=== PATIENT | female | born 1950 | race Caucasian/White ===

== ENCOUNTER → 2018-01-31 12:21 | Outpatient (CLI) | payer MEDICARE, SELFPAY ==
--- NOTE | 2018-01-31 12:24 | BI_ITS ---
MAMMOGRAPHY - BILATERAL SCREENING REASON FOR EXAM: Female, 67 years old. Routine annual screening examination. PERTINENT HISTORY: Grandmother with breast cancer. Prior bilateral stereotactic breast biopsies. TECHNIQUE: Digital bilateral breast manoj (3D mammographic acquisition) in the CC and MLO projections. 2-D mediolateral oblique (MLO) and craniocaudad (CC) views of both breasts were obtained. CAD: Full Field Digital Mammography with Computer Added Detection was performed. COMPARISON: Comparison is made with prior study dated January 01, 2017 and December 30, 2015. FINDINGS: Breast Composition: The breasts are heterogeneously dense, which may obscure small masses. There are no dominant masses or suspicious calcifications. Stable appearance of the diffuse bilateral microcalcifications. Bilateral tissue markers are seen. No other significant abnormalities are identified. There has been no significant change since the prior study. BI/SCREENING MAMM (CAD), BILAT IMPRESSION: Stable bilateral screening mammogram. Yearly follow-up mammogram recommended. (A) ASSESSMENT CATEGORY: BIRADS Category 2: Benign. A letter regarding these results will be sent to the patient by the facility within 30 days. Approximately 10% of breast cancers are not detected by mammography. A normal mammogram should not delay biopsy of a clinically suspicious abnormality. [id number] Electronically Signed: James Baker MD at 14:38 EDT Tel [phone], Service support ,
--- NOTE | 2018-01-31 12:30 | BD_ITS ---
STUDY: DUAL ENERGY X-RAY ABSORPTIOMETRY / DXA REASON FOR EXAM: Female, 67 years old. The patient is postmenopausal. Loss of height. TECHNIQUE: Bone Mineral Density (BMD) measurements of lumbar spine and bilateral hips were obtained. COMPARISON: Comparison is made with prior study dated May 20, 2002. FINDINGS: Lumbar Spine (L1-L4): g/cm2 (1.278) / T-score (0.6) / Z-score (2.3) Findings are suggestive of normal bone density with a low fracture risk. Left Femur Total: g/cm2 (0.859) / T-score (-1.2) / Z-score (0.2) Left Femoral Neck: g/cm2 (0.902) / T-score (-1.0) / Z-score (0.7) Right Femur Total: g/cm2 (0.859) / T-score (-1.2) / Z-score (0.2) Right Femoral Neck: g/cm2 (0.911) / T-score (0.9) / Z-score (0.7) The T-Scores on the most recent prior examination were: Lumbar Spine (L1-L4): There has been worsening of bone density since the previous examination. Left Femur Total: which represents a worsening of 15.5%. BD/Dexa Bone Density Study IMPRESSION: The patient is considered osteopenic as outlined below according to World Geoff Organization (WHO) criteria with a moderate fracture risk. There has been worsening of bone density since the previous examination. Reference Information: The T-score is the number of standard deviations above or below the standard which is normal for young adults at their peak bone mineral density. The World Health Organization (WHO) interprets the T-scores as follows: Above -1 Normal bone density Between -1 and -2.5 Osteopenia Equal to / or below -2.5 Osteoporosis As a practical clinical guideline, osteopenia may be graded as follows: Mild -1 through -1.5 Moderate -1.6 through -2.0 Severe -2.1 through -2.4 The Z-score is the number of standard deviations above or below age-matched controls. A Z-score of less than -1.5 would be considered abnormal. References: 1. NIH Osteoporosis and Related Bone Diseases http://www.osteo.org 2. International Society for Clinical Densitometry http://www.iscd.org 3. National Osteoporosis Foundation http://www.nof.org Electronically Signed: James Baker MD at 13:52 EDT Tel [phone], Service support ,
== END ==
PROVIDERS: Family Provider Internal Medicine; PCP Internal Medicine; Visit Provider Internal Medicine
DX: Z12.31 Encounter for screening mammogram for malignant neoplasm of breast (principal); Z78.0 Asymptomatic menopausal state
CPT/HCPCS: 77063; 77067; 77080

== ENCOUNTER 2018-07-01 09:51 | Day surgery (SDC) | payer MEDICARE, SELFPAY ==
--- NOTE | 2018-06-24 15:26 | EKG12_ITS ---
Test Reason : PREOP Blood Pressure : / mmHG Vent. Rate : 065 BPM Atrial Rate : 065 BPM P-R Int : 190 ms QRS Dur : 066 ms QT Int : 396 ms P-R-T Axes : 037 011 023 degrees QTc Int : 411 ms Normal sinus rhythm Low voltage QRS Borderline ECG Confirmed by VALENTIN ROJAS, HARVEY ([id number]), video editor MARLEN MAYS ([id number]) on 06/25/2018 2:28:14 PM Referred By: Robert Lozada Confirmed By:HARVEY HANSON MD
[2018-06-24 17:09] LABS: Hematocrit 38.2 % (37-47); Hemoglobin 12.4 g/dl (12.0-15.0); Mean Corp Hgb Conc 32.5 g/gl (32-36); Mean Corpuscular Volume 101.6 fL (81-99); Mean Platelet Vol. 9.3 fl (6.2-12.0); Platelet Count 228 K/mm3 (150-450); RBC Distribution Width CV 12.9 % (11.6-14.6); Red Blood Count 3.76 M/mm3 (4.2-5.4); White Blood Count 5.3 K/mm3 (4.4-11.0)
[2018-06-24 17:14] LABS: Scan Indicated on CBC? Y/N NO
[2018-06-24 17:54] LABS: Anion Gap 9 (5-15); BUN 25 mg/dL (7-18); BUN/Creat Ratio 36.4 RATIO (10-20); Calcium,Total 9.4 mg/dL (8.5-10.1); Chloride 105 mmol/L (98-107); Creatinine, Serum 0.69 mg/dL (0.55-1.02); EST Glomerular Filtration Rate 90 mL/min (>60); Est Glom Filt Rate - Afr Amer 109 mL/min (>60); Glucose 80 mg/dL (74-106); Potassium 4.4 mmol/L (3.5-5.1); Sodium Level 141 mmol/L (136-145)
[2018-07-01] VITALS (7 sets, daily range): BP systolic 98–138; BP diastolic 69–82; PULSE 65–78; RESP 16–18; TEMP 36.1–37.2; O2SAT 97–100; BMI 19.8
[2018-07-01] MEDS: Cefazolin 2 GM in 0.9% Normal Saline 100 ML IV (11:51)
--- NOTE | 2018-07-01 11:56 | DCINST_ITS ---
Discharge Diet: Light diet - advance as tolerated - if you have questions about your diet instructions, please talk to you doctor. Discharge Activity: May Not Drive - for 1 week or while taking narcotic pain medicine. May shower in (days): 1 Lifting Restrictions: 10 pounds Call your doctor if your incision/area has: Continuous Slow Oozing, Sudden Increased Bleeding, Increased Pain/ Swelling, Increased Redness, Foul Smelling Discharge Call your doctor if you observe: Fever of 101 or Higher Suture Line Care: Avoid Pulling/Pushing, Avoid Pinching/Bending Additional Dressing/Incision Instructions:: Change or remove dressing in 4 days. Leave steri-strips in place for 1 week. Allergies/Adverse Reactions: Allergies garlic Adverse Reaction (Verified 06/24/18 11:07) Nausea/Vom/Diarrhea Medications to take at Discharge Magnesium 250 mg PO DAILY 06/24/18 aspirin 81 mg tablet,delayed release 81 mg PO DAILY 06/24/18 biotin 5,000 mcg sublingual tablet 5,000 mcg SUBLINGUAL DAILY 06/24/18 calcium carbonate 333 mg-magnesium oxide 133 mg-zinc sulf 5 mg tablet 3 tab PO DAILY 06/24/18 cholecalciferol (vitamin D3) 5,000 unit capsule 5,000 unit PO DAILY 06/24/18 coenzyme [id number] E 100 mg-100 unit capsule 1 cap PO DAILY cap 06/24/18 gabapentin 300 mg capsule 300 mg PO TID 06/24/18 glucosamine 750 ks-dajiifbsiqg-fld no1 625 mg-C 30 mg-oj 1 mg tablet 1 tab PO BID tab 06/24/18 krill oil 1,000 mg-om3 130 mg-dha 40 mg-epa 80 lu-lg6-siv-astax cap 1 cap PO DAILY cap 06/24/18 meloxicam 15 mg tablet 15 mg PO DAILY 06/24/18 multivitamin tablet 1 tab PO DAILY 06/24/18 pravastatin 40 mg tablet 40 mg PO DAILY 06/24/18 vitamin B complex tablet 1 tab PO DAILY 06/24/18 Hydrocodone Bitart/Apap 5-325 [[place] 5MG-325MG] 1 tablet PO Q6H PRN PRN 2 Days #5 tablet 07/01/18 The following prescriptions were given: Hydrocodone Bitart/Apap 5-325 [[place] 5MG-325MG] 1 tablet PO Q6H PRN PRN 2 Days #5 tablet PRN Reason: Pain Primary Care Physician: Susan Rojas DO [Primary Care Provider] - Test Results: Test results from this visit will be discussed in further detail at your follow- up appointment, if applicable. Please Follow Up With: Robert Lozada MD - [phone] When: Call to make an appointment to be seen in about 10 days.
--- NOTE | 2018-07-01 12:00 | HERN_PTH ---
PATIENT: MEL JOHNSON [place] [facility] [place][id number] AGE/SX: 68/F ROOM: RE07/01/[address]: Dr. Robert Lozada MD : [id number] BED: DIS: 07/01/2018 SPEC #: [id number] RECD: 07/01/18 13:52 STATUS: CAPRI JESSICA #: [id number] ADRIANO: 07/01/18 12:[address]: Robert Lozada DEPT: SURGICAL PATHOLOGY RECD BY: Galindo Seymour ENTERED: 07/01/18 14:29 SP TYPE: Hernia OTHR DR: Dr. Susan Rojas, DO Tissues: HERNIA Procedures: Surgery Specimen Level IV HEADER OPERATION: Right inguinal herniorrhaphy with mesh PRE-OP DIAGNOSIS: Right inguinal hernia TISSUE SUBMITTED: Right inguinal cremasteric fibers MICROSCOPIC DIAGNOSIS Right inguinal cremasteric fibers, biopsy: Fragments of benign fibrovascular tissue and skeletal muscle tissue. AM:facundo 07/02/18 MICROSCOPIC DESCRIPTION Slides are reviewed. GROSS DESCRIPTION Received in fixative is one container labeled with the patient's name and designated right inguinal cremasteric fibers. The specimen consists of an irregular piece of skinner soft tissue measuring 2.5 x 2 x 0.3 cm. Sections do not reveal any mass lesion. The entire specimen is submitted in one cassette. / SJ:facundo 07/01/18 TC:5 CPT: 95404
[2018-07-01] MEDS: Bupivacaine Mpf 0.5% 30 ML VIAL (12:09)
--- NOTE | 2018-07-01 12:48 | PCM.OPRPT ---
Problem List (1) Inguinal hernia Status: Acute Qualifiers: Obstruction and gangrene presence: without obstruction or gangrene Laterality: unilateral Recurrence: non-recurrent Qualified Code(s): K40.90 - Unilateral inguinal hernia, without obstruction or gangrene, not specified as recurrent Report of Operation Date of Procedure: 07/01/18 Pre-Operative Diagnosis: Indirect right inguinal hernia Post-Operative Diagnosis: Same Surgery/Procedure Performed:: Minda right inguinal herniorrhaphy Description of Surgical Findings:: Amount informed consent was obtained. 68-year-old female taken out from placement table underwent monitored anesthesia care. 1% lidocaine mixed 50-50 with 0.5% Marcaine was used as local anesthetic. Throughout the procedure total of 13 cc was used. The right groin was sterilely prepped and draped. Local was instilled. A transverse incision was created. Sharp dissection carried down through the substance tissue. The external oblique identified incised along its fascia. Hypertrophic cremasteric fibers were incised. Indirect hernia sac was identified this was dissected free from the round ligament. The round ligament was divided and secured with 3-0 Vicryl. Then the transversalis fascia was approximated to itself starting the pubic tubercle to the internal ring resecuring the defect in a running simple fashion. A sheet of Bard mesh [facility]aped [facility] number [id number] with a reference number of [id number] expiry date 02/18/2023 was utilized. The tails were trimmed laterally. Was placed around the internal ring and secured to itself with interrupted 3-0 Ethibond. Was placed so as to cover the pubic tubercle direct and indirect space. The tails nicely placed beneath the external oblique. The mesh was secured in place with multiple interrupted 3-0 Ethibond tacking sutures. Good placement was achieved. The external oblique was approximated running 3-0 Vicryl. Skin is approximated with deep layer of interrupted 4-0 Monocryl in a running septic or 4-0 Monocryl. Steri-Strips Telfa and OpSite dressings applied. Sponge and instrument and needle counts were reported the surgeon to be correct. Blood loss minimal. Specimens fragments of cremasteric fibers. Drains none. Blood loss minimal She was taken to the recovery area in satisfactory condition without apparent complication Robert Lozada M.D., F.A.C.S. Type of Anesthesia:: Local MAC Anesthesiologist: Jazz Heller
--- NOTE | 2018-07-01 12:51 | OP.PCM_ITS ---
Problem List (1) Inguinal hernia Status: Acute Qualifiers: Obstruction and gangrene presence: without obstruction or gangrene Laterality: unilateral Recurrence: non-recurrent Qualified Code(s): K40.90 - Unilateral inguinal hernia, without obstruction or gangrene, not specified as recurrent Report of Operation Date of Procedure: 07/01/18 Pre-Operative Diagnosis: Indirect right inguinal hernia Post-Operative Diagnosis: Same Surgery/Procedure Performed:: Minda right inguinal herniorrhaphy Description of Surgical Findings:: Amount informed consent was obtained. 68-year-old female taken out from placement table underwent monitored anesthesia care. 1% lidocaine mixed 50-50 with 0.5% Marcaine was used as local anesthetic. Throughout the procedure total of 13 cc was used. The right groin was sterilely prepped and draped. Local was instilled. A transverse incision was created. Sharp dissection carried down through the substance tissue. The external oblique identified incised along its fascia. Hypertrophic cremasteric fibers were incised. Indirect hernia sac was identified this was dissected free from the round ligament. The round ligament was divided and secured with 3-0 Vicryl. Then the transversalis fascia was approximated to itself starting the pubic tubercle to the internal ring resecuring the defect in a running simple fashion. A sheet of Bard mesh preshaped [facility] lot number [id number] with a reference number of [id number] expiry date 02/18/2023 was utilized. The tails were trimmed laterally. Was placed around the internal ring and secured to itself with interrupted 3-0 Ethibond. Was placed so as to cover the pubic tubercle direct and indirect space. The tails nicely placed beneath the external oblique. The mesh was secured in place with multiple interrupted 3-0 Ethibond tacking sutures. Good placement was achieved. The external oblique was approximated running 3-0 Vicryl. Skin is approximated with deep layer of interrupted 4-0 Monocryl in a running septic or 4-0 Monocryl. Steri-Strips Telfa and OpSite dressings applied. Sponge and instrument and needle counts were reported the surgeon to be correct. Blood loss minimal. Specimens fragments of cremasteric fibers. Drains none. Blood loss minimal She was taken to the recovery area in satisfactory condition without apparent complication Robert Lozada M.D., F.A.C.S. Type of Anesthesia:: Local MAC Anesthesiologist: Jazz Heller
== END 2018-07-01 14:01 | disposition home or self-care (01) ==
LOC: SDC 09:52 → AC 09:53
PROVIDERS: Family Provider Internal Medicine; PCP Internal Medicine; Referring Provider Surgery; Visit Provider Surgery
PROC: (CPT 49505; principal; 2018-07-01 11:45)
DX: K40.90 Unilateral inguinal hernia, without obstruction or gangrene, not specified as recurrent (principal); E78.00 Pure hypercholesterolemia, unspecified; Z79.899 Other long term (current) drug therapy; Z79.82 Long term (current) use of aspirin; Z87.891 Personal history of nicotine dependence
CPT/HCPCS: 49505; 36415; 80048; 85027; 88302; 88305; 93005; J7120; C1781; J2405

== ENCOUNTER → 2018-08-19 14:44 | Outpatient (CLI) | payer MEDICARE, SELFPAY ==
[2018-07-01 10:10] VITALS: BMI 19.8
--- NOTE | 2018-08-19 14:48 | RAD_ITS ---
STUDY: X-RAY - RIGHT HAND REASON FOR EXAM: Female, 68 years old. Pain, no injury TECHNIQUE: 3 view(s) of the hand. COMPARISON: None. FINDINGS: There is particularly juxta-articular osteopenia. Normal radiocarpal articulation. Normal distal radioulnar joint. Normal visualized carpal bones. There is degenerative joint disease of the scaphotrapezium / trapezoid articulation. The remainder of the carpal articulations are normal. There is degenerative arthrosis of the carpometacarpal articulation of the thumb with lateral subluxation of the first metacarpus. Normal second through fifth carpometacarpal joints. Normal metacarpi. There is mild degenerative arthrosis of the metacarpophalangeal (MCP) joints. Normal interphalangeal joint of the thumb. Normal proximal and distal phalanges of the thumb. Normal metacarpophalangeal joints of the second through fifth fingers. Mild arthrosis of the proximal and distal interphalangeal joints of the second through fifth fingers. Normal phalanges of the second through fifth fingers. The soft tissue structures are unremarkable. RAD/Hand Min 3 Views IMPRESSION: Degenerative joint disease of the hand and wrist, as described above. Osteopenia. Electronically Signed: Iram Rivera MD at 2:36 EST , Service support ,
--- NOTE | 2018-08-19 14:51 | RAD_ITS ---
STUDY: X-RAY - LEFT HAND REASON FOR EXAM: Female, 68 years old. Pain, no injury TECHNIQUE: 3 view(s) of the hand. COMPARISON: None. FINDINGS: There is juxta articular osteopenia, less than compared to the contralateral side. Normal radiocarpal articulation. Normal distal radioulnar joint. Normal visualized carpal bones. Normal carpal articulations There is degenerative arthrosis of the carpometacarpal articulation of the thumb with lateral subluxation of the first metacarpus. Normal second through fifth carpometacarpal joints. Normal metacarpi. Normal metacarpophalangeal joint of the thumb. Normal interphalangeal joint of the thumb. Normal proximal and distal phalanges of the thumb. Normal metacarpophalangeal joints of the second through fifth fingers. Normal proximal and distal interphalangeal joints of the second through fifth fingers. Normal phalanges of the second through fifth fingers. The soft tissue structures are unremarkable. RAD/Hand Min 3 Views IMPRESSION: Mild degenerative changes centered at the first carpometacarpal joint with lateral subluxation. Juxta-articular osteopenia. Electronically Signed: Iram Rivera MD at 2:41 EST , Service support ,
--- OUTSIDE RECORDS SUMMARY | 2018-10-01 12:50 | XMS RPT_ITS | Continuity of Care Document ---
:1950 Author Organization [facility] Address [address] [facility] [address] [place] [address] Phone Care Team Providers Name Role Phone Susan Rojas DO Unavailable [facility], [facility] Unavailable Dr. Kimo Ferreira Unavailable Angus ROJAS, Nilo Rubio Unavailable Jaya DENNIS MD , Nilo Rubio Unavailable CHARLES Rodrigues Unavailable Unavailable Jignesh Romero Unavailable Unavailable Carolee Hendricks Unavailable Unavailable Unavailable Unavailable Problems Name Dates Details Abnormal WBC count (D72.9, 288.9) Status: Active Abortions/Miscarriages Comments: 2, 1st trimester, miscarriage Status: Active Annual Medicare Phyiscal WITHOUT abnormal findings (Renamed from Encounter for general adult medical examination without abnormal findings) (Z00.00, V70.9) Status: Active Anxiety (F41.9, 300.00) Comments: see if better with treat anxiety Status: Active Body mass index (BMI) 21.0-21.9, adult (Z68.21, V85.1) Status: Active Breast cancer screening (Z12.39, V76.10) Status: Active Carpal tunnel syndrome, left (G56.02, 354.0) Comments: has had ncs emg in past - Status: Active Cervical strain (S16.1XXA, 847.0) Status: Active Chest pain, midsternal (R07.89, 786.51) Status: Active Colon polyp (K63.5, 211.3) Comments: dr in [place] and last scope neg for any polyps - 2014? due in 5yrs Status: Active Colon Polyps, History of (V12.72) Sep-2006 Status: Active Cramping of feet (R25.2, 729.82) Status: Active Degeneration of intervertebral disc of lumbar region (M51.36, 722.52) Comments: sees chronic pain management s/p inj so far -- nsaid gave great relief in addition to generalized oa in hands etc Status: Active Degenerative localized arthritis of hip (M16.9, 715.35) Status: Active Degenerative lumbar spinal stenosis (M48.061, 724.02) Comments: getting nerve blocks and epidurals from [facility]-- used to see Una and got much better results with Felden Status: Active Deliveries (Parity) Comments: 2, Term Status: Active Dysuria (R30.0, 788.1) Status: Active Eczema (L30.9, 692.9) Comments: cortisone creme Status: Active Encounter for Medicare annual wellness exam (Z00.00, V70.0) Status: Active Encounter for screening for malignant neoplasm of colon (Renamed from Special screening for malignant neoplasms, colon) (Z12.11, V76.51) Comments: Dr Nila Malin- 03/2013- h/o pokyps due again now Status: Active Encounter for screening mammogram for breast cancer (Renamed from Encounter for screening mammogram for malignant neoplasm of breast) (Z12.31, V76.12) Comments: mamm up to date 02/08 Status: Active External hemorrhoid, bleeding (K64.4, 455.5) Comments: pt insists this is different than first episode Status: Active Family history of osteoporosis (Z82.62, V17.81) Status: Active Fatigue (R53.83, 780.79) Status: Active GERD (gastroesophageal reflux disease) (K21.9, 530.81) Status: Active hair loss Status: Active Hip pain, bilateral (M25.551, 719.45) Comments: now also has IT banditis prob from compensaitonhistory of lumbar inj -- old chronic pain specialist states pain in hips from lumbar - hasnt had inj in long time bc her old dr off her ins plan- so tried other thjing like accupuncture etc noted in beg of note Status: Active Hot flashes (N95.1, 627.2) Status: Active Hypercholesterolemia (E78.00, 272.0) Comments: pt has done lots of dietary chg Status: Active Iliotibial band tendinitis of left side (M76.32, 728.89) Status: Active Low back pain potentially associated with radiculopathy (M54.5, 724.2) Status: Active Macrocytosis (D75.89, 289.89) Status: Active Migraine (G43.909, 346.90) Comments: clinically stable Status: Active Need for prophylactic vaccination and inoculation against influenza (Renamed from Need for immunization against influenza) (Z23, V04.81) Status: Active Need for zoster vaccination (Z23, V04.89) Status: Active Nonsmoker (Z78.9, V49.89) Status: Active Occlusion and stenosis of unspecified carotid artery (I65.29, 433.10) Status: Active Osteoarthritis of left hand, unspecified osteoarthritis type (M19.042, 715.94) Status: Active Osteoarthritis, chronic (M19.90, 715.90) Status: Active Osteopenia (M85.80, 733.90) Status: Active Osteopenia of both hips (M85.851, 733.90) Status: Active Paresthesia of left arm (R20.2, 782.0) Comments: and left face Status: Active Perioral dermatitis (L71.0, 695.3) Status: Active Pneumococcal vaccination given (Z23, V06.6) Status: Active Postmenopausal (Renamed from Postmenopausal status) (Z78.0, V49.81) Status: Active Postmenopausal (Renamed from Postmenopausal status) (Z78.0, V49.81) Comments: dexa up to date 02/08 Status: Active Pregnancies () Comments: 4 Status: Active ruptured appendex s/p ileocecal resection Comments: improving Status: Active Sinusitis, acute (J01.90, 461.9) Comments: think may be cause of samaniego but told patient if they dont resolve with antiobitic then will need more workup like ct of head she is to call and let me know if better Status: Active Sleep disorder (G47.9, 780.50) Comments: use trazadone Status: Active Tailbone injury, initial encounter (S39.92XA, 959.19) Status: Active Unilateral femoral hernia without obstruction or gangrene, recurrence not specified (K41.90, 553.00) Status: Active Unspecified Diagnosis Status: Active Unspecified Diagnosis Status: Active Unspecified Diagnosis Status: Active Vaginal bleeding, abnormal (N93.9, 623.8) Status: Active Vitamin D deficiency (E55.9, 268.9) Status: Active Vitamin deficiency (E56.9, 269.2) Status: Active Weight loss (R63.4, 783.21) Status: Active Medications Name Dates Details Alpha Lipoic Acid 200 MG Oral Capsule Active 3 qd (200 MG) Alpha-Lipoic Acid 600 MG Oral Capsule Active 1 qd (600 MG) ASPIRIN LOW DOSE, 81MG (Oral Tablet) Active 1 tab qd (81 MG) Bio Indentical Hormone cream Active apply on thigh bid Comments: compound cream BIOTIN 5000, 5MG (Oral Capsule) 1 (one) Capsule daily for 30 days Quantity: 30 {Capsule} Refills: 0 Ordered:04-Jan-2016 Luann Krishna DO Start : 04-Jan-2016 Active CALCIUM 600+D, 299-486ED-MPJE (Oral Tablet) 1 (one) Tablet daily for 30 days Refills: 0 Ordered:30-Aug-2015 Celsa ROSALES Magdalena Start : 30-Aug-2015 Active CO Q10, 200MG (Oral Capsule) 1 cap qd (200 MG) Active Gabapentin 300 MG Oral Capsule 1 (one) Capsule qhs and bid prn for 0 days Quantity: 180 {Capsule} Refills: 3 Ordered:30-Jul-2017 Eduarda oRjas DO, DO, Kathleen Start : 30-Jul-2017 Active Gabapentin 300 MG Oral Capsule 1 (one) Capsule qhs and bid prn for 0 days Quantity: 90 {Capsule} Refills: 0 Ordered:30-Jul-2017 Eduarda Rojas DO, DO, Kathleen Start : 30-Jul-2017 Active Comments:ninety Glucosamine-Chondroitin Oral Capsule 1 qd Active Krill Oil 300 MG Oral Capsule 1 (one) Capsule Capsule daily for 0 days Quantity: 30 {Capsule} Refills: 0 Ordered:04-May-2016 Alayna Rodrigues LPN Start : 19-Apr-2016 Active Meloxicam 15 MG Oral Tablet 1 tab Tablet daily for 90 days Quantity: 90 {Tablet} Refills: 3 Ordered:13-Aug-2018 Trixie Steen CNP Start : 13-Aug-2018 Active MULTIVITAMIN (PO Tab) 1 tab qd Active Pravachol 40 MG Oral Tablet 1 1/2 Tablet QD for 90 days Quantity: 135 {Tablet} Refills: 3 Ordered:31-Dec-2017 Eduarda Rojas DO, DO, Kathleen Start : 31-Dec-2017 Active Pravachol 40 MG Oral Tablet 1 1/2 Tablet QD for 0 days Quantity: 135 {Tablet} Refills: 3 Ordered:31-Dec-2017 Eduarda Rojas DO, DO, Kathleen Start : 31-Dec-2017 Active PRESERVISION/LUTEIN (Oral Capsule) 1 cap daily Active VITAMIN B-12, 1000MCG (Oral Tablet) 1 tab daily (1000 MCG) Active VITAMIN D3, 2000UNIT (Oral Tablet Chewable) 1 Tablet Chewable qd for 0 days Quantity: 30 {Tablet_Chewable} Refills: 3 Ordered:05-Feb-2012 Kiarra Walker Start : 06-Nov-2011 Active AMRIX, 30MG (Oral Capsule Extended Release 24 Hour) 1 Capsule ER 24HR daily at supper prn for 0 days Quantity: 10 {Capsule_ER_24HR} Refills: 0 Ordered:22-Nov-2010 DAINAA Bey Start : 08-Jul-2010 End : 22-Nov-2010 Inactive AUGMENTIN, 875-125MG (Oral Tablet) 1 Tablet bid for 14 days Quantity: 28 {Tablet} Refills: 0 Ordered:14-Jul-2015 Luann Krishna DO Start : 14-Jul-2015 End : 28-Jul-2015 Inactive Bactrim DS 800-160 MG Oral Tablet 1 Tablet bid for 10 days Quantity: 20 {Tablet} Refills: 0 Ordered:12-Dec-2016 Celsa ROSALES Magdalena Start : 12-Dec-2016 End : 22-Dec-2016 Inactive BENZACLIN, 1-5% (External Gel) apply Gel bid for 0 days Quantity: 30 {Gel} Refills: 1 Ordered:22-Nov-2010 DAIANA Bey Start : 26-Apr-2010 End : 22-Nov-2010 Inactive BONIVA, 150MG (Oral Tablet) Tablet month for 0 days Quantity: 1 {Tablet} Refills: 6 Ordered:07-Jan-2009 DAIANA Bey Start : 07-Jan-2009 Inactive Comments:changed to Fosomax [id number]-[id number]-6, 0.1MG/24HR (Transdermal Patch Weekly) 1 Patch Weekly change weekly for 0 days Quantity: 4 {Patch_Weekly} Refills: 3 Ordered:27-Dec-2010 DAIANA Bey Start : 07-Dec-2010 End : 27-Dec-2010 Inactive CIPRO, 500MG (Oral Tablet) 1 Tablet bid for 10 days Quantity: 20 {Tablet} Refills: 0 Ordered:06-Nov-2011 Tomi DO, Luann A Start : 06-Nov-2011 End : 16-Nov-2011 Inactive CLEOCIN-T, 1% (External Lotion) apply bid for 0 days Refills: 0 Ordered:22-Nov-2010 DAIANA Bey End : 22-Nov-2010 Inactive CLONIDINE HCL, 0.1MG (Oral Tablet) 1 Tablet qhs for 0 days Quantity: 30 {Tablet} Refills: 6 Ordered:10-Feb-2011 DAIANA Bey Start : 13-Jan-2011 End : 10-Feb-2011 Inactive CLONIDINE HCL, 0.1MG/24HR (Transdermal Patch Weekly) 1 Patch Weekly q weekly for 0 days Quantity: 12 {Patch_Weekly} Refills: 3 Ordered:29-Dec-2010 Jamilah Clancy LPN Start : 27-Dec-2010 End : 29-Dec-2010 Inactive Comments:ID# [id number] Cymbalta 30 MG Oral Capsule Delayed Release Particles 1 (one) Capsule DR Part qd x 1 wk, then 60mg qd after for 30 days Quantity: 7 {Capsule} Refills: 0 Ordered:02-Feb-2017 Anabella Dia Start : 02-Feb-2017 End : 04-Mar-2017 Inactive Cymbalta 60 MG Oral Capsule Delayed Release Particles 1 (one) Capsule DR Part qd for 0 days Quantity: 30 {Capsule} Refills: 3 Ordered:07-May-2017 Anabella Dia Start : 02-Feb-2017 End : 07-May-2017 Inactive DELSYM, 30MG/5ML (Oral Liquid Extended Release) 1 (one) Liquid ER bid for 0 days Quantity: 6 {Ounce} Refills: 0 Ordered:13-Apr-2014 Anabella Dia Start : 27-Feb-2014 End : 13-Apr-2014 Inactive DICLOXACILLIN SODIUM, 250MG (Oral Capsule) 1 (one) Capsule qid for 10 days Quantity: 40 {Capsule} Refills: 0 Ordered:16-Jun-2009 Trixie Steen CNP Start : 16-Jun-2009 End : 01-Jul-2009 Inactive DOXYCYCLINE HYCLATE, 100MG (Oral Capsule) 1 Capsule bid for 0 days Quantity: 180 {Capsule} Refills: 3 Ordered:21-Jun-2011 May De Anda LPN Start : 22-Nov-2010 End : 21-Jun-2011 Inactive EVISTA, 60MG (Oral Tablet) 1 Tablet qd for 0 days Quantity: 90 {Tablet} Refills: 3 Ordered:21-Jun-2011 May De Anda LPN Start : 24-Oct-2010 End : 21-Jun-2011 Inactive GLUCOSAMINE CHONDR 500 COMPLEX (Oral Capsule) 1 QD for 0 days Refills: 0 Ordered:22-Nov-2010 DAIANA Bey End : 22-Nov-2010 Inactive HYDROQUINONE, 2% (External Cream) Cream QD for 0 days Quantity: 1 {Cream} Refills: 0 Ordered:06-Sep-2006 May De Anda LPN Start : 06-Sep-2006 End : 11-Jan-2007 Inactive No current meds at this time since d/c from hosp Inactive Norvasc 2.5 MG Oral Tablet 1 (one) Tablet Tablet daily for 0 days Quantity: 30 {Tablet} Refills: 0 Ordered:17-Jan-2017 Alayna Rodrigues LPN Start : 19-Apr-2016 End : 17-Jan-2017 Inactive PredniSONE 20 MG Oral Tablet 1 (one) Tablet bid for 2days then qd for 4days for 0 days Quantity: 8 {Tablet} Refills: 0 Ordered:07-May-2017 Anabella Dia Start : 17-Jan-2017 End : 07-May-2017 Inactive PRESERVISION AREDS (Oral Capsule) 1 QD for 0 days Refills: 0 Ordered:21-Jun-2011 May De Anda LPN End : 21-Jun-2011 Inactive Proctosol HC 2.5 % Rectal Cream apply Cream Cream daiily, prn for 0 days Quantity: 1 {Tube} Refills: 0 Ordered:30-Jul-2017 Alayna Rodrigues LPN Start : 05-Oct-2016 End : 30-Jul-2017 Inactive PYRIDIUM, 100MG (Oral Tablet) 1 Tablet TID for 2 days Quantity: 10 {Tablet} Refills: 0 Ordered:11-Nov-2007 May De Anda LPN Start : 11-Nov-2007 End : 14-Nov-2007 Inactive TESSALON PERLES, 100MG (Oral Capsule) 1 Capsule tid prn cough for 0 days Quantity: 30 {Capsule} Refills: 0 Ordered:13-Apr-2014 WichojaninanancyTrinaAnabella Start : 27-Feb-2014 End : 13-Apr-2014 Inactive TraZODone HCl 50 MG Oral Tablet 1 (one) Tablet Tablet qd at bedtime as needed for 0 days Quantity: 30 {Tablet} Refills: 2 Ordered:17-Jan-2017 Alayna Rodrigues LPN Start : 10-Dec-2015 End : 17-Jan-2017 Inactive Comments:Medication taken as needed. TRILIPIX, 135MG (Oral Capsule Delayed Release) [address] qd for 0 days Quantity: 30 {Capsule_DR} Refills: 3 Ordered:08-Feb-2012 May De Anda LPN Start : 05-Feb-2012 End : 08-Feb-2012 Inactive VITAMIN B COMPLEX-C (Oral Capsule) 1 (one) Capsule daily for 30 days Refills: 0 Ordered:10-Dec-2015 Trixie Steen CNP Start : 30-Aug-2015 End : 29-Sep-2015 Inactive VITAMIN E, 200UNIT (Oral Tablet) 1 (one) Tablet daily for 30 days Refills: 0 Ordered:10-Dec-2015 Trixie Steen CNP Start : 30-Aug-2015 End : 29-Sep-2015 Inactive Alleviate End : 15-Dec-2013 Discontinued Anucort-HC 25 MG Rectal Suppository 1 (one) Suppository bid for 0 days Quantity: 1 {Box} Refills: 0 Ordered:05-Oct-2016 Kiarra Walker Start : 04-Oct-2016 End : 05-Oct-2016 Discontinued Cipro 250 MG Oral Tablet bid x 7 days (250 MG) End : 12-Dec-2016 Discontinued Comments:called to in [place] [phone] - phone on 11/29/16 cmanchak CRESTOR, 10MG (Oral Tablet) Tablet QD for 0 days Quantity: 60 {Tablet} Refills: 6 Ordered:24-Oct-2006 May De Anda LPN Start : 24-Oct-2006 End : 07-Oct-2007 Discontinued DOXY-CAPS, 100MG (Oral Capsule) 1 (one) Capsule bid for 0 days Quantity: 60 {Capsule} Refills: 1 Ordered:10-Feb-2011 DAIANA Bey Start : 26-Apr-2010 End : 10-Feb-2011 Discontinued Comments:This order discontinued per [facility]. FEXOFENADINE HCL, 60MG (Oral Tablet) 1 (one) Tablet Tablet bid for 0 days Quantity: 30 {Tablet} Refills: 0 Ordered:30-Aug-2015 Thania Orr LPN Start : 27-Feb-2014 End : 30-Aug-2015 Discontinued FOSAMAX, 70MG (Oral Tablet) 1 (one) Tablet q weekly for 0 days Quantity: 4 {Tablet} Refills: 6 Ordered:22-Aug-2010 Mast Lauren SHEA Start : 22-Aug-2010 End : 22-Aug-2010 Discontinued MUPIROCIN CALCIUM, 2% (Nasal Ointment) 1 (one) Ointment bid for 5 days Quantity: 1 {Ointment} Refills: 3 Ordered:16-Jun-2009 DAIANA Bey Start : 16-Jun-2009 End : 22-Nov-2010 Discontinued Comments:This order discontinued per [facility]. NASACORT ALLERGY 24HR, 55MCG/ACT (Nasal Aerosol) 2 sprays each nostril daily, prn (55 MCG/ACT) End : 30-Aug-2015 Discontinued Phyto B 4 tabs qd End : 15-Dec-2013 Discontinued PRESERVISION AREDS (Oral Capsule) 1 cap qd End : 04-Jan-2016 Discontinued PROAIR HFA, 108 (90 Base)MCG/ACT (Inhalation Aerosol Solution) 2 (two) Puff Puff tid for 0 days Quantity: 1 {Inhaler} Refills: 0 Ordered:30-Aug-2015 Thania Orr LPN Start : 27-Feb-2014 End : 30-Aug-2015 Discontinued RHINOCORT AQUA, 32MCG/ACT (Nasal Suspension) Unsure Unsure for 0 days Refills: 0 Ordered:21-Nov-2007 May De Anda LPN End : 06-Sep-2006 Discontinued VIT BALANCED B-100 (Oral Tablet) 1 QD for 0 days Refills: 0 Ordered:22-Nov-2010 DAIANA Bey End : 22-Nov-2010 Discontinued Comments:This order discontinued per [facility]. VITAMIN C, 1000MG (Oral Tablet) 1 tab qd (1000 MG) End : 15-Dec-2013 Discontinued VITAMIN D, 62186SP (PO Cap) 1 QD for 0 days Refills: 0 Ordered:22-Nov-2010 DAIANA Bey End : 22-Nov-2010 Discontinued Comments:This order discontinued per [facility]. VITAMIN E, 100UNIT (Oral Capsule) 1 QD for 0 days Refills: 0 Ordered:10-Jan-2008 DAIANA Bey End : 10-Jan-2008 Discontinued ZOMIG, 2.5MG (Oral Tablet) 1 PRN for 0 days Refills: 0 Ordered:21-Nov-2007 May De Anda LPN End : 06-Sep-2006 Discontinued Allergies and Adverse Reactions Name Dates Details No Known Allergies (Allergy) Onset: 13-Apr-2014 Status: Active No Known Drug Allergies (Allergy) Status: Active Past Medical History Name Dates Details Abdominal pain, acute, generalized (R10.84, 789.07) Status: Resolved as of 07-Aug-2011 Abnormal blood chemistry (R79.9, 790.6) Status: Resolved as of 05-Feb-2012 Abnormal mammogram (R92.8, 793.80) Status: Inactive as of 04-May-2016 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00, 595.0) Status: Inactive as of 09-Apr-2009 Diarrhea (R19.7, 787.91) Status: Resolved as of 07-Aug-2011 Epigastric pain (R10.13, 789.06) Status: Resolved as of 07-Aug-2011 Hematuria (R31.9, 599.70) Status: Inactive as of 30-Jul-2017 Hematuria (R31.9, 599.7) Status: Inactive as of 26-Feb-2016 Hyperglyceridemia (E78.1, 272.1) Status: Inactive as of 26-Feb-2016 Hyperlipidemia (E78.5, 272.4) Comments: realvic y needs ldl around 70- discuss diet and ex Status: Inactive as of 26-Feb-2016 Hypertension (I10, 401.9) Comments: stopped her meloxicam and readings are better at home diaries --ekg done in march 2016 Status: Inactive as of 24-May-2016 Impetigo (L01.00, 684) Status: Inactive as of 24-May-2016 indigestion Status: Inactive as of 09-Apr-2009 Insect bite (W57.XXXA, 919.4) Status: Resolved as of 28-Oct-2014 Iron deficiency anemia, unspecified (D50.9, 280.9) Status: Resolved as of 04-May-2016 Joint pain (M25.50, 719.40) Status: Inactive as of 26-Feb-2016 LACERATION, NOS Comments: cutting green pepper with knife Status: Resolved as of 15-Dec-2013 Low back pain (M54.5, 724.2) Status: Inactive as of 26-Feb-2016 Myalgia and myositis (729.1) Status: Inactive as of 26-Feb-2016 Neck pain (M54.2, 723.1) Comments: after chiropracitc adjustment Status: Inactive as of 30-Jul-2017 Need for prophylactic vaccination and inoculation against influenza (Z23, V04.81) Status: Inactive as of 15-Dec-2013 Nipple lesion (N64.9, 611.89) Comments: ? nipple white lesion will use warm moist complex Status: Resolved as of 30-Jul-2017 Other chest pain (R07.89, 786.59) Status: Resolved as of 15-Dec-2013 Pain of hand, unspecified laterality (M79.643, 729.5) Status: Inactive as of 09-Apr-2009 Pleural effusion (J90, 511.9) Status: Resolved as of 07-Aug-2011 Postmenopausal bleeding (N95.0, 627.1) Status: Inactive as of 30-Aug-2009 Post-viral cough syndrome (R05, 786.2) Status: Resolved as of 28-Oct-2014 Sacroiliac pain (M53.3, 724.6) Comments: secondary to mild degeneration Status: Inactive as of 26-Feb-2016 Screening Status: Inactive as of 15-Dec-2013 screening Status: Inactive as of 15-Dec-2013 screening Status: Inactive as of 28-Oct-2014 Screening for HPV (human papillomavirus) (Z11.51, V73.81) Status: Inactive as of 15-Dec-2013 Swelling of limb (M79.89, 729.81) Status: Inactive as of 26-Feb-2016 Tick bite, initial encounter (W57.XXXA, 919.4) Status: Inactive as of 30-Jul-2017 toe pain (Renamed from toe pain\) Comments: lacey tape if not better. Status: Inactive as of 09-Apr-2009 Unspecified Diagnosis Status: Inactive as of 15-Dec-2013 Unspecified Diagnosis Status: Inactive as of 15-Dec-2013 Unspecified open wound of other finger without damage to nail, initial encounter (S61.208A, 883.0) Status: Resolved as of 15-Dec-2013 UTI symptoms (R39.9, 788.99) Status: Inactive as of 30-Jul-2017 vaginal pain Comments: related to estrogen def. talk about otc meds try first creams not work prescription Status: Inactive as of 09-Apr-2009 Well woman exam with routine gynecological exam (Z01.419, V72.31) Status: Inactive as of 13-Nov-2014 Well woman exam with routine gynecological exam (Z01.419, V72.31) Comments: due for colonscopy -12 Status: Inactive as of 15-Dec-2013 Procedures Procedure Dates Details Appendectomy Completed Comments: micah 2010 breast biopsy Completed Comments: december 2015 Cholecystectomy Completed Comments: 2010 Date Value Details 09-Jul-2018 Surgery Visit Report Result: Comments: See Note; NOTES: [facility] [address] [place], [place] [address] OFFICE VISIT Date of Service: 07/09/18 MR#: [id number] Acct: [id number] Name: MEL PEARL Rep #: [id number] : 1950 Provider: Ana Monae PA-C Age/Sex: 68/F [place] [facility] [place] Status: Signed Intake Intake Visit Reasons: f/u herniorrhaphy 07/01/18 Manager Life Required: No Is patient in pain?: No Allergies garlic Adverse Reaction (Verified 07/09/18 13:24) Nausea/Vom/Diarrhea Medications Magnesium 250 mg PO DAILY 06/24/18 [History Confirmed 07/09/18] aspirin 81 mg tab let,delayed release 81 mg PO DAILY 06/24/18 [History Confirmed 07/09/18] biotin 5,000 mcg sublingual tablet 5,000 mcg SUBLINGUAL DAILY 06/24/18 [History Confirmed 07/09/18] calcium carbonate 333 mg-magn esium oxide 133 mg-zinc sulf 5 mg tablet 3 tab PO DAILY 06/24/18 [History Confirmed 07/09/18] cholecalciferol (vitamin D3) 5,000 unit capsule 5,000 unit PO DAILY 06/24/18 [History Confirmed 07/09/18] co enzyme H25-grjqcmd E 100 mg-100 unit capsule 1 cap PO DAILY cap 06/24/18 [History Confirmed 07/09/18] gabapentin 300 mg capsule 300 mg PO TID 06/24/18 [History Confirmed 07/09/18] glucosamine 750 mg-cho ndroitin-msm no1 625 mg-C 30 mg-oj 1 mg tablet 1 tab PO BID tab 06/24/18 [History Confirmed 07/09/18] krill oil 1,000 mg-om3 130 mg-dha 40 mg-epa 80 tt-gk3-atz-astax cap 1 cap PO DAILY cap 06/24/18 [H istory Confirmed 07/09/18] meloxicam 15 mg tablet 15 mg PO DAILY 06/24/18 [History Confirmed 07/09/18] multivitamin tablet 1 tab PO DAILY 06/24/18 [History Confirmed 07/09/18] pravastatin 40 mg tablet 4 0 mg PO DAILY 06/24/18 [History Confirmed 07/09/18] vitamin B complex tablet 1 tab PO DAILY 06/24/18 [History Confirmed 07/09/18] Subjective Details: Patient is a 68 y/o female I am following for rig ht inguinal hernia. Dr. Lozada performed an open right inguinal hernia repair with mesh on 07/01/18. Patient tolerated the procedure well. She notes very little to no pain/discomfort. She notes appetite i s back to normal. She notes bowel habits are normal. Objective Details: Right groin- incision c/d/i. No erythema or infection noted. Mild ecchymosis noted. No erythema or infection noted. Mild amount of swelling noted. Assessment AND Plan Problems 1. Non-recurrent unilateral inguinal hernia without obstruction or gangrene K40.90 Plan - Recommend no lifting greater than 20 pounds for 5 weeks - Fol low-up in December for a colonoscopy and discuss possible hemorrhoidectomy with Dr. Lozada - Follow-up with me as needed Coding Level of Care Code Global Post Op Diagnoses Non-recurrent unilateral inguin al hernia without obstruction or gangrene K40.90 Obstruction and gangrene presence: without obstruction or gangrene Laterality: unilateral Recurrence: non- recurrent 07/09/18 1557 <Electronica lly signed by Ana Monae PA-C> Date Ana Monae PA-C Cosigner Signature: Date (if applicable) CC: 02-Jul-2018 Discharge Instruction Result: Comments: See Note; NOTES: [facility] Medical Records Department [address] [place] [address] Instructions for Home/Discharge Instructions 07/01/18 1156 MR#: [id number] Acct: [id number] Name: MEL JOHNSON Rep #: [id number] : 1950 68 From: Robert Lozada MD PCP: Susan Rojas DO Status: DEP [facility] [place] Discharge Diet: Light diet - advance as tolerated - if you have questio ns about your diet instructions, please talk to you doctor. Discharge Activity: May Not Drive - for 1 week or while taking narcotic pain medicine. May shower in (days): 1 Lifting Restrictions: 10 pounds Call your doctor if your incision/area has: Continuous Slow Oozing, Sudden Increased Bleeding, Increased Pain/ Swelling, Increased Redness, Foul Smelling Discharge Call your doctor if you observe: Feve r of 101 or Higher Suture Line Care: Avoid Pulling/Pushing, Avoid Pinching/Bending Additional Dressing/Incision Instructions:: Change or remove dressing in 4 days. Leave steri-strips in place for 1 week . Allergies/Adverse Reactions: Allergies garlic Adverse Reaction (Verified 06/24/18 11:07) Nausea/Vom/Diarrhea Medications to take at Discharge Magnesium 250 mg PO DAILY 06/24/18 aspirin 81 mg table t,delayed release 81 mg PO DAILY 06/24/18 biotin 5,000 mcg sublingual tablet 5,000 mcg SUBLINGUAL DAILY 06/24/18 calcium carbonate 333 mg-magnesium oxide 133 mg- zinc sulf 5 mg tablet 3 tab PO DAILY 10/11 cholecalciferol (vitamin D3) 5,000 unit capsule 5,000 unit PO DAILY 06/24/18 coenzyme X26-kjufwqz E 100 mg-100 unit capsule 1 cap PO DAILY cap 06/24/18 gabapentin 300 mg capsule 300 mg PO TID 06/24 glucosamine 750 aa-xlmfznejjsf-fkr no1 625 mg-C 30 mg-oj 1 mg tablet 1 tab PO BID tab 06/24/18 krill oil 1,000 mg-om3 130 mg-dha 40 mg-epa 80 ff-pr9-bkn-astax cap 1 cap PO DAILY cap 06/24/18 melox icam 15 mg tablet 15 mg PO DAILY 06/24/18 multivitamin tablet 1 tab PO DAILY 06/24/18 pravastatin 40 mg tablet 40 mg PO DAILY 06/24/18 vitamin B complex tablet 1 tab PO DAILY 06/24/18 Hydrocodone Bitart /Apap 5-325 [Culebra 5MG-325MG] 1 tablet PO Q6H PRN PRN 2 Days #5 tablet 07/01/18 The following prescriptions were given: Hydrocodone Bitart/Apap 5-325 [Culebra 5MG-325MG] 1 tablet PO Q6H PRN PRN 2 Days # 5 tablet PRN Reason: Pain Primary Care Physician: Susan Rojas DO [Primary Care Provider] - Test Results: Test results from this visit will be discussed in further detail at your follow-up appointme nt, if applicable. Please Follow Up With: Robert Lozada MD - [phone] When: Call to make an appointment to be seen in about 10 days. 07/02/18 0538 <Electronically signed by Robert Lozada MD> Date Robert Lozada MD CC: Susan Rojas DO 01-Jul-2018 Operative Report Result: Comments: See Note; NOTES: [facility] Medical Records Department [address] [place] [id number] Operative Report 07/01/18 1248 MR#: [id number] Acct: [id number] Name: MEL JOHNSON Rep #: [id number] : 1950 68 From: Robert Lozada MD PCP: Susan oRjas DO Status: REG [facility] Location: [place] [address] Problem List (1) Inguinal hernia Status: Acute Qualifiers: Obstruction and g angrene presence: without obstruction or gangrene Laterality: unilateral Recurrence: non-recurrent Qualified Code(s): K40.90 - Unilateral inguinal hernia, without obstruction or gangrene, not specified as recurrent Report of Operation Date of Procedure: 07/01/18 Pre-Operative Diagnosis: Indirect right inguinal hernia Post-Operative Diagnosis: Same Surgery/Procedure Performed:: Minda right ingu inal herniorrhaphy Description of Surgical Findings:: Amount informed consent was obtained. 68-year-old female taken out from placement table underwent monitored anesthesia care. 1% lidocaine mixed 50-5 0 with 0.5% Marcaine was used as local anesthetic. Throughout the procedure total of 13 cc was used. The right groin was sterilely prepped and draped. Local was instilled. A transverse incision was crea karishma. Sharp dissection carried down through the substance tissue. The external oblique identified incised along its fascia. Hypertrophic cremasteric fibers were incised. Indirect hernia sac was identifie d this was dissected free from the round ligament. The round ligament was divided and secured with 3-0 Vicryl. Then the transversalis fascia was approximated to itself starting the pubic tubercle to the internal ring resecuring the defect in a running simple fashion. A sheet of Bard mesh preshaped keyhole lot number [id number] with a reference number of [id number] expiry date 02/18/2023 was utilized. The t ails were trimmed laterally. Was placed around the internal ring and secured to itself with interrupted 3-0 Ethibond. Was placed so as to cover the pubic tubercle direct and indirect space. The tails ni chasidy placed beneath the external oblique. The mesh was secured in place with multiple interrupted 3-0 Ethibond tacking sutures. Good placement was achieved. The external oblique was approximated running 3-0 Vicryl. Skin is approximated with deep layer of interrupted 4-0 Monocryl in a running septic or 4-0 Monocryl. Steri-Strips Telfa and OpSite dressings applied. Sponge and instrument and needle count s were reported the surgeon to be correct. Blood loss minimal. Specimens fragments of cremasteric fibers. Drains none. Blood loss minimal She was taken to the recovery area in satisfactory condition w ithout apparent complication Robert Lozada M.D., F.A.C.S. Type of Anesthesia:: Local MAC Anesthesiologist: Jazz Heller 07/01/18 1251 <Electronically signed by Robert Lozada MD> Date Robert Lozada MD CC: Susan Rojas DO; Robert Lozada MD Signed 25-Jun-2018 12 Lead Electrocardiogram Result: Comments: See Note; NOTES: [facility] Cardiovascular Services [address] [place] [address] 12 Lead EKG 06/24/18 1533 MR#: [id number] Acct: [id number] Name: MEL JOHNSON Rep # : [id number] : 1950 68 From: Stephen Mcneil MD Attending Dr: Robert Lozada MD Status: PRE SDC Ordering Dr: Robert Lozada MD Date: 06/24/18 Location: [facility] Sex: F C Admitted: Test Reason : PREOP Blo od Pressure : / mmHG Vent. Rate : 065 BPM Atrial Rate : 065 BPM P-R Int : 190 ms QRS Dur : 066 ms QT Int : 396 ms P-R-T Axes : 037 011 023 degrees QTc Int : 411 ms Normal sinus rhythm Low voltage QRS Borderline ECG Confirmed by STEPHEN MCENIL MD ([id number]), advertising editor MARLEN MAYS ([id number]) on 06/25/2018 2:28:14 PM Referred By: Robert Lozada Confirmed By:STEPHEN MCNEIL MD 06/25/18 1428 Date Stephen Mcneil MD CC: Susan Rojas DO; Robert Lozada MD Signed 25-Jun-2018 Surgery Visit Report Result: Comments: See Note; NOTES: [facility] [address] [place] [address]. [address] [place] [address] OFFICE VISIT Date of Service: 06/24/18 MR#: [id number] Acct: [id number] Name: MEL PEARL Rep #: [id number] : 1950 Provider: Ana Monae PA-C Age/Sex: 68/F Location: [facility] Status: Signed Intake Vital Signs06/24/18 Blood Pressure 144/92 H 06/24/18 Height 5 ft 4 in Weight: 116 lb Intake Visit Reasons: update h AND p open [facility] Manager Life Required: No Is patient in pain?: No Allergies garlic Adverse Reaction (Verified 06/24/18 11:07) Nausea/Vom/Diarrhea Medications Magnesium 250 mg PO DAILY 06/24/18 [History Confirmed 06/24/18] aspirin 81 mg tablet,delayed release 81 mg PO DAILY 06/24/18 [History Confirmed 06/24/18] biotin 5,000 mcg sublingual tablet 5,000 mcg SUBLINGUAL DAILY 06/24/18 [History Confirmed 06/24/18] calcium carbonate 333 mg-magnesium oxide 133 mg-zinc sulf 5 mg tablet 3 tab PO DAILY 06/24/18 [History Confirmed 06/24/18] cholecalcifero l (vitamin D3) 5,000 unit capsule 5,000 unit PO DAILY 06/24/18 [History Confirmed 06/24/18] coenzyme P74-fflgrdc E 100 mg-100 unit capsule 1 cap PO DAILY cap 06/24/18 [History Confirmed 06/24/18] gabape ntin 300 mg capsule 300 mg PO TID 06/24/18 [History Confirmed 06/24/18] glucosamine 750 bv-tgvxrtwkteg-wlu no1 625 mg-C 30 mg-oj 1 mg tablet 1 tab PO BID tab 06/24/18 [History Confirmed 06/24/18] kril l oil 1,000 mg-om3 130 mg-dha 40 mg-epa 80 ie-wp3-jgm-astax cap 1 cap PO DAILY cap 06/24/18 [History Confirmed 06/24/18] meloxicam 15 mg tablet 15 mg PO DAILY 06/24/18 [History Confirmed 06/24/18] multi vitamin tablet 1 tab PO DAILY 06/24/18 [History Confirmed 06/24/18] pravastatin 40 mg tablet 40 mg PO DAILY 06/24/18 [History Confirmed 06/24/18] vitamin B complex tablet 1 tab PO DAILY 06/24/18 [Histor y Confirmed 06/24/18] PFSH Medical History Hemorrhoids (Acute) Arthritis (Acute) Back problem (Acute) Surgical History Hx of cholecystectomy (Acute) History of partial colectomy (Acute) Hx of johnnie endectomy (Acute) Hx of tonsillectomy (Acute) Family History Father Heart disease Social History Smoking Status: Former smoker alcohol intake: current alcohol intake frequency: a few times a month A lcohol type: wine substance use type: does not use caffeine: Yes frequency: does not exercise HPI HPI HPI: MEL JOHNSON, is a 68 F I am following for a right inguinal hernia. Patient presents for an update history and physical. Patient notes a bulge for the last 9 months. Patient notes she does water exercises which is where she believes this may have come about. Patient denies pain/tenderness. Sh e also notes internal and external hemorrhoids. Patient notes she is almost due for her colonoscopy. Patient is questioning if she should have her hemorrhoid specialist take care of these. Patient denie s being seen by a petroleum sampler previously. She denies previous myocardial infarction, stroke, blood clots. Patient denies smoking. She notes two previous abdominal surgeries: Lap appy and Lap chad. She notes nausea with anesthesia. She denies recent hospitalizations or illnesses. ROS General General: No weight change, appetite, fatigue, colon cancer, breast cancer or weakness HEENT HEENT: No diffi culty swallowing, eye injury, eye surgery, swollen glands or hoarseness Endo Endocrine: No thyroid disease, diabetes mellitus, thyroid cancer, Hair loss, heat intolerance or cold intolerance Skin Skin: No rash or changing moles Musc Musculoskeletal: Yes back problems and arthritis; no rheumatoid arthritis, gout or joint pain Cardio Cardiovascular: No murmur, pacemaker, heart disease, atrial fibrillati on, high blood pressure, heart attack, heart stent, palpitations, shortness of breat with exertion or chest pain Psych Psychiatric: No depression, anxiety or hearing voices Resp Respiratory: No shortnes s of breath, No sleep apnea, No cough, No COPD, No asthma, No emphysema, No wheezing Gastro Gastrointestinal: Yes hemorrhoids, No abdominal pain, No nausea or vomiting, No diarrhea, No constipation, No blood in stool, No acid reflux, No ulcers, No gallbladder problem, No black,tarry stools Alvarez Hematologic: No blood thinners, No blood disorders, No bleeding, No anemia, No blood clots Neuro Neurologic: No weakness, Yes tingling, Yes numbness Exam Const General: cooperative, healthy appearing, comfortable, no acute distress [facility] Head: normal to inspection Eyes General: appearance normal, both eyes and all related structures Neck Neck: normal visual inspection Neck mass: No Resp Effort AND Inspection: normal respiratory effort Auscultation: clear to auscultation bilaterally Cardio Rate: regular ra te Rhythm: regular rhythm Heart Sounds: no murmurs GI Inspection: normal to inspection Palpation: soft, hernia (Right inguinal hernia; palpable; reducible) Skin General: no rashes or lesions noted Neuro General: no focal motor deficits, CN's II-XI intact bilaterally Extrem General: normal to inspection Psych Appearance: grossly normal Affect: normal affect Assessment AND Plan Problems 1. Right ingui nal hernia K40.[address] Lozada will plan to perform an open right inguinal hernia repair with MAC. Procedure details, risks and benefits have been reviewed with the patient. Patient has had the oppor tunity to ask and have questions answered. Patient verbally understand and agrees with the plan. Patient was asking to use clear fast prior to the procedure. She may drink this the night before and foll owing the procedure. Nothing to drink or eat the morning of the procedure. Patient is to stop ASA, Krill oil and omega 3 7 days prior to the procedure. Coding Level of Care Code No Charge Diagnoses R ight inguinal hernia K40.90 Update H AND P 06/25/18 0844 <Electronically signed by Ana Monae PA-C> Date Ana Monae PA-C Cosigner Signature: Date (if applicable) CC: 31-Jan-2018 Dexa Bone Density Study Result: Comments: See Note; NOTES: [facility] Imaging Services [address] [place] [address] Dexa Bone Density Study MR#: [id number] Acct: [id number] Name: MEL JOHNSON Rep #: [id number] : 1950 F 67 From: James [place] MD PCP: Susan Rojas DO Status: [facility] CLI Study: Dexa Bone Density Study Date of Exam: 01/31/18 Exam# [id number] Ordering Dr: Susan Rojas Y: DUAL ENERGY X-RAY ABSORPTIOMETRY / DXA REASON FOR EXAM: Female, 67 years old. The patient is postmenopausal. Loss of height. TECHNIQUE: Bone Mineral Density (BMD) measurements of lumbar spine and b ilateral hips were obtained. COMPARISON: Comparison is made with prior study dated May 20, 2002. FINDINGS: Lumbar Spine (L1-L4): g/cm2 (1.278) / T-score (0.6) / Z-score (2.3) Findings are suggestive of normal bone density with a low fracture risk. Left Femur Total: g/cm2 (0.859) / T-score (-1.2) / Z-score (0.2) Left Femoral Neck: g/cm2 (0.902) / T-score (-1.0 ) / Z-score (0.7) Right Femur Total: g/cm2 (0.859) / T-score (-1.2) / Z-score (0.2) Right Femoral Neck: g/cm2 (0.911) / T-score (0.9) / Z-score (0.7) The T- Scores on the most recent prior examination w ere: Lumbar Spine (L1-L4): There has been worsening of bone density since the previous examination. Left Femur Total: which represents a worsening of 15.5%. ORDE R #: [id number] BD/Dexa Bone Density Study IMPRESSION: The patient is considered osteopenic as outlined below according to World Geoff Organization (WHO) criteria with a moderate fracture risk. There has been worsening of bone density since the previous examination. Reference Information: The T-score is the number of standard deviations above or below the standard which is normal for young adults at their peak bone mineral density. The World Health Organization (WHO) interprets the T-scores as follows: Above -1 Normal bone density Between -1 and -2.5 Osteopenia Equal to / or below -2.5 Osteoporosis As a practical clinical guideline, osteopenia may be graded as follows: Mild -1 through -1.5 Moderate -1.6 through -2.0 Severe -2.1 through -2.4 The Z-score is th e number of standard deviations above or below age-matched controls. A Z-score of less than -1.5 would be considered abnormal. References: 1. NIH Osteoporosis and Related Bone Diseases http://www.osteo .org 2. International Society for Clinical Densitometry http://www.iscd.org 3. National Osteoporosis Foundation http://www.nof.org Electronically Signed: James [place] MD at 13:52 EDT Tel [phone], Service support , CC: Susan Rojas DO Bite Block Maker: Signed 31-Jan-2018 SCREENING MAMM (CAD), BILAT Result: Comments: See Note; NOTES: [facility] Imaging Services [address] [place] [address] SCREENING MAMM (CAD), BILAT MR#: [id number] Acct: [id number] Name: MEL JOHNSON Rep #: [id number] : 1950 F 67 From: James [place] MD PCP: Susan Rojas DO Status: [facility] Study: SCREENING MAMM (CAD), BILAT Date of Exam: 01/31/18 Exam# [id number] Ordering Dr: Susan Rojas MAMMOGRAPHY - BILATERAL SCREENING REASON FOR EXAM: Female, 67 years old. Routine annual screening examination. PERTINENT HISTORY: Grandmother with breast cancer. Prior bilateral stereotactic breas t biopsies. TECHNIQUE: Digital bilateral breast manoj (3D mammographic acquisition) in the CC and MLO projections. 2-D mediolateral oblique (MLO) and craniocaudad (CC) views of both breasts were obtaine d. CAD: Full Field Digital Mammography with Computer Added Detection was performed. COMPARISON: Comparison is made with prior study dated January 01, 2017 and December 30, 2015. FINDINGS: Breast Composition: The breasts are heterogeneously dense, which may obscure small masses. There are no dominant masses or suspicious calcifications. Stable appearance of the diffuse bilateral microcalcifications. Bilateral tissue markers are seen. No other significant abnormalities are identified. There has been no significant change since the prior study. BI/SCREENING MAMM (CAD), BILAT IMPRESSION: Stable bilateral screening mammogram. Yearly follow-up mammogram recommended. (A) ASSESS MENT CATEGORY: BIRADS Category 2: Benign. A letter regarding these results will be sent to the patient by the facility within 30 days. Approximately 10% of breast cancers are not detected by mammograph y. A normal mammogram should not delay biopsy of a clinically suspicious abnormality. [id number] Electronically Signed: James [place] MD at 14:38 EDT Tel [phone], Service support [phone], CC: Susan Rojas DO Bite Block Maker: Signed 18-May-2017 Re-Evaluation - PT (1) Result: Comments: See Note; NOTES: [facility] Physical Therapy [facility] [address] [place] [address] Fax REEVALUATION / MEDICARE RECERTI FICATION PHYSICAL THERAPY MR#: [id number] Acct: [id number] Name: MEL JOHNSON Rep #: [id number] : 1950 67 From: Sharee Castaneda DPT Referring Dr.: Samuel Koo MD Status: REG RCR Insurance: [place] [employer] Samuel Koo MD, It has been my pleasure to treat MEL JOHNSON over the last 4 visits for Lumbar Spine. Please see the progress note below for an update on the physical therapy plan of care! Subjective: Feels that the therapy is helping and Mckenzie was very helpful. Is in a water class at the [facility]- and feels that she needs a few more visits with the pool therapist to he lp with consistent postural activities. Objective/Function: Posture: good throughout with mild FH. Gait: no deviation notes. ROM: WFL. Strength: Ankle: 5/5, knee: 5/5, Hip: 4/5 Core: fair Plan Plan: Wi ll continue 1x a week for 8 weeks. Goals Goal 1:: Patient will be I with HEP and progression Goal Time Frame: 4-6 Weeks Goal Progress: Progressing Goal 2:: Patient will demo 4+/5 strength in LE Goal Ti me Frame: 4-6 Weeks Goal Progress: Progressing Goal 3:: Patient will maintain proper posture t/o tx session to demo increased core s/s Goal Time Frame: 4-6 Weeks Goal Progress: Progressing Anticipated Interventions Patient/Client Instruction: Educate patient on: Benefits of Fitness Program For the Purpose of:: To increase tolerance to activity/condition/position Therapeutic Exercise to Include: Stren gth training, Endurance training, Balance training, Body mechanics, Postural training, Flexibilty training, In an aquatic setting, Dynamic Lumbar Stabilization, Scapular Strength/Stabi lization For the Purpose of:: To improve muscle performance and motor function Please do not hesitate to contact me at [phone] by phone or if you have questions or concerns regard ing this new plan of care! Sincerely, Sharee Castaneda <Electronically signed by Sharee Castaneda DPT> 05/18/17 0941 CC: Samuel Koo MD; Susan Rojas DO SHRAVAN Cade Signed For Medicare only, by signing this I certify the plan of care. Physicians Signature Date 23-Apr-2017 Inital Evaluation (1) - PT Result: Comments: See Note; NOTES: [facility] [address] [place] [address]. [address] [place] [address] Fax REHABILITATION SERVICES INITIAL EVALUATION MR#: [id number] Acct: [id number] Name: MEL JOHNSON Rep #: [id number] : 1950 67 From: Sharee L [place] DPT Referring Dr.: Samuel Koo MD Status: REG RCR Insurance: [place] [employer] ARE MEDICARE Patient's Visit Information MEL JOHNSON is a 67 year old F referred to Physical Therapy by Samuel Koo MD with a diagnosis of Lumbar Spine. Date of Evaluation: 04/23/17 Wrinkle Chaser apist: Sharee Castaneda - Visit Plan Frequency: 1x/Week Duration: 4 Weeks Plan: 1x visit for aquatic HEP to do at [facility]- then follow up in 3 weeks for progression - Subjective Subjective: Patient reports that she has has pain in the neck and back for years. Progressively worse in the last year. Agg: standing, walking more than a mile, sitting really bothers her tailbone. Worst: 04/02. When she lays down at night she has pain that shots down both sides but worse on the left. No radiating pain during the day. Insidious onset- mother had OA she is following in her footsteps. Saw Markie in January for land exer [employer]- and is still doing the exercise at the [facility]. Walks the dog about a mile a day and then it starts to get really painful. Pain is located on the outside of the hips and along the lumbar spine. Ease s: heating pad, medication, Tylenold PM. Sleep: side- gabapentin helps her sleep. Best: 11/03. Describes pain as shooting/stabbing in walking- locked up when she sits for to long. No N/T. No loss or ba ge in bowel/bladder. MRI in December- scanned into computer. PMHx: high cholesterol Meds: gabapentin, tylenol PM, high cholesterol. Chiropractor: adjustments- went poorly- she can't move to the left. Very rarely sees the chiropractor now- uses a neck traction machine. No more adjustments. Last injection from Dr. Ferreira was in December and sees brie gain in April - Objective Posture: FH, RS, Increased kyph osis- left shift. Gait: no deviation noted. Stairs: asc/desc 8 recip with 1 HR- uncontrolled descent. HRTR: WNL. Balance: 10 sec SLS. ROM: WNL in all planes no pain lumbar and LE. Strength: Co re: fair minus, Hip: IR/ER- 4-/5, Flexion/extn/abd/ add-4/5, Knee: 5/5, Ankle: 5/5. Sensation: WNL. Reflexes: WNL. Hip alignment: WNL. Palpation: not tender - Goals Goal 1:: Patient will be I with HEP and progression Goal Time Frame: 4-6 Weeks Goal 2:: Patient will demo 4+/5 strength in LE Goal Time Frame: 4-6 Weeks Goal 3:: Patient will maintain proper posture t/o tx session to demo increased core s /s Goal Time Frame: 4-6 Weeks - Rehabilitation Potential Physical Therapy Diagnosis: Patient presents with hypmobility- she has decreased core s/s leading to increased pain Rehabilitation Potential: Fa ir - Anticipated Interventions Patient/Client Instruction: Educate patient on: Benefits of Fitness Program For the Purpose of:: To increase tolerance to activity/condition/position Therapeutic Exercise to Include: Strength training, Endurance training, Balance training, Body mechanics, Postural training, Flexibilty training, In an aquatic setting, Dynamic Lumbar Stabilization, Scapu lar Strength/Stabilization For the Purpose of:: To improve muscle performance and motor function Thank you for the opportunity to evaluate your patient. For Medicare and Medicare HMO plans, please review the plan of care and approve it. It will need to be FAXED BACK to us at [phone] for Medicare purposes. Please let me know if there are questions or concerns regarding this plan of care. Physician Signature: Date: <Electronically signed by Sharee Castaneda DPT> 04/23/17 1156 CC: Samuel Koo MD; Susan Rojas DO ELR Signed For Medicare only, by signing this I certify the plan of care. Physicians Signature Date 20-Mar-2017 NCS and/or EMG Patient Result: Comments: See Note; NOTES: [facility] Pulmonary Services/Neurology [address] [place] [address] NCS and/or EMG Patient MR#: [id number] Acct: [id number] Name: MEL JOHNSON Rep #: [id number] : 1950 67 From: Bouchra Tan MD Referring Dr: Susan Rojas DO Status: REG CLI Ordering Dr: Susan Rojas DO Date: 03/14/17 Location: [facility] Sex: F C DATE OF SERVICE: The patie nt presents for electrodiagnostic testing of the left upper limb. She has a chief complaint of numbness in the first two digits of the left hand. She also reports intermittent neck pain. ELECTRODIAGNOS TIC FINDINGS: On nerve conduction study, left median motor nerve demonstrates normal distal latency, amplitude and conduction velocity. Normal left ulnar motor response, including conduction across the elbow. Normal median and ulnar F waves. Borderline prolonged left median sensory latency. Normal ulnar and radial sensory responses. On needle EMG, all muscles tested in the left upper limb as well as the left cervical paraspinal showed no evidence of denervation with normal motor unit action potentials. ELECTRODIAGNOSTIC IMPRESSION: This is an abnormal study in the left upper limb. Electrodiagnosti c findings demonstrate a left-sided median mononeuropathy, consistent with a mild left carpal tunnel syndrome. If there are any questions in regards to this exam, please do not hesitate to contact me. Bouchra Tan MD T: NTS JOB: [id number] 03/20/17 1317 <Electronically signed by Bouchra Tan MD> Date Bouchra Tan MD CC: Bouchra Tan; Daly Rojas DO Date Dictated: 03/14/17 1104 Date Transcribed: 03/14/171103 Bite Block Maker: Signed 20-Feb-2017 Spine Cervical (Routine) Result: Comments: See Note; NOTES: [facility] Imaging Services [address] [place] [address] Verdana 4d Spine Cervical (Routine) MR#: [id number] Acct: [id number] Name: MEL JOHNSON p #: [id number] : 1950 F 66 From: Janey Mendes MD PCP: Susan Rojas DO Status: REG CLI Study: Spine Cervical (Routine) Date of Exam: 02/20/17 Exam# [id number] Ordering Dr: Tisha Ferreira MD [facility] DY: MRI CERVICAL SPINE WITHOUT CONTRAST REASON FOR EXAM: Female, 66 years old. neck pain,numbness left face and down left arm into finger symptoms since 09/24/16; chiropractic manipulation of neck on 11/23 now pain worse TECHNIQUE: Standardized fat and water weighted pulse sequences were obtained in the sagittal and axial planes. COMPARISON: X-ray January 17, 2017 FINDINGS: Normal foramen magnum and brainstem-cervical cord junction. Normal craniovertebral junction. Normal anterior atlantoaxial articulation. Normal odontoid process. There is straightening of the normal cervical lordosis. There is grade 1 anterolisthesis at C3-4 and C7-T1. There is loss of disc height at C4-5 through C7-T1. Vertebral body heights are maintained. At C5-6 there are mild Modic typ e I changes on the right. C2/3: There is left facet arthropathy. Normal disc. No central canal or neuroforaminal stenosis. C3/4: There is left facet arthropathy causing mild left neural foraminal sten osis. No central canal or right neuroforaminal stenosis. C4/5: There is mild right uncovertebral hyperostosis. There is a diffuse bulge. There is mild central canal stenosis and mild bilateral neurofor aminal stenosis. C5/6: There is a diffuse bulge. There is mild central canal stenosis and mild left worse than right neuroforaminal stenosis. C6/7: There is a diffuse bulge slightly larger on the righ t. There is mild central canal stenosis and moderate right and mild left neuroforaminal stenosis. C7/T1: There is no disc bulge or herniation. There is no central canal stenosis. There is mild left wit hout right neuroforaminal stenosis. Normal cervical cord. Normal visualized soft tissue structures. MRI/Spine Cervical (Routine) IMPRESSION: Mu ltilevel degenerative changes, as described above. Electronically Signed: Janey Mendes MD at 13:56 EDT , Service support , CC: Tisha quevedo MD; Susan Rojas DO Bite Block Maker: Signed 24-Jan-2017 PT D/C Summary (1) Result: Comments: See Note; NOTES: [facility] Physical Therapy [facility] [address] [place] [address] Fax REHABILITATION SERVICES DISCHAR GE SUMMARY MR#: [id number] Acct: [id number] Name: MEL JOHNSON Rep #: [id number] : 1950 66 From: Markie Wade PT, ATC Referring DrKarla: Susan Rojas DO Status: REG RCR Insurance: [place] [employer]ICARE HP - PT D/C Summary It has been my pleasure to treat MEL JOHNSON under orders from Susan Rojas, for the diagnosis of Spinal stenosis for a total of 2 visit(s). Discharge Date: Please see the following information for a summary of their discharge status. - Subjective Subjective: No change at this time - Pain LBP Pain Intensity (Out of 10): 2 - Objective Objective /Function: Pt I with HEP - Goals Goal 1:: I with HEP 1-2 visits Goal Progress: Progressing - Plan Plan: Discharge - D/C Information If there are questions or concerns regarding this patient's physica l therapy, please feel free to call me at [phone]. Thank you for the referral of this patient. Sincerely, Markie Wade PT, <Electronically signed by Markie Wade PT, ATC> 01/24/17 1505 CC: Susan Rojas DO [facility] Signed 19-Jan-2017 Inital Evaluation (1) - PT Result: Comments: See Note; NOTES: [facility] Physical Therapy [facility] [address] [place] [address] Fax REHABILITATION SERVICES INITIAL EVALUATION MR#: [id number] Acct: [id number] Name: MEL JOHNSON Rep #: [id number] : 1950 66 From: Markie Wade PT, ATC Referring Dr.: Susan Rojas DO Status: REG RCR Insurance: [facility] SECURE CARE MEDICARE Patient's Visit Information MEL JOHNSON is a 66 year old F referred to Physical Therapy by Susan Rojas with a diagnosis of Spinal stenosis. Date of Evaluation: 01/19/17 Physical Therapist: Markie Wade, PT, - Visit Plan Frequency: 1-2x /Week Duration: 1 Week Plan: Issue HEP of core strengthening, LE stretching (IT band), and LE strengthening - Subjective Subjecti ve: Pt reports a chronic Hx of LBP for several years. Pt reports she always just dealt with the pain until March of last year when the pain became so severe that she had to be treated. Pt notes she has h ad multiple adjustments and injections, but her pain is not getting better. Pt Pt reports then on 12/11/16, she had her neck manipulated and that has effected her gait as well. Pt also c/o lightning bolt s that goes down her legs at night secondary to her LBP. Pt has recently taken nerve meds that have helped this pain. Pt has also tried acupuncure which hasnt helped. 1/10 at rest, 6/10 prolonged walkin g - Pain LBP Pain Intensity (Out of 10): 1 Pain Intensity Range: 6 - Objective Neuro: B LE sensation is WNL to light touch. B pat reflex= 2/3. MMT: B LE is grossly 4/5 throughout. L/S ROM: WNL all ranges. Gait: Pt able to ambulate 680 feet until feeling a pinch in LB - Goals Goal 1:: I with HEP 1-2 visits Goal Time Frame: 1 Week - Rehabilitation Potential Physical Therapy Diagnosis: LBP, limite d ambulatory ability, and LE weakness secondary to spinal stenosis. Rehabilitation Potential: Good - Anticipated Interventions Patient/Client Instruction: Educate patient on: Condition, Plan of Care Fo r the Purpose of:: To improve self management Therapeutic Exercise to Include: Strength training, Endurance training, Postural training, Flexibilty training, Dynamic Lumbar Stabilization For the Purpose of:: To decrease pain, To improve muscle performance and motor function Thank you for the opportunity to evaluate your patient. For Medicare and Medicare HMO plans, please review the plan of care and approve it. It will need to be FAXED BACK to us at [phone] for Medicare purposes. Please let me know if there are questions or concerns regarding this plan of care. Physician Signature:____ Date: <Electronically signed by Markie Wade PT, ATC> 01/19/17 1541 CC: Susan Rojas DO [facility] Signed For Medicare only, by signing this I certify the plan of care. Physicians Signature Date 17-Jan-2017 Cerv Spine 4 or 5 Views Result: Comments: See Note; NOTES: [facility] Imaging Services [address] [place] [address] Verdana 4d Cerv Spine 4 or 5 Views MR#: [id number] Acct: [id number] Name: MEL JOHNSON Rep #: [id number] : 1950 F 66 From: Doni Hamilton MD PCP: Susan Rojas DO Status: REG CLI Study: Cerv Spine 4 or 5 Views Date of Exam: 01/17/17 Exam# [id number] Ordering Dr: Susan Rojas DO STUDY: X-RAY - CERVICAL SPINE REASON FOR EXAM: Female, 66 years old. Back pain TECHNIQUE: 7 view(s) of the cervical spine were obtained. COMPARISON: None FINDI NGS: Normal anterior atlantoaxial articulation. Normal odontoid process. There is straightening of the normal cervical lordosis. There is multi-level endplate spondylosis. There is multi-level degenera tive disc disease with multilevel disc space narrowing. There is multi-level osseous foraminal stenosis. There is multilevel apophyseal and uncovertebral arthrosis The soft tissue structures are unrema rkable. RAD/Cerv Spine 4 or 5 Views IMPRESSION: Cervical spondylosis with multilevel degenerative disease Electronically Signed: Doni obrien MD, FACR at 13:23 EDT , Service support , CC: Susan Rojas DO Bite Block Maker: Signed 01-Jan-2017 SCREENING MAMM (CAD), BILAT Result: Comments: See Note; NOTES: [facility] Imaging Services [address] [place] [address] Verdana 4d SCREENING MAMM (CAD), BILAT MR#: [id number] Acct: [id number] Name: MEL JOHNSON Rep #: [id number] : 1950 F 66 From: James Baker MD PCP: Luann Krishna DO Status: REG CLI Study: SCREENING MAMM (CAD), BILAT Date of Exam: 01/01/17 Exam# [id number] Ordering Dr: Carolynn Rojas DO MAMMOGRAPHY - BILATERAL SCREENING REASON FOR EXAM: Female, 66 years old. Routine annual screening examination. PERTINENT HISTORY: Grandmother with breast cancer. TECHNIQUE: Digital bilatera l breast manoj (3D mammographic acquisition) in the CC and MLO projections. 2-D mediolateral oblique (MLO) and craniocaudad (CC) views of both breasts were obtained. CAD: Full Field Digital Mammography w ith Computer Added Detection was performed. COMPARISON: Comparison is made with prior study dated December 30, 2015. FINDINGS: Breast Composition: The breasts are heter ogeneously dense, which may obscure small masses. There are no dominant masses or suspicious calcifications. A tissue clip marker is once again seen in the upper deep lateral portion of the left breast . A stereotactic tissue clip marker is also seen in the upper lateral portion of the right breast. Once again, there is diffuse bilateral microcalcifications. There has been essentially no change since prior study. No other significant abnormalities are identified. There has been no significant change since the prior study. HPBI/SCREENING MAMM (CAD), BILAT IMPRESSION: Stable bilateral screening mammogram. Yearly follow-up mammogram recommended. (A) ASSESSMENT CATEGORY: BIRADS Category 2: Benign. A letter regarding these results will be sent to the patient by the facility within 30 days. Approximately 10% of breast cancers are not detected by mammography. A normal mammogram should not delay biopsy of a clinically suspicious abnormality. [id number] Electronically Signed: James Baker MD at 9:13 EDT Tel [phone], Service support [phone], CC: Luann Krishna DO; Susan Rojas DO Bite Block Maker: Signed 04-Oct-2016 Transvaginal Non- Result: Comments: See Note; NOTES: [facility] Imaging Services [address] [place] [address] Verdana 4d Transvaginal Non- MR#: [id number] Acct: [id number] Name: MEL JOHNSON ep #: [id number] : 1950 F 66 From: Wei Pritchett MD PCP: Luann Krishna DO Status: [facility] CLI Study: Transvaginal Non- Date of Exam: 10/04/16 Exam# [id number] Ordering Dr: Susan Rojas DO STUDY: ULTRASOUND TRANSVAGINAL CLINICAL: Female, 66 years old. Postmenopausal bleeding TECHNIQUE: Transvaginal COMPARISON: None. FINDINGS: Normal uterine size measuring 6.5 x 5 x 2.8 cm in maximal craniocaudal dimension. There is a 4 x 4 mm fibroid. Normal endometrial thickness measuring 3 mm. There are no endometrial masses, and there is no fluid in the endo metrial cavity. Normal uterine cervix. The ovaries are not visualized. There is no free fluid in the pelvis. US/Transvaginal Non- IMPR ESSION: Small uterine fibroid Electronically Signed: Wei Pritchett MD at 17:19 EST , Service support [phone], CC: Luann Krishna DO; Susan Rojas DO Bite Block Maker: Signed 03-Feb-2016 Operative Report Result: Comments: See Note; NOTES: [facility] Medical Records Department [address] [place] [address] Operative Report MR#: [id number] Acct: [id number] Name: MEL JOHNSON Rep #: [id number] : 1950 65 From: Nilo Lake MD PCP: Luann Krishna DO Status: REG CLI DATE OF SERVICE: 01/19/2016 DATE OF PROCEDURE: January 19, 2016. PREOPERATIVE DIAGNOSIS: Bilate ral BI-RADS category 4 microcalcifications. POSTOPERATIVE DIAGNOSIS: Bilateral BI-RADS category 4 microcalcifications. PROCEDURE: Bilateral stereotactic breast biopsy. SURGEON: Nilo Lake M.D. ANESTHETIC: Lidocaine 1% plain. COMPLICATIONS: None. INDICATION FOR PROCEDURE: This is a 65-year-old female who presents with increased number of microcalcifications in the upper outer qu adrant of both of her breast. DESCRIPTION OF PROCEDURE: The patient was brought into the mammography unit, placed in the prone position on the Marina table. The right breast was brought down throug h the opening. A CC view was obtained in the upper outer quadrant, +/- 15 degree views were obtained. I targeted on the microcalcifications, I prepped the breast with Betadine, injected 1% lidocaine p russ, made a skin raj, injected local deeper, placed the needle in the pre-fire position, took 2 more stereo views showing the area to be adequately targeted, I fired the needle, took 360-degree cir cumferential biopsies on the even numbers, removed the specimen, x-rayed ___, microcalcifications were present, backed the needle off 5 mm, placed a small titanium clip into the biopsy cavity. Steri le dressings were applied and she tolerated the right side well. I went to the left side in similar fashion, upper outer quadrant of the breast was identified with microcalcifications, +/- 15-degree views were obtained. I targeted on the microcalcifications, prepped the breast with Betadine, injected 1% lidocaine plain, made a small skin raj, placed the needle in the pre-fire position, took 2 mo re stereo views showing the area to be adequately targeted, fired the needle, took 360-degree circumferential biopsies, x-rayed the specimen, microcalcifications were present, backed the needle off 5 mm, placed a small titanium clip into the biopsy cavity. I removed the needle. The patient was taken out. Steri-Strips were applied. Standard mammograms were obtained on both sides and she tolerated the procedure well. Nilo Lake MD T: NTS JOB: [id number] 02/03/16 1114 <Electronically signed by Nilo Lake MD> Date Nilo Lake MD Cosigner Signature (If Indicated): Date CC: Nilo Lake MD; Luann Krishna DO Date Dictated: 01/19/16 1034 Date Transcrib ed: 01/19/16 1034 Bite Block Maker: Signed 02-Jan-2016 Carotid Duplex Ultrasound Result: Comments: See Note; NOTES: [facility] Cardiovascular Services [address] [place] [address] Carotid Duplex Ultrasound 12/30/15 1128 MR#: [id number] Acct: [id number] Name: MEL JOHNSON Rep #: [id number] : 1950 65 From: Cas Cuellar MD Attending Dr: Luann Krishna DO Status: REG CLI Ordering Dr: Luann Krishna DO Date: 12/30/15 Location: [facility] Sex: F C Admi tted: Reason For Study: Carotid stenosis Rt. Velocities/BP Lt. Velocities/BP Prox CCA 115.0/28.7 cm/sec. Prox CCA 79.7/22.7 cm/sec. Mid CCA 81.0/19.1 cm/sec. Mid CCA 96.7/32.8 cm/sec. Dist C CA 78.5/26.2 cm/sec. Dist CCA 87.4/28.1 cm/sec. Prox ICA 65.1/19.3 cm/sec. Prox ICA 53.8/22.0 cm/sec. Mid ICA 75.6/28.7 cm/sec. Mid ICA 85.6/37.5 cm/sec. Dist ICA 82.1/35.8 cm/sec. Dist ICA 72.3/27.4 cm/sec. Rt. ICA/CCA = 1.0. Lt. ICA/CCA = .89. Prox ECA 94.4/16.4 cm/sec. Prox ECA 78.0/26.4 cm/sec. Rt. Vert. 41.0/15.2 cm/sec. Lt. Vert. 51.5/20.4 cm/sec. Right Extracranial There is intimal thi ckening but no significant atherosclerotic plaque noted in the right common carotid artery. There is intimal thickening but no significant atherosclerotic plaque noted in the right internal carotid a rtery. There is no significant atherosclerotic plaque noted in the right external carotid artery. Antegrade flow is noted in the right vertebral artery. Left Extracranial There is intimal thickenin g but no significant atherosclerotic plaque noted in the left common carotid artery. There is heterogeneous, irregular atherosclerotic plaque noted in the left internal carotid artery. The atheroscle rotic plaque causes acoustic shadowing. There is intimal thickening but no significant atherosclerotic plaque noted in the left external carotid artery. Antegrade flow is noted in the left vertebral artery. Procedure Carotid Duplex 32552. Exam performed in department. Interpretation Summary Mild (<50%) stenosis right extracranial internal carotid. Mild (<50%) stenosis left ex tracranial internal carotid. Flow within the vertebral arteries is antegrade bilaterally. Orde ring Physician: Luann Krishna Performed By: Maria Isabel England RVT 01/02/162038 Date Cas Cuellar MD CC: Luann Krishna DO Date Dictated: 12/30/15 1128 Date Transcribed: 01/02/162038 Bite Block Maker: Signed 30-Dec-2015 Bilat Scrn Digital AND CAD Result: Comments: See Note; NOTES: [facility] Imaging Services [address] [place] [address] Verdana 4d Bilat Scrn Digital AND CAD MR#: [id number] Acct: [id number] Name: MEL JOHNSON Rep #: [id number] : 1950 F 65 From: James Baker MD PCP: Luann Krishna DO Status: REG CLI Study: Bilat Scrn Digital AND CAD Date of Exam: 12/30/15 Exam# [id number] Ordering D r: Luann Krishna DO MAMMOGRAPHY - BILATERAL SCREENING REASON FOR EXAM: Female, 65 years old. Routine annual screening examination. PERTINENT HISTORY: Grandmother with breast cancer. TECHNIQUE: Digital bilateral breast tomosynthesis (3-D mammographic acquisition) in the CC and MLO projections. Synthesized 2-D images (C-View reconstruction from tomosynthesis acquisition) providing bilateral b reast CC and MLO views. Mediolateral oblique (MLO) and craniocaudad (CC) views of both breasts were obtained. CAD: Full Field Digital Mammography with Computer Added Detection was performed. COMPAR YAJAIRA: Comparison is made with prior outside examination dated November 06, 2014 and April 02, 2013. FINDINGS: Breast Composition: The breasts are heterogeneously dense, which may obscure small masses. There is evidence of diffuse bilateral microcalcifications. These have progressed as compared to prior study. These are more pronounced in the upper outer cheryl drants of both breasts. I suggest stereotactic biopsy of these area for further evaluation. No mass lesion is seen. No other significant abnormalities are identified. ____ IMPRESSION: Diffuse bilateral microcalcifications which have progressed as compared to prior study. These are more concentrated in the upper outer aspect of both breasts. Sampling biopsies in both upper outer quadrants is recommended. ASSESSMENT CATEGORY: BIRADS Category 4: Suspicious - Biopsy Should Be Considered. A letter regarding these results wi ll be sent to the patient by the facility within 30 days. Approximately 10% of breast cancers are not detected by mammography. A normal mammogram should not delay biopsy of a clinically suspicious abnormality. [id number] Electronically Signed: James Baker MD at 14:58 EDT Tel [phone], Service support [phone], CC: Luann Krishna DO Bite Block Maker: Signed 30-Dec-2015 Spine Lumbar (Routine) Result: Comments: See Note; NOTES: [facility] Imaging Services [address] [place] [address] Leonardodana 4d Spine Lumbar (Routine) MR#: [id number] Acct: [id number] Name: MEL IBARRA Rep #: [id number] : 1950 F 65 From: Doni Hamilton MD PCP: Luann Krishna DO Status: REG CLI Study: Spine Lumbar (Routine) Date of Exam: 12/30/15 Exam# [id number] Ordering Dr: Jyotsna Krishna ra, DO STUDY: MRI LUMBAR SPINE WITHOUT CONTRAST REASON FOR EXAM: Female, 65 years old. Low back pain with radiculopathy. Bilateral hip pain TECHNIQUE: Standardized fat and water weighted pulse s equences were obtained in the sagittal and axial planes. COMPARISON: Prior MRI lumbar spine of 06-07-05 FINDINGS: T11-12, T12-L1: There is endplate spondylosi s. There is disc desiccation with disc space narrowing. Normal spinal canal. Normal bilateral facet joints. Normal neural foramina. There is an exaggerated lumbar lordosis. There is dextroscoliosis. Normal conus medullaris that terminates at the T12-L1 level L1-2: There is endplate spondylosis. There is disc desiccation with disc space narrowing. Normal bilateral facet joints. Normal spinal ca nal. There is bilateral foraminal stenosis with impingement of the L1 nerve roots. There is minimal retrolisthesis. L2-3: There is endplate spondylosis. There is disc desiccation with disc space na rrowing. There is an annular bulge. There is bilateral facet arthrosis. There is minimal retrolisthesis. Normal spinal canal. There is bilateral noncompressive foraminal stenosis. L3-4: Normal endpl ates. There is disc desiccation with an annular bulge. There is bilateral facet arthrosis. There is mild thecal sac stenosis (axial T2 series 5 image 17). There is left foraminal noncompressive steno sis. L4-5: Normal endplates. There is grade 1 degenerative spondylolisthesis. There is an annular bulge. There is severe bilateral facet arthrosis with ligamentous hypertrophy. There is bilateral la teral recess stenosis (axial T2 series 5 image 8). There is bilateral noncompressive foraminal stenosis. L5-S1: Normal endplates. There is disc desiccation with an annular bulge. There is grade 1 d egenerative spondylolisthesis with severe bilateral facet arthrosis. Normal spinal canal. There is bilateral noncompressive foraminal stenosis. Normal visualized sacral ala. There is moderate para spinal muscular atrophy. IMPRESSION: Dextroscoliosis with multilevel degenerative disc disease and facet arthrosis. Multilevel foraminal stenosis. L3-4 mild thecal sac stenosis. L4-5 bilateral lateral recess stenosis. Comparing with prior examination from 2004, the degenerative changes have progressed. Electronically Signed: Doni Hamilton MD, F ACR at 16:27 EDT , Service support [phone], CC: Luann Krishna DO Bite Block Maker: Signed 07-Oct-2015 PT D/C Summary Result: Comments: See Note; NOTES: [facility] Physical Therapy [facility] [place], [place] [id number] Fax REHABILITATION [facility] DISCHARGE SUMMARY MR#: [id number] Acct: [id number] Name: MEL JOHNSON Rep #: [id number] : 1950 65 From: Sharee Castaneda Referring DrKarla: Trixie Steen Status: REG RCR Eval Date: Disch arge Date: HP - PT D/C Summary It has been my pleasure to treat MEL JOHNSON under orders from Trixie Steen, for the diagnosis of DDD for a total of 5 visit(s). Please see the following informa tion for a summary of their discharge status. - Subjective Subjective: Patient reports that she isn't sure what she is feeling. She thinks that she may be worse but then again she feels a little be tter. Her neck is now bothering her and she was having problems walking yesterday. She is leaving for her trip tomorrow and has a lot of stress. Very concerned this isn't better even though she has be en doing leg machines at the gym - Objective Objective/Function: Posture: good throughout tx session. Gait: no deviation noted. Core-fair - Goals Goal 1:: Patient will be I with HEP and progressio n Goal Progress: Goal Met Goal 2:: Patient will maintain proper posture t/o tx session to demo increased core s/s. Goal Progress: Progressing Goal 3:: Patient will demo 5/5 strength in LE where defi cit to ease ADL's. Goal Progress: Progressing - Plan Plan: Discharge to home exercise program as she travels south - D/C Information Discharge Comments: Discharge to I HEP while traveling. If there are questions or concerns regarding this patient's physical therapy, please feel free to call me at [phone]. Thank you for the referral of this patient. Sincerely, Sharee Castaneda &# 60;Electronically signed by Sharee Castaneda > 10/07/15 1040 CC: Trixie Krishna DO ELR Signed 22-Sep-2015 Inital Evaluation - PT Result: Comments: See Note; NOTES: [facility] Physical Therapy [facility] [place] [address] Fax REHABILITATION [facility] INITIAL EVALUATION MR#: [id number] Acct: [id number] Name: MEL JOHNSON Rep #: [id number] : 1950 65 From: Sharee Castaneda Referring DrKarla: Trixie Steen Status: REG RCR Insurance: [employer] H[employer] Eval Date: Patient's Visit Information MEL JOHNSON is a 65 year old F, referred to Physical Therapy by Trixie Steen,, with a diagnosis of DDD. Date of Evaluation: Physical Therapist: Sharee Castaneda - Visit Plan Frequency: 2-3x /Week Duration: 3 Weeks - Subjective On/off for years in hips- but last 2 months its been awful. Saw a chiro did manipulati ons and she felt better. Looking for a home exercise program she can do at the [facility]- at least 3x a week- Ellip and does all the machines-does do some pilates has been out of practice 3 years. Pain is in the hip joint and its sharp and shooting.Pain does radiate into the lateral aspect of the quad but doesnt go past the knee. No N/T. Has increased restless leg since this has started. Worst:06/03, A gg: walking more then 3/4 mile, sitting for long periods and standing up, sleeping on her side. Sleep- disturbed. Best:010 Eases: heating pad at night and stretches. Tried a heel lift which made it w orse. F-klyd-Hosivpheh in low back and transfering pain to the hips- Patient calls the chiropractor when she needs a fix-once every couple of week [facility] in [place]. Also tried [facility] but it doesn't seem to make a difference. Very active- use to moving a lot. 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 - Objective Posture: FH, RS, Increased kyphosis. Gait: no deviation noted. ROM: WNL in all planes. Balance: Right: unable to SLS without UE, Left:15 sec without LOB. HR/TR: no issue. Strength: ankle/f oot-5/5, Hip:4-/5 throughout bilateral hips, Core-poor. Flex: no restriction in LE-hip or knee. Palpation: not tender - Goals Goal 1:: Patient will be I with HEP and progression Goal Time Frame: 4- 6 Weeks Goal 2:: Patient will maintain proper posture t/o tx session to demo increased core s/s. Goal Time Frame: 4-6 Weeks Goal 3:: Patient will demo 5/5 strength in LE where deficit to ease ADL's. Goal Time Frame: 4-6 Weeks - Rehabilitation Potential Physical Therapy Diagnosis: DDD Rehabilitation Potential: Good - Anticipated Interventions Patient/Client Instruction: Educate patient on: B enefits of Fitness Program For the Purpose of:: To increase tolerance to activity/condition/position Therapeutic Exercise to Include: Strength training, Endurance training, Body mechanics, Postural t raining, Flexibilty training, Dynamic Lumbar Stabilization For the Purpose of:: To improve muscle performance and motor function Thank you for the opportunity to evaluate your patient. For Medic are and Medicare HMO plans, please review the plan of care and approve it. It will need to be FAXED BACK to us at [phone] for Medicare purposes. Please let me know if there are questions or con cerns regarding this plan of care. Physician Signature: Date: <Electronically signed by Sharee Castaneda > 09/22/15 1700 CC: Trixie Steen; Luann Krishna DO ELR Signed For Medicare only, by signing this I certify the plan of care. Physicians Signature Date 30-Aug-2015 L/S Spine Min 4 Views Result: Comments: See Note; NOTES: [facility] Imaging Services [address] [place] [address] Verdana 4d L/S Spine Min 4 Views MR#: [id number] Acct: [id number] Name: MEL FLORES Rep #: [id number] : 1950 F 65 From: James Baker MD PCP: Luann Krishna DO Status: REG CLI Study: L/S Spine Min 4 Views Date of Exam: 08/30/15 Exam# [id number] Ordering Dr: Trixie Steen STUDY: X-RAY - LUMBAR SPINE REASON FOR EXAM: Female, 65 years old. Bilateral hip pain. TECHNIQUE: 5 view(s) of the lumbar spine were obtained including oblique views. COMPARISON: None _ FINDINGS: Normal lumbar lordosis. There is a mild levoscoliosis of the lumbar spine. Grade 1 anterolisthesis of L4 on L5 without spondylolysis. There is multilev el endplate spondylosis of the lumbar vertebrae. There is multi-level degenerative disc disease with multi-level disc space narrowing. Facet joint osteoarthritis. The soft tissue structures are unre markable. IMPRESSION: Degenerative changes of the spine, as detailed above. Grade 1 anterior listhesis of L4 on L5 without spondylolysis. Electronically Danitza d: James Baker MD at 14:59 EST Tel [phone], Service support [phone], RAD/L/S Spine Min 4 Views IMPRESSION: Degenerative changes of the spine, as detailed above. Grade 1 anterior listhesis of L4 on L5 without spondylolysis. Electronically Signed: James Baker MD at 14:59 EST Tel [phone], Service support [phone], CC: Trixie Steen; Luann Krishna DO Bite Block Maker: Signed 30-Aug-2015 Pelvis 1 or 2 Views Result: Comments: See Note; NOTES: [facility] Imaging Services [address] [place] [id number] Verdana 4d Pelvis 1 or 2 Views MR#: [id number] Acct: [id number] Name: MEL JOHNSON Rep #: [id number] : 1950 F 65 From: James Bkaer MD PCP: Luann Krishna DO Status: REG CLI Study: Pelvis 1 or 2 Views Date of Exam: 08/30/15 Exam# [id number] Ordering Dr: Trixie Steen STUDY: X-RAY - PELVIS REASON FOR EXAM: Female, 65 years old. Bilateral hip pain. TECHNIQUE: One view of the pelvis was obtained. COMPARISON: None. FINDI NGS: There is a non-specific bowel gas pattern. There are multiple calcified phleboliths. There is narrowing with cortical sclerosis and osteophyte formation of the sacroiliac joint consistent with degenerative osteoarthritic changes. Normal visualized bilateral superior and inferior pubic rami. Normal pubic symphysis. Normal ischial tuberosities. Degenerative changes of the lower lumbar spin e. Normal visualized right femoral head. Normal right acetabulum. There is mild articular joint space narrowing of the right hip. Normal visualized left femoral head. Normal left acetabulum. There is mild articular joint space narrowing of the left hip. IMPRESSION: Mild degenerative changes of both hip joints. Electronically Signed: James Baker MD at 14:52 EST Tel [phone], Service support [phone], RAD/Pelvis 1 or 2 Views IMPRESSION: Mild degenerative changes of both hip joints. E lectronically Signed: James Baker MD at 14:52 EST Tel [phone], Service support [phone], CC: Trixie Steen; Luann Krishna DO Bite Block Maker: Signed 30-Aug-2015 Sacrum-Coccyx min 2 Views Result: Comments: See Note; NOTES: [facility] Imaging Services [address] [place] [address] Verdana 4d Sacrum-Coccyx min 2 Views MR#: [id number] Acct: [id number] Name: MEL LEAVITT Rep #: [id number] : 1950 F 65 From: James Baker MD PCP: Luann Krishna DO Status: REG CLI Study: Sacrum-Coccyx min 2 Views Date of Exam: 08/30/15 Exam# [id number] Ordering Dr: Trixie Steen STUDY: X-RAY - SACRUM/COCCYX REASON FOR EXAM: Female, 65 years old. Bilateral hip pain. TECHNIQUE: 3 view(s) of the sacrum and coccyx were obtained. COMPARISON: None. FINDINGS: There is degenerative arthrosis of the bilateral sacroiliac joints. Normal visualized sacral ala and fused sacral bodies. Normal sacrococcygeal junction with a no rmal angulation. Normal coccygeal segments. The presacral soft tissue structures are unremarkable. IMPRESSION: Degenerative changes of the sacroiliac joints chris aterally. Electronically Signed: James Baker MD at 15:03 EST Tel [phone], Service support [phone], RAD/Sacrum-Coccyx min 2 Views IMPRESSION: Degenerative changes of the sacroiliac joints bilaterally. Electronically Signed: James Baker MD at 15:03 EST Tel [phone], Service support [phone], Fax CC: Trixie Steen; Luann Krishna DO Bite Block Maker: Signed Immunization Name Dates Details Influenza (3 years and up) on: 01-Jul-2009 Family History Unknown Family Member Name Dates Details Father Comments: Heart disease, [place] at 55 Status: Active Mother Comments: OA and osteoporosis. 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 Status: Active Tobacco use: Never smoker. Status: Active Tobacco use: Former smoker. Status: Active Smoking Status Name Dates Details Former smoker Never smoker Vital Signs Date Test Result Details [id number] Pulse 80 /min Comments: Pattern: Regular Respiration Rate 18 /min Comments: Pattern: Unlabored BP Systolic 138 mm[Hg] Comments: Patient Position: Sitting; Cuff Location: Left Arm; Cuff Size: Standard BP Diastolic 88 mm[Hg] Comments: Patient Position: Sitting; Cuff Location: Left Arm; Cuff Size: Standard Weight 117.125 lb Height 64 in Body Mass Index Calculated 20.1 kg/m2 Body Surface Area Calculated 1.56 m2 :02 Comments: hearing wnlHad a glaucoma test done Pulse 73 /min Comments: Pattern: Regular Respiration Rate 18 /min Comments: Pattern: Unlabored O2 SAT 94 % Comments: Room air BP Systolic 126 mm[Hg] Comments: Patient Position: Sitting; Cuff Location: Left Arm; Cuff Size: Standard BP Diastolic 70 mm[Hg] Comments: Patient Position: Sitting; Cuff Location: Left Arm; Cuff Size: Standard Weight 117.125 lb Height 64 in Body Mass Index Calculated 20.1 kg/m2 Body Surface Area Calculated 1.56 m2 :24 Pulse 71 /min Comments: Pattern: Regular Respiration Rate 18 /min Comments: Pattern: Unlabored O2 SAT 98 % Comments: Room air BP Systolic 112 mm[Hg] Comments: Patient Position: Sitting; Cuff Location: Left Arm; Cuff Size: Standard BP Diastolic 64 mm[Hg] Comments: Patient Position: Sitting; Cuff Location: Left Arm; Cuff Size: Standard Weight 117.5 lb Height 64 in Body Mass Index Calculated 20.17 kg/m2 Body Surface Area Calculated 1.56 m2 :37 Pulse 76 /min Comments: Pattern: Regular Respiration Rate 18 /min Comments: Pattern: Unlabored O2 SAT 95 % Comments: Room air BP Systolic 126 mm[Hg] Comments: Patient Position: Sitting; Cuff Location: Left Arm; Cuff Size: Standard BP Diastolic 82 mm[Hg] Comments: Patient Position: Sitting; Cuff Location: Left Arm; Cuff Size: Standard Weight 119.125 lb Height 64 in Body Mass Index Calculated 20.45 kg/m2 Body Surface Area Calculated 1.57 m2 :26 Pulse 81 /min Comments: Pattern: Regular Respiration Rate 18 /min Comments: Pattern: Unlabored O2 SAT 95 % Comments: Room air BP Systolic 132 mm[Hg] Comments: Patient Position: Sitting; Cuff Location: Left Arm; Cuff Size: Standard BP Diastolic 84 mm[Hg] Comments: Patient Position: Sitting; Cuff Location: Left Arm; Cuff Size: Standard Weight 128.125 lb Height 64 in Body Mass Index Calculated 21.99 kg/m2 Body Surface Area Calculated 1.62 m2 :53 Pulse 79 /min Comments: Pattern: Regular Respiration Rate 16 /min Comments: Pattern: Unlabored O2 SAT 97 % Comments: Room air BP Systolic 138 mm[Hg] Comments: Patient Position: Sitting; Cuff Location: Left Arm; Cuff Size: Standard BP Diastolic 78 mm[Hg] Comments: Patient Position: Sitting; Cuff Location: Left Arm; Cuff Size: Standard Weight 130 lb Height 64 in Body Mass Index Calculated 22.31 kg/m2 Body Surface Area Calculated 1.63 m2 :36 Pulse 85 /min Comments: Pattern: Regular Respiration Rate 18 /min Comments: Pattern: Unlabored O2 SAT 96 % Comments: Room air BP Systolic 138 mm[Hg] Comments: Patient Position: Sitting; Cuff Location: Left Arm; Cuff Size: Large BP Diastolic 78 mm[Hg] Comments: Patient Position: Sitting; Cuff Location: Left Arm; Cuff Size: Large Weight 130 lb Height 64.25 in Body Mass Index Calculated 22.14 kg/m2 Body Surface Area Calculated 1.63 m2 :37 Temperature 98.1 f Pulse 74 /min Comments: Pattern: Regular Respiration Rate 17 /min Comments: Pattern: Unlabored O2 SAT 95 % Comments: Room air BP Systolic 118 mm[Hg] Comments: Patient Position: Sitting; Cuff Location: Left Arm; Cuff Size: Standard BP Diastolic 76 mm[Hg] Comments: Patient Position: Sitting; Cuff Location: Left Arm; Cuff Size: Standard Weight 129 lb Height 64.25 in Body Mass Index Calculated 21.97 kg/m2 Body Surface Area Calculated 1.63 m2 :25 Pulse 86 /min Comments: Pattern: Regular Respiration Rate 16 /min Comments: Pattern: Unlabored O2 SAT 97 % Comments: Room air BP Systolic 130 mm[Hg] Comments: Patient Position: Sitting; Cuff Location: Left Arm; Cuff Size: Standard BP Diastolic 80 mm[Hg] Comments: Patient Position: Sitting; Cuff Location: Left Arm; Cuff Size: Standard Weight 130 lb Height 64.25 in Body Mass Index Calculated 22.14 kg/m2 Body Surface Area Calculated 1.63 m2 :02 Comments: Dr. Rodriguez [facility] 145/100 p 75 Pulse 80 /min Comments: Pattern: Regular Respiration Rate 18 /min Comments: Pattern: Unlabored O2 SAT 96 % Comments: Room air BP Systolic 142 mm[Hg] Comments: Patient Position: Sitting; Cuff Location: Left Arm; Cuff Size: Large BP Diastolic 80 mm[Hg] Comments: Patient Position: Sitting; Cuff Location: Left Arm; Cuff Size: Large Weight 128.5 lb Height 64.25 in Body Mass Index Calculated 21.89 kg/m2 Body Surface Area Calculated 1.63 m2 :12 Comments: her machine 148/91 Pulse 78 /min Comments: Pattern: Regular Respiration Rate 18 /min Comments: Pattern: Unlabored O2 SAT 98 % Comments: Room air BP Systolic 142 mm[Hg] Comments: Patient Position: Sitting; Cuff Location: Left Arm; Cuff Size: Standard BP Diastolic 82 mm[Hg] Comments: Patient Position: Sitting; Cuff Location: Left Arm; Cuff Size: Standard Weight 129.125 lb Height 64.25 in Body Mass Index Calculated 21.99 kg/m2 Body Surface Area Calculated 1.63 m2 :03 Temperature 97.9 f Pulse 69 /min Comments: Pattern: Regular Respiration Rate 17 /min Comments: Pattern: Unlabored O2 SAT 98 % Comments: Room air BP Systolic 144 mm[Hg] Comments: Patient Position: Sitting; Cuff Location: Left Arm; Cuff Size: Standard BP Diastolic 90 mm[Hg] Comments: Patient Position: Sitting; Cuff Location: Left Arm; Cuff Size: Standard Weight 131 lb Height 64.25 in Body Mass Index Calculated 22.31 kg/m2 Body Surface Area Calculated 1.64 m2 :54 Temperature 98 f Comments: Method: Temporal Pulse 90 /min Comments: Pattern: Regular Respiration Rate 15 /min Comments: Pattern: Unlabored BP Systolic 138 mm[Hg] Comments: Patient Position: Sitting; Cuff Location: Left Arm; Cuff Size: Standard BP Diastolic 72 mm[Hg] Comments: Patient Position: Sitting; Cuff Location: Left Arm; Cuff Size: Standard Weight 132 lb Height 64.25 in Body Mass Index Calculated 22.48 kg/m2 Body Surface Area Calculated 1.64 m2 :12 Temperature 98.6 f Comments: Method: Temporal Pulse 56 /min Comments: Pattern: Regular Respiration Rate 15 /min Comments: Pattern: Unlabored O2 SAT 94 % Comments: Room air BP Systolic 140 mm[Hg] Comments: Patient Position: Sitting; Cuff Location: Left Arm; Cuff Size: Standard BP Diastolic 80 mm[Hg] Comments: Patient Position: Sitting; Cuff Location: Left Arm; Cuff Size: Standard Weight 132 lb Height 64.25 in Body Mass Index Calculated 22.48 kg/m2 Body Surface Area Calculated 1.64 m2 :46 Temperature 97.8 f Pulse 73 /min Comments: Pattern: Regular Respiration Rate 16 /min Comments: Pattern: Unlabored O2 SAT 99 % Comments: Room air BP Systolic 122 mm[Hg] Comments: Patient Position: Sitting; Cuff Location: Left Arm; Cuff Size: Standard BP Diastolic 76 mm[Hg] Comments: Patient Position: Sitting; Cuff Location: Left Arm; Cuff Size: Standard Weight 131.375 lb Height 64.25 in Body Mass Index Calculated 22.38 kg/m2 Body Surface Area Calculated 1.64 m2 :03 Temperature 97 f Pulse 80 /min Comments: Pattern: Regular Respiration Rate 18 /min Comments: Pattern: Unlabored O2 SAT 97 % Comments: Room air BP Systolic 124 mm[Hg] Comments: Patient Position: Sitting; Cuff Location: Left Arm; Cuff Size: Standard BP Diastolic 84 mm[Hg] Comments: Patient Position: Sitting; Cuff Location: Left Arm; Cuff Size: Standard Weight 136 lb Height 64.25 in Body Mass Index Calculated 23.16 kg/m2 Body Surface Area Calculated 1.67 m2 :31 Temperature 98.1 f Comments: Method: Temporal Pulse 78 /min Comments: Pattern: Regular Respiration Rate 16 /min Comments: Pattern: Unlabored O2 SAT 93 % Comments: Room air BP Systolic 92 mm[Hg] Comments: Patient Position: Sitting; Cuff Location: Left Arm; Cuff Size: Standard BP Diastolic 64 mm[Hg] Comments: Patient Position: Sitting; Cuff Location: Left Arm; Cuff Size: Standard Weight 135 lb Height 64.25 in Body Mass Index Calculated 22.99 kg/m2 Body Surface Area Calculated 1.66 m2 :02 Temperature 96.7 f Pulse 80 /min Comments: Pattern: Regular Respiration Rate 16 /min Comments: Pattern: Unlabored BP Systolic 104 mm[Hg] Comments: Patient Position: Sitting; Cuff Location: Left Arm; Cuff Size: Standard BP Diastolic 52 mm[Hg] Comments: Patient Position: Sitting; Cuff Location: Left Arm; Cuff Size: Standard Weight 135 lb Height 64.5 in Body Mass Index Calculated 22.81 kg/m2 Body Surface Area Calculated 1.66 m2 :54 Pulse 79 /min Comments: Pattern: Regular Respiration Rate 16 /min Comments: Pattern: Unlabored O2 SAT 96 % Comments: Room air BP Systolic 120 mm[Hg] Comments: Patient Position: Sitting; Cuff Location: Left Arm; Cuff Size: Standard BP Diastolic 70 mm[Hg] Comments: Patient Position: Sitting; Cuff Location: Left Arm; Cuff Size: Standard Weight 133 lb Height 64.5 in Body Mass Index Calculated 22.48 kg/m2 Body Surface Area Calculated 1.65 m2 :29 Temperature 97.2 f Comments: Method: Oral Pulse 70 /min Comments: Pattern: Regular Respiration Rate 16 /min O2 SAT 98 % Comments: Room air BP Systolic 118 mm[Hg] Comments: Patient Position: Sitting; Cuff Location: Left Arm; Cuff Size: Standard BP Diastolic 70 mm[Hg] Comments: Patient Position: Sitting; Cuff Location: Left Arm; Cuff Size: Standard Weight 133 lb Height 64.5 in Body Mass Index Calculated 22.48 kg/m2 Body Surface Area Calculated 1.65 m2 :01 Temperature 97.3 f Pulse 72 /min Comments: Pattern: Regular Respiration Rate 16 /min Comments: Pattern: Unlabored BP Systolic 126 mm[Hg] Comments: Patient Position: Sitting; Cuff Location: Left Arm; Cuff Size: Standard BP Diastolic 60 mm[Hg] Comments: Patient Position: Sitting; Cuff Location: Left Arm; Cuff Size: Standard Weight 133 lb Height 64.5 in Body Mass Index Calculated 22.48 kg/m2 Body Surface Area Calculated 1.65 m2 :49 Temperature 98.2 f Pulse 92 /min Comments: Pattern: Regular Respiration Rate 16 /min Comments: Pattern: Unlabored BP Systolic 110 mm[Hg] Comments: Patient Position: Sitting; Cuff Location: Left Arm; Cuff Size: Standard BP Diastolic 66 mm[Hg] Comments: Patient Position: Sitting; Cuff Location: Left Arm; Cuff Size: Standard Weight 145 lb Height 65 in Body Mass Index Calculated 24.13 kg/m2 Body Surface Area Calculated 1.73 m2 :40 Temperature 98.3 f Comments: Method: Oral Pulse 78 /min Comments: Pattern: Regular Respiration Rate 18 /min BP Systolic 120 mm[Hg] Comments: Patient Position: Sitting; Cuff Location: Left Arm; Cuff Size: Standard BP Diastolic 74 mm[Hg] Comments: Patient Position: Sitting; Cuff Location: Left Arm; Cuff Size: Standard Weight 136 lb Height 65 in Body Mass Index Calculated 22.63 kg/m2 Body Surface Area Calculated 1.68 m2 :37 Temperature 97.8 f Pulse 92 /min Comments: Pattern: Regular Respiration Rate 18 /min Comments: Pattern: Unlabored BP Systolic 118 mm[Hg] Comments: Patient Position: Sitting; Cuff Location: Left Arm; Cuff Size: Large BP Diastolic 72 mm[Hg] Comments: Patient Position: Sitting; Cuff Location: Left Arm; Cuff Size: Large Weight 136 lb Height 65 in Body Mass Index Calculated 22.63 kg/m2 Body Surface Area Calculated 1.68 m2 :26 Temperature 97.5 f Pulse 80 /min Comments: Pattern: Regular Respiration Rate 16 /min Comments: Pattern: Unlabored BP Systolic 110 mm[Hg] Comments: Patient Position: Sitting; Cuff Location: Left Arm; Cuff Size: Large BP Diastolic 62 mm[Hg] Comments: Patient Position: Sitting; Cuff Location: Left Arm; Cuff Size: Large Weight 142 lb Height 65 in Body Mass Index Calculated 23.63 kg/m2 Body Surface Area Calculated 1.71 m2 :22 Temperature 97.1 f Pulse 76 /min Comments: Pattern: Regular Respiration Rate 16 /min Comments: Pattern: Unlabored BP Systolic 110 mm[Hg] Comments: Patient Position: Sitting; Cuff Location: Left Arm; Cuff Size: Large BP Diastolic 80 mm[Hg] Comments: Patient Position: Sitting; Cuff Location: Left Arm; Cuff Size: Large Weight 142 lb Height 65 in Body Mass Index Calculated 23.63 kg/m2 Body Surface Area Calculated 1.71 m2 :18 Temperature 97.5 f Pulse 76 /min Comments: Pattern: Regular Respiration Rate 16 /min Comments: Pattern: Unlabored BP Systolic 126 mm[Hg] Comments: Patient Position: Sitting; Cuff Location: Left Arm; Cuff Size: Standard BP Diastolic 82 mm[Hg] Comments: Patient Position: Sitting; Cuff Location: Left Arm; Cuff Size: Standard Weight 141 lb Height 65 in Body Mass Index Calculated 23.46 kg/m2 Body Surface Area Calculated 1.71 m2 :18 Temperature 97.9 f Pulse 76 /min Comments: Pattern: Regular Respiration Rate 16 /min Comments: Pattern: Unlabored BP Systolic 126 mm[Hg] Comments: Patient Position: Sitting; Cuff Location: Left Arm; Cuff Size: Standard BP Diastolic 64 mm[Hg] Comments: Patient Position: Sitting; Cuff Location: Left Arm; Cuff Size: Standard Weight 140 lb Height 65 in Body Mass Index Calculated 23.3 kg/m2 Body Surface Area Calculated 1.7 m2 :26 Temperature 98.2 f Comments: Method: Oral Pulse 72 /min Comments: Pattern: Regular Respiration Rate 16 /min BP Systolic 110 mm[Hg] Comments: Patient Position: Sitting; Cuff Location: Left Arm; Cuff Size: Standard BP Diastolic 70 mm[Hg] Comments: Patient Position: Sitting; Cuff Location: Left Arm; Cuff Size: Standard Weight 138 lb Height 65 in Body Mass Index Calculated 22.96 kg/m2 Body Surface Area Calculated 1.69 m2 :18 Temperature 96.8 f Comments: Method: Oral Pulse 74 /min Comments: Pattern: Regular Respiration Rate 16 /min BP Systolic 124 mm[Hg] Comments: Patient Position: Sitting; Cuff Location: Left Arm; Cuff Size: Standard BP Diastolic 84 mm[Hg] Comments: Patient Position: Sitting; Cuff Location: Left Arm; Cuff Size: Standard Weight 138 lb Height 65 in Body Mass Index Calculated 22.96 kg/m2 Body Surface Area Calculated 1.69 m2 :35 Temperature 97.9 f Comments: Method: Oral Pulse 76 /min Comments: Pattern: Regular Respiration Rate 16 /min Comments: Pattern: Unlabored BP Systolic 122 mm[Hg] Comments: Patient Position: Sitting; Cuff Location: Left Arm; Cuff Size: Large BP Diastolic 72 mm[Hg] Comments: Patient Position: Sitting; Cuff Location: Left Arm; Cuff Size: Large Weight 138 lb Height 65 in Body Mass Index Calculated 22.96 kg/m2 Body Surface Area Calculated 1.69 m2 :18 Temperature 97.8 f Pulse 88 /min Comments: Pattern: Regular Respiration Rate 16 /min Comments: Pattern: Unlabored BP Systolic 116 mm[Hg] Comments: Patient Position: Sitting; Cuff Location: Left Arm; Cuff Size: Standard BP Diastolic 64 mm[Hg] Comments: Patient Position: Sitting; Cuff Location: Left Arm; Cuff Size: Standard Weight 135 lb Height 64.5 in Body Mass Index Calculated 22.81 kg/m2 Body Surface Area Calculated 1.66 m2 :47 Temperature 96.8 f Comments: Method: Oral Pulse 66 /min Comments: Pattern: Regular Respiration Rate 14 /min Comments: Pattern: Unlabored BP Systolic 108 mm[Hg] Comments: Patient Position: Sitting; Cuff Location: Left Arm; Cuff Size: Standard BP Diastolic 64 mm[Hg] Comments: Patient Position: Sitting; Cuff Location: Left Arm; Cuff Size: Standard Weight 143 lb Height 65 in Body Mass Index Calculated 23.8 kg/m2 Body Surface Area Calculated 1.72 m2 :29 Temperature 97.6 f Comments: Method: Oral Pulse 68 /min Comments: Pattern: Regular Respiration Rate 18 /min Comments: Pattern: Unlabored BP Systolic 118 mm[Hg] Comments: Patient Position: Sitting; Cuff Location: Left Arm; Cuff Size: Standard BP Diastolic 78 mm[Hg] Comments: Patient Position: Sitting; Cuff Location: Left Arm; Cuff Size: Standard Weight 143 lb Height 65 in Body Mass Index Calculated 23.8 kg/m2 Body Surface Area Calculated 1.72 m2 :35 Temperature 97.9 f Comments: Method: Oral Pulse 74 /min Comments: Pattern: Regular Respiration Rate 16 /min Comments: Pattern: Unlabored BP Systolic 120 mm[Hg] Comments: Patient Position: Sitting; Cuff Location: Left Arm; Cuff Size: Standard BP Diastolic 82 mm[Hg] Comments: Patient Position: Sitting; Cuff Location: Left Arm; Cuff Size: Standard Weight 144 lb Height 65 in Body Mass Index Calculated 23.96 kg/m2 Body Surface Area Calculated 1.72 m2 :44 Temperature 98.2 f Comments: Method: Oral Pulse 68 /min Comments: Pattern: Regular Respiration Rate 18 /min Comments: Pattern: Unlabored BP Systolic 120 mm[Hg] Comments: Patient Position: Sitting; Cuff Location: Left Arm; Cuff Size: Standard BP Diastolic 80 mm[Hg] Comments: Patient Position: Sitting; Cuff Location: Left Arm; Cuff Size: Standard Weight 142 lb Height 64.75 in Body Mass Index Calculated 23.81 kg/m2 Body Surface Area Calculated 1.71 m2 :27 Temperature 96.8 f Comments: Method: Oral Pulse 70 /min Comments: Pattern: Regular Respiration Rate 16 /min Comments: Pattern: Unlabored BP Systolic 142 mm[Hg] Comments: Patient Position: Sitting; Cuff Location: Left Arm; Cuff Size: Standard BP Diastolic 70 mm[Hg] Comments: Patient Position: Sitting; Cuff Location: Left Arm; Cuff Size: Standard Weight 138 lb Height 64.75 in Body Mass Index Calculated 23.14 kg/m2 Body Surface Area Calculated 1.68 m2 :42 Temperature 97.6 f Comments: Method: Oral Pulse 64 /min Comments: Pattern: Regular Respiration Rate 18 /min Comments: Pattern: Unlabored BP Systolic 116 mm[Hg] Comments: Patient Position: Sitting; Cuff Location: Left Arm; Cuff Size: Standard BP Diastolic 74 mm[Hg] Comments: Patient Position: Sitting; Cuff Location: Left Arm; Cuff Size: Standard Weight 138 lb Height 64.75 in Body Mass Index Calculated 23.14 kg/m2 Body Surface Area Calculated 1.68 m2 :06 Temperature 97.2 f Pulse 68 /min Comments: Pattern: Regular Respiration Rate 18 /min Comments: Pattern: Unlabored BP Systolic 118 mm[Hg] Comments: Patient Position: Sitting; Cuff Location: Left Arm; Cuff Size: Standard BP Diastolic 80 mm[Hg] Comments: Patient Position: Sitting; Cuff Location: Left Arm; Cuff Size: Standard Weight 138 lb :34 Pulse 70 /min Comments: Pattern: Regular Respiration Rate 16 /min Comments: Pattern: Unlabored BP Systolic 116 mm[Hg] Comments: Patient Position: Sitting; Cuff Location: Left Arm; Cuff Size: Standard BP Diastolic 72 mm[Hg] Comments: Patient Position: Sitting; Cuff Location: Left Arm; Cuff Size: Standard Weight 148 lb Height 64.75 in Body Mass Index Calculated 24.82 kg/m2 Body Surface Area Calculated 1.74 m2 Head Circumference 0.00 cm :35 Temperature 99 f Comments: Method: Oral Pulse 72 /min Comments: Pattern: Regular Respiration Rate 16 /min Comments: Pattern: Unlabored BP Systolic 118 mm[Hg] Comments: Patient Position: Supine; Cuff Location: Left Arm; Cuff Size: Standard BP Diastolic 70 mm[Hg] Comments: Patient Position: Supine; Cuff Location: Left Arm; Cuff Size: Standard Weight 146 lb Height 65 in Body Mass Index Calculated 24.3 kg/m2 Body Surface Area Calculated 1.73 m2 Head Circumference 0.00 cm :43 Pulse 74 /min Comments: Pattern: Regular Respiration Rate 16 /min Comments: Pattern: Unlabored BP Systolic 118 mm[Hg] Comments: Patient Position: Sitting; Cuff Location: Left Arm; Cuff Size: Standard BP Diastolic 80 mm[Hg] Comments: Patient Position: Sitting; Cuff Location: Left Arm; Cuff Size: Standard Weight 145 lb Height 0 in Head Circumference 0.00 cm :02 Temperature 98.2 f Comments: Method: Oral Pulse 74 /min Comments: Pattern: Regular Respiration Rate 16 /min Comments: Pattern: Unlabored BP Systolic 122 mm[Hg] Comments: Patient Position: Sitting; Cuff Location: Left Arm; Cuff Size: Standard BP Diastolic 80 mm[Hg] Comments: Patient Position: Sitting; Cuff Location: Left Arm; Cuff Size: Standard Weight 0 lb Height 0 in Head Circumference 0.00 cm :35 Pulse 66 /min Comments: Pattern: Regular Respiration Rate 16 /min Comments: Pattern: Unlabored BP Systolic 128 mm[Hg] Comments: Patient Position: Sitting; Cuff Location: Left Arm; Cuff Size: Standard BP Diastolic 82 mm[Hg] Comments: Patient Position: Sitting; Cuff Location: Left Arm; Cuff Size: Standard Weight 145.5625 lb Height 65 in Body Mass Index Calculated 24.22 kg/m2 Body Surface Area Calculated 1.73 m2 Head Circumference 0.00 cm :52 Temperature 98.2 f Comments: Method: Oral Pulse 68 /min Comments: Pattern: Regular Respiration Rate 18 /min Comments: Pattern: Unlabored BP Systolic 118 mm[Hg] Comments: Patient Position: Sitting; Cuff Location: Left Arm; Cuff Size: Standard BP Diastolic 76 mm[Hg] Comments: Patient Position: Sitting; Cuff Location: Left Arm; Cuff Size: Standard Weight 141.0375 lb Height 0 in Head Circumference 0.00 cm :00 Temperature 96.8 f Comments: Method: Oral Pulse 72 /min Comments: Pattern: Regular Respiration Rate 16 /min Comments: Pattern: Unlabored BP Systolic 120 mm[Hg] Comments: Patient Position: Sitting; Cuff Location: Left Arm; Cuff Size: Standard BP Diastolic 76 mm[Hg] Comments: Patient Position: Sitting; Cuff Location: Left Arm; Cuff Size: Standard Weight 0 lb Height 0 in Head Circumference 0.00 cm :51 Temperature 97.5 f Comments: Method: Oral Pulse 68 /min Comments: Pattern: Regular Respiration Rate 16 /min Comments: Pattern: Unlabored BP Systolic 122 mm[Hg] Comments: Patient Position: Sitting; Cuff Location: Left Arm; Cuff Size: Standard BP Diastolic 76 mm[Hg] Comments: Patient Position: Sitting; Cuff Location: Left Arm; Cuff Size: Standard Weight 143 lb Height 0 in Head Circumference 0.00 cm :09 Temperature 98.2 f Comments: Method: Oral Pulse 76 /min Comments: Pattern: Regular Respiration Rate 17 /min Comments: Pattern: Unlabored BP Systolic 124 mm[Hg] Comments: Patient Position: Sitting; Cuff Location: Left Arm; Cuff Size: Standard BP Diastolic 78 mm[Hg] Comments: Patient Position: Sitting; Cuff Location: Left Arm; Cuff Size: Standard Weight 143 lb Height 0 in Head Circumference 0.00 cm 36-Uwu-102768:00 Temperature 98.4 f Comments: Method: Oral Pulse 64 /min Comments: Pattern: Regular Respiration Rate 18 /min Comments: Pattern: Unlabored BP Systolic 120 mm[Hg] Comments: Patient Position: Sitting; Cuff Location: Left Arm; Cuff Size: Standard BP Diastolic 78 mm[Hg] Comments: Patient Position: Sitting; Cuff Location: Left Arm; Cuff Size: Standard Weight 143 lb Height 0 in Head Circumference 0.00 cm :38 Temperature 97 f Comments: Method: Oral Pulse 70 /min Comments: Pattern: Regular Respiration Rate 20 /min Comments: Pattern: Unlabored BP Systolic 126 mm[Hg] Comments: Patient Position: Sitting; Cuff Location: Left Arm; Cuff Size: Standard BP Diastolic 80 mm[Hg] Comments: Patient Position: Sitting; Cuff Location: Left Arm; Cuff Size: Standard Weight 0 lb Height 0 in Head Circumference 0.00 cm :00 Temperature 97.9 f Comments: Method: Oral Pulse 68 /min Comments: Pattern: Regular Respiration Rate 18 /min Comments: Pattern: Unlabored BP Systolic 110 mm[Hg] Comments: Patient Position: Sitting; Cuff Location: Right Arm; Cuff Size: Standard BP Diastolic 80 mm[Hg] Comments: Patient Position: Sitting; Cuff Location: Right Arm; Cuff Size: Standard Weight 146 lb Height 65.25 in Body Mass Index Calculated 24.11 kg/m2 Body Surface Area Calculated 1.74 m2 Head Circumference 0.00 cm :16 Pulse 72 /min Comments: Pattern: Regular Respiration Rate 16 /min Comments: Pattern: Unlabored Weight 144.4375 lb Height 65 in Body Mass Index Calculated 24.04 kg/m2 Body Surface Area Calculated 1.72 m2 Head Circumference 0.00 cm Results Date Description Value Details 4-Uie-763738:00 Hernia See Note (Normal) Comments: [facility] [address] [place], [id number] Comments: Patient: MEL JOHNSON : 1950 (68/F) Acct Num: [id number] Phys: Kierra ROJAS, Unit Num: [id number] Loc: [facility] [place] Specimen: [id number] Received: 07/01/18 - 1352 Spec Type: Hernia TISSUES 1 TISSUES: HERNIA GROSS DESCRIPTION Received in fixative is one container labeled with the patient's name and designated right inguinal cremasteric fibers. The spec imen consists of an irregular piece of skinner soft tissue measuring 2.5 x 2 x 0.3 cm. Sections do not reveal any mass lesion. The entire specimen is submitted in one cassette. / SJ:facundo 07/01/18 TC:5 C PT: [id number] HEADER OPERATION: Right inguinal herniorrhaphy with mesh PRE- OP DIAGNOSIS: Right inguinal hernia TISSUE SUBMITTED: Right inguinal cremasteric fibers MICROSCOPIC DESCRIPTION Slides are reviewed. MICROSCOPIC DIAGNOSIS Right inguinal cremasteric fibers, biopsy: Fragments of benign fibrovascular tissue and skeletal muscle tissue. AM:facundo 07/02/18 Signed Keegan Guerita 07/02/18 <signature on file> 3-Kph-142865:19 Basic Metabolic Profile (BMP) Comments: [facility] [address] [place], [address] GAP 9 (Normal) Range: 5-15 CO2 27.0 mmol/L (Normal) Range: 21.0-32.0 CL 105 mmol/L (Normal) Range: 98-107 K 4.4 mmol/L (Normal) Range: 3.5-5.1 NA 141 mmol/L (Normal) Range: 136-145 CA 9.4 mg/dL (Normal) Range: 8.5-10.1 BUN/CRE 36.4 {RATIO} (Abnormal) Range: 10-20 EST GFR - AA 109 mL/min (Normal) Comments: GFR Calc EST GFR 90 mL/min (Normal) Comments: Non- GFR Calc CREAT,SERUM 0.69 mg/dL (Normal) Range: 0.55-1.02 Comments: The validity of the calculated GFR AND GFRAA in patients over70 years has not been determined. Clinical correlation isessential. BUN 25 mg/dL (Abnormal) Range: 7-18 GLU 80 mg/dL (Normal) Range: 74-106 Comments: Please note revised GLUCOSE reference range pqvrreylv07/02/2018. 8-Nuy-502356:19 CBC-Complete Blood Cnt No Diff Comments: [facility] [address] [place], [place], [id number] MPV 9.3 fL (Normal) Range: 6.2-12.0 PLT 228 K/mm3 (Normal) Range: 150-450 RDW SD 48.0 fL (Abnormal) Range: 35.1-43.9 RDW CV 12.9 % (Normal) Range: 11.6-14.6 MCHC 32.5 {g/gl} (Normal) Range: 32-36 MCH 33.0 pg (Abnormal) Range: 27.0-32.0 MCV 101.6 fL (Abnormal) Range: 81-99 HCT 38.2 % (Normal) Range: 37-47 HGB 12.4 g/dL (Normal) Range: 12.0-15.0 RBC 3.76 {M/mm3} (Abnormal) Range: 4.2-5.4 WBC 5.3 K/mm3 (Normal) Range: 4.4-11.0 29-Mar-20189:32 CBC WITH MANUAL DIFF (39647) Comments: PATIENT NOT FASTINGPERFORMED BY: [facility] [address]qs1583 [facility] [id number] Immature Grans (Abs) 0.0 {x10E3/uL} (Normal) Range: 0.0-0.1 Immature Granulocytes 0 % (Normal) Baso (Absolute) 0.0 {x10E3/uL} (Normal) Range: 0.0-0.2 Eos (Absolute) 0.1 {x10E3/uL} (Normal) Range: 0.0-0.4 Monocytes(Absolute) 0.4 {x10E3/uL} (Normal) Range: 0.1-0.9 Lymphs (Absolute) 0.6 {x10E3/uL} (Abnormal) Range: 0.7-3.1 Neutrophils (Absolute) 3.8 {x10E3/uL} (Normal) Range: 1.4-7.0 Basos 1 % (Normal) Eos 1 % (Normal) Monocytes 7 % (Normal) Lymphs 13 % (Normal) Neutrophils 78 % (Normal) Platelets 243 {x10E3/uL} (Normal) Range: 150-379 RDW 13.6 % (Normal) Range: 12.3-15.4 MCHC 33.2 g/dL (Normal) Range: 31.5-35.7 MCH 33.0 pg (Normal) Range: 26.6-33.0 MCV 100 fL (Abnormal) Range: 79-97 Hematocrit 39.5 % (Normal) Range: 34.0-46.6 Hemoglobin 13.1 g/dL (Normal) Range: 11.1-15.9 RBC 3.97 {x10E6/uL} (Normal) Range: 3.77-5.28 WBC 4.9 {x10E3/uL} (Normal) Range: 3.4-10.8 0-Cen-775237:39 CALCIFIDIOL (78805) VIT D 25 Comments: PATIENT WAS FASTINGPERFORMED BY: [facility]St[facility] HospitalDzpnyo[facility]77 [facility] [id number] Vitamin D, 25-Hydroxy 61.4 ng/mL (Normal) Range: 30.0-100.0 Comments: Vitamin D deficiency has been defined by the [place] ofMedicine and an Endocrine Society practice guideline as alevel of serum 25-OH vitamin D less than 20 ng/mL (1,2).The Endocrine Society went on to further define vitamin Dinsufficiency as a level between 21 and 29 ng/mL (2).1. IOM ([place] of Medicine). 2010. Dietary reference intakes for calcium and D. [place]: The National Academies Press.2. Rhoda MF, Kirsten NC, Avani SAMANIEGO, et al. Evaluation, treatment, and prevention of vitamin D deficiency: an Endocrine Society clinical practice guideline. JCEM. 2010; 96(7):1911-30. 6-Sjm-152825:39 LIPID PANEL (35676) Comments: PATIENT WAS FASTINGPERFORMED BY: [facility]6370 [facility] [id number] LDL/HDL Ratio 1.5 {ratio} (Normal) Range: 0.0-3.2 Comments: LDL/HDL Ratio Men Women 1/2 Avg.Risk 1.0 1.5 Av g.Risk 3.6 3.2 2X Avg.Risk 6.2 5.0 3X Avg.Risk 8.0 6.1 LDL Cholesterol Calc 97 mg/dL (Normal) Range: 0-99 VLDL Cholesterol Jessica 58 mg/dL (Abnormal) Range: 5-40 HDL Cholesterol 65 mg/dL (Normal) Triglycerides 288 mg/dL (Abnormal) Range: 0-149 Cholesterol, Total 220 mg/dL (Abnormal) Range: 100-199 27-Cxd-308124:45 TSH (98687) Comments: A courtesy copy of this report has been sent [phone].PATIENT WAS FASTINGPERFORMED BY: [facility]6[address] [facility] [id number] TSH 1.250 {uIU/mL} (Normal) Range: 0.450-4.500 72-Exu-020584:45 METABOLIC PANEL, COMPREHENSIVE Comments: A courtesy copy of this report has been sent [phone].PATIENT WAS FASTINGPERFORMED BY: [facility]6[address] [facility] [id number] (51816) ALT (SGPT) 22 [iU]/L (Normal) Range: 0-32 AST (SGOT) 23 [iU]/L (Normal) Range: 0-40 Alkaline Phosphatase, S 68 [iU]/L (Normal) Range: 39-117 Bilirubin, Total 0.4 mg/dL (Normal) Range: 0.0-1.2 A/G Ratio 2.0 (Normal) Range: 1.2-2.2 Globulin, Total 2.3 g/dL (Normal) Range: 1.5-4.5 Albumin, Serum 4.6 g/dL (Normal) Range: 3.6-4.8 Protein, Total, Serum 6.9 g/dL (Normal) Range: 6.0-8.5 Calcium, Serum 9.7 mg/dL (Normal) Range: 8.7-10.3 Carbon Dioxide, Total 25 mmol/L (Normal) Range: 18-29 Chloride, Serum 99 mmol/L (Normal) Range: 96-106 Potassium, Serum 4.4 mmol/L (Normal) Range: 3.5-5.2 Sodium, Serum 142 mmol/L (Normal) Range: 134-144 BUN/Creatinine Ratio 27 (Normal) Range: 12-28 eGFR If Africn Am 104 mL/min/1.73 (Normal) eGFR If NonAfricn Am 91 mL/min/1.73 (Normal) Creatinine, Serum 0.67 mg/dL (Normal) Range: 0.57-1.00 BUN 18 mg/dL (Normal) Range: 8-27 Glucose, Serum 78 mg/dL (Normal) Range: 65-99 39-Guc-692224:45 CBC W/AUTO DIFF WBC Comments: A courtesy copy of this report has been sent [phone].PATIENT WAS FASTINGPERFORMED BY: [facility] [id number] Information: FX DR. ZENG ([id number]) Immature Grans (Abs) 0.0 {x10E3/uL} (Normal) Range: 0.0-0.1 Immature Granulocytes 0 % (Normal) Baso (Absolute) 0.0 {x10E3/uL} (Normal) Range: 0.0-0.2 Eos (Absolute) 0.1 {x10E3/uL} (Normal) Range: 0.0-0.4 Monocytes(Absolute) 0.3 {x10E3/uL} (Normal) Range: 0.1-0.9 Lymphs (Absolute) 0.8 {x10E3/uL} (Normal) Range: 0.7-3.1 Neutrophils (Absolute) 2.6 {x10E3/uL} (Normal) Range: 1.4-7.0 Basos 1 % (Normal) Eos 2 % (Normal) Monocytes 8 % (Normal) Lymphs 22 % (Normal) Neutrophils 67 % (Normal) Platelets 257 {x10E3/uL} (Normal) Range: 150-379 RDW 13.3 % (Normal) Range: 12.3-15.4 MCHC 33.0 g/dL (Normal) Range: 31.5-35.7 MCH 32.2 pg (Normal) Range: 26.6-33.0 MCV 98 fL (Abnormal) Range: 79-97 Hematocrit 39.1 % (Normal) Range: 34.0-46.6 Hemoglobin 12.9 g/dL (Normal) Range: 11.1-15.9 Comments: Effective August 27, 2017 the reference interval for Hemoglobin MALES only will be changing to: Males 13-15 years: 12.6 - 17.7 Males >15 years: 13.0 - 17.7 RBC 4.01 {x10E6/uL} (Normal) Range: 3.77-5.28 WBC 3.8 {x10E3/uL} (Normal) Range: 3.4-10.8 17-Hmc-962246:45 LIPID PANEL (15318) Comments: A courtesy copy of this report has been sent [phone].PATIENT WAS FASTINGPERFORMED BY: [employer] [facility] [id number] LDL/HDL Ratio 1.3 {ratio_units} (Normal) Range: 0.0-3.2 Comments: LDL/HDL Ratio Men Women 1/2 Avg.Risk 1.0 1.5 Av g.Risk 3.6 3.2 2X Avg.Risk 6.2 5.0 3X Avg.Risk 8.0 6.1 LDL Cholesterol Calc 89 mg/dL (Normal) Range: 0-99 VLDL Cholesterol Jessica 52 mg/dL (Abnormal) Range: 5-40 HDL Cholesterol 68 mg/dL (Normal) Triglycerides 262 mg/dL (Abnormal) Range: 0-149 Cholesterol, Total 209 mg/dL (Abnormal) Range: 100-199 81-Uwm-344535:45 CALCIFIDIOL (68338) VIT D 25 Comments: A courtesy copy of this report has been sent [phone].PATIENT WAS FASTINGPERFORMED BY: [employer] Weoscc3153 [facility] [id number] Vitamin D, 25-Hydroxy 62.0 ng/mL (Normal) Range: 30.0-100.0 Comments: Vitamin D deficiency has been defined by the [place] ofMedicine and an Endocrine Society practice guideline as alevel of serum 25-OH vitamin D less than 20 ng/mL (1,2).The Endocrine Society went on to further define vitamin Dinsufficiency as a level between 21 and 29 ng/mL (2).1. IOM ([place] of Medicine). 2010. Dietary reference intakes for calcium and D. [place]: The National Academies Press.2. Rhoda MF, Kirsten DOW, Avani SAMANIEGO, et al. Evaluation, treatment, and prevention of vitamin D deficiency: an Endocrine Society clinical practice guideline. JCEM. 2010; 96(7):1911-30. 40-Jce-607718:40 HGB A1C (11572) Comments: PATIENT NOT FASTINGPERFORMED BY: [employer] [id number] BY: [employer] [facility] [id number] Hemoglobin A1c 5.3 % (Normal) Range: 4.8-5.6 Comments: . Pre-diabetes: 5.7 - 6.4 Diabetes: >6.4 Glycemic control for adults with diabetes: <7.0 :40 HEPATITIS C ANTIBODY Comments: PATIENT NOT FASTINGPERFORMED BY: [employer] [id number] BY: [employer] [facility] [id number] (56346) Hep C Virus Ab 0.2 {s/co_ratio} (Normal) Range: 0.0-0.9 Comments: Negative: < 0.8 Indeterminate: 0.8 - 0.9 Positive: > 0.9 . The CDC recommends that a positive HCV antibody result be followed up with a HCV Nucleic Acid Amplification test (472299). :40 HEAVY METAL SCREEN Comments: PATIENT NOT FASTINGPERFORMED BY: [employer] [address] [id number] BY: [employer] [facility] [id number] (41637) Cadmium, Blood None Detected ug/L (Normal) Range: 0.0-1.2 Comments: Environmental Exposure: Nonsmokers 0.3 - 1.2 Smokers 0.6 - 3.9 O ccupational Exposure: OSHA Cadmium Std 5.0 ALE 5.0 . Detection Limit = 0.5 Mercury, Blood None Detected ug/L (Normal) Range: 0.0-14.9 Comments: Environmental Exposure: <15.0 Occupational Exposure: ALE - Inorganic Mercury: 15.0 . Detection Limit = 1.0 Arsenic, Blood 4 ug/L (Normal) Range: 2-23 Comments: Detection Limit = 1 Lead, Blood 1 ug/dL (Normal) Range: 0-19 Comments: Environmental Exposure: WHO Recommendation <20 Occupational Exposure: OSHA Lead Std 40 ALE 30 . Detection Limit = 1 61-Ndq-185438:40 MARY (ANTINUCLEAR ANTIBODY) Comments: PATIENT NOT FASTINGPERFORMED BY: [employer] [address] [id number] BY: [employer] [address] [place] [address] [id number] (15205) MARY Direct Negative (Normal) 44-Bej-764580:40 Serum Protein Comments: PATIENT NOT FASTINGPERFORMED BY: [employer] [address] [id number] BY: [employer] By[address] [place] [address] [id number] Electrophoresis (SPEP) (06925) Please note: SPRCS (Normal) Comments: Protein electrophoresis scan will follow via computer, mail, orcourier delivery. A/G Ratio 1.6 (Normal) Range: 0.7-1.7 Globulin, Total 2.7 g/dL (Normal) Range: 2.2-3.9 M-Marek 0.3 g/dL (Abnormal) Gamma Globulin 0.7 g/dL (Normal) Range: 0.4-1.8 Beta Globulin 1.1 g/dL (Normal) Range: 0.7-1.3 Jyhgt-7-Zhjuipfz 0.7 g/dL (Normal) Range: 0.4-1.0 Jkdao-6-Asaxpina 0.2 g/dL (Normal) Range: 0.0-0.4 Albumin 4.3 g/dL (Normal) Range: 2.9-4.4 :40 VITAMIN B-12 Comments: PATIENT NOT FASTINGPERFORMED BY: [employer] [id number] BY: NusirtCox SouthTbmdsl2469 Chavez RoadDublin [place] [id number] (CYANOCOBALAMIN) (87081) Vitamin B12 574 pg/mL (Normal) Range: 211-946 :40 TSH (THYROID STIMULATING Comments: PATIENT NOT FASTINGPERFORMED BY: [employer] [id number] BY: LabVENNCOMM Qtatim7925 [address]avez RoadDublin [place] [id number] HORMONE) (57808) TSH 1.230 {uIU/mL} (Normal) Range: 0.450-4.500 :40 SED RATE ERYTHROCYTE Comments: PATIENT NOT FASTINGPERFORMED BY: [employer] [id number] BY: TouristlinkMimbres Memorial HospitalIcgidz2936 Chavez RoadDublin [place] [id number] (01635) Sedimentation Rate-Westergren 2 mm/h (Normal) Range: 0-40 :40 METABOLIC PANEL, Comments: PATIENT NOT FASTINGPERFORMED BY: [employer] [id number] BY: [employer] Axvcai9033 [address]avez RoadDublin [place] [id number] COMPREHENSIVE (93272) ALT (SGPT) 22 [iU]/L (Normal) Range: 0-32 AST (SGOT) 23 [iU]/L (Normal) Range: 0-40 Alkaline Phosphatase, S 69 [iU]/L (Normal) Range: 39-117 Bilirubin, Total <0.2 mg/dL (Normal) Range: 0.0-1.2 A/G Ratio 2.2 (Normal) Range: 1.2-2.2 Globulin, Total 2.2 g/dL (Normal) Range: 1.5-4.5 Albumin, Serum 4.8 g/dL (Normal) Range: 3.6-4.8 Protein, Total, Serum 7.0 g/dL (Normal) Range: 6.0-8.5 Calcium, Serum 10.2 mg/dL (Normal) Range: 8.7-10.3 Carbon Dioxide, Total 24 mmol/L (Normal) Range: 18-29 Chloride, Serum 100 mmol/L (Normal) Range: 96-106 Potassium, Serum 4.1 mmol/L (Normal) Range: 3.5-5.2 Sodium, Serum 141 mmol/L (Normal) Range: 134-144 BUN/Creatinine Ratio 39 (Abnormal) Range: 12-28 eGFR If Africn Am 111 mL/min/1.73 (Normal) eGFR If NonAfricn Am 96 mL/min/1.73 (Normal) Creatinine, Serum 0.57 mg/dL (Normal) Range: 0.57-1.00 BUN 22 mg/dL (Normal) Range: 8-27 Glucose, Serum 94 mg/dL (Normal) Range: 65-99 03-Hrk-565461:40 CBC & PLATELETS (AUTO) Comments: PATIENT NOT FASTINGPERFORMED BY: BN [facility] [address] [id number] BY: CB [facility] Vjcpla3949 [facility] [id number] (85733) Platelets 269 {x10E3/uL} (Normal) Range: 150-379 RDW 13.2 % (Normal) Range: 12.3-15.4 MCHC 34.2 g/dL (Normal) Range: 31.5-35.7 MCH 32.9 pg (Normal) Range: 26.6-33.0 MCV 96 fL (Normal) Range: 79-97 Hematocrit 37.1 % (Normal) Range: 34.0-46.6 Hemoglobin 12.7 g/dL (Normal) Range: 11.1-15.9 RBC 3.86 {x10E6/uL} (Normal) Range: 3.77-5.28 WBC 4.7 {x10E3/uL} (Normal) Range: 3.4-10.8 :30 Culture, Urine Comments: [facility] [address] [place], [address] CUUR See Note (Normal) Comments: Urine CultureCulture exhibits no growth. 48-Ilm-874671:00 Estradiol Comments: [facility] [address] [place], [address] ESTRADIOL < 11.0 pg/mL (Normal) Comments: NORMAL REFERENCE RANGES FEMALE FOLLICULAR 21.4 - 164.8 pg/mL MID-CYCLE PEAK 49.9 - 367.2 pg/mL LUTEAL 40.2 - 259.0 pg/mL POST-MENOPAUSAL ON MHT <11.0 - 462.1 pg/mL NOT ON MHT <11.0 - 58.3 pg/mL MALE <11.0 - 52 .5 pg/mLNOTE:SIEMENS HAS CONFIRMED THE DRUG FULVETRANT (FASLODEX) MAYCAUSE FALSELY ELEVATED ESTRADIOL RESULTS WHEN USING THISTEST METHOD. IF PATIENT IS TAKING FULVESTRANT AN ALTERNATIVEMETHOD SHOULD BE USED TO DETERMINE ESTRADIOL CONCENTRATION. 52-Lfb-999938:00 Progesterone Level Comments: [facility] [address] [place], [place], [id number] Progesterone 0.33 ng/mL (Normal) Comments: Progesterone Reference Table: UNITS Female: Follicular 0.15 - 1.40 ng/mL Luteal 3.34 - 25.56 ng/mL Mid-luteal 4.44 - 28.03 ng/mL Postmenopausal 0.0 - 0.73 ng/mL : 1st Trimester 11.22 - 90.00 ng /mL 2nd Trimester 25.55 - 89.40 ng/mL 3rd Trimester 48.40 -422.50 ng/mL 85-Wta-810500:10 URINE VEENA CULTURE-KAREN COL Comments: PATIENT NOT FASTINGPERFORMED BY: [facility] Heiwxk7989 [facility] [id number] Information: SRC:UC COUNT (73012) Antimicrobial MIHEAD (Normal) Comments: S = Susceptible; I = Intermediate; R = Resistant P = Positive; N = Negative MICS are expressed in micrograms per mL Antibiotic RSLT#1 RSLT#2 RS Susceptibility LT#3 RSLT#4Amoxicillin/Clavulanic Acid IAmpicillin RCefepime SCeftriaxone SCefuroxime SCephalothin ICiprofloxacin SErtapenem SGentamicin SImipenem SLevofloxacin SNitrofurantoin SPipera cillin RTetracycline STobramycin STrimethoprim/Sulfa S Result 1 Escherichia coli Comments: 25,000-50,000 colony forming units per mL (Abnormal) Urine Final report Culture,Comprehensive (Abnormal) 71-Iyg-125596:38 Urinalysis, Office (24236) UA - LEUKOCYTE ESTERASE Large (Normal) UA - NITRITE Negative (Normal) URINE UROBILINGN KAREN TIMED Normal mg/dL (Normal) UA - PROTEIN Negative mg/dL (Normal) UA - PH 7.0 (Normal) UA - BLOOD Non Hemolyzed Moderate (Normal) UA - SPECIFIC GRAVITY 1.020 (Normal) UA - KETONES Negative mg/dL (Normal) UA - BILIRUBIN Negative (Normal) UA - GLUCOSE Negative (Normal) 99-Zgt-197875:58 URINE VEENA CULTURE-IDENTIFICATN Comments: PATIENT NOT FASTINGPERFORMED BY: [facility] [id number] Information: SRC:UC (68831) Result 1 NG36 (Normal) Comments: No growth in 36 - 48 hours. Urine Culture,Comprehensive Final report (Normal) 21-Yxs-095609:26 Urinalysis, Office (58787) UA - LEUKOCYTE ESTERASE Negative (Normal) UA - NITRITE Negative (Normal) URINE UROBILINGN KAREN TIMED Normal mg/dL (Normal) UA - PROTEIN Negative mg/dL (Normal) UA - PH 6 (Abnormal) UA - BLOOD Hemolyzed Trace (Normal) UA - SPECIFIC GRAVITY 1.025 (Normal) UA - KETONES Small mg/dL (Normal) UA - BILIRUBIN Negative (Normal) UA - GLUCOSE Negative (Normal) 09-Cmi-196588:50 Iron Binding Capacity Comments: PATIENT NOT FASTINGPERFORMED BY: [facility] Xrwabi2119 [facility] [id number] Information: [id number] FEE [id number] (TIBC) (25781) Iron Saturation 32 % (Normal) Range: 15-55 Iron, Serum 115 ug/dL (Normal) Range: 27-139 UIBC 246 ug/dL (Normal) Range: 118-369 Iron Bind.Cap.(TIBC) 361 ug/dL (Normal) Range: 250-450 41-Ssv-398990:50 Ferritin (75633) Comments: PATIENT NOT FASTINGPERFORMED BY: [facility] Vbhlgt4781 [facility] [place] [id number] Ferritin, Serum 111 ng/mL (Normal) Range: 15-150 81-Xpi-390242:50 CALCIFIDIOL (21109) VIT D 25 Comments: PATIENT NOT FASTINGPERFORMED BY: [facility] Tslpfg2101 [facility] [place] [id number] Vitamin D, 25-Hydroxy 43.2 ng/mL (Normal) Range: 30.0-100.0 Comments: Vitamin D deficiency has been defined by the [place] of[facility] and an Endocrine Society practice guideline as alevel of serum 25-OH vitamin D less than 20 ng/mL (1,2).The Endocrine Society went on to further define vitamin Dinsufficiency as a level between 21 and 29 ng/mL (2).1. IOM ([place] of Medicine). 2010. Dietary reference intakes for calcium and D. [place]: The National Academies Press.2. Rhoda MF, Kirsten NC, Avani SAMANIEGO, et al. Evaluation, treatment, and prevention of vitamin D deficiency: an Endocrine Society clinical practice guideline. JCEM. 2010; 96(7):1911-30. 75-Lef-865874:50 RETICULOCYTE COUNT (65893) Comments: PATIENT NOT FASTINGPERFORMED BY: [facility] Hhjvxh2809 [facility] [place] [id number] Reticulocyte Count 1.3 % (Normal) Range: 0.6-2.6 14-Ruu-595047:50 VITAMIN B-12 (CYANOCOBALAMIN) Comments: PATIENT NOT FASTINGPERFORMED BY: [facility] Kssuzn4648 [facility] [place] [id number] (46160) Vitamin B12 389 pg/mL (Normal) Range: 211-946 82-Noi-427008:03 Urinalysis, Office (58085) UA - LEUKOCYTE ESTERASE Negative (Normal) UA - NITRITE Negative (Normal) URINE UROBILINGN KAREN Normal mg/dL (Normal) TIMED UA - PROTEIN Negative mg/dL (Normal) UA - PH 7.5 (Normal) UA - BLOOD Negative (Normal) UA - SPECIFIC GRAVITY 1.015 (Normal) UA - KETONES Negative mg/dL (Normal) UA - BILIRUBIN Negative (Normal) UA - GLUCOSE Negative (Normal) :0 BREAST BIOPSY (CHOOSE See Note (Normal) Comments: [facility] Zbrsoqywqp2776 [place], [address] 0 SITE) Comments: Patient: MEL JOHNSON : 1950 (65/F) Acct Num: [id number] Phys: Jaya ROJAS,Nilo Unit Num: [id number] Loc: [facility] Specimen: [id number] Received: 01/19/16 - 1121 Spec Type: BR EAST BX TISSUES TISSUES: GROSS DESCRIPTION A - Received is one container labeled with the patient name and designated breast right. The specimen consists of multiple elongated frag ments of skinner-yellow fibroadipose tissue that in aggregate measure 5 x 3 x 0.3 cm. The specimen is totally submitted in two cassettes. B - Received is one container labeled with the patient name and designated breast, left. The specimen consists of multiple elongated fragments of skinner-yellow fibroadipose tissue that in aggregate measure 5 x 2.5 x 0.3 cm. The specimen is totally submitted in two cassettes. / SJ:facundo 01/19/16 TC:5 CPT:55961 x2 HEADER OPERATION: Bilateral stereotactic breast biopsy with mammotome PRE-OP DIAGNOSIS: Microcalcifications, bilateral - upper outer quadrant T ISSUE SUBMITTED: A. Right breast, B. Left breast specimen ISCHEMIC TIME: A. 1 minute, B. 1 minute FIXATION TIME: 8.5 hours MICROSCOPIC DESCRIPTION Slides are reviewed. MICROSCOPIC DIAGNOS IS A. Right breast, stereotactic mammotome biopsy: Involutional change. Mild fibrocystic change. Banal microcalcifications. No evidence of malignancy. B. Left breast, stere otactic mammotome biopsy: Involutional change. Mild fibrocystic change. Banal microcalcifications. No evidence of malignancy. AM:facundo 01/20/16 Signed Keegan Dexter 01/20/16 <signature on file> 8-Sjo-687467:36 CCP ANTIBODY (26552) Comments: PATIENT NOT FASTINGPERFORMED BY: [place] 3022170 [facility] [id number] BY: [address] [id number] CCP Antibodies IgG/IgA 9 {units} (Normal) Range: 0-19 Comments: Negative <20 Weak positive 20 - 39 Moderate positive 40 - 59 Strong positive >59 1-Zbm-846035:36 SED RATE ERYTHROCYTE Comments: PATIENT NOT FASTINGPERFORMED BY: [address] [id number] BY: [address] [id number] (53014) Sedimentation Rate-Westergren 3 mm/h (Normal) Range: 0-40 3-Jtd-902554:36 C-REACTIVE PROTEIN (51273) Comments: PATIENT NOT FASTINGPERFORMED BY: [place] 3022170 [facility] [id number] BY: [address] [id number] C-Reactive Protein, Quant 0.4 mg/L (Normal) Range: 0.0-4.9 3-Fum-597345:36 RHEUMATOID FACTOR-QUANT Comments: PATIENT NOT FASTINGPERFORMED BY: [place] 3022170 [facility] [id number] BY: [address] [id number] Information: [id number] (38371) RA Latex Turbid. 10.2 {IU/mL} (Normal) Range: 0.0-13.9 7-Pqn-792793:36 MARY (ANTINUCLEAR ANTIBODY) Comments: PATIENT NOT FASTINGPERFORMED BY: [address] [id number] BY: [address] [id number] (18728) MARY Direct Negative (Normal) 9-Okx-313046:01 IGP, Aptima HPV, Comments: Source.............Cervical;EndocervicalNo. of containers..01 CYTYC Thin Prep VialPATIENT NOT FASTINGPERFORMED BY: =[facility] Szexuqjdcl[address] [id number] BY: WB L rfx 16/18,[address] [id number] HPV Aptima Negative (Normal) Comments: This test detects fourteen high-risk HPV types (16/18/31/33/35/39/45/51/52/56/58/59/66/68) without differentiation. Note: PAPSMR (Normal) Comments: The Pap smear is a screening test designed to aid in the detection ofpremalignant and malignant conditions of the uterine cervix. It is not adiagnostic procedure and should not be used as the sole mean s of detectingcervical cancer. Both false-positive and false-negative reports do occur. . See Note . (Normal) DIAGNOSIS: SPRCS (Normal) Comments: NEGATIVE FOR INTRAEPITHELIAL LESION AND MALIGNANCY.CELLULAR CHANGES ASSOCIATED WITH ATROPHY ARE PRESENT.Satisfactory for evaluation. Endocervical component may not bedistinguished in cases of atrophy.V 72.31 ; Routine gynecological examinationAngelia Scanlon Loading Supervisor (ASCP) 8-Zxc-634105:01 Thin Prep Pap Comments: Source.............Cervical;EndocervicalNo. of containers..01 CYTYC Thin Prep VialPATIENT NOT FASTINGPERFORMED BY: =G [facility] Rqgjmakfkq[address] [id number] BY: WB L (55934) [address] [id number] Information: [id number] Age Gdln ACOG Testing 30-65 (Normal) 98-Sum-424260:09 LYMS tLYMINT1 Negative (Normal) Comments: Performed at: [address] [id number] Director: vAinash Angulo MD, Phone: [phone] tLYMINT2 Test not performed (Normal) tLYMS <0.91 {index} (Normal) Range: 0.00-0.90 Comments: Negative <0.91Equivocal 0.91 - 1.09Positive >1.09Note: The CDC currently advises that Western blottesting be performed following all equivocal orpositive EIA results. Final diagno sis should includeappropriate clinical findings and a positive EIAwhich is also positive by Western blot. 75-Jfg-23808:22 HPV automatic Comments: Source.............Cervical;EndocervicalNo. of containers..01 CYTYC Thin Prep VialPATIENT NOT FASTINGPERFORMED BY: WB [facility] [address]cvzr[address] [id number] BY: =Cuco García (68974) [facility] Xvwrmdmauw398 [facility] [place] [id number] Information: [id number] HPV, high-risk Negative Comments: This high-risk HPV test detects thirteen high- risk types(16/18/31/33/35/39/45/51/52/56/58/59/68) without differentiation. . (Normal) Note: PAPSMR (Normal) Comments: The Pap smear is a screening test designed to aid in the detection ofpremalignant and malignant conditions of the uterine cervix. It is not adiagnostic procedure and should not be used as the sole mean s of detectingcervical cancer. Both false-positive and false-negative reports do occur. .This liquid based ThinPrep(R) pap test w as screened with theuse of an image guided system. See Note . (Normal) DIAGNOSIS: SPRCS (Normal) Comments: NEGATIVE FOR INTRAEPITHELIAL LESION AND MALIGNANCY.Satisfactory for evaluation. Endocervical and/or squamous metaplasticcells (endocervical component) are present.V73.81 ; Special screening examination , human papillomavirus [HPV]Chan Bateman Loading Supervisor (ASCP) 4-Ing-626868:10 CTA NECK W/WO CONTRAST Radiology Report See Note (Normal) Comments: PROCEDURES: CTA NECK WITH CONTRAST REASON FOR EXAM: Female, 61 years old. Left-sided infarct TECHNIQUE: CT angiography with multi-detector data acquisition wasperformed from the aortic arch to th e skull base following intravenousadministration of 100 ml of Isovue 370 contrast. MIP images werereconstructed from the axial data set. Post-processing of theangiographicimages was performed, with mu ltiplanar reformation and 3D reconstruction. COMPARISON: None. FINDINGS: AORTIC ARCH:Normal visualized aortic arch with normal origins of the brachiocephalic,left common carotid, and left subclavian a rteries. Normalbrachiocephalicartery. Normal origin of the right common carotid artery. Normal leftsubclavian artery, without a hemodynamically significant stenosis. RIGHT CAROTID ARTERIES:Normal rig ht common carotid artery (CCA). Normal right common carotidbulb. Normal origin of the right internal carotid (ICA) artery without ahemodynamically significant stenosis. Normal visualized cervical port ionof the right internal carotid artery. Normal origin of the right external carotid artery (ECA). LEFT CAROTID ARTERIES:Normal left common carotid artery (CCA). In the region of the carotid bulb and pr oximal left internal carotidartery, there is a focal predominantly calcified atherosclerotic plaquewith positive remodeling and no associated stenosis. The origin of the left internal carotid (ICA) ivone ry is otherwiseunremarkable without a hemodynamically significant stenosis. Normalvisualized cervical portion of the left internal carotid artery. Normal origin of the left external carotid artery (EC A). VERTEBRAL ARTERIES:The bilateral vertebral arteries are normal in course and caliber. The lung apices are clear. The visualized portions of the brain fromskullbase comment orbits are grossly unrema rkable. Limited evaluation of theintracranial vasculature demonstrates no gross abnormalities. There aredegenerative changes noted throughout the cervical spine uncovertebralhypertrophy primarily on t he left. IMPRESSION:1. Focal calcified atherosclerotic plaque in the proximal left internalcarotid artery without associated hemodynamically significant narrowing.2. Otherwise unremarkable carotid and vertebral vasculature. Signed:Isela Costa M.D.February 23, 2012 at 9:29:04 PM EDTElectronically Signed SM/ABHIJIT Professional Interpretation Provided By: [facility] [employer] [facility], Phone , To consult with a radiologist regarding this report, please call our [id number] line @ Dictated on 02/23/121723 by Julissa ROJAS, SupratikTranscribed on 02/23/122133 by ITS IMPORTSign by Julissa ROJAS, Supratik on 02/23/122134 Sign by: Julissa ROJAS, Supratik 1-Sjs-375762:51 BMP GAP 8 (Normal) Range: 5-15 CO2 29.0 mmol/L (Normal) Range: 21.0-32.0 CL 101 mmol/L (Normal) Range: 98-107 K 4.3 mmol/L (Normal) Range: 3.5-5.1 NA 138 mmol/L (Normal) Range: 136-145 CA 9.3 mg/dL (Normal) Range: 8.5-10.1 BC 17.5 {RATIO} (Normal) Range: 10-20 GFRAA 93 mL/min (Normal) GFR 77 mL/min (Normal) CREAT 0.8 mg/dL (Normal) Range: 0.6-1.0 BUN 14 mg/dL (Normal) Range: 7-18 GLU 92 mg/dL (Normal) Range: 70-110 67-Lma-558026:08 Thin prep Pap Comments: Source.............Cervical;EndocervicalNo. of containers..01 CYTYC Thin Prep VialPATIENT NOT FASTINGPERFORMED BY: [facility] [address] [place] [id number] Information: [id number] ([id number]) Note: PAPSMR (Normal) Comments: The Pap smear is a screening test designed to aid in the detection ofpremalignant and malignant conditions of the uterine cervix. It is not adiagnostic procedure and should not be used as the sole mean s of detectingcervical cancer. Both false-positive and false-negative reports do occur. .This liquid based ThinPrep(R) pap test w as screened with theuse of an image guided system.The HPV DNA reflex criteria were not met with this specimen resulttherefore, no HPV testing was performed. . See Note . (Normal) DIAGNOSIS: SPRCS (Normal) Comments: NEGATIVE FOR INTRAEPITHELIAL LESION AND MALIGNANCY.CELLULAR CHANGES ASSOCIATED WITH ATROPHY ARE PRESENT.Satisfactory for evaluation. Endocervical component may not bedistinguished in cases of atrophy.V 72.31 ; Routine gynecological examinationBertha Ness Loading Supervisor ([facility]) 5-Imw-712369:26 Urinalysis, Office (88969) UA - BILIRUBIN Negative (Normal) UA - BLOOD Hemolyzed Trace (Normal) UA - GLUCOSE Negative (Normal) UA - KETONES Negative mg/dL (Normal) UA - LEUKOCYTE ESTERASE Negative (Normal) UA - NITRITE Negative (Normal) UA - PH 6.0 (Normal) UA - PROTEIN Negative mg/dL (Normal) UA - SPECIFIC GRAVITY 1.025 (Normal) URINE UROBILINGN KAREN TIMED Normal mg/dL (Normal) 27-Low-865759:23 URINE VEENA CULTURE-KAREN COL Comments: PATIENT NOT FASTINGPERFORMED BY: [facility] Gcjrwx5249 [facility] [id number] Information: SRC: URINE COUNT (33038) Antimicrobial MIHEAD (Normal) Comments: S = Susceptible; I = Intermediate; R = Resistant P = Positive; N = Negative MICS are expressed in micrograms per mL Antibiotic RSLT#1 RSLT#2 Susceptibility RSLT#3 RSLT#4Amoxicillin/Clavulanic Acid SAmpicillin SCefazolin SCefepime SCeftriaxone SCefuroxime SCephalothin SCiprofloxacin SESBL NErtapenem SGentamicin SImipenem S Levofloxacin SNitrofurantoin SPiperacillin STetracycline STobramycin STrimethoprim/Sulfa S Result 1 Escherichia coli Comments: Greater than 100,000 colony forming units per mL (Normal) Urine Final report Culture,Comprehensive (Normal) 20-Aiz-23639:16 Urinalysis, Office (77552) UA - BILIRUBIN Small (Normal) UA - BLOOD Hemolyzed Large (Normal) UA - GLUCOSE Small (Normal) Comments: 250mg /dl UA - KETONES Small mg/dL (Normal) UA - LEUKOCYTE ESTERASE Large (Normal) UA - NITRITE Positive (Normal) UA - PH 5.0 (Normal) UA - PROTEIN 100 mg/dL (Normal) UA - SPECIFIC GRAVITY 1.005 (Normal) URINE UROBILINGN KAREN TIMED 4 mg/dL (Normal) 34-Zlh-02473:34 GALLBLADDER Radiology Report See Note (Normal) Comments: PROCEDURE: ABDOMINAL ULTRASOUND - RIGHT UPPER QUADRANT REASON FOR VISIT: Female, 61 years old. The patient presents with ahistory of abdominal pain. TECHNIQUE: Ultrasound evaluation of the right upper quadrant wasperformed with real-time ultrasonography and static grayscale imaging. TECHNICAL QUALITY: Adequate. COMPARISON: None. FINDINGS: Liver: Normal size of the liver. The liver measur es 13.6 cm. There isnormal echogenicity of the liver. There is no demonstrated mass lesion.There is no intrahepatic biliary ductal dilatation. Gallbladder: Normal distended gallbladder. The gallbla dder wallmeasures2.7 mm. There are no demonstrated gallstones. There is a negativesonographic Javier's sign. There is no pericholecystic fluid. Common Bile Duct (C.B.D.): Normal size C.B.D. The co mmon bile ductmeasures 2.5 mm. Pancreas: Normal size of the head, body and tail of the pancreas.Thereis normal echogenicity of the pancreas. There is no demonstratedpancreatic mass or cyst. Right Kidn ey: Normal size of the right kidney. The right vanpbmbgzqfrkv14.4 cm. Normal renal cortex. The renal cortex measures 1.2 cm. Thereisno demonstrated renal mass or cyst. There are no demonstrated re nalcalculi. There is no hydronephrosis. There is no ascites. IMPRESSION:Normal abdominal ultrasound examination. Dictated on 06/20/11836 by Ana Lilia Baker MDranscribed on 06/20/11932 by IT S IMPORTSign by James Baker MD on 06/20/1134 Sign by: James Baker MD C-REACTIVE PROT 3.07 mg/L (Abnormal) Range: 0.0-3.0 :06 Comments: C-Reactive Protein (CRP) provides useful information for thediagnosis, therapy and monitoring of inflammatory processesand associated diseases. For the evaluation of Relative Riskfor Cardiovascular Dise ase, a High Sensitivity CRP (HSCRP)should be ordered. LIPASE 218 U/L (Normal) Range: 70-290 :06 Comments: Please note:LIPASE revised reference range effective 09. MAVIS 67 U/L (Normal) Range: 25-115 :06 :06 COMP METABOLIC GAP 8 (Normal) Range: 5-15 CO2 29.0 mmol/L (Normal) Range: 21.0-32.0 CL 103 mmol/L (Normal) Range: 98-107 K 4.0 mmol/L (Normal) Range: 3.5-5.1 NA 140 mmol/L (Normal) Range: 136-145 T BILI 0.30 mg/dL (Normal) Range: 0.00-1.00 ALT 50 U/L (Normal) Range: 12-78 ALK P 104 U/L (Normal) Range: 50-136 AST 20 U/L (Normal) Range: 15-37 CA 9.1 mg/dL (Normal) Range: 8.5-10.1 A/G 1.3 {RATIO} (Normal) Range: 0.9-2.4 GLOB 3.2 g/dL (Normal) Range: 2.7-4.2 ALB 4.1 g/dL (Normal) Range: 3.4-5.0 T PROT 7.3 g/dL (Normal) Range: 6.4-8.2 BUN/CRE 21.4 {RATIO} (Abnormal) Range: 10-20 EST GFR - AA 109 mL/min (Normal) EST GFR 90 mL/min (Normal) CREAT,SERUM 0.7 mg/dL (Normal) Range: 0.6-1.0 BUN 15 mg/dL (Normal) Range: 7-18 GLU 88 mg/dL (Normal) Range: 70-110 :06 ESR SED RATE 16 mm/h (Normal) Range: 0-30 :06 CBCD,SMEAR DIFF RED CELL MORPH SeeNote {NORMAL} (Normal) Comments: Result: NORM C+C PLT EST SeeNote (Normal) Comments: Result: ADEQUATE MONOCYTE 1 % (Normal) Range: 0-10 LYMPH 18 % (Abnormal) Range: 19-41 BAND 1 % (Normal) Range: 0-5 SEGS 80 % (Abnormal) Range: 47-70 CELLS COUNTED 100 (Normal) ABSOLUTE NEUT 3.7 3/uL (Normal) Range: 2.0-7.7 PLT 301 K/mm3 (Normal) Range: 150-450 RDW 13.6 % (Normal) Range: 11.6-14.6 MCHC 34.8 g/dL (Normal) Range: 32-36 MCH 33.4 pg (Abnormal) Range: 27.0-32.0 MCV 96.0 fL (Normal) Range: 81-99 HCT 35.5 % (Abnormal) Range: 37-47 HGB 12.4 g/dL (Normal) Range: 12.0-16.0 RBC 3.70 {M/mm3} (Abnormal) Range: 4.2-5.4 WBC 5.1 K/mm3 (Normal) Range: 4.4-11.0 70-Gpl-048900:10 ABDOMEN/PELVIS WITH CONTRAST Radiology Report See Note (Normal) Comments: PROCEDURE: CT ABDOMEN AND PELVIS WITH CONTRAST REASON FOR EXAM: Female, 61 years old. Abdominal pain. History ofruptured appendix with ileocecal resection. TECHNIQUE: Transaxial images were obtai jessy from the dome of thediaphragmto the symphysis pubis without oral contrast. 100 ml of Isovue 300contrast was administered. Multiplanar coronal and sagittal images werereformatted. Bowel opacificat ion is limited. COMPARISON: Unenhanced CT scan of the abdomen and pelvis from April. FINDINGS:The visualized heart and lung bases are unremarkable. Normal enhanced liver. Normal gallbladder a nd extrahepatic biliarysystem.Normal enhanced spleen. Normal pancreas. Normal bilateral adrenal glands. Normal size of the right kidney. There is no right renal mass. Thereareno right renal calculi. There is no right hydronephrosis. Normalvisualized right ureter. Normal size of the left kidney. There is no left renal mass. There arenoleft renal calculi. There is no left hydronephrosis. Normal visualizedleft ureter. Normal visualized stomach. Normal small intestine. Status postileocecalectomy. The colon is again noted in the left side of the abdomen and thesmall bowel the right. No evide nce of small bowel obstruction. Theappendix is surgically absent. There is no demonstrated peritoneal fluid. There are a few atherosclerotic calcifications of the abdominal aorta,without a demonstrated aneurysm. Normal inferior vena cava. Normalretroperitoneum. Normal urinary bladder. The uterus and ovaries are unremarkable. Thereisa poorly defined tubular structure adjacent to the right side of theuterusand adjacent bowel that measures 1.3 x 5.2 cm. It is in the area wherepreviously there was a fluid collection. There is no pelviclymphadenopathy. There is no pelvic fluid. Postoperative ba ges are seen in the anterior bowel wall. No hernia.Degenerative changes are again seen of the facet joints and disk spaceslumbar spine. Stable grade 1 anterior listhesis of L5 on S1. IMPRESSION:1. St atus post ileocecectomy. 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 No intervalchange. No evidence of bowel obstruction. 2. There is a residual tubular area of fibrosis or residual fluid in theright lower pelvis adjacent to the right side of the uterus wherepreviously there was a pelvic abscess being drained. 3. Osseous abnormalities as descri bed above. No interval change. 4. No acute abnormality seen. Dictated on 06/13/111810 by NILA RAMIREZ DOTranscribed on 06/13/111846 by ITS IMPORTSign by NILA RAMIREZ DO on 06/13/111847 Sign by: NILA RAMIREZ DO 21-Rey-991808:39 ESR SED RATE 20 mm/h (Normal) Range: 0-30 80-Hpu-168909:39 CBCD,SMEAR DIFF RED CELL MORPH SeeNote {NORMAL} Comments: Result: NORM C+C (Normal) PLT EST SeeNote (Normal) Comments: Result: ADEQUATE MONOCYTE 2 % (Normal) Range: 0-10 LYMPH 8 % (Abnormal) Range: 19-41 SEGS 90 % (Abnormal) Range: 47-70 CELLS COUNTED 100 (Normal) ABSOLUTE NEUT 8.6 3/uL (Abnormal) Range: 2.0-7.7 PLT 234 K/mm3 (Normal) Range: 150-450 RDW 12.7 % (Normal) Range: 11.6-14.6 MCHC 34.2 g/dL (Normal) Range: 32-36 MCH 34.4 pg (Abnormal) Range: 27.0-32.0 MCV 100.6 fL (Abnormal) Range: 81-99 HCT 36.9 % (Abnormal) Range: 37-47 HGB 12.6 g/dL (Normal) Range: 12.0-16.0 RBC 3.66 {M/mm3} (Abnormal) Range: 4.2-5.4 WBC 9.5 K/mm3 (Normal) Range: 4.4-11.0 :10 C-REACTIVE PROT 81.70 mg/L (Abnormal) Range: 0.0-3.0 Comments: C-Reactive Protein (CRP) provides useful information for thediagnosis, therapy and monitoring of inflammatory processesand associated diseases. For the evaluation of Relative Riskfor Cardiovascular Dise ase, a High Sensitivity CRP (HSCRP)should be ordered. :10 COMP METABOLIC GAP 9 (Normal) Range: 5-15 CO2 28.0 mmol/L (Normal) Range: 21.0-32.0 CL 104 mmol/L (Normal) Range: 98-107 K 4.0 mmol/L (Normal) Range: 3.5-5.1 NA 141 mmol/L (Normal) Range: 136-145 T BILI 0.30 mg/dL (Normal) Range: 0.00-1.00 ALT 22 U/L (Normal) Range: 12-78 ALK P 73 U/L (Normal) Range: 50-136 AST 11 U/L (Abnormal) Range: 15-37 CA 9.4 mg/dL (Normal) Range: 8.5-10.1 A/G 1.2 {RATIO} (Normal) Range: 0.9-2.4 GLOB 3.1 g/dL (Normal) Range: 2.7-4.2 ALB 3.8 g/dL (Normal) Range: 3.4-5.0 T PROT 6.9 g/dL (Normal) Range: 6.4-8.2 BUN/CRE 16.3 {RATIO} (Normal) Range: 10-20 EST GFR - AA 93 mL/min (Normal) EST GFR 77 mL/min (Normal) CREAT,SERUM 0.8 mg/dL (Normal) Range: 0.6-1.0 BUN 13 mg/dL (Normal) Range: 7-18 GLU 134 mg/dL (Abnormal) Range: 70-110 Comments: Fasting Glucose result greater than or equal to 126 mg/dL suggests DIABETES MELLITUS per A.D.A. criteria. 10-Kos-692150:27 URINE VEENA CULTURE (KAREN Comments: PATIENT NOT FASTINGPERFORMED BY: SHELIA [facility] Vctjpf2722 [address] [facility] [id number] Information: SRC:UR [id number] COL COUNT) (80102) Result 1 NG36 (Normal) Comments: No growth in 36 - 48 hours. Urine Culture,Comprehensive Final report (Normal) 73-Ska-921366:03 Urinalysis, Office (64588) UA - BILIRUBIN Negative (Normal) UA - BLOOD Hemolyzed Trace (Normal) UA - GLUCOSE Negative (Normal) UA - KETONES Negative mg/dL (Normal) UA - LEUKOCYTE ESTERASE Negative (Normal) UA - NITRITE Negative (Normal) UA - PH 5.0 (Normal) UA - PROTEIN Negative mg/dL (Normal) UA - SPECIFIC GRAVITY 1.025 (Normal) URINE UROBILINGN KAREN TIMED Normal ug/dL (Normal) 54-Rid-37294:00 ABDOMEN/PELVIS WITH CONTRAST Radiology Report See Note (Normal) Comments: PROCEDURE: CT ABDOMEN AND PELVIS WITH CONTRAST REASON FOR EXAM: Female, 61 years old. Pain. TECHNIQUE: Transaxial images were obtained from the dome of thediaphragmto the symphysis pubis with oral contrast. 100 ml of Isovue 300 contrastwas administered. COMPARISON: None. FINDINGS:The visualized lung bases are unremarkable. Normal enhanced liver. Normal gallbladder and extrahepatic biliarysys tem.Normal enhanced spleen. Normal pancreas. Normal bilateral adrenal glands. Normal size of the right kidney. There is no right renal mass. Thereareno right renal calculi. There is no right hydrone phrosis. Normalvisualized right ureter. Normal size of the left kidney. There is no left renal mass. There arenoleft renal calculi. There is no left hydronephrosis. Normal visualizedleft ureter. No rmal visualized stomach. Normal small intestine. There ismalpositioning of the right colon. The cecum is positioned in thecentralpelvis. The right colon ascends to the left of midline. There is ashleigh lated fluid-filled structure in the right lower hemipelvis measuring 2cmin maximal caliber and contain multiple calcifications. There is nodemonstrated peritoneal fluid. Normal abdominal aorta. Normal inferior vena cava. Normalretroperitoneum. Normal urinary bladder. There is no pelvic mass lesion orlymphadenopathy.There is no pelvic fluid. The uterus is anteverted. There are fat containing umbil ical and bilateral inguinal hernias. Thereis thoracolumbar scoliosis. There is multilevel lumbar facet arthrosisanddegenerative disk disease. IMPRESSION:The right colon is malpositioned with the cecum projecting in the midpelvis. The descending colon projects to the left of midline. There isadilated tubular fluid filled structure in the right lower hemipelviscontaining calculus, consistent with an acutely inflamed but non-perforatedappendix. N.B. : Receipt of this report was confirmed by Smita Argueta [facility] [place] with Dr. Krishna , covering physician, on 04/17/2011 22:07:20 (ET),who further ve rifies that the report has been read and understood, withnofurther consultation required. Dictated on 04/17/111957 by TIMOTEO MACHADOTranscribed on 04/17/112211 by ITS IMPORTSign by TIMOTEO MACHADO on 04/17/112212 Sign by: TIMOTEO MACHADO 09-Dlm-20159:59 Thin prep Pap Comments: Source.............Cervical;EndocervicalNo. of containers..01 CYTYC Thin Prep VialPATIENT NOT FASTINGPERFORMED BY: [facility] [address] [place] [id number] Information: [id number] ([id number]) Note: PAPSMR (Normal) Comments: The Pap smear is a screening test designed to aid in the detection ofpremalignant and malignant conditions of the uterine cervix. It is not adiagnostic procedure and should not be used as the sole mean s of detectingcervical cancer. Both false-positive and false-negative reports do occur. .This liquid based ThinPrep(R) pap test w as screened with theuse of an image guided system.The HPV DNA reflex criteria were not met with this specimen resulttherefore, no HPV testing was performed. . See Note . (Normal) DIAGNOSIS: SPRCS (Normal) Comments: NEGATIVE FOR INTRAEPITHELIAL LESION AND MALIGNANCY.CELLULAR CHANGES ASSOCIATED WITH ATROPHY ARE PRESENT.Satisfactory for evaluation. Endocervical component may not bedistinguished in cases of atrophy.V 72.31 ; Routine gynecological examinationAnny Hill Loading Supervisor (ASCP) 6-Fir-948511:00 Urinalysis, Office (95416) UA - BILIRUBIN Negative (Normal) UA - BLOOD Non Hemolyzed Trace (Normal) UA - GLUCOSE Negative (Normal) UA - KETONES Negative mg/dL (Normal) UA - LEUKOCYTE ESTERASE Negative (Normal) UA - NITRITE Negative (Normal) UA - PH 6.0 (Normal) UA - PROTEIN Negative mg/dL (Normal) UA - SPECIFIC GRAVITY 1.005 (Normal) URINE UROBILINGN KAREN TIMED 2 mg/dL (Normal) 89-Hvz-533206:44 Urinalysis, Office (64442) UA - BILIRUBIN Negative (Normal) UA - BLOOD Non Hemolyzed Trace (Normal) UA - GLUCOSE Negative (Normal) UA - KETONES Negative mg/dL (Normal) UA - LEUKOCYTE ESTERASE Negative (Normal) UA - NITRITE Negative (Normal) UA - PH 5.0 (Normal) UA - PROTEIN Negative mg/dL (Normal) UA - SPECIFIC GRAVITY 1.025 (Normal) URINE UROBILINGN KAREN TIMED 2 mg/dL (Normal) 78-Dxl-277583:50 URINE VEENA CULTURE-KAREN COL Comments: PATIENT NOT FASTINGClinical Information: SRC:UR ADD [id number] [facility]: [facility] [id number] COUNT ([id number]) Result 1 ECV (Normal) Comments: Escherichia coli, identified by an automated biochemical system.25,000-50,000 colony forming units per mLBeta hemolytic Streptococcus, group B10,000-25,000 colony forming units per mLPenicillin continue s to be the drug of choice for infectionscaused by beta hemolytic streptococci in groups A,B,C and G.No penicillin resistance has been described among theseorganisms and surveillance for emerging resist ance is notrecommended. (GREGORIA Guy. Clinical Microbiology Newsletter,1993; RAPHAEL Mcdonald et al. Diagnostic Microbiology andInfectious Disease, February,.) S = Susceptible; I = Intermediate; R = Resistant P = Positive; N = Negative MICS are expressed in micrograms per mL Antibiotic RSLT#1 RSLT#2 RSLT#3 RSLT#4Amoxicillin/Clavulan ic Acid SAmpicillin SCefepime SCeftriaxone SCefuroxime SCephalothin SCiprofloxacin SESBL NGentamicin SImipenem SLevofloxacin SNitrofurantoin SPiperacillin/Tazobactam STetracyc line STobramycin STrimethoprim/Sulfa S Urine Final report (Normal) Culture,Comprehensive 90-Bfj-28145:55 Urinalysis, Office (41234) UA - BILIRUBIN Negative (Normal) UA - BLOOD Hemolyzed Large (Normal) UA - GLUCOSE Negative (Normal) UA - KETONES Negative mg/dL (Normal) UA - LEUKOCYTE ESTERASE Moderate (Normal) UA - NITRITE Negative (Normal) UA - PH 5.0 (Normal) UA - PROTEIN 100 mg/dL (Normal) UA - SPECIFIC GRAVITY 1.025 (Normal) URINE UROBILINGN KAREN TIMED 2 mg/dL (Normal) 82-Juc-510099:58 BILAT SCRN DIGITAL & CAD Radiology Report See Note (Normal) Comments: Exam Number: [id number] BILATERAL SCREENING MAMMOGRAM COMPARISON STUDY September 14, 2006 and September 22, 2004 Routine MLO and CC views were acquired. The breast parenchyma isheterogeneously dense. The re are innumerable scattered punctate androunded calcifications throughout both breasts appearing similar indistribution compared to the prior study. No areas of architecturaldistortion or 3-dimensiona l spiculated masses are shown. There hasbeen no significant interval change. IMPRESSIONNo mammographic evidence for malignancy. FINAL ASSESSMENTBIRADS Code 2. Benign findings. Followup in 1 year. A l janis regarding the results has been sent to the patient. This interpretation was rendered by a radiologist certified under theMammography Quality Standards Act of 1992 (MQSA). The mammograms werealso examined with computer-aided detection software ([employer], [employer] Reported By: MARISABEL KRAUSE M.D. 16-Hby-214654:14 Thin prep Pap Comments: Source.............Cervical;EndocervicalLMP / Prev Treat...ISA=[id number]. of containers..01 CYTYC Thin Prep VialPATIENT NOT FASTINGPERFORMED BY: [facility] [id number] ([id number]) . . (Normal) DIAGNOSIS: SPRCS (Normal) Comments: NEGATIVE FOR INTRAEPITHELIAL LESION AND MALIGNANCY.Satisfactory for evaluation. Endocervical component may not bedistinguished in cases of atrophy.V72.31 ; Routine gynecological examination Sharee Maciel Loading Supervisor (ASCP) Note: PAPSMR (Normal) Comments: The Pap smear is a screening test designed to aid in the detection ofpremalignant and malignant conditions of the uterine cervix. It is not adiagnostic procedure and should not be used as the sole mean s of detectingcervical cancer. Both false-positive and false-negative reports do occur. .The HPV DNA reflex criteria were not met with this specimen resulttherefore, no HPV testing was performed. . Plan of Care Name Dates Details Instructions Encounter for screening for malignant neoplasm of colon (Renamed from Special screening for malignant neoplasms, colon) : *Colon Cancer Screening Indication: Encounter for screening for malignant neoplasm of colon (Renamed from Special screening for malignant neoplasms, colon) Osteopenia of both hips : Reviewed Diagnostic Tests Indication: Osteopenia of both hips Tailbone injury, initial encounter : Reviewed Diagnostic Tests Indication: Tailbone injury, initial encounter Hypercholesterolemia : Cholesterol mgmt Indication: Hypercholesterolemia GERD (gastroesophageal reflux disease) : GERD Education Indication: GERD (gastroesophageal reflux disease) Body mass index (BMI) 21.0-21.9, adult : Eprescribed prescriptions (G8553) Indication: Body mass index (BMI) 21.0-21.9, adult Chest pain, midsternal : Follow up if no improvement or if symptoms worsen Indication: Chest pain, midsternal Body mass index (BMI) 21.0-21.9, adult : Eprescribed prescriptions (G8553) Indication: Body mass index (BMI) 21.0-21.9, adult Iliotibial band tendinitis of left side : Eprescribed prescriptions (G8553) Indication: Iliotibial band tendinitis of left side UTI symptoms : Follow up if no improvement or if symptoms worsen Indication: UTI symptoms UTI symptoms : Eprescribed prescriptions (G8553) Indication: UTI symptoms Vaginal bleeding, abnormal : Eprescribed prescriptions (G8553) Indication: Vaginal bleeding, abnormal Annual Medicare Phyiscal WITHOUT abnormal findings (Renamed from Encounter for general adult medical examination without abnormal findings) : fall reduction handout Indication: Annual Medicare Phyiscal WITHOUT abnormal findings (Renamed from Encounter for general adult medical examination without abnormal findings) Annual Medicare Phyiscal WITHOUT abnormal findings (Renamed from Encounter for general adult medical examination without abnormal findings) : elderly packet given Indication: Annual Medicare Phyiscal WITHOUT abnormal findings (Renamed from Encounter for general adult medical examination without abnormal findings) Annual Medicare Phyiscal WITHOUT abnormal findings (Renamed from Encounter for general adult medical examination without abnormal findings) : advance planning information Indication: Annual Medicare Phyiscal WITHOUT abnormal findings (Renamed from Encounter for general adult medical examination without abnormal findings) Annual Medicare Phyiscal WITHOUT abnormal findings (Renamed from Encounter for general adult medical examination without abnormal findings) : *Well Female Maintenance (KF) Indication: Annual Medicare Phyiscal WITHOUT abnormal findings (Renamed from Encounter for general adult medical examination without abnormal findings) Annual Medicare Phyiscal WITHOUT abnormal findings (Renamed from Encounter for general adult medical examination without abnormal findings) : Self breast exam Indication: Annual Medicare Phyiscal WITHOUT abnormal findings (Renamed from Encounter for general adult medical examination without abnormal findings) Encounter for screening for malignant neoplasm of colon (Renamed from Special screening for malignant neoplasms, colon) : *Colon Cancer Screening Indication: Encounter for screening for malignant neoplasm of colon (Renamed from Special screening for malignant neoplasms, colon) GERD (gastroesophageal reflux disease) : GERD Education Indication: GERD (gastroesophageal reflux disease) Hypercholesterolemia : *Cholesterol - Nonprescription Treatment Indication: Hypercholesterolemia Hypercholesterolemia : Cholesterol mgmt Indication: Hypercholesterolemia Hypercholesterolemia : Reviewed Lab Indication: Hypercholesterolemia Hypertension : Reviewed Lab Indication: Hypertension Occlusion and stenosis of unspecified carotid artery : Reviewed Diagnostic Tests Indication: Occlusion and stenosis of unspecified carotid artery Hypertension : Follow up in 3 weeks Indication: Hypertension Hypertension : BP MONITORING - SELF Indication: Hypertension Nipple lesion : Follow up in [address] Rojas Indication: Nipple lesion Hypertension : HTN/CAD Red Flags Indication: Hypertension Hypertension : Eprescribed prescriptions (G8553) Indication: Hypertension Abnormal mammogram : Eprescribed prescriptions (G8553) Indication: Abnormal mammogram Low back pain potentially associated with radiculopathy : Eprescribed prescriptions (G8553) Indication: Low back pain potentially associated with radiculopathy Sacroiliac pain : Reviewed Diagnostic Tests Indication: Sacroiliac pain Degenerative localized arthritis of hip : Reviewed Diagnostic Tests Indication: Degenerative localized arthritis of hip Joint pain : Follow up in 2 weeks Indication: Joint pain Hyperlipidemia : Eprescribed prescriptions (G8553) Indication: Hyperlipidemia Encounter for Medicare annual wellness exam : fall reduction handout Indication: Encounter for Medicare annual wellness exam Well woman exam with routine gynecological exam : *Well Female Maintenance (KF) Indication: Well woman exam with routine gynecological exam Well woman exam with routine gynecological exam : Pap/Pelvic/Bimanual/Rectal/Breast Exam was done. Indication: Well woman exam with routine gynecological exam Insect bite : Lyme Disease *: tick Indication: Insect bite Insect bite : Eprescribed prescriptions (G8553) Indication: Insect bite ALLERGIC RHINITIS DUE TO OTHER ALLERGEN : Allergy proofing Indication: ALLERGIC RHINITIS DUE TO OTHER ALLERGEN ALLERGIC RHINITIS DUE TO OTHER ALLERGEN : Allergy control Indication: ALLERGIC RHINITIS DUE TO OTHER ALLERGEN ALLERGIC RHINITIS DUE TO OTHER ALLERGEN : *URI Symptoms Indication: ALLERGIC RHINITIS DUE TO OTHER ALLERGEN Well woman exam with routine gynecological exam : Self breast exam Indication: Well woman exam with routine gynecological exam Well woman exam with routine gynecological exam : *Well Female Maintenance (KF) Indication: Well woman exam with routine gynecological exam Well woman exam with routine gynecological exam : Pap/Pelvic/Bimanual/Rectal/Breast Exam was done. Indication: Well woman exam with routine gynecological exam Hyperlipidemia : High Cholesterol (Hypercholesterolemia) *: blood Indication: Hyperlipidemia Well woman exam with routine gynecological exam : Self breast exam Indication: Well woman exam with routine gynecological exam Well woman exam with routine gynecological exam : *Well Female Maintenance (KF) Indication: Well woman exam with routine gynecological exam Well woman exam with routine gynecological exam : Pap/Pelvic/Bimanual/Rectal/Breast Exam was done. Indication: Well woman exam with routine gynecological exam Hyperlipidemia : *Cholesterol - Medication Side Effects Indication: Hyperlipidemia Hyperlipidemia : Diet, Exercise, and Wt loss Indication: Hyperlipidemia Hyperlipidemia : Diet, Exercise, and Wt loss Indication: Hyperlipidemia Dysuria : Water in diet, brief version Indication: Dysuria Dysuria : follow up for recheck urine 1 week after complete antibiotic with [facility] Indication: Dysuria Well woman exam with routine gynecological exam : *Well Female Maintenance (KF) Indication: Well woman exam with routine gynecological exam Well woman exam with routine gynecological exam : Pap/Pelvic/Bimanual/Rectal/Breast Exam was done. Indication: Well woman exam with routine gynecological exam LACERATION, NOS : Follow up Sunday with [facility] for recheck Indication: LACERATION, NOS Perioral dermatitis : *Antibiotic Usage Education - Female Indication: Perioral dermatitis Cystitis, acute : Follow up for recheck urine 1 week after complete antibiotic Indication: Cystitis, acute Cystitis, acute : UTI treatment Indication: Cystitis, acute Well woman exam with routine gynecological exam : Pap/Pelvic/Bimanual/Rectal/Breast Exam was done. Indication: Well woman exam with routine gynecological exam Well woman exam with routine gynecological exam : Colon Cancer Screening Indication: Well woman exam with routine gynecological exam Well woman exam with routine gynecological exam : Pap/Pelvic/Bimanual/Rectal/Breast Exam was done. Indication: Well woman exam with routine gynecological exam Well woman exam with routine gynecological exam : Well Female Maintenance (KF) Indication: Well woman exam with routine gynecological exam Planned Observations CBC WITH MANUAL DIFF (12633)Indication: Macrocytosis On: 9-Yec-634232:33 Request Comments: f/u from 2 momths ago CBC & PLATELETS (AUTO) (95719)Indication: Anxiety On: :53 Request Troponin I (01166)Indication: Chest pain, midsternal On: 77-Kxw-486764:28 Request CPK MB FRACTION (84749)Indication: Chest pain, midsternal On: 64-Gdl-094229:28 Request CREATINE KINASE TOTAL (79497)Indication: Chest pain, midsternal On: 17-Nmn-109322:28 Request Lyme Disease Antibody W/ Reflex (83580)Indication: Tick bite, initial encounter On: 8-Sqg-969552:49 Request FECAL OCCULT- Tubes sent home (34760)Indication: Encounter for screening for malignant neoplasm of colon (Renamed from Special screening for malignant neoplasms, colon) On: 86-Qrb-903452:44 Request Iron (85707)Indication: Iron deficiency anemia, unspecified On: 64-Aus-809404:41 Request LIPID PANEL (67086)Indication: Hypertension On: 28-Jpq-432296:47 Request URINALYSIS, W/ MICRO (68727)Indication: Hypertension On: :44 Request TSH (72749)Indication: Hypertension On: :44 Request MICROALBUMIN: CREATININE RATIO (45385) AND (68468)Indication: Hypertension On: :44 Request METABOLIC PANEL, COMPREHENSIVE (34018)Indication: Hypertension On: 62-Jlr-595928:44 Request CBC with auto diff (07042)Indication: Hypertension On: 33-Yep-576186:44 Request CBC W/AUTO DIFF WBC (25168)Indication: Low back pain potentially associated with radiculopathy On: 58-Woa-824822:50 Request METABOLIC PANEL, COMPREHENSIVE (07388)Indication: Hyperlipidemia On: :48 Request LIPID PANEL (04730)Indication: Hyperlipidemia On: :48 Request METABOLIC PANEL, COMPREHENSIVE (78299)Indication: Hyperlipidemia On: 15-Sny-887195:15 Request LIPID PANEL (11029)Indication: Hyperlipidemia On: 67-Uyq-883974:15 Request FERRITIN (07390)Indication: Iron deficiency anemia, unspecified On: 30-Gmc-000894:14 Request IRON (17568)Indication: Iron deficiency anemia, unspecified On: 62-Tjf-833586:14 Request CBC W/AUTO DIFF WBC (69660)Indication: Iron deficiency anemia, unspecified On: 00-Ydw-715774:14 Request PARATHORMONE (00167)Indication: Osteopenia On: 33-Thg-770111:14 Request PHOSPHORUS (20558)Indication: Osteopenia On: 84-Gcd-512308:14 Request TSH (69521)Indication: Osteopenia On: 57-Zmv-322185:14 Request Vitamin D Hydroxy (55885)Indication: Osteopenia On: 04-Mwf-190351:14 Request HPV automatic (53838)Indication: Well woman exam with routine gynecological exam On: 5-Lnm-582574:37 Request Vitamin D Hydroxy (24414)Indication: Vitamin deficiency On: :47 Request TSH (32569)Indication: Osteopenia On: :47 Request CBC W/AUTO DIFF WBC (71506)Indication: Osteopenia On: :47 Request METABOLIC PANEL, COMPREHENSIVE (68443)Indication: Osteopenia On: :47 Request LIPID PANEL (74411)Indication: Hyperlipidemia On: :47 Request HEPATIC FUNCTION PANEL (23770)Indication: Hyperlipidemia On: 41-Ubr-212786:47 Request Lyme Disease Antibody W/ Reflex (41577)Indication: Insect bite On: 48-Jil-010891:38 Request IRON (76488)Indication: Iron deficiency anemia, unspecified On: 03-Ipu-041624:31 Request CBC WITH MANUAL DIFF (60142)Indication: Iron deficiency anemia, unspecified On: 02-Yrs-243293:30 Request Vitamin D Hydroxy (61630)Indication: Osteopenia On: 25-Alq-589127:20 Request METABOLIC PANEL, COMPREHENSIVE (58807)Indication: Hyperlipidemia On: 39-Qpw-161063:20 Request LIPID PANEL (54235)Indication: Hyperlipidemia On: 62-Axz-492818:20 Request CALCIFEDIOL (53418)Indication: Screening On: :02 Request Metabolic Panel, Basic (23571)Indication: Screening On: :02 Request Lipid Panel (12735)Indication: Screening On: 04-Wgv-470571:02 Request Vitamin D Hydroxy (10895)Indication: Vitamin deficiency On: :25 Request TSH (90952)Indication: Hyperlipidemia On: :25 Request CBC WITH MANUAL DIFF (56765)Indication: Hyperlipidemia On: :25 Request METABOLIC PANEL, COMPREHENSIVE (77518)Indication: Hyperlipidemia On: :25 Request LIPID PANEL (74774)Indication: Hyperlipidemia On: :24 Request Thin prep Pap (24464)Indication: Well woman exam with routine gynecological exam On: 69-Duw-783073:44 Request METABOLIC PANEL, COMPREHENSIVE (62553)Indication: Occlusion and stenosis of unspecified carotid artery On: 92-Adz-287296:02 Request HEPATIC FUNCTION PANEL (02973)Indication: Hyperlipidemia On: 37-Phd-449949:02 Request LIPID PANEL (00737)Indication: Hyperlipidemia On: 13-Kax-694394:02 Request METABOLIC PANEL, BASIC (37779)Indication: Hyperlipidemia On: 47-Wvl-34630:46 Request Comments: screening for ct Vitamin D Hydroxy (91453)Indication: Vitamin deficiency On: 55-Xnl-099293:41 Request HEPATIC FUNCTION PANEL (16222)Indication: Hyperlipidemia On: 27-Nyy-830600:40 Request LIPID PANEL (26238)Indication: Hyperlipidemia On: 92-Mrd-932135:40 Request LIPID PANEL (08200)Indication: Hyperlipidemia On: 43-Bdo-627412:01 Request HEPATIC FUNCTION PANEL (31658)Indication: Hyperlipidemia On: 66-Qyi-935224:48 Request Vitamin D Hydroxy (37828)Indication: Vitamin deficiency On: 07-Wjw-573099:48 Request LIPID PANEL (71502)Indication: Hyperlipidemia On: 98-Tpt-137351:47 Request VITAMIN B-12 (CYANOCOBALAMIN) (13463)Indication: hair loss On: :01 Request TSH (99972)Indication: hair loss On: 86-Zmi-554168:53 Request Vitamin D Hydroxy (07413)Indication: Vitamin deficiency On: 47-Cnj-445590:51 Request HEPATIC FUNCTION PANEL (45569)Indication: Hypercholesterolemia On: :04 Request LIPID PANEL (84405)Indication: Hypercholesterolemia On: :04 Request Lipase (91473)Indication: Abdominal pain, acute, generalized On: :59 Request Comments: stat Amylase (31335)Indication: Abdominal pain, acute, generalized On: :59 Request Comments: stat CBC WITH MANUAL DIFF (44231)Indication: Abdominal pain, acute, generalized On: :59 Request Comments: stat METABOLIC PANEL, COMPREHENSIVE (21077)Indication: Abdominal pain, acute, generalized On: :59 Request Comments: stat C-REACTIVE PROTEIN (57112)Indication: Abdominal pain, acute, generalized On: :59 Request Comments: stat SED RATE ERYTHROCYTE (21225)Indication: Abdominal pain, acute, generalized On: :59 Request Comments: stat LIPID PANEL (04799)Indication: Hyperglyceridemia On: 53-Usp-286152:00 Request METABOLIC PANEL, COMPREHENSIVE (50085)Indication: Abnormal blood chemistry On: :02 Request CBC WITH MANUAL DIFF (55030)Indication: Abnormal blood chemistry On: :02 Request Clostridium difficile Toxin A+B, EIA (04324)Indication: Diarrhea On: :01 Request SED RATE ERYTHROCYTE (58208)Indication: Abdominal pain, acute, generalized On: :12 Request Comments: stat METABOLIC PANEL, COMPREHENSIVE (14735)Indication: Abdominal pain, acute, generalized On: :12 Request Comments: stat CBC WITH MANUAL DIFF (10027)Indication: Abdominal pain, acute, generalized On: 74-Xhw-034111:12 Request Comments: stat C-REACTIVE PROTEIN (62185)Indication: Abdominal pain, acute, generalized On: 22-Cek-467065:02 Request Metabolic Panel, Comprehensive (31259)Indication: Osteopenia On: :23 Request Lipid Panel (13700)Indication: Hyperglyceridemia On: :23 Request CALCIFIDIOL (34378) VIT D 25Indication: Vitamin deficiency On: :22 Request HEPATIC FUNCTION PANEL (10587)Indication: Hyperglyceridemia On: :51 Request Lipid Panel (44032)Indication: Hyperglyceridemia On: :51 Request LIPOPROTEIN, BLD, BY NMR (22775)Indication: Hypercholesterolemia On: :30 Request HEPATIC FUNCTION PANEL (22824)Indication: Hypercholesterolemia On: :25 Request Lipid Panel (07842)Indication: Hypercholesterolemia On: 63-Ssh-550819:25 Request Comments: in three months (approximately) Lipid Panel (24106)Indication: Hypercholesterolemia On: 08-Sbs-503467:09 Request HEPATIC FUNCTION PANEL (00760)Indication: Hypercholesterolemia On: :21 Request Lipid Panel (64445)Indication: Hypercholesterolemia On: 68-Icg-03675:21 Request Comments: in three months (approximately) RHEUMATOID FACTOR-QUANT (02039)Indication: Myalgia and myositis On: 39-Kwm-077284:18 Request WBC Count with manual diff (92388)Indication: Myalgia and myositis On: 83-Fqj-089929:17 Request URINALYSIS W MICROSCOPY (76819)Indication: Cystitis, acute On: 35-Wwi-600568:26 Request CBC (Auto) (55850)Indication: Well woman exam with routine gynecological exam On: :25 Request Metabolic Panel, Comprehensive (34926)Indication: Hypercholesterolemia On: :24 Request Lipid Panel (36962)Indication: Hypercholesterolemia On: 05-Lgg-711591:24 Request TSH (85240)Indication: Hot flashes On: 10-Dsc-394701:24 Request Metabolic Panel, Comprehensive (54804)Indication: Osteopenia On: :23 Request Lipid Panel (75488)Indication: Osteopenia On: 11-Mgc-327137:23 Request PTH (PARATHORMONE) ([id number])Indication: Osteopenia On: 15-Hfi-[id number] Request Comments: intact TSH ([id number])Indication: Osteopenia On: 61-Ebr-360341:18 Request Lipid Panel ([id number])Indication: Hypercholesterolemia On: 94-Vdm-424057:18 Request HEPATIC FUNCTION PANEL ([id number])Indication: Hypercholesterolemia On: 54-Scq-084436:21 Request Comments: in three months LIPID PANEL ([id number])Indication: Hypercholesterolemia On: 43-Hbb-763162:21 Request Comments: in three months HEPATIC FUNCTION PANEL ([id number])Indication: Hyperglyceridemia On: :43 Request LIPID PANEL ([id number])Indication: Hyperglyceridemia On: :41 Request GONADOTROPIN-FSH ([id number])Indication: Amenorrhea On: :39 Request Thin prep Pap ([id number])Indication: Well woman exam with routine gynecological exam On: :38 Request Planned Procedures TDAP VACCINE >7 IM ([id number])By: Bob On: 19-Feb-2018 Intent Susan DEL CID DO, Kathleen Comments: 0.5 cc given im lt arm lot [id number] exp 02/21/20 SCREENING DIGITAL TOMOSYNTHESIS OF On: 31-Dec-2017 Intent BREAST ([id number])By: Susan Rojas DO, DO, Kathleen DEXA SCAN AXIAL SKELETON ([id number])By: On: 31-Dec-2017 Intent Susan Rojas DO, DO, Kathleen Z[place] VACC, [place] ([id number])By: Bob On: 28-Aug-2017 Susan Rowland DO, DO, Kathleen Comments: lot: [id number]: 04/23/18ite/route: L arm/SQamt: 0.5mLVIS 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, UVALDO EKG ([id number])By: Alayna Vang On: 07-May-2017 Intent Comments: Sinus Rhythm-HR 65 X-RAY OF CERVICAL SPINE, FIVE VIEWS On: 17-Jan-2017 Intent ([id number])By: Susan Rojas DO, DO, Kathleen EMGBy: Susan Rojas DO On: 17-Jan-2017 Intent Susan DEL CID Comments: upper extrem Nerve ConductionBy: Bob DEL CID, On: 17-Jan-2017 Intent Susan Miller DO Comments: upper extrem MAMMOGRAM BREAST BILATERAL SCREENING On: 12-Dec-2016 Intent DIGITAL ([id number])By: Alayna Vang ULTRASOUND OF PELVIC REGION On: 04-Oct-2016 Intent ([id number])By: Susan Rojas DO Comments: do today or tomorrow Susan Rojas DO PNEUM VAC ADLT/IMUMNOSPR, SBC/INTRM On: 06-Sep-2016 Intent ([id number])By: Susan Rojas DO Comments: Lot:[id number]:03/10/18Dose:0.5mg Route:im Site:[facility] By:YADIRA signed Susan Rojas DO DEXA SCAN AXIAL SKELETON ([id number])By: On: 24-May-2016 Intent Susan Rojas DO, DO, Kathleen ELECTROCARDIOGRAM, COMPLETE (ECG) On: 19-Apr-2016 Intent ([id number])By: Trixie Steen CNP MAMMOGRAM, SCREENING, BOTH BREAST On: 10-Dec-2015 Intent ([id number])By: Luann Krishna DO Cartoid DopplerBy: Luann Krishna DO On: 10-Dec-2015 Intent MRI - Lumbar SpineBy: Luann Krishna DO On: 10-Dec-2015 Intent A PHYSICAL THERAPY EVALUATION On: 07-Sep-2015 Intent ([id number])By: Trixie Steen CNP Radiology - Sacrum/CoccyxBy: Celsa On: 30-Aug-2015 Intent Trixie ROSALES Radiology - Lumbar SpineBy: Celsa On: 30-Aug-2015 Intent Trixie ROSALES Radiology - PelvisBy: Celsa ROSALES, On: 30-Aug-2015 Intent Trixie Martinez Comments: Include SI joints Flu Vaccine (Quadrivalent) [id number]: On: 14-Jul-2015 Intent Luann Krishna DO ADMINISTRATION OF INFLUENZA VIRUS On: 14-Jul-2015 Intent VACCINE ([id number])By: Luann Krishna DO Comments: Lot #[id number]-L dltd, IMDose prefilled syringegiven by:SKYLER Young and ABN signed Ultrasound - AortaBy: Luann Krishna DO On: 28-Oct-2014 Intent A Cartoid DopplerBy: Tomi DEL CID Luann A On: 28-Oct-2014 Intent DEXA SCAN AXIAL SKELETON ([id number])By: On: 28-Oct-2014 Intent Luann Krishna DO MAMMOGRAM, SCREENING, BOTH BREAST On: 28-Oct-2014 Intent ([id number])By: Lunan Krishna DO Aerosol Treatment ([id number])By: Celsa On: 27-Feb-2014 Intent Trixie ROSALEScribed prescriptions ([id number])By: On: 15-Dec-2013 Intent Luann Krishna DO MAMMOGRAM, SCREENING, BOTH BREASTS On: 15-Dec-2013 Intent ([id number])By: Luann Krishna DO Comments: march Cartoid DopplerBy: Luann Krishna DO A On: 15-Dec-2013 Intent Comments: march DXA, BONE DENSITY, AXIAL SKELETON On: 15-Dec-2013 Intent ([id number])By: Luann Krishna DO Comments: march FLU VAC, SPLIT, >3 YEARS, INTRAMUSC On: 19-May-2013 Intent ([id number])By: Kiarra Walker Comments: received at [facility] FLU VAC, SPLIT, >3 YEARS, INTRAMUSC On: 19-May-2013 Intent ([id number])By: Farhana Leong Comments: given at [facility] per fax 05/19/13Lot:[id number]:ose:0.5mLRoute:imSite:l arm Cartoid DopplerBy: Tomi DEL CID Luann A On: 10-Mar-2013 Intent MAMMOGRAM, SCREENING, BOTH BREASTS On: 10-Mar-2013 Intent ([id number])By: Luann Krishna DO CT - Other (IV Contrast Needed)By: On: 16-Feb-2012 Intent Luann Krishna DO A Comments: L Carotid Carotid DopplerBy: Luann Krishna DO A On: 05-Feb-2012 Intent DXA, BONE DENSITY, AXIAL SKELETON On: 05-Feb-2012 Intent ([id number])By: Luann Krishna DO MAMMOGRAM, SCREENING, BOTH BREASTS On: 05-Feb-2012 Intent ([id number])By: Luann Krishna DO TD Injection , IM ([id number])By: On: 07-Aug-2011 Intent Kiarra Walker Comments: 2007 FLU VAC, SPLIT, >3 YEARS, INTRAMUSC On: 07-Aug-2011 Intent ([id number])By: Kiarra Walker Comments: received at Ultrasound - GallbladderBy: Tomi DEL CID, On: 14-Jun-2011 Intent Luann Limon EKG ([id number])By: Luann Krishna DO On: 13-Jun-2011 Intent Comments: ekg showed normal sinus rhythym, normal axis, no acute st/t wave changes CT - Abdomen & PelvisBy: Tomi DEL CID, On: 13-Jun-2011 Intent Luann Limon Comments: stat- call wet read DXA, BONE DENSITY, AXIAL SKELETON On: 03-May-2011 Intent ([id number])By: Luann Krishna DO Radiology - ChestBy: Luann Krishna DO On: 03-May-2011 Intent A Comments: pa and lat CT - Abdomen & Pelvis (IV Contrast On: 17-Apr-2011 Intent Needed)By: Luann Krishna DO Comments: STAT STAT -- CALL WITH WET READ!!!! -- STAT STAT DXA, BONE DENSITY, AXIAL SKELETON On: 10-Feb-2011 Intent ([id number])By: Hortensia Saavedra MD MAMMOGRAM, SCREENING, BOTH BREASTS On: 25-Jan-2011 Intent ([id number])By: Hortensia Saavedra MD Venous Doppler - LowerBy: Quentin On: 22-Nov-2010 Intent Hortensia ROJAS Comments: right leg, call with wet read MAMMOGRAM, SCREENING, BOTH BREASTS On: 30-Aug-2009 Intent ([id number])By: Hortensia Saavedra MD FLU VAC, SPLIT, >3 YEARS, INTRAMUSC On: 01-Jul-2009 Intent ([id number])By: Lauren Le RN IMMUNIZ ADMNIN, 1 VAC, SNGL/COMBO On: 01-Jul-2009 Intent ([id number])By: Lauren Le RN PHYSICAL THERAPY EVALUATION On: 21-Dec-2008 Intent ([id number])By: Anny Posada Comments: Pt doing at [facility], order faxed 12/21/08-negrito Ultrasound - PelvisBy: Quentin ROJAS, On: 28-May-2008 Intent Hortensia Zhang EKG ([id number])By: Yoselyn Ty On: 17-Apr-2008 Intent Radiology - Hand - RightBy: Quentin On: 10-Jan-2008 Intent Hortensia ROJAS Comments: attention thumb PIP Ear Irrigation ([id number])By: Quentin On: 07-Oct-2007 Intent Hortensia ROJAS MAMMOGRAM, SCREENING, BOTH BREASTS On: 07-Oct-2007 Intent ([id number])By: Hortensia Saavedra MD Ear Irrigation ([id number])By: Quentin On: 24-Oct-2006 Intent Hortensia ROJAS Comments: sucessfully done by nurse Bone Density StudyBy: Quentin ROJAS, On: 24-Oct-2006 Intent Hortensia Zhang MAMMOGRAM, SCREENING, BOTH BREASTS On: 06-Sep-2006 Intent ([id number])By: Hortensia Saavedra MD Instructions Name Dates Details Nonsmoker : How to access health information online Indication: Nonsmoker Nonsmoker : How to access health information online - Detail Indication: Nonsmoker Nonsmoker : Patient Instructions Indication: Nonsmoker Annual Medicare Phyiscal WITHOUT abnormal findings (Renamed from Encounter for general adult medical examination without abnormal findings) : Patient Instructions Indication: Annual Medicare Phyiscal WITHOUT abnormal findings (Renamed from Encounter for general adult medical examination without abnormal findings) Annual Medicare Phyiscal WITHOUT abnormal findings (Renamed from Encounter for general adult medical examination without abnormal findings) : How to access health information online Indication: Annual Medicare Phyiscal WITHOUT abnormal findings (Renamed from Encounter for general adult medical examination without abnormal findings) Annual Medicare Phyiscal WITHOUT abnormal findings (Renamed from Encounter for general adult medical examination without abnormal findings) : How to access health information online - Detail Indication: Annual Medicare Phyiscal WITHOUT abnormal findings (Renamed from Encounter for general adult medical examination without abnormal findings) Body mass index (BMI) 21.0-21.9, adult : How to access health information online Indication: Body mass index (BMI) 21.0-21.9, adult Body mass index (BMI) 21.0-21.9, adult : How to access health information online - Detail Indication: Body mass index (BMI) 21.0-21.9, adult Body mass index (BMI) 21.0-21.9, adult : Patient Instructions Indication: Body mass index (BMI) 21.0-21.9, adult Body mass index (BMI) 21.0-21.9, adult : How to access health information online Indication: Body mass index (BMI) 21.0-21.9, adult Body mass index (BMI) 21.0-21.9, adult : How to access health information online - Detail Indication: Body mass index (BMI) 21.0-21.9, adult Body mass index (BMI) 21.0-21.9, adult : Patient Instructions Indication: Body mass index (BMI) 21.0-21.9, adult Body mass index (BMI) 21.0-21.9, adult : How to access health information online Indication: Body mass index (BMI) 21.0-21.9, adult Body mass index (BMI) 21.0-21.9, adult : How to access health information online - Detail Indication: Body mass index (BMI) 21.0-21.9, adult Body mass index (BMI) 21.0-21.9, adult : Patient Instructions Indication: Body mass index (BMI) 21.0-21.9, adult Body mass index (BMI) 21.0-21.9, adult : How to access health information online Indication: Body mass index (BMI) 21.0-21.9, adult Body mass index (BMI) 21.0-21.9, adult : How to access health information online - Detail Indication: Body mass index (BMI) 21.0-21.9, adult Body mass index (BMI) 21.0-21.9, adult : Patient Instructions Indication: Body mass index (BMI) 21.0-21.9, adult Nonsmoker : How to access health information online Indication: Nonsmoker Nonsmoker : How to access health information online - Detail Indication: Nonsmoker Nonsmoker : Patient Instructions Indication: Nonsmoker UTI symptoms : How to access health information online Indication: UTI symptoms UTI symptoms : How to access health information online - Detail Indication: UTI symptoms UTI symptoms : Patient Instructions Indication: UTI symptoms Vaginal bleeding, abnormal : How to access health information online Indication: Vaginal bleeding, abnormal Vaginal bleeding, abnormal : How to access health information online - Detail Indication: Vaginal bleeding, abnormal Vaginal bleeding, abnormal : Patient Instructions Indication: Vaginal bleeding, abnormal Annual Medicare Phyiscal WITHOUT abnormal findings (Renamed from Encounter for general adult medical examination without abnormal findings) : Patient Instructions Indication: Annual Medicare Phyiscal WITHOUT abnormal findings (Renamed from Encounter for general adult medical examination without abnormal findings) Degeneration of intervertebral disc of lumbar region : Patient Instructions Indication: Degeneration of intervertebral disc of lumbar region Hypertension : How to access health information online Indication: Hypertension Hypertension : How to access health information online - Detail Indication: Hypertension Hypertension : Patient Instructions Indication: Hypertension Abnormal mammogram : How to access health information online Indication: Abnormal mammogram Abnormal mammogram : How to access health information online - Detail Indication: Abnormal mammogram Abnormal mammogram : Patient Instructions Indication: Abnormal mammogram Low back pain potentially associated with radiculopathy : How to access health information online Indication: Low back pain potentially associated with radiculopathy Low back pain potentially associated with radiculopathy : How to access health information online - Detail Indication: Low back pain potentially associated with radiculopathy Low back pain potentially associated with radiculopathy : Patient Instructions Indication: Low back pain potentially associated with radiculopathy Joint pain : Patient Instructions Indication: Joint pain Hyperlipidemia : Patient Instructions Indication: Hyperlipidemia Encounter for Medicare annual wellness exam : Patient Instructions Indication: Encounter for Medicare annual wellness exam Insect bite : How to access health information online Indication: Insect bite Insect bite : How to access health information online - Detail Indication: Insect bite Insect bite : Patient Instructions Indication: Insect bite ALLERGIC RHINITIS DUE TO OTHER ALLERGEN : Patient Instructions Indication: ALLERGIC RHINITIS DUE TO OTHER ALLERGEN Hyperlipidemia : Patient Instructions Indication: Hyperlipidemia Cystitis, acute : Water in diet, brief version Indication: Cystitis, acute Encounters Phone Encounter On: 01-Apr-2018 15:32 Encounter Diagnosis: Macrocytosis End: 01-Apr-2018 15:34 [facility] Phone Encounter On: 29-Mar-2018 9:06 Encounter Diagnosis: Abnormal WBC count End: 29-Mar-2018 9:08 [facility] Lab Order On: 29-Mar-2018 7:50 Encounter Diagnosis: Anxiety End: 29-Mar-2018 7:55 [facility] Office Visit On: 14-Mar-2018 12:26 Encounter Diagnosis: Body mass index (BMI) 21.0-21.9, adult, Nonsmoker, Vitamin D deficiency, Vitamin deficiency, Cramping of feet, Osteopenia, Weight loss End: 14-Mar-2018 13:15 [facility] Office Visit On: 19-Feb-2018 8:49 Encounter Reason: Annual Medicare Exam - The patient had reviewed and updated the family history, medication/s, past medical history and social history. Yes the patient did have a mini mental status exam done today. The End: 19-Feb-2018 11:15 activities of daily living the patient needs help with are none. The patient has driven in past 6 months, fallen in the past 6 months and put area rugs through house, but the patient has not had fecal i ncontinence, had urinary incontinence, missed or ran out of medications to soon, gotten lost, has a medalert necklace or bracelet or put handrails in bathroom. The patient has completed the following pr eventative measures: colonoscopy (5 yrs). 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 The patient has noticed nothing from the geriatic depression scale. Other providers contributin g to the patient's care are other: (pain doc and dds).Encounter Diagnosis: Annual Medicare Phyiscal WITHOUT abnormal findings (Renamed from Encounter for general adult medical examination without abnormal findings), Encounter for screening mammogram for breast cancer (Renamed from Encounter for screening mammogram for malignant neoplasm of breast), Postmenopausal (Renamed from Postmenopausal status), Encounter for screening for malignant neoplasm of colon (Renamed from Special screening for malignant neoplasms, colon) [facility] Office Visit On: 14-Feb-2018 9:22 Encounter Reason: Skin Lesions - No changes in management were made at the last visit. Symptoms include single skin lesion (right side and I have had it for years but getting bigger no pain or drainage)., End: 14-Feb-2018 10:11 [ADDITIONAL REASON] Follow up tests - Date: (01/31/18). Encounter Diagnosis: Nonsmoker, Body mass index (BMI) 21.0-21.9, adult, Osteopenia of both hips, Unilateral femoral hernia without obstruction or gangrene, recurrence not specified [facility] Office Visit On: 31-Dec-2017 10:31 Encounter Reason: Tailbone pain - no known injury and it feels like it is broken. I did have xray while I was in [place] and I brought the disc. We were travling for a long time cherise RV and I feel like I am sitting zeferino round nob.Encounter Diagnosis: End: 31-Dec-2017 11:58 Nonsmoker, Body mass index (BMI) 21.0-21.9, adult, Osteoarthritis of left hand, unspecified osteoarthritis type, Carpal tunnel syndrome, left, Tailbone injury, initial encounter, Postmenopausal (Renamed from Postmenopausal status), Hypercholesterolemia, Encounter for screening mammogram for breast cancer (Renamed from Encounter for screening mammogram for malignant neoplasm of breast), Vitamin D deficiency [facility] Office Visit On: 28-Aug-2017 13:35 Encounter Reason: Injections - The medication the patient is here to receive is shingles vaccine IM.Encounter Diagnosis: Need for zoster vaccination End: 29-Aug-2017 8:57 [facility] Office Visit On: 30-Jul-2017 11:10 Encounter Reason: Follow up for chronic medical issues - The patient feels well with minor complaints, has good energy level and is sleeping well. Patient has been compliant with instructions. Current medication use: no End: 30-Jul-2017 12:29 side effects and compliant with dosing regimen. Patient sleeps 6 hours per night. Nutrition: balanced diet and supplemental vitamins. The medical issues the patient is following up for include All ident ified problems below, depression (anxiety), gastric reflux and high cholesterol. weight :.Encounter Diagnosis: Nonsmoker, Body mass index (BMI) 21.0-21.9, adult, Vitamin D deficiency, GERD (gastroesophageal reflux disease), Hypercholesterolemia, Degenerative lumbar spinal stenosis, Colon polyp, Degeneration of intervertebral disc of lumbar region [facility] Office Visit On: 07-May-2017 9:58 Encounter Reason: Chest Pain - The last clinic visit was 3 month(s) ago. No changes in management were made at the last visit. Symptoms include chest pain. The pain is located in the substernal area. There is no radiatio End: 07-May-2017 11:56 n. The patient describes the pain as squeezing and tight. Onset was sudden 1 hour(s) ago. There is no known event that preceded symptom onset. The symptoms occur nocturnally. The patient describes this as unchanged. Associated symptoms do not include dizziness, lightheadedness, heartburn, nausea, sweating, syncope, vomiting or weakness. The patient is not currently being treated for this problem. Note for Chest pain: Pt had chest pain that started this morning between the hours of 2 and 5 am. Pt got up to let the dog outside and went to bed and felt the tightness and squeezing in the chest that wo uld come and go. Pt describes pain in the middle of chest. No nausea, vomiting, syncope, dizziness, palpitations, or heartburn, SOB. Pt going on trip this week, and wanted to make sure everything was ok . per discussion with Alayna tita has been takign meloxicam and not taking her ppi any more - symptoms gone now-Encounter Diagnosis: Chest pain, midsternal, Nonsmoker, Body mass index (BMI) 21.0-21.9, adult [facility] Phone Encounter On: 02-Feb-2017 13:42 Encounter Diagnosis: Degenerative lumbar spinal stenosis End: 05-Feb-2017 9:05 [facility] Office Visit On: 17-Jan-2017 14:26 Encounter Reason: Tingling - The symptoms first began 4 months. The onset of the tingling has been sudden. The tingling is improving. The patient describes the tingling as generalized (eye on left side of face and to her End: 17-Jan-2017 17:05 left arm and first 2 fingers. That lasted for 3 days and she only has the 2 fingers that are still numb and also on center of top and bottom lip. I never lost antyhing else.).Encounter Diagnosis: Body mass index (BMI) 21.0-21.9, adult, Nonsmoker, Paresthesia of left arm, Neck pain (723.1), Hip pain, bilateral, Iliotibial band tendinitis of left side, Degenerative lumbar spinal stenosis [facility] Office Visit On: 28-Dec-2016 14:48 Encounter Diagnosis: Tick bite, initial encounter End: 28-Dec-2016 15:48 [facility] Office Visit On: 12-Dec-2016 15:35 Encounter Reason: UTI - The urinary symptoms are described as painful urination, frequency and urgency. The symptoms have been occurring for 2 weeks. The urine is described as clear.Encounter Diagnosis: Nonsmoker, End: 12-Dec-2016 16:05 Body mass index (BMI) 21.0-21.9, adult, UTI symptoms, Dysuria, Breast cancer screening [facility] Phone Encounter On: 29-Nov-2016 17:08 [facility] End: 29-Nov-2016 17:13 Phone Encounter On: 05-Oct-2016 14:27 Encounter Diagnosis: Unspecified Diagnosis End: 05-Oct-2016 14:44 [facility] Office Visit On: 04-Oct-2016 10:12 Encounter Reason: Vaginal Discharge - Symptoms include vaginal discharge, while symptoms do not include vaginal itching, vaginal burning, vaginal redness, vaginal lesions, vaginal tenderness or vaginal odor. The patient End: 04-Oct-2016 15:06 describes the vaginal discharge as bloody. Onset was 2 day(s) ago. The symptoms occur rarely (happened once). The patient describes this as resolved. Associated symptoms do not include dysuria, pelvic p ain, abdominal pain or dyspareunia. The patient is not currently being treated for this problem.Encounter Diagnosis: Vaginal bleeding, abnormal, Hematuria, External hemorrhoid, bleeding [facility] Office Visit On: 06-Sep-2016 11:11 Encounter Reason: Injections - The medication the patient is here to receive is pneumovax IM.Encounter Diagnosis: Pneumococcal vaccination given End: 06-Sep-2016 12:52 [facility] Office Visit On: 24-May-2016 13:59 Encounter Reason: Annual Medicare Exam - The patient had reviewed and updated the family history, medication/s, past medical history and social history. Yes the patient did have a mini mental status exam done today. The End: 24-May-2016 15:02 activities of daily living the patient needs help with are none. The patient has driven in past 6 months and put area rugs through house, but the patient has not had fecal incontinence, had urinary inco ntinence, fallen in the past 6 months, gotten lost, has a medalert necklace or bracelet or put handrails in bathroom. The patient has completed the following preventative measures: PAP smear (2014), luis a mography (04/08) and colonoscopy (2 yrs). 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 The patient has noticed nothing from the geriatic depression scale. Other providers contributing to the patient's care are other:. Encounter Diagnosis: Annual Medicare Phyiscal WITHOUT abnormal findings (Renamed from Encounter for general adult medical examination without abnormal findings), Encounter for screening for malignant neoplasm of colon (Renamed from Special screening for malignant neoplasms, colon), Encounter for screening mammogram for breast cancer (Renamed from Encounter for screening mammogram f or malignant neoplasm of breast), Nonsmoker, Body mass index (BMI) 21.0-21.9, adult, Postmenopausal (Renamed from Postmenopausal status) [facility] Office Visit On: 04-May-2016 11:11 Encounter Reason: Follow up Hypertension - The patient has experienced follow up hypertension for weeks. blood pressure range :., [ADDITIONAL REASON] Follow up for chronic medical issues - The patient feels well with minor complai End: 04-May-2016 13:48 nts, has good energy level and is sleeping well. Patient has been compliant with instructions. Current medication use: no side effects and compliant with dosing regimen. Patient sleeps 7 hours per night . Nutrition: balanced diet. The medical issues the patient is following up for include All identified problems below and high blood pressure. blood pressure range : and weight :. Encounter Diagnosis: Hypertension, Degeneration of intervertebral disc of lumbar region, Osteoarthritis, chronic, Occlusion and stenosis of unspecified carotid artery, Macrocytosis, Hypercholesterolemia, Osteopenia, GERD (gastroesophageal reflux disease), Colon polyp, Migraine, Vitamin D deficiency, Iron deficiency anemia, unspecified [facility] Office Visit On: 19-Apr-2016 14:50 Encounter Reason: Hypertension - Symptoms include shortness of breath (takes deep breath). Recent blood pressure has been mostly > 150/90. The patient describes this as worsening. By report there is good compliance wi End: 19-Apr-2016 15:51 th treatment. Previous presentation included an elevated blood pressure from an outside reading and shortness of breath., [ADDITIONAL REASON] nipple anamoly - Left nipple with white area on nipple like a white head mildy tender Encounter Diagnosis: Hypertension, Nipple lesion [facility] Office Visit On: 04-Jan-2016 13:53 Encounter Reason: Follow up tests - Diagnostic tests include mammography, MRI (spine) and other (carotid doppler). Date: (12/2015). Note for Discuss procedure results: symptoms havent changed - not grossly intereted in End: 04-Jan-2016 22:09 surgery for back but will consider pain managment Encounter Diagnosis: Abnormal mammogram, Occlusion and stenosis of unspecified carotid artery, Degenerative Disc Disease - Lumbar (722.52), Mixed hyperlipidemia (272.2) [facility] Office Visit On: 10-Dec-2015 12:08 Encounter Reason: Hip Problem - Symptoms include hip problem, while symptoms do not include fever or chills. The symptoms are located in the left hip (worse in left) and right hip. The patient describes the hip problem a End: 12-Dec-2015 21:19 s hip pain, hip stiffness, decreased range of motion, difficulty bearing weight and difficulty ambulating. Onset was gradual month(s) ago. The symptoms occur constantly. The patient describes symptoms a s severe and worsening. Associated symptoms include low back pain, while associated symptoms do not include localized rash, generalized rash, numbness in the leg or weakness of the leg. Current treatmen t includes none (seeing chiro). Previous presentation included pain in the hip, pain in the leg, stiffness of the hip, decreased range of motion, difficulty bearing weight and difficulty ambulating. Not e for Hip problem: saw Trixie had xrays and had pt- and then had chiropractic treatment- she has been doing therapy alot and has helped- worse with sitting to standing- and started walking- yesterday wa lked the dog and came back in tears- low back both legs to knees-did alot of squats yesterday- usually better with walking not yeaterday- tried nsaid smultiple times- no weak or numb inlegsEncounter Diagnosis: Eczema, Sleep disorder, Anxiety, Low back pain potentially associated with radiculopathy, Mixed hyperlipidemia (272.2), Occlusion and stenosis of unspecified carotid artery, Encounter for screening mammogram for breast cancer (Renamed from Encounter for screening mammogram f or malignant neoplasm of breast) [facility] Office Visit On: 07-Sep-2015 10:44 Encounter Reason: Hip Problem - This condition occurred without any known injury. The injury involved the left hip and right hip. This occurred 2 month(s) ago. Symptoms include hip problem. The symptoms are located in th End: 07-Sep-2015 11:30 e left hip and right hip. The patient describes the hip problem as hip pain, hip stiffness and difficulty ambulating. Onset was gradual 2 month(s) ago. The symptoms occur constantly. The patient describ es symptoms as worsening. Symptoms are exacerbated by movement, flexing hip, walking and lying on the affected side. Associated symptoms do not include localized rash, generalized rash, low back pain, n umbness in the leg or weakness of the leg. Current treatment includes nonsteroidal anti-inflammatory drugs. Previous presentation included pain in the hip, pain in the leg, stiffness of the hip, decreas ed range of motion, difficulty bearing weight and difficulty ambulating.Encounter Diagnosis: Degenerative localized arthritis of hip, Sacroiliac pain [facility] Office Visit On: 30-Aug-2015 13:57 Encounter Reason: Hip Problem - This condition occurred without any known injury. The injury involved the left hip and right hip. This occurred 2 month(s) ago. Symptoms include hip problem. The symptoms are located in th End: 30-Aug-2015 14:29 e left hip and right hip. The patient describes the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 Diagnostic tests include mammography and other (bone density ). Date: (12-22-08 ). Follow up visit with no current symptoms. Past medical history includes other End: 07-Jan-2009 12:31 (osteopenia, allergic rhinitis, GERD, high triglycerides ). Encounter Diagnosis: Postmenopausal bleeding (627.1), Osteopenia (733.90), Hand Pain (719.44), Neck pain (723.1), Hypercholesterolemia (272.0) [facility] Phone Encounter On: 21-Dec-2008 14:09 Encounter Diagnosis: Low back pain (724.2) End: 21-Dec-2008 14:19 [facility] Office Visit On: 28-May-2008 9:00 Encounter Diagnosis: Postmenopausal bleeding (627.1), Gerd (530.81), bladder prolapse End: 28-May-2008 9:37 [facility] Office Visit On: 17-Apr-2008 9:32 Encounter Reason: Follow up for chronic medical issues - The patient feels well with no complaints ,has good energy level and is sleeping well. Patient has been compliant with instructions. Current medication use: no clarita End: 17-Apr-2008 10:24 e effects. Patient sleeps 7 hours per night. Impact of disease: no overall impact. Nutrition: balanced diet. The medical issues the patient is following up for include All identified problems below ,hig h cholesterol and other (fatigue, loweer back pain). Note for Follow up for chronic medical issues: Pt also had labs done in March, copy of labs given to ptEncounter Diagnosis: Hypercholesterolemia (272.0), indigestion, vaginal pain [facility] Office Visit On: 10-Jan-2008 8:52 Encounter Reason: Follow up, Laboratory Test Results - Lab results: abnormal blood lipids. Date: (12-24-07 ). Current symptoms/reason for visit include/s Follow up visit with no current symptoms. There is a family history End: 10-Jan-2008 9:24 of cardiovascular disease. Past medical history includes elevated cholesterol ,elevated triglycerides and other (osteoporosis ). Encounter Diagnosis: Hand Pain (719.44), Hypercholesterolemia (272.0), toe pain (Renamed from toe pain\), Osteopenia (733.90) [facility] Office Visit On: 29-Nov-2007 13:54 Encounter Reason: Hematuria - The onset of the hematuria has been sudden and has been occurring in a decreasing pattern for 2 weeks. The course has been constant. The hematuria is described as a mild dull ache. Encounter Diagnosis: Hematuria (599.7) End: 02-Dec-2007 13:34 [facility] Office Visit On: 21-Nov-2007 14:32 Encounter Reason: Follow up acute care visit - The patient feeling better since last seen and improving. Patient has been compliant with instructions. Current medication use: no side effects ,compliant with dosing regime End: 21-Nov-2007 15:25 n and considered effective by patient. Patient sleeps 5 hours per night. Impact of disease: no overall impact. Nutrition: balanced diet. The medical issues the patient is following up for include All id entified problems below and UTI. Note for Follow up acute care visit: Pt complain of knuckles of hands edematous and changing similar to her mothers hands. Requesting referral to police officer Encounter Diagnosis: SYMPTOMS INVOLVING URINARY SYSTEM; DYSURIA (788.1), Myalgia(729.1) [facility] Office Visit On: 11-Nov-2007 9:52 Encounter Reason: UTI - The urinary symptoms are described as painful urination ,frequency ,urgency ,groin pain ,burning and nocturia. The symptoms have been occurring for 1 days and have been constant. The urine is desc End: 11-Nov-2007 10:39 ribed as bloody (does have clots ) and dark. The symptoms have been associated with abdominal pain ,chills and low back pain, while the symptoms have not been associated with fever ,perineal pain ,vulva r lesion ,diarrhea ,vulvar irritation ,nausea ,vomiting ,vaginal discharge or lightheadedness. There is no history of sexual contact with a person having an STD ,use of tampons ,possible vaginal foreign body ,douching ,use of contraceptive devices ,sexual assault ,trauma ,vulvovaginal exposure to chemical irritants ,sexual contact with a person exposed to an STD ,recent catheterization ,new sexual par tner or current catheterization. The patient has been using hormone replacement therapy (did just start E3 lubricating suppository - and bioidentical ). Note for UTI: did just start taking OTC- vit A Encounter Diagnosis: Cystitis,Acute (595.0), SYMPTOMS INVOLVING URINARY SYSTEM; DYSURIA (788.1), Hematuria (599.7) [facility] Office Visit On: 07-Oct-2007 12:00 Encounter Reason: Well Women Exam - The patient feels well with minor complaints ,has decreased energy level and is sleeping poorly. Pap smear: date of last pap: (09-06-06 ). Contraceptive history: The patient is not usi End: 07-Oct-2007 12:27 ng any method of contraception at this time. Patient exercises 3 - 4 times per week. The patient's libido is normal. The patient reports that she performs monthly self breast exam. Calcium intake includ es 1200 mg with Vit D daily supplement. Menstruation: Last menstrual period date: ( ). Encounter Diagnosis: Well Woman Exam (V72.31) (Pap,Mammo,Routine Female), Osteopenia (733.90), Colon polyp (211.3), Hypercholesterolemia (272.0), Hot Flashes (782.62), Cerumen impaction (380.4) [facility] Office Visit On: 11-Jan-2007 10:38 Encounter Reason: Follow up, Laboratory Test Results - Current symptoms/reason for visit include/s Follow up visit with no current symptoms. Past medical history includes elevated cholesterol and elevated triglycerides. End: 11-Jan-2007 11:25 Note for Follow up, Laboratory Test Results: had cut in 1/2 for myalgiaEncounter Diagnosis: Hypercholesterolemia (272.0), Osteopenia (733.90), Hot Flashes (782.62) [facility] Office Visit On: 24-Oct-2006 10:00 Encounter Reason: Follow up, Laboratory Test Results - Lab results: abnormal blood lipids. Date: (10/17/06). Current symptoms/reason for visit include/s Follow up visit with no current symptoms. There is a family history End: 24-Oct-2006 10:31 of cardiovascular disease (father). Note for Follow up, Laboratory Test Results: chad high, not diet and exerciseEncounter Diagnosis: Osteopenia (733.90), Hypercholesterolemia (272.0), Hypertriglycerides (272.1), Well Woman Exam (V72.31) (Pap,Mammo,Routine Female), Cerumen impaction (380.4) [facility] Office Visit On: 18-Oct-2006 19:31 [facility] End: 18-Oct-2006 19:32 Office Visit On: 06-Sep-2006 9:13 Encounter Reason: Well Women Exam - The patient feels well with no complaints ,has good energy level and is sleeping poorly. Pap smear: date of last pap: (08-27). Patient does not exercise. The patient's libido is normal End: 06-Sep-2006 9:45 . The patient reports that she performs monthly self breast exam. Calcium intake includes 1500 mg daily supplement. Menstruation: Last menstrual period date: (05-30). Note for Well Women Exam: sleep trouble use sleep aidEncounter Diagnosis: Well Woman Exam (V72.31) (Pap,Mammo,Routine Female), Amenorrhea(626.0), Hypertriglycerides (272.1) [facility] Historical Summary On: 03-Sep-2006 8:14 [facility] End: 03-Sep-2006 8:21 Payers [place]/Medicare Collin Johnson; prema guarantor
--- OUTSIDE RECORDS SUMMARY | 2018-10-01 12:52 | XMS RPT_ITS | Continuity of Care Document ---
:1950 Author Organization [facility] Address [address] [facility] [address] [place] [address] Phone Care Team Providers Name Role Phone Susan Rojas DO Unavailable [facility], [facility] Unavailable Dr. Kimo Ferreira Unavailable Angus ROJAS, [...] if better with treat anxiety Status: Active Arthritis (M19.90, 716.90) Status: Active Arthritis pain, hand (M19.049, 716.94) Status: Active BMI 20.0-20.9, adult (Z68.20, V85.1) Status: Active Body mass index (BMI) 21.0-21.9, adult (Z68.21, V85.1) Status: Active Breast cancer screening (Z12.39, V76.10) Status: Active Carpal tunnel syndrome, left (G56.02, 354.0) Comments: has had ncs emg in past - Status: Active Cervical strain (S16.1XXA, 847.0) Status: Active Chest pain, midsternal (R07.89, 786.51) Status: Active Colon polyp (K63.5, 211.3) Comments: dr in [place] and last scope neg for any polyps [...] Comments: getting nerve blocks and epidurals from [facility]-- used to see Felden and got much better results with Felden Status: Active Deliveries (Parity) Comments: 2, Term Status: Active Dysuria (R30.0, 788.1) Status: Active Eczema (L30.9, 692.9) Comments: daltonisone daquan Status: Active Encounter for Medicare annual wellness [...] Active Osteopenia of both hips (M85.851, 733.90) Comments: ca+= , vit D adn wt bearing exercise -- no meds per patient Status: Active Pain in unspecified joint (Renamed from Joint pain) (M25.50, 719.40) Status: Active Paresthesia of left arm (R20.2, [...] 783.21) Status: Active Medications Name Dates Details Alpha-Lipoic Acid 600 MG Oral Capsule Active 1 qd (600 MG) ASPIRIN LOW DOSE, 81MG (Oral Tablet) Active 1 tab qd (81 MG) Bio Indentical Hormone cream Active apply on thigh bid Comments: compound cream Biost Active 2 a day BIOTIN 5000, 5MG (Oral Capsule) 1 (one) Capsule daily for 30 days Quantity: 30 {Capsule} Refills: 0 Ordered:04-Jan-2016 Luann Krishna DO Start : 04-Jan-2016 Active CO Q10, 200MG (Oral Capsule) 1 cap qd (200 MG) Active Fish Oil 1000 MG Oral Capsule 1 tab 3 times a day (1000 MG) Active Gabapentin 300 MG Oral Capsule 1 (one) Capsule qhs and bid prn for 0 days Quantity: 180 {Capsule} Refills: 3 Ordered:30-Jul-2017 Eduarda Rojas DO, DO, Kathleen Start : 30-Jul-2017 Active Gabapentin 300 MG Oral Capsule 1 (one) Capsule qhs and bid prn for 0 days Quantity: 90 {Capsule} Refills: 0 Ordered:30-Jul-2017 BobEduarda adame DO, DO, Kathleen Start : 30-Jul-2017 Active Comments:ninety Magnesium 200 MG Oral Tablet 4 a day (200 MG) Active Meloxicam 15 MG Oral Tablet 1 tab Tablet daily for 90 days Quantity: 90 {Tablet} Refills: 3 Ordered:13-Aug-2018 Celsa ROSALESTrixie Start : 13-Aug-2018 Active M-Fkxtmy-O-Cysteine 600 MG Oral Capsule daily (600 MG) Active No Flush Nyacin 500 mg every other day Active Pravachol 40 MG Oral Tablet 1 1/2 Tablet QD for 90 days Quantity: 135 {Tablet} Refills: 3 Ordered:31-Dec-2017 BobEduarda adame DO, DO, Kathleen Start : 31-Dec-2017 Active Pravachol 40 MG Oral Tablet 1 1/2 Tablet QD for 0 days Quantity: 135 {Tablet} Refills: 3 Ordered:31-Dec-2017 BobEduarda adame DO, DO, Kathleen Start : 31-Dec-2017 Active Super Mushroom Active VITAMIN D3, 2000UNIT (Oral Tablet Chewable) 1 Tablet Chewable qd for 0 days Quantity: 30 {Tablet_Chewable} Refills: 3 Ordered:05-Feb-2012 Kiarra Walker Start : 06-Nov-2011 Active Alpha Lipoic Acid 200 MG Oral Capsule 3 qd (200 MG) Inactive AMRIX, 30MG (Oral Capsule Extended Release 24 Hour) 1 Capsule ER 24HR daily at supper prn for 0 days Quantity: 10 {Capsule_ER_24HR} Refills: 0 Ordered:22-Nov-2010 DAIANA Bey Start : 08-Jul-2010 End : 22-Nov-2010 Inactive AUGMENTIN, 875-125MG (Oral Tablet) 1 Tablet bid for 14 days Quantity: 28 {Tablet} Refills: 0 Ordered:14-Jul-2015 Tomi Luann Start : 14-Jul-2015 End : 28-Jul-2015 Inactive Bactrim DS 800-160 MG Oral Tablet 1 Tablet bid for 10 days Quantity: 20 {Tablet} Refills: 0 Ordered:12-Dec-2016 Nicolenioprema ROSALESTrixie Start : 12-Dec-2016 End : 22-Dec-2016 Inactive BENZACLIN, 1-5% (External Gel) apply Gel bid for 0 days Quantity: 30 {Gel} Refills: 1 Ordered:22-Nov-2010 DAIANA Bey Start : 26-Apr-2010 End : 22-Nov-2010 Inactive BONIVA, 150MG (Oral Tablet) Tablet month for 0 days Quantity: 1 {Tablet} Refills: 6 Ordered:07-Jan-2009 DAIANA Bey Start : 07-Jan-2009 Inactive Comments:changed to Fosomax Calcium 600+D 600-200 MG-UNIT Oral Tablet 1 (one) Tablet daily for 30 days Refills: 0 Ordered:05-Sep-2018 Alayna Rodrigues LPN Start : 30-Aug-2015 End : 05-Sep-2018 Inactive XHIRVZPU-WPK-0, 0.1MG/24HR (Transdermal Patch Weekly) 1 Patch Weekly change weekly for 0 days Quantity: 4 {Patch_Weekly} Refills: 3 Ordered:27-Dec-2010 DAIANA Bey Start : 07-Dec-2010 End : 27-Dec-2010 Inactive CIPRO, 500MG (Oral Tablet) 1 Tablet bid for 10 days Quantity: 20 {Tablet} Refills: 0 Ordered:06-Nov-2011 Luann Krishna DO Start : 06-Nov-2011 End : 16-Nov-2011 Inactive [...] : 27-Dec-2010 End : 29-Dec-2010 Inactive Comments:ID# [id number] Cymbalta 30 MG Oral Capsule Delayed Release [...] days Quantity: 40 {Capsule} Refills: 0 Ordered:16-Jun-2009 Nicolsara BOBBYTrixie Start : 16-Jun-2009 End : 01-Jul-2009 Inactive [...] Ordered:22-Nov-2010 DAIANA Bey End : 22-Nov-2010 Inactive Glucosamine-Chondroitin Oral Capsule 1 qd Inactive HYDROQUINONE, 2% (External Cream) Cream QD for 0 days Quantity: 1 {Cream} Refills: 0 Ordered:06-Sep-2006 May De Anda LPN Start : 06-Sep-2006 End : 11-Jan-2007 Inactive Krill Oil 300 MG Oral Capsule 1 (one) Capsule Capsule daily for 0 days Quantity: 30 {Capsule} Refills: 0 Ordered:19-Aug-2018 Jignesh Romero Start : 19-Apr-2016 End : 19-Aug-2018 Inactive MULTIVITAMIN (PO Tab) 1 tab qd Inactive No current meds at this time [...] De Anda LPN End : 21-Jun-2011 Inactive PRESERVISION/LUTEIN (Oral Capsule) 1 cap daily Inactive Proctosol HC 2.5 % Rectal Cream [...] days Quantity: 30 {Capsule} Refills: 0 Ordered:13-Apr-2014 Anabella Dia Start : [...] : 30-Aug-2015 End : 29-Sep-2015 Inactive VITAMIN B-12, 1000MCG (Oral Tablet) 1 tab daily (1000 MCG) Inactive VITAMIN E, 200UNIT (Oral Tablet) 1 [...] MG) End : 12-Dec-2016 Discontinued Comments[phone] on 11/29/16 cmanchak CRESTOR, 10MG [...] days Quantity: 4 {Tablet} Refills: 6 Ordered:22-Aug-2010 Lauren Le RN Start : 22-Aug-2010 End : 22-Aug-2010 Discontinued [...] days Quantity: 1 {Inhaler} Refills: 0 Ordered:30-Aug-2015 Slarb Thania SOTO Start : 27-Feb-2014 End : 30-Aug-2015 Discontinued [...] MG) End : 15-Dec-2013 Discontinued VITAMIN D, 00854PU (PO Cap) 1 QD for 0 days [...] of 04-May-2016 ACCIDENT, TRAFFIC NOS, MV, [facility] SPORTS PHYSIOLOGIST (E819.2) Status: Resolved as of 15-Dec-2013 Allergic [...] as of 26-Feb-2016 Hyperlipidemia (E78.5, 272.4) Comments: reall y needs ldl around 70- discuss diet [...] unspecified (D50.9, 280.9) Status: Resolved as of 11-Aug-2016 Joint pain (M25.50, 719.40) Status: Inactive as [...] exam (Z01.419, V72.31) Comments: due for colonscopy 10-05 Status: Inactive as of 15-Dec-2013 Procedures Procedure Dates Details Appendectomy Completed Comments: rutptured 2010 breast biopsy Completed Comments: december 2015 Cholecystectomy Completed Comments: 2010 Date Value Details 19-Aug-2018 Hand Min 3 Views Result: Comments: See Note; NOTES: [facility] Imaging Services [address] [place] [address] Hand Min 3 Views MR#: [id number] Acct: [id number] Name: MEL JOHNSON Rep #: [id number] : 1950 F 68 From: Iram Rivera MD PCP: Susan Rojas DO Status: REG CLI Study: Hand Min 3 Views Date of Exam: 08/19/18 Exam# [id number] Ordering Dr: Alayna Vang ENERGY CONSERVATION REPRESENTATIVENetta STUDY: X-RAY - LEFT ALEJANDRA D REASON FOR EXAM: Female, 68 years old. Pain, no injury TECHNIQUE: 3 view(s) of the hand. COMPARISON: None. FINDINGS: There is juxta articular osteopenia, less t alejandra compared to the contralateral side. Normal radiocarpal articulation. Normal distal radioulnar joint. Normal visualized carpal bones. Normal carpal articulations There is degenerative arthrosis of the carpometacarpal articulation of the thumb with lateral subluxation of the first metacarpus. Normal second through fifth carpometacarpal joints. Normal metacarpi. Normal metacarpophalangeal joint o f the thumb. Normal interphalangeal joint of the thumb. Normal proximal and distal phalanges of the thumb. Normal metacarpophalangeal joints of the second through fifth fingers. Normal proximal and dis salvatore interphalangeal joints of the second through fifth fingers. Normal phalanges of the second through fifth fingers. The soft tissue structures are unremarkable. RAD/Hand Min 3 Views IMPRESSION: Mild degenerative changes centered at the first carpometacarpal joint with lateral subluxation. Juxta- articular osteopenia. Electronically Signed: Alex Rivera MD at 2:41 EST , Service support , CC: DALILA Vang; Susan Rojas DO Triple Valve Tester: Signed 19-Aug-2018 Hand Min 3 Views Result: Comments: See Note; NOTES: [facility] Imaging Services [address] [place] [address] Hand Min 3 Views MR#: [id number] Acct: [id number] Name: MEL JOHNSON Rep #: [id number] : 1950 F 68 From: Iram Rivera MD PCP: Susan Rojas DO Status: REG CLI Study: Hand Min 3 Views Date of Exam: 08/19/18 Exam# [id number] Ordering Dr: Alayna Vang STUDY: X-RAY - RIGHT SAMANIEGO ND REASON FOR EXAM: Female, 68 years old. Pain, no injury TECHNIQUE: 3 view(s) of the hand. COMPARISON: None. FINDINGS: There is particularly juxta-articular oste openia. Normal radiocarpal articulation. Normal distal radioulnar joint. Normal visualized carpal bones. There is degenerative joint disease of the scaphotrapezium / trapezoid articulation. The remaind er of the carpal articulations are normal. There is degenerative arthrosis of the carpometacarpal articulation of the thumb with lateral subluxation of the first metacarpus. Normal second through fifth carpometacarpal joints. Normal metacarpi. There is mild degenerative arthrosis of the metacarpophalangeal (MCP) joints. Normal interphalangeal joint of the thumb. Normal proximal and distal phalanges of the thumb. Normal metacarpophalangeal joints of the second through fifth fingers. Mild arthrosis of the proximal and distal interphalangeal joints of the second through fifth fingers. Normal phalan ges of the second through fifth fingers. The soft tissue structures are unremarkable. RAD/Hand Min 3 Views IMPRESSION: Degenerative joint diseas e of the hand and wrist, as described above. Osteopenia. Electronically Signed: Iram Rivera MD at 2:36 EST , Service support , CC: DALILA Vang; Susan Rojas DO Triple Valve Tester: Signed 09-Jul-2018 Surgery Visit Report Result: Comments: See Note; NOTES: [facility] [address] [place] [address]. [address] [place] [address] OFFICE VISIT Date of Service: 07/09/18 MR#: [id number] Acct: [id number] Name: MEL PEARL Rep #: [id number] : 1950 Provider: Ana Monae PA-C Age/Sex: 68/F Location: [facility] Status: Signed Intake Intake Visit Reasons: f/u herniorrhaphy 07/01/18 Supervisor Plastering Required: No Is patient in pain?: No [...] DAILY 06/24/18 [History Confirmed 07/09/18] co enzyme Q42-donmctx E 100 mg-100 unit capsule 1 cap PO DAILY cap 06/24/18 [History Confirmed 07/09/18] gabapentin 300 mg capsule 300 mg PO TID 06/24/18 [History Confirmed 07/09/18] glucosamine 750 mg-cho ndroitin-msm no1 625 mg-C 30 mg-oj 1 mg tablet 1 tab PO BID tab 06/24/18 [History Confirmed 07/09/18] krill oil 1,000 mg-om3 130 mg-dha 40 mg-epa 80 nc-ec8-fgf-astax cap 1 cap PO DAILY cap 06/24/18 [...] Discharge Instruction Result: Comments: See Note; NOTES: [facility] Medical Records Department [address] [place] [address] Instructions for Home/Discharge Instructions 07/01/18 1156 MR#: [id number] Acct: [id number] Name: MEL JOHNSON Rep #: [id number] : 1950 68 From: Robert Lozada MD PCP: Susan Rojas DO Status: DEP [facility] Discharge Diet: Light diet - advance as tolerated - if you have sal ns about your diet instructions, please talk [...] capsule 5,000 unit PO DAILY 06/24/18 coenzyme M06-chmwvvv E 100 mg-100 unit capsule 1 cap PO DAILY cap 06/24/18 gabapentin 300 mg capsule 300 mg PO TID 06/24 glucosamine 750 ia-iqvcnqzonwh-kvt no1 625 mg-C 30 mg-oj 1 mg tablet 1 tab PO BID tab 06/24/18 krill oil 1,000 mg-om3 130 mg-dha 40 mg-epa 80 ge-tr6-eje-astax cap 1 cap PO DAILY cap 06/24/18 melox icam 15 mg tablet 15 mg PO DAILY 06/24/18 multivitamin tablet 1 tab PO DAILY 06/24/18 pravastatin 40 mg tablet 40 mg PO DAILY 06/24/18 vitamin B complex tablet 1 tab PO DAILY 06/24/18 Hydrocodone Bitart /Apap 5-325 [Rudy 5MG-325MG] 1 tablet PO Q6H PRN PRN 2 Days #5 tablet 07/01/18 The following prescriptions were given: Hydrocodone Bitart/Apap 5-325 [Rudy 5MG-325MG] 1 tablet PO Q6H PRN PRN 2 Days # 5 tablet PRN Reason: Pain Primary Care Physician: Susan Rojas DO [Primary Care Provider] - Test Results: Test results from this visit will be discussed in further detail at your follow-up appointme nt, if applicable. Please Follow Up With: Robert Lozada MD - [phone] When: Call to make an appointment to be seen in about 10 days. 07/02/18 0538 <Electronically signed by Robert Lozada MD> Date Robert Lozada MD CC: Susan Rojas DO 01-Jul-2018 Operative Report Result: Comments: See Note; NOTES: [facility] Medical Records Department [address] [place] [address] Operative Report 07/01/18 1248 MR#: [id number] Acct: [id number] Name: MEL JOHNSON Rep #: [id number] : 1950 68 From: Robert Lozada MD PCP: Susan Rojas DO Status: REG SDC Y Location: [place] [address] Problem List (1) Inguinal hernia Status: Acute [...] fashion. A sheet of Bard mesh preshaped [facility] lot number [employer]EW[employer]NAGER [id number] with a reference number of [id number] expiry date 02/18/2023 was utilized. The t [...] Lead Electrocardiogram Result: Comments: See Note; NOTES: [facility] Cardiovascular Services [address] [place] [address] 12 Lead EKG 06/24/18 1533 MR#: [id number] Acct: [id number] Name: MEL JOHNSON Rep # : [id number] : 1950 68 From: Stephen Mcneil MD Attending Dr: Robert Lozada MD Status: PRE SDC Ordering Dr: Robert Lozada MD Date: 06/24/18 Location: [facility] Sex: F C Admitted: Test Reason : PREOP Blo od Pressure : / mmHG Vent. Rate : 065 BPM Atrial Rate : 065 BPM P-R Int : 190 ms QRS Dur : 066 ms QT Int : 396 ms P-R-T Axes : 037 011 023 degrees QTc Int : 411 ms Normal sinus rhythm Low voltage QRS Borderline ECG Confirmed by STEPHEN MCNEIL MD ([id number]), editor city MARLEN MAYS ([id number]) on 06/25/2018 2:28:14 PM Referred By: Robert Lozada Confirmed By:STEPHEN MCNEIL MD 06/25/18 1428 Date Stephen Mcneil MD CC: Susan Rojas DO; Robert Lozada MD Signed 25-Jun-2018 Surgery Visit Report Result: Comments: See Note; NOTES: [facility] [address] [place] [address] OFFICE VISIT Date of Service: 06/24/18 MR#: [id number] Acct: [id number] Name: MEL PEARL Rep #: [id number] : 1950 Provider: Ana Monae PA-C Age/Sex: 68/F Location: [facility] Status: Signed Intake Vital Signs06/24/18 Blood Pressure 144/92 H 06/24/18 Height 5 ft 4 in Weight: 116 lb Intake Visit Reasons: update h AND p open [facility] Supervisor Plastering Required: No Is patient in pain?: No [...] PO DAILY 06/24/18 [History Confirmed 06/24/18] coenzyme V65-zepyjaq E 100 mg-100 unit capsule 1 cap PO DAILY cap 06/24/18 [History Confirmed 06/24/18] gabape ntin 300 mg capsule 300 mg PO TID 06/24/18 [History Confirmed 06/24/18] glucosamine 750 mq-vfhmyjpyzvh-nli no1 625 mg-C 30 mg-oj 1 mg tablet 1 tab PO BID tab 06/24/18 [History Confirmed 06/24/18] kril l oil 1,000 mg-om3 130 mg-dha 40 mg-epa 80 te-gt0-otj-astax cap 1 cap PO DAILY cap 06/24/18 [...] Patient denie s being seen by a motion picture scene builder previously. She denies previous myocardial infarction, stroke, [...] cooperative, healthy appearing, comfortable, no acute distress HENMT Head: normal to inspection Eyes General: appearance [...] with the patient. Patient has had the [facility] tunity to ask and have questions answered. [...] Density Study Result: Comments: See Note; NOTES: [facility] Imaging Services [address] [place] [address] Dexa Bone Density Study MR#: [id number] Acct: [id number] Name: MEL JOHNSON Rep #: [id number] : 1950 F 67 From: James Baker MD PCP: Susan Rojas DO Status: REG CLI Study: Dexa Bone Density Study Date of Exam: 01/31/18 Exam# [id number] Ordering Dr: Susan Rojas Y: DUAL ENERGY [...] a worsening of 15.5%. ORDE R #: [id number] BD/Dexa Bone Density Study IMPRESSION: The patient [...] James Baker MD at 13:52 EDT Tel [phone], Service support , CC: Susan Rojas DO Triple Valve Tester: Signed 31-Jan-2018 SCREENING MAMM (CAD), BILAT Result: Comments: See Note; NOTES: [facility] Imaging Services [address] [place] [address] SCREENING MAMM (CAD), BILAT MR#: [id number] Acct: [id number] Name: MEL JOHNSON Rep #: [id number] : 1950 F 67 From: James Baker MD PCP: Susan Rojas DO Status: REG CLI Study: SCREENING MAMM (CAD), BILAT Date of Exam: 01/31/18 Exam# [id number] Ordering Dr: Susan Rojas O MAMMOGRAPHY - BILATERAL SCREENING REASON FOR EXAM: [...] delay biopsy of a clinically suspicious abnormality. [id number] Electronically Signed: James Baker MD at 14:38 EDT Tel [phone], Service support [phone], CC: Susan Rojas DO Triple Valve Tester: Signed 18-May-2017 Re-Evaluation - PT (1) Result: Comments: See Note; NOTES: [facility] Physical [facility] [address] [place] [address] Fax REEVALUATION / MEDICARE FRANKEdyta RUDD PHYSICAL THERAPY MR#: [id number] Acct: [id number] Name: MEL JOHNSON Rep #: [id number] : 1950 67 From: Sharee Castaneda DPT Referring Dr.: Samuel Koo MD Status: REG RCR Insurance: [employer] CARE MEDICARE Samuel Koo MD, It has been my pleasure to treat MEL JOHNSON over the last 4 visits for Lumbar Spine. Please see the progress note below for an update on the physical therapy plan of care! Subjective: Feels that the therapy is helping and Merry was very helpful. Is in a water class at the [facility]- and feels that she needs a few [...] do not hesitate to contact me at [phone] by phone or if you have questions or concerns regard ing this new plan of care! Sincerely, Sharee Castaneda <Electronically signed by Sharee Castaneda DPT> 05/18/17 0941 CC: Samuel Koo MD; Susangabriel Rojas SHRAVAN Rayo Signed For Medicare only, by signing this I certify the plan of care. Physicians Signature Date 23-Apr-2017 Inital Evaluation (1) - PT Result: Comments: See Note; NOTES: [facility] Physical Therapy [facility] [address] [facility] [facility] [address] [place] [address] Fax REHABILITATION SERVICES INITIAL EVALUATION MR#: [id number] Acct: [id number] Name: MEL JOHNSON Rep #: [id number] : 1950 67 From: Sharee Castaneda DPRaine Referring Dr.: Samuel Koo MD Status: REG RCR Insurance: sfilatino C ARE MEDICARE Patient's Visit Information MEL JOHNSON is a 67 year old F referred to Physical Therapy by Samuel Koo MD with a diagnosis of Lumbar Spine. Date of Evaluation: 04/23/17 Scientific Linguist apist: Sharee Castaneda - Visit Plan Frequency: 1x/Week Duration: 4 Weeks Plan: 1x visit for aquatic HEP to do at [facility]- then follow up in 3 weeks for progression - Subjective Subjective: Patient reports that she has has pain in the neck and back for years. Progressively worse in the last year. Agg: standing, walking more than a mile, sitting really bothers her tailbone. Worst: /10. When she lays down at night she has pain that shots down both sides but worse on the left. No radiating pain during the day. Insidious onset- mother had OA she is following in her footsteps. Saw Markie in January for land exer cises- and is still doing the exercise at the [facility]. Walks the dog about a mile a [...] to be FAXED BACK to us at [phone] for Medicare purposes. Please let me know if there are questions or concerns regarding this plan of care. Physician Signature: Date: <Electronically signed by Sharee Castaneda DPT> 04/23/17 1156 CC: Samuel Koo MD; Susan Rojas DO ELR Signed For Medicare only, by signing this I certify the plan of care. Physicians Signature Date 20-Mar-2017 NCS and/or EMG Patient Result: Comments: See Note; NOTES: [facility] Pulmonary Services/Neurology [address] [place] [address] NCS and/or EMG Patient MR#: [id number] Acct: [id number] Name: MEL JOHNSON Rep #: [id number] : 1950 67 From: Bouchra Tan MD Referring Dr: Susan Rojas DO Status: REG CLI Ordering Dr: Susan Rojas DO Date: 03/14/17 Location: [facility] Sex: F C DATE OF SERVICE: The [...] me. Bouchra Tan MD T: NTS JOB: [id number] 03/20/17 1317 <Electronically signed by Bouchra Tan MD> Date Bouchra Tan MD CC: Bouchra Tan; Daly Rojas DO Date Dictated: 03/14/17 1104 Date Transcribed: 03/14/171103 Triple Valve Tester: Signed 20-Feb-2017 Spine Cervical (Routine) Result: Comments: See Note; NOTES: [facility] Imaging Services [address] [place] [id number] [place] [address] 4d Spine Cervical (Routine) MR#: [id number] Acct: [id number] Name: MEL JOHNSON p #: [id number] : 1950 F 66 From: Janey Mendes MD PCP: Susan Rojas DO Status: REG CLI Study: Spine Cervical (Routine) Date of Exam: 02/20/17 Exam# [id number] Ordering Dr: Tisha Ferreira MD KUNAL DY: MRI CERVICAL SPINE WITHOUT CONTRAST REASON [...] CC: Tisha quevedo MD; Susan Rojas DO Triple Valve Tester: Signed 24-Jan-2017 PT D/C Summary (1) Result: Comments: See Note; NOTES: [facility] [address] [place] [address]. [address] [place] [address] Fax REHABILITATION SERVICES DISCHAR SUMMARY MR#: [id number] Acct: [id number] Name: MEL JOHNSON Rep #: [id number] [...] please feel free to call me at [phone]. Thank you for the referral of this patient. Sincerely, Markie Wade PT, <Electronically signed by Markie Wade PT, ATC> 01/24/17 1505 CC: Susan Rojas DO [facility] Signed 19-Jan-2017 Inital Evaluation (1) - PT Result: Comments: See Note; NOTES: [facility] [place] [address] Fax REHABILITATION SERVICES INITIAL EVALUATION MR#: [id number] Acct: [id number] Name: MEL JOHNSON Rep #: [id number] : 1950 66 From: Markie Wade PT, ATC Referring Dr.: Susan Rojas DO Status: REG RCR Insurance: [facility] [employer] CARE MEDICARE Patient's Visit Information MEL JOHNSON is a 66 year old F referred to Physical Therapy by Susan Rojas with a diagnosis of Spinal stenosis. Date of Evaluation: 01/19/17 Physical Therapist: Markie Wade PT, - Visit Plan Frequency: 1-2x /Week [...] to be FAXED BACK to us at [phone] for Medicare purposes. Please let me know if there are questions or concerns regarding this plan of care. Physician Signature:____ Date: <Electronically signed by Markie Wade PT, ATC> 01/19/17 1541 CC: Susan Rojas DO [facility] Signed For Medicare only, by signing this I certify the plan of care. Physicians Signature Date 17-Jan-2017 Cerv Spine 4 or 5 Views Result: Comments: See Note; NOTES: [facility] Imaging Services [address] [place] [address] Verdana 4d Cerv Spine 4 or 5 Views MR#: [id number] Acct: [id number] Name: MEL JOHNSON Rep #: [id number] : 1950 F 66 From: Doni Hamilton MD PCP: Susan Rojas DO Status: REG CLI Study: Cerv Spine 4 or 5 Views Date of Exam: 01/17/17 Exam# [id number] Ordering Dr: Susan Rojas DO STUDY: X-RAY [...] Service support , CC: Susan Rojas DO Triple Valve Tester: Signed 01-Jan-2017 SCREENING MAMM (CAD), BILAT Result: Comments: See Note; NOTES: [facility] Imaging Services [address] [place] [address] Verdana 4d SCREENING MAMM (CAD), BILAT MR#: [id number] Acct: [id number] Name: MEL JOHNSON Rep #: [id number] : 1950 F 66 From: James Baker MD PCP: Luann Krishna DO Status: REG CLI Study: SCREENING MAMM (CAD), BILAT Date of Exam: 01/01/17 Exam# [id number] Ordering Dr: Carolynn Rojas DO MAMMOGRAPHY - [...] delay biopsy of a clinically suspicious abnormality. [id number] Electronically Signed: Jamse Baker MD at 9:13 EDT Tel [phone], Service support [phone], CC: Luann Krishna DO; Susan Rojas DO Triple Valve Tester: Signed 04-Oct-2016 Transvaginal Non- Result: Comments: See Note; NOTES: [facility] Imaging Services [address] [place] [address] Verdana 4d Transvaginal Non- MR#: [id number] Acct: [id number] Name: MEL JOHNSON ep #: [id number] : 1950 F 66 From: Wei Pritchett MD PCP: Luann Krishna DO Status: REG CLI Study: Transvaginal Non- Date of Exam: 10/04/16 Exam# [id number] Ordering Dr: Susan Rojas DO STUDY: ULTRASOUND [...] MD at 17:19 EST , Service support [phone], CC: Luann Krishna DO; Susan Rojas DO Triple Valve Tester: Signed 03-Feb-2016 Operative Report Result: Comments: See Note; NOTES: [facility] Medical Records Department [address] [place] [address] Operative Report MR#: [id number] Acct: [id number] Name: MEL JOHNSON Rep #: [id number] : 1950 65 From: Nilo Lake MD [...] the procedure well. Nilo Lake MD T: [facility] JOB: [id number] 02/03/16 1114 <Electronically signed by Nilo Lake MD> Date Nilo Lake MD Cosigner Signature (If Indicated): Date CC: Nilo Lake MD; Luann Krishna DO Date Dictated: 01/19/16 1034 Date Transcrib ed: 01/19/16 1034 Triple Valve Tester: Signed 02-Jan-2016 Carotid Duplex Ultrasound Result: Comments: See Note; NOTES: [facility] Cardiovascular Services [address] [place] [address] Carotid Duplex Ultrasound 12/30/15 1128 MR#: [id number] Acct: [id number] Name: MEL JOHNSON Rep #: [id number] : 1950 65 From: Cas Cuellar MD [...] the left vertebral artery. Procedure Carotid Duplex 32447. Exam performed in department. Interpretation Summary Mild (<50%) stenosis right extracranial internal carotid. Mild (<50%) stenosis left ex tracranial internal carotid. Flow within the vertebral arteries is antegrade bilaterally. Orde ring Physician: Luann Krishna Performed By: Maria Isabel England RVT 01/02/162038 Date Cas Cuellar MD CC: Luann Krishna DO Date Dictated: 12/30/15 1128 Date Transcribed: 01/02/162038 Triple Valve Tester: Signed 30-Dec-2015 Bilat Scrn Digital AND CAD Result: Comments: See Note; NOTES: [facility] Imaging Services [address] [place] [address] Verdana 4d Bilat Scrn Digital AND CAD MR#: [id number] Acct: [id number] Name: MEL JOHNSON Rep #: [id number] : 1950 F 65 From: James Baker MD PCP: Luann Krishna DO Status: REG CLI Study: Bilat Scrn Digital AND CAD Date of Exam: 12/30/15 Exam# [id number] Ordering D r: Luann Krishna DO MAMMOGRAPHY [...] delay biopsy of a clinically suspicious abnormality. [id number] Electronically Signed: James Baker MD at 14:58 EDT Tel [phone], Service support [phone], CC: Luann Krishna DO Triple Valve Tester: Signed 30-Dec-2015 Spine Lumbar (Routine) Result: Comments: See Note; NOTES: [facility] Imaging Services [address] [place] [address] Verdana 4d Spine Lumbar (Routine) MR#: [id number] Acct: [id number] Name: MEL IBARRA Rep #: [id number] : 1950 F 65 From: Doni Hamilton MD PCP: Luann Krishna DO Status: REG CLI Study: Spine Lumbar (Routine) Date of Exam: 12/30/15 Exam# [id number] Ordering Dr: Jyotsna Krishna ra, DO STUDY: [...] ACR at 16:27 EDT , Service support [phone], CC: Luann Krishna DO Triple Valve Tester: Signed 07-Oct-2015 PT D/C Summary Result: Comments: See Note; NOTES: [facility] Physical Therapy [facility] [address] [place] [address] Fax REHABILITATION SE [facility] ALBERTO DISCHARGE SUMMARY MR#: [id number] Acct: [id number] Name: MEL JOHNSON Rep #: [id number] : 1950 65 From: Sharee Castaneda Referring Dr.: Trixie Steen Status: REG RCR Eval Date: [...] to home exercise program as she travels [facility] - D/C Information Discharge Comments: Discharge to HEP while traveling. If there are questions or concerns regarding this patient's physical therapy, please feel free to call me at [phone]. Thank you for the referral of this patient. Sincerely, Sharee Castaneda &# 60;Electronically signed by Sharee Castaneda > 10/07/15 1040 CC: Trixie Steen; Luann Krishna DO ELR Signed 22-Sep-2015 Inital Evaluation - PT Result: Comments: See Note; NOTES: [facility] Physical Therapy [facility] [address] [place], [place] [address] Fax REHABILITATION SE [place] INITIAL EVALUATION MR#: [id number] Acct: [id number] Name: MEL JOHNSON Rep #: [id number] : 1950 65 From: Sharee Castaneda Referring Dr.: Trixie Steen Status: REG RCR Insurance: [employer] PL[employer] HMO Eval Date: Patient's Visit Information [...] exercise program she can do at the [facility]- at least 3x a week- Ellip and does all the machines-does do some pilates has been out of practice 3 years. Pain is in the hip joint and its sharp and shooting.Pain does radiate into the lateral aspect of the quad but doesnt go past the knee. No N/T. Has increased restless leg since this has started. Worst:9/10, A gg: walking more then 3/4 mile, sitting for long periods and standing up, sleeping on her side. Sleep- disturbed. Best:0/10 Eases: heating pad at night and stretches. Tried a heel lift which made it w orse. X-ytsy-Oxqyihtcp in low back and transfering pain to the hips- Patient calls the chiropractor when she needs a fix-once every couple of week Markie Camp in [place]. Also tried ma ssage therapy but it doesn't seem to make [...] to be FAXED BACK to us at [phone] for Medicare purposes. Please let me know if there are questions or con cerns regarding this plan of care. Physician Signature: Date: <Electronically signed by Sharee Castaneda > 09/22/15 1709 CC: Trixie Krishna DO ELR Signed For Medicare only, by signing this I certify the plan of care. Physicians Signature Date 30-Aug-2015 L/S Spine Min 4 Views Result: Comments: See Note; NOTES: [facility] Imaging Services [address] [place] [address] Verdana 4d L/S Spine Min 4 Views MR#: [id number] Acct: [id number] Name: MEL FLORES Rep #: [id number] : 1950 F 65 From: James Baker MD PCP: Luann Krishna DO Status: REG CLI Study: L/S Spine Min 4 Views Date of Exam: 08/30/15 Exam# [id number] Ordering Dr: Trixie Steen STUDY: X-RAY - [...] James Baker MD at 14:59 EST Tel [phone], Service support [phone], RAD/L/S Spine Min 4 Views IMPRESSION: Degenerative changes of the spine, as detailed above. Grade 1 anterior listhesis of L4 on L5 without spondylolysis. Electronically Signed: James Baker MD at 14:59 EST Tel [phone], Service support [phone], CC: Trixie Aj Krishna DO Triple Valve Tester: Signed 30-Aug-2015 Pelvis 1 or 2 Views Result: Comments: See Note; NOTES: [facility] Imaging Services [address] [place] [address] Verdana 4d Pelvis 1 or 2 Views MR#: [id number] Acct: [id number] Name: MEL JOHNSON Rep #: [id number] : 1950 F 65 From: James Baker MD PCP: Luann Krishna DO Status: REG CLI Study: Pelvis 1 or 2 Views Date of Exam: 08/30/15 Exam# [id number] Ordering Dr: Trixie Steen STUDY: X-RAY - [...] James Baker MD at 14:52 EST Tel [phone], Service support [phone], RAD/Pelvis 1 or 2 Views IMPRESSION: Mild degenerative changes of both hip joints. E lectronically Signed: James Baker MD at 14:52 EST Tel [phone], Service support [phone], CC: Trixie Steen; Luann Krishna DO Triple Valve Tester: Signed 30-Aug-2015 Sacrum-Coccyx min 2 Views Result: Comments: See Note; NOTES: [facility] Imaging Services [address] [place] [address] Verdana 4d Sacrum-Coccyx min 2 Views MR#: [id number] Acct: [id number] Name: MEL LEAVITT Rep #: [id number] : 1950 F 65 From: James Baker MD PCP: Luann Krishna DO Status: REG CLI Study: Sacrum-Coccyx min 2 Views Date of Exam: 08/30/15 Exam# [id number] Ordering Dr: Trixie Steen STUDY: X-RAY - [...] James Baker MD at 15:03 EST Tel [phone], Service support [phone], RAD/Sacrum-Coccyx min 2 Views IMPRESSION: Degenerative changes of the sacroiliac joints bilaterally. Electronically Signed: James Baker MD at 15:03 EST Tel [phone], Service support [phone], Fax CC: Trixie Krishna DO Triple Valve Tester: Signed Immunization Name Dates Details Influenza (3 years and up) on: 01-Jul-2009 Family History Unknown Family Member Name Dates Details Father Comments: Heart disease, [place] at 55 Status: Active Mother Comments: OA and osteoporosis. 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 Status: Active Tobacco use: Never smoker. Status: Active Tobacco use: Former smoker. Status: Active Smoking Status Name Dates Details Former smoker Never smoker Vital Signs Date Test Result Details 66-Cyj-505654:21 Pulse 78 /min Comments: Pattern: Regular Respiration Rate 18 /min Comments: Pattern: Unlabored O2 SAT 88 % Comments: Room air BP Systolic 120 mm[Hg] Comments: Patient Position: Sitting; Cuff Location: Left Arm; Cuff Size: Standard BP Diastolic 72 mm[Hg] Comments: Patient Position: Sitting; Cuff Location: Left Arm; Cuff Size: Standard Weight 121.25 lb Height 64 in Body Mass Index Calculated 20.81 kg/m2 Body Surface Area Calculated 1.58 m2 09-Rxt-294817:00 Temperature 97.4 f Pulse 97 /min Comments: Pattern: Regular Respiration Rate 16 /min Comments: Pattern: Unlabored O2 SAT 90 % Comments: Room air BP Systolic 110 mm[Hg] Comments: Patient Position: Sitting; Cuff Location: Left Arm; Cuff Size: Standard BP Diastolic 80 mm[Hg] Comments: Patient Position: Sitting; Cuff Location: Left Arm; Cuff Size: Standard Weight 117.125 lb Height 64 in Body Mass Index Calculated 20.1 kg/m2 Body Surface Area Calculated 1.56 m2 94-Ijm-588970:33 Pulse 80 /min Comments: Pattern: Regular Respiration [...] [facility] machine was 154/105 145/100 p 75 Pulse [...] in Head Circumference 0.00 cm :00 Temperature 98.4 f Comments: Method: Oral Pulse [...] 0.00 cm Results Date Description Value Details 28-Jlt-118264:53 ANGTENSIN 1-CONVRT ENZYM Comments: PATIENT NOT FASTINGPERFORMED BY: [place] 6061070 [facility] [id number] BY: [address] [id number] BY: Lab ([address]) [address] [id number] MILES 42 U/L (Normal) Range: 14-82 97-Nyv-415624:53 HLA-B27 ANTIGEN (10429) Comments: PATIENT NOT FASTINGPERFORMED BY: [address] [id number] BY: [employer] [id number] BY: Lab [address] [id number] HLA-B27 Negative (Normal) Comments: HLA-B*27 UxffilydF49 allele interpretation for all loci based on IMGT/HLAdatabase version 3.31.0This test was developed and its performance characteristicsdetermined by [employer]. It has not been cleared or approvedby the Food and Drug Administration.HLA Lab CLIA ID Number [id number] .This test was performed using PCR (Polymerase Chain R eaction)/SSOP(Sequence Specific Oligonucleotide Probes) technique. SBT (SequenceBased Typing) and/or SSP (Sequence Specific Primers) may be used assupplemental methods when necessary. Please contact [facility] at if you have any questions. . Director of HLA Laboratory Dr Bry Reian, PhD 13-Ken-733301:53 Lyme Disease Antibody W/ Comments: PATIENT NOT FASTINGPERFORMED BY: [facility]6370 [facility] [id number] BY: [address] [id number] BY: [facility] (28796) [address] [id number] Lyme IgG/IgM Ab <0.91 {ISR} (Normal) Range: 0.00-0.90 Comments: Negative <0.91 Equivocal 0.91 - 1.09 Positive >1.09 66-Lpa-101455:53 CCP ANTIBODY (34883) Comments: PATIENT NOT FASTINGPERFORMED BY: [employer]70 [facility] [id number] BY: [employer] [address] [id number] BY: [employer] [address] [id number] CCP Antibodies IgG/IgA 10 {units} (Normal) Range: 0-19 Comments: Negative <20 Weak positive 20 - 39 Moderate positive 40 - 59 Strong positive >59 87-Bty-457965:53 SED RATE ERYTHROCYTE Comments: PATIENT NOT FASTINGPERFORMED BY: [employer] [place] [address] [id number] BY: [employer] [address] [id number] BY: [employer] (58120) [address] [id number] Sedimentation Rate-Westergren 2 mm/h (Normal) Range: 0-40 51-Arj-360408:53 C-REACTIVE PROTEIN Comments: PATIENT NOT FASTINGPERFORMED BY: [employer] [id number] BY: [employer] [address] [id number] BY: [facility] (20024) [address] [id number] C-Reactive Protein, Quant 0.7 mg/L (Normal) Range: 0.0-4.9 32-Pcc-677003:53 TSH (65496) Comments: PATIENT NOT FASTINGPERFORMED BY: [employer] [address] [id number] BY: [employer] [address] [id number] BY: [employer] [address] [id number] TSH 1.130 {uIU/mL} (Normal) Range: 0.450-4.500 31-Yav-328445:53 RHEUMATOID FACTOR-QUANT Comments: PATIENT NOT FASTINGPERFORMED BY: [facility] [id number] BY: [address] [id number] BY: Lab (34117) [address] [id number] RA Latex Turbid. 10.1 {IU/mL} (Normal) Range: 0.0-13.9 03-Eys-974313:53 MARY (ANTINUCLEAR ANTIBODY) Comments: PATIENT NOT FASTINGPERFORMED BY: [place] 4430770 [facility] [id number] BY: Lab[address] [id number] BY: Lab (06624) [address] [id number] MARY Direct Negative (Normal) 61-Hod-336150:53 METABOLIC PANEL, Comments: PATIENT NOT FASTINGPERFORMED BY: [facility] [id number] BY: Lab[address] [id number] BY: Lab COMPREHENSIVE (55801) [address] [id number] ALT (SGPT) 22 [iU]/L (Normal) Range: 0-32 AST (SGOT) 25 [iU]/L (Normal) Range: 0-40 Alkaline Phosphatase 81 [iU]/L (Normal) Range: 39-117 Bilirubin, Total 0.3 mg/dL (Normal) Range: 0.0-1.2 A/G Ratio 2.3 (Abnormal) Range: 1.2-2.2 Globulin, Total 2.1 g/dL (Normal) Range: 1.5-4.5 Albumin 4.9 g/dL (Abnormal) Range: 3.6-4.8 Protein, Total 7.0 g/dL (Normal) Range: 6.0-8.5 Calcium 9.7 mg/dL (Normal) Range: 8.7-10.3 Carbon Dioxide, Total 24 mmol/L (Normal) Range: 20-29 Chloride 102 mmol/L (Normal) Range: 96-106 Potassium 4.2 mmol/L (Normal) Range: 3.5-5.2 Sodium 144 mmol/L (Normal) Range: 134-144 BUN/Creatinine Ratio 21 (Normal) Range: 12-28 eGFR If Africn Am 81 mL/min/1.73 (Normal) eGFR If NonAfricn Am 70 mL/min/1.73 (Normal) Creatinine 0.85 mg/dL (Normal) Range: 0.57-1.00 BUN 18 mg/dL (Normal) Range: 8-27 Glucose 83 mg/dL (Normal) Range: 65-99 22-Xzr-964746:53 CBC with auto diff Comments: PATIENT NOT FASTINGPERFORMED BY: [facility] Lnwpta3371 [facility] [id number] BY: 2Q [facility] [place] [address] [facility] [id number] BY: BN Lab (17157) [address] [id number] Immature Grans (Abs) 0.0 {x10E3/uL} Range: 0.0-0.1 (Normal) Immature Granulocytes 0 % (Normal) Baso (Absolute) 0.0 {x10E3/uL} Range: 0.0-0.2 (Normal) Eos (Absolute) 0.0 {x10E3/uL} Range: 0.0-0.4 (Normal) Monocytes(Absolute) 0.3 {x10E3/uL} Range: 0.1-0.9 (Normal) Lymphs (Absolute) 0.9 {x10E3/uL} Range: 0.7-3.1 (Normal) Neutrophils (Absolute) 3.5 {x10E3/uL} Range: 1.4-7.0 (Normal) Basos 1 % (Normal) Eos 1 % (Normal) Monocytes 5 % (Normal) Lymphs 19 % (Normal) Neutrophils 74 % (Normal) Platelets 250 {x10E3/uL} Range: 150-379 (Normal) RDW 13.3 % (Normal) Range: 12.3-15.4 MCHC 34.0 g/dL (Normal) Range: 31.5-35.7 MCH 32.8 pg (Normal) Range: 26.6-33.0 MCV 97 fL (Normal) Range: 79-97 Hematocrit 37.4 % (Normal) Range: 34.0-46.6 Hemoglobin 12.7 g/dL (Normal) Range: 11.1-15.9 RBC 3.87 {x10E6/uL} Range: 3.77-5.28 (Normal) WBC 4.8 {x10E3/uL} Range: 3.4-10.8 (Normal) : Hernia See Note (Normal) Comments: [facility] [address] [place], [address] 00 Comments: Patient: MEL JOHNSON : 1950 (68/F) Acct Num: [id number] Phys: Robert Lozada MD Unit Num: [id number] Loc: [facility] Specimen: [id number] Received: 07/01/181351 Spec Type: Hernia TISSUES 1 TISSUES: HERNIA [...] cassette. / SJ:facundo 07/01/18 TC:5 C PT: 51754 HEADER OPERATION: Right inguinal herniorrhaphy with mesh PRE- OP DIAGNOSIS: Right inguinal hernia TISSUE SUBMITTED: Right inguinal cremasteric fibers MICROSCOPIC DESCRIPTION Slides are reviewed. MICROSCOPIC DIAGNOSIS Right inguinal cremasteric fibers, biopsy: Fragments of benign fibrovascular tissue and skeletal muscle tissue. AM:facundo 07/02/18 Signed Keegan Dexter 07/02/18 <signature on file> 8-Bxc-892816:19 Basic Metabolic Profile (BMP) Comments: [facility] [address] [place], [place], [id number] GAP 9 (Normal) Range: 5-15 CO2 27.0 [...] Comments: Please note revised GLUCOSE reference range gcjzlzjei70/02/2018. 3-Dau-078812:19 CBC-Complete Blood Cnt No Diff Comments: [facility] [address] [place], [place], [id number] MPV 9.3 fL (Normal) Range: 6.2-12.0 PLT [...] 4.2-5.4 WBC 5.3 K/mm3 (Normal) Range: 4.4-11.0 :32 CBC WITH MANUAL DIFF (82051) Comments: PATIENT NOT FASTINGPERFORMED BY: [facility] [id number] Immature Grans (Abs) 0.0 {x10E3/uL} (Normal) Range: [...] 3.77-5.28 WBC 4.9 {x10E3/uL} (Normal) Range: 3.4-10.8 4-Cow-448790:39 CALCIFIDIOL (55936) VIT D 25 Comments: PATIENT WAS FASTINGPERFORMED BY: [facility] Uvfczh3165 [facility] [id number] Vitamin D, 25-Hydroxy 61.4 ng/mL (Normal) Range: 30.0-100.0 Comments: Vitamin D deficiency has been defined by the [place] of[place]icine and an Endocrine Society practice guideline as alevel of serum 25-OH vitamin D less than 20 ng/mL (1,2).The Endocrine Society went on to further define vitamin Dinsufficiency as a level between 21 and 29 ng/mL (2).1. IOM ([place] of [employer]). 2010. Dietary reference intakes for calcium and D. [place]: The National Academies Press.2. Rhoda MF, Kirsten DOW, Avani SAMANIEGO, et al. Evaluation, treatment, and prevention of vitamin D deficiency: an Endocrine Society clinical practice guideline. JCEM. 2010; 96(7):1911-30. 2-Kub-104396:39 LIPID PANEL (72797) Comments: PATIENT WAS FASTINGPERFORMED BY: [employer] Mwvosi1625 [facility] [id number] LDL/HDL Ratio 1.5 {ratio} (Normal) Range: 0.0-3.2 Comments: LDL/HDL Ratio Men Women 1/2 Avg.Risk 1.0 1.5 Av g.Risk 3.6 3.2 2X Avg.Risk 6.2 5.0 3X Avg.Risk 8.0 6.1 LDL Cholesterol Calc 97 mg/dL (Normal) Range: 0-99 VLDL Cholesterol Jessica 58 mg/dL (Abnormal) Range: 5-40 HDL Cholesterol 65 mg/dL (Normal) Triglycerides 288 mg/dL (Abnormal) Range: 0-149 Cholesterol, Total 220 mg/dL (Abnormal) Range: 100-199 03-Upn-315313:45 TSH (35830) Comments: A courtesy copy of this report has been sent [phone].PATIENT WAS FASTINGPERFORMED BY: [employer] Fbvdjm1994 [facility] [id number] TSH 1.250 {uIU/mL} (Normal) Range: 0.450-4.500 57-Lhm-207245:45 METABOLIC PANEL, COMPREHENSIVE Comments: A courtesy copy of this report has been sent [phone].PATIENT WAS FASTINGPERFORMED BY: [facility] LabRECUPYL Bujziv7196 [facility] [place] [id number] ([address]) ALT (SGPT) 22 [iU]/L (Normal) Range: 0-32 [...] Glucose, Serum 78 mg/dL (Normal) Range: 65-99 60-Cht-004327:45 CBC W/AUTO DIFF WBC Comments: A courtesy copy of this report has been sent [phone].PATIENT WAS FASTINGPERFORMED BY: [facility]CoAtlantic Rehabilitation InstituteVanlkc7669 [facility] [id number] Information: FX DR. ZENG [id number] (77254) Immature Grans (Abs) 0.0 {x10E3/uL} (Normal) Range: [...] 3.77-5.28 WBC 3.8 {x10E3/uL} (Normal) Range: 3.4-10.8 93-Gqy-823364:45 LIPID PANEL (21323) Comments: A courtesy copy of this report has been sent [phone].PATIENT WAS FASTINGPERFORMED BY: [facility]CoAtlantic Rehabilitation InstituteVfzjpo3204 [facility] [id number] LDL/HDL Ratio 1.3 {ratio_units} (Normal) Range: 0.0-3.2 Comments: LDL/HDL Ratio Men Women 1/2 Avg.Risk 1.0 1.5 Av g.Risk 3.6 3.2 2X Avg.Risk 6.2 5.0 3X Avg.Risk 8.0 6.1 LDL Cholesterol Calc 89 mg/dL (Normal) Range: 0-99 VLDL Cholesterol Jessica 52 mg/dL (Abnormal) Range: 5-40 HDL Cholesterol 68 mg/dL (Normal) Triglycerides 262 mg/dL (Abnormal) Range: 0-149 Cholesterol, Total 209 mg/dL (Abnormal) Range: 100-199 57-Ctd-980990:45 CALCIFIDIOL (04373) VIT D 25 Comments: A courtesy copy of this report has been sent [phone].PATIENT WAS FASTINGPERFORMED BY: [facility] [id number] Vitamin D, 25-Hydroxy 62.0 ng/mL (Normal) Range: 30.0-100.0 Comments: Vitamin D deficiency has been defined by the [place] of[place]icine and an Endocrine Society practice guideline as alevel of serum 25-OH vitamin D less than 20 ng/mL (1,2).The Endocrine Society went on to further define vitamin Dinsufficiency as a level between 21 and 29 ng/mL (2).1. IOM ([place] of [employer]). 2010. Dietary reference intakes for calcium and D. [place]: The National Academies Press.2. Rhoda MF, Kirsten DOW, Avani SAMANIEGO, et al. Evaluation, treatment, and prevention of vitamin D deficiency: an Endocrine Society clinical practice guideline. JCEM. 2010; 96(7):1911-30. 93-Ekd-103807:40 HGB A1C (17863) Comments: PATIENT NOT FASTINGPERFORMED BY: [employer] [address] [id number] BY: [facility] [id number] Hemoglobin A1c 5.3 % (Normal) Range: 4.8-5.6 Comments: . Pre-diabetes: 5.7 - 6.4 Diabetes: >6.4 Glycemic control for adults with diabetes: <7.0 14-Hnv-857490:40 HEPATITIS C ANTIBODY Comments: PATIENT NOT FASTINGPERFORMED BY: [employer] [id number] BY: [employer] [facility] [id number] (45599) Hep C Virus Ab 0.2 {s/co_ratio} (Normal) Range: 0.0-0.9 Comments: Negative: < 0.8 Indeterminate: 0.8 - 0.9 Positive: > 0.9 . The CDC recommends that a positive HCV antibody result be followed up with a HCV Nucleic Acid Amplification test (996352). 81-Nyk-598774:40 HEAVY METAL SCREEN Comments: PATIENT NOT FASTINGPERFORMED BY: [employer] [address] [id number] BY: [employer]70 [facility] [id number] (79128) Cadmium, Blood None Detected ug/L (Normal) Range: [...] ALE 30 . Detection Limit = 1 82-Wmj-332230:40 MARY (ANTINUCLEAR ANTIBODY) Comments: PATIENT NOT FASTINGPERFORMED BY: [employer] Bbnogxy[address] [id number] BY: [facility]ettlAtlantic Rehabilitation InstituteFrcyio1592 [facility] [id number] (42726) MARY Direct Negative (Normal) 15-Wdt-895447:40 Serum Protein Comments: PATIENT NOT FASTINGPERFORMED BY: [employer] [id number] BY: MettlAtlantic Rehabilitation InstituteOjygyw5190 [facility] [id number] Electrophoresis (SPEP) (12105) Please note: SPRCS (Normal) Comments: Protein electrophoresis scan will follow via computer, mail, orcourier delivery. A/G Ratio 1.6 (Normal) Range: 0.7-1.7 Globulin, Total 2.7 g/dL (Normal) Range: 2.2-3.9 M-Marek 0.3 g/dL (Abnormal) Gamma Globulin 0.7 g/dL (Normal) Range: 0.4-1.8 Beta Globulin 1.1 g/dL (Normal) Range: 0.7-1.3 Hexit-7-Srluhshm 0.7 g/dL (Normal) Range: 0.4-1.0 Ygqzq-8-Nnrgqpcg 0.2 g/dL (Normal) Range: 0.0-0.4 Albumin 4.3 g/dL (Normal) Range: 2.9-4.4 12-Gos-744030:40 VITAMIN B-12 Comments: PATIENT NOT FASTINGPERFORMED BY: [employer] [id number] BY: Mettl Concert WindowAtrium Health Lincoln [id number] (CYANOCOBALAMIN) (78432) Vitamin B12 574 pg/mL (Normal) Range: 211-946 72-Rkm-319371:40 TSH (THYROID STIMULATING Comments: PATIENT NOT FASTINGPERFORMED BY: [employer] [id number] BY: [employer]70 EkinopsFormerly [facility] [id number] HORMONE) (98152) TSH 1.230 {uIU/mL} (Normal) Range: 0.450-4.500 95-Ezk-937162:40 SED RATE ERYTHROCYTE Comments: PATIENT NOT FASTINGPERFORMED BY: [employer] [id number] BY: Mettl Zfkdwd4872 [address] [facility] [id number] (66827) Sedimentation Rate-Westergren 2 mm/h (Normal) Range: 0-40 54-Lol-764468:40 METABOLIC PANEL, Comments: PATIENT NOT FASTINGPERFORMED BY: [employer] [id number] BY: CB [facility] Concert WindowDublin [place] [id number] COMPREHENSIVE (38275) ALT (SGPT) 22 [iU]/L (Normal) Range: 0-32 [...] Glucose, Serum 94 mg/dL (Normal) Range: 65-99 27-Evf-994256:40 CBC & PLATELETS (AUTO) Comments: PATIENT NOT FASTINGPERFORMED BY: EILEEN [facility]Co[address] [id number] BY: SHELIA [facility]6370 [facility] [id number] (90963) Platelets 269 {x10E3/uL} (Normal) Range: 150-379 RDW 13.2 % (Normal) Range: 12.3-15.4 MCHC 34.2 g/dL (Normal) Range: 31.5-35.7 MCH 32.9 pg (Normal) Range: 26.6-33.0 MCV 96 fL (Normal) Range: 79-97 Hematocrit 37.1 % (Normal) Range: 34.0-46.6 Hemoglobin 12.7 g/dL (Normal) Range: 11.1-15.9 RBC 3.86 {x10E6/uL} (Normal) Range: 3.77-5.28 WBC 4.7 {x10E3/uL} (Normal) Range: 3.4-10.8 6-Qrd-291014:30 Culture, Urine Comments: [facility] [address]. [place], [place], [phone] CUUR See Note (Normal) Comments: Urine CultureCulture exhibits no growth. 66-Vbx-742988:00 Estradiol Comments: [facility] [address]. [place], [place], [phone] ESTRADIOL < 11.0 pg/mL (Normal) Comments: NORMAL [...] SHOULD BE USED TO DETERMINE ESTRADIOL CONCENTRATION. 88-Lmx-852760:00 Progesterone Level Comments: [facility] Ytzawhkxfl8457 [facility] [address]. [place], [place], [phone] Progesterone 0.33 ng/mL (Normal) Comments: Progesterone Reference Table: UNITS Female: Follicular 0.15 - 1.40 ng/mL Luteal 3.34 - 25.56 ng/mL Mid-luteal 4.44 - 28.03 ng/mL Postmenopausal 0.0 - 0.73 ng/mL : 1st Trimester 11.22 - 90.00 ng /mL 2nd Trimester 25.55 - 89.40 ng/mL 3rd Trimester 48.40 -422.50 ng/mL 09-Rjr-694565:10 URINE VEENA CULTURE-KAREN COL Comments: PATIENT NOT FASTINGPERFORMED BY: LabCoAtlantic Rehabilitation InstituteLphfqu2859 [facility] [id number] Information: SRC: COUNT ([id number]) Antimicrobial MIHEAD (Normal) Comments: S = Susceptible; [...] mL (Abnormal) Urine Final report Culture,Comprehensive (Abnormal) 07-Icq-240110:38 Urinalysis, Office (03227) UA - LEUKOCYTE ESTERASE Large (Normal) UA - NITRITE Negative (Normal) URINE UROBILINGN KAREN TIMED Normal mg/dL (Normal) UA - PROTEIN Negative mg/dL (Normal) UA - PH 7.0 (Normal) UA - BLOOD Non Hemolyzed Moderate (Normal) UA - SPECIFIC GRAVITY 1.020 (Normal) UA - KETONES Negative mg/dL (Normal) UA - BILIRUBIN Negative (Normal) UA - GLUCOSE Negative (Normal) 72-Xbz-855264:58 URINE VEENA CULTURE-IDENTIFICATN Comments: PATIENT NOT FASTINGPERFORMED BY: LabCoAtlantic Rehabilitation InstituteEfbtvz3631 [facility] [id number] Information: SRC: ([id number]) Result 1 NG36 (Normal) Comments: No growth in 36 - 48 hours. Urine Culture,Comprehensive Final report (Normal) 15-Mme-520686:26 Urinalysis, Office (90766) UA - LEUKOCYTE ESTERASE Negative (Normal) UA - NITRITE Negative (Normal) URINE UROBILINGN KAREN TIMED Normal mg/dL (Normal) UA - PROTEIN Negative mg/dL (Normal) UA - PH 6 (Abnormal) UA - BLOOD Hemolyzed Trace (Normal) UA - SPECIFIC GRAVITY 1.025 (Normal) UA - KETONES Small mg/dL (Normal) UA - BILIRUBIN Negative (Normal) UA - GLUCOSE Negative (Normal) :50 Iron Binding Capacity Comments: PATIENT NOT FASTINGPERFORMED BY: SHELIA DunnFormerly [facility] [id number] Information: [id number] FEE [id number] (TIBC) (20748) Iron Saturation 32 % (Normal) Range: 15-55 Iron, Serum 115 ug/dL (Normal) Range: 27-139 UIBC 246 ug/dL (Normal) Range: 118-369 Iron Bind.Cap.(TIBC) 361 ug/dL (Normal) Range: 250-450 :50 Ferritin (48325) Comments: PATIENT NOT FASTINGPERFORMED BY: SHELIA Cruz6[address] [facility] Hospitalin [place] [id number] Ferritin, Serum 111 ng/mL (Normal) Range: 15-150 :50 CALCIFIDIOL (03026) VIT D 25 Comments: PATIENT NOT FASTINGPERFORMED BY: SHELIA [facility] [address]6039 [facility] [id number] Vitamin D, 25-Hydroxy 43.2 ng/mL (Normal) Range: 30.0-100.0 Comments: Vitamin D deficiency has been defined by the [place] of[facility] Hospitalcine and an Endocrine Society practice guideline as alevel of serum 25-OH vitamin D less than 20 ng/mL (1,2).The Endocrine Society went on to further define vitamin Dinsufficiency as a level between 21 and 29 ng/mL (2).1. IOM ([place] of Medicine). 2010. Dietary reference intakes for calcium and D. [place]: The National Academies Press.2. Rhoda MF, Kirsten NC, Avani SAMANIEGO, et al. Evaluation, treatment, and prevention of vitamin D deficiency: an Endocrine Society clinical practice guideline. JCEM. 2010; 96(7):1911-30. :50 RETICULOCYTE COUNT (36124) Comments: PATIENT NOT FASTINGPERFORMED BY: SHELIA [facility] Zxigud4365 [facility] Division[facility] [place] [id number] Reticulocyte Count 1.3 % (Normal) Range: 0.6-2.6 31-Hqu-900689:50 VITAMIN B-12 (CYANOCOBALAMIN) Comments: PATIENT NOT FASTINGPERFORMED BY: [facility] Rkxhio6[address] [place] [id number] (98621) Vitamin B12 389 pg/mL (Normal) Range: 211-946 50-Jjt-392303:03 Urinalysis, Office (30330) UA - LEUKOCYTE ESTERASE Negative (Normal) UA - NITRITE Negative (Normal) URINE UROBILINGN KAREN Normal mg/dL (Normal) TIMED UA - PROTEIN Negative mg/dL (Normal) UA - PH 7.5 (Normal) UA - BLOOD Negative (Normal) UA - SPECIFIC GRAVITY 1.015 (Normal) UA - KETONES Negative mg/dL (Normal) UA - BILIRUBIN Negative (Normal) UA - GLUCOSE Negative (Normal) 41-Mwf-38247:0 BREAST BIOPSY (CHOOSE See Note (Normal) Comments: [facility] Vlwxejvcur4802 [facility]. [place], [place], [address] 0 SITE) Comments: Patient: MEL JOHSNON : 1950 (65/F) Acct Num: [id number] Phys: Jaya ROJAS,Nilo Unit Num: [id number] [facility]: [facility] Specimen: [id number] Received: 01/19/161120 Spec Type: BR EAST BX TISSUES TISSUES: [...] is totally submitted in two cassettes. / TONYA:facundo 01/19/16 TC:5 CPT:87460 x2 HEADER OPERATION: Bilateral stereotactic breast biopsy [...] evidence of malignancy. AM:facundo 01/20/16 Signed Keegan Guerita 01/20/16 <signature on file> 9-Mbg-073276:36 CCP ANTIBODY (52562) Comments: PATIENT NOT FASTINGPERFORMED BY: [employer] [facility] ChildrenUpgrade, IncFormerly [facility] [id number] BY: [employer] [id number] CCP Antibodies IgG/IgA 9 {units} (Normal) Range: 0-19 Comments: Negative <20 Weak positive 20 - 39 Moderate positive 40 - 59 Strong positive >59 9-Wxa-514961:36 SED RATE ERYTHROCYTE Comments: PATIENT NOT FASTINGPERFORMED BY: [employer] [facility] [facility] HospitalUpgrade, IncFormerly [facility] [id number] BY: [employer] [id number] (19384) Sedimentation Rate-Westergren 3 mm/h (Normal) Range: 0-40 :36 C-REACTIVE PROTEIN (75926) Comments: PATIENT NOT FASTINGPERFORMED BY: [facility] [id number] BY: [employer] [id number] C-Reactive Protein, Quant 0.4 mg/L (Normal) Range: 0.0-4.9 :36 RHEUMATOID FACTOR-QUANT Comments: PATIENT NOT FASTINGPERFORMED BY: [facility] [id number] BY: [address] [id number] Information: [id number] (07354) RA Latex Turbid. 10.2 {IU/mL} (Normal) Range: 0.0-13.9 1-Htn-339699:36 MARY (ANTINUCLEAR ANTIBODY) Comments: PATIENT NOT FASTINGPERFORMED BY: CB [facility] Iwisqq8330 Scott DunnFormerly [facility] [id number] BY: BN [facility] Terztdepxy2458 [facility] [id number] (56612) MARY Direct Negative (Normal) :01 IGP, Aptima HPV, Comments: Source.............Cervical;EndocervicalNo. of containers..01 CYTYC Thin Prep VialPATIENT NOT FASTINGPERFORMED BY: =G Red Seraphim [address] [id number] BY: WB L rfx 16/18,[address] [facility] [address] [place] [id number] HPV Aptima Negative (Normal) Comments: This test [...] atrophy.V 72.31 ; Routine gynecological examinationAngelia Scanlon Television Specialist (ASCP) :01 Thin Prep Pap Comments: Source.............Cervical;EndocervicalNo. of containers..01 CYTYC Thin Prep VialPATIENT NOT FASTINGPERFORMED BY: =G [facility] [address] [id number] BY: WB L (07870) [address] [id number] Information: [id number] Age Gdln ACOG Testing 30-65 (Normal) 45-Gpv-091673:09 LYMS tLYMINT1 Negative (Normal) Comments: Performed at: [address] [id number] Director: Avinash Angulo MD, Phone: [phone] tLYMINT2 Test not performed (Normal) tLYMS <0.91 {index} (Normal) Range: 0.00-0.90 Comments: Negative <0.91Equivocal 0.91 - 1.09Positive >1.09Note: The CDC currently advises that Western blottesting be performed following all equivocal orpositive EIA results. Final diagno sis should includeappropriate clinical findings and a positive EIAwhich is also positive by Western blot. 32-Yvv-00607:22 HPV automatic Comments: Source.............Cervical;EndocervicalNo. of containers..01 CYTYC Thin Prep VialPATIENT NOT FASTINGPERFORMED BY: [address] [id number] BY: =G L (27056) [address] [id number] Information: [id number] HPV, high-risk Negative Comments: This high-risk HPV [...] screening examination , human papillomavirus [HPV]Chan Bateman Television Specialist (ASCP) 7-Mfi-579501:10 CTA NECK W/WO CONTRAST Radiology Report See [...] 23, 2012 at 9:29:04 PM EDTElectronically Signed SM/SM Professional Interpretation Provided By: [facility], Phone , To consult with a radiologist regarding this report, please call our 45P9zlwlijx line @ Dictated on 02/23/121723 by Julissa ROJAS, SupratikTranscribed on 02/23/122133 by ITS IMPORTSign by Julissa ROJAS, Supratik on 02/23/122134 Sign by: Julissa ROJAS, Supratik 7-Gjr-585454:51 BMP GAP 8 (Normal) Range: 5-15 CO2 [...] 7-18 GLU 92 mg/dL (Normal) Range: 70-110 00-Njq-707350:08 Thin prep Pap Comments: Source.............Cervical;EndocervicalNo. of containers..01 CYTYC Thin Prep VialPATIENT NOT FASTINGPERFORMED BY: [facility] [address] [id number] Information: [id number] ([id number]) Note: PAPSMR (Normal) Comments: The Pap smear [...] atrophy.V 72.31 ; Routine gynecological examinationBertha Ness Television Specialist (ASCP) 9-Twb-515520:26 Urinalysis, Office (43732) UA - BILIRUBIN Negative (Normal) UA - BLOOD Hemolyzed Trace (Normal) UA - GLUCOSE Negative (Normal) UA - KETONES Negative mg/dL (Normal) UA - LEUKOCYTE ESTERASE Negative (Normal) UA - NITRITE Negative (Normal) UA - PH 6.0 (Normal) UA - PROTEIN Negative mg/dL (Normal) UA - SPECIFIC GRAVITY 1.025 (Normal) URINE UROBILINGN KAREN TIMED Normal mg/dL (Normal) 43-Esb-041483:23 URINE VEENA CULTURE-KAREN COL Comments: PATIENT NOT FASTINGPERFORMED BY: [facility] Plbrip1078 [facility] [id number] Information: SRC: URINE COUNT (53955) Antimicrobial MIHEAD (Normal) Comments: S = Susceptible; [...] mL (Normal) Urine Final report Culture,Comprehensive (Normal) :16 Urinalysis, Office (75706) UA - BILIRUBIN Small (Normal) UA - BLOOD Hemolyzed Large (Normal) UA - GLUCOSE Small (Normal) Comments: 250mg /dl UA - KETONES Small mg/dL (Normal) UA - LEUKOCYTE ESTERASE Large (Normal) UA - NITRITE Positive (Normal) UA - PH 5.0 (Normal) UA - PROTEIN 100 mg/dL (Normal) UA - SPECIFIC GRAVITY 1.005 (Normal) URINE UROBILINGN KAREN TIMED 4 mg/dL (Normal) :34 GALLBLADDER Radiology Report See Note (Normal) Comments: [...] size of the right kidney. The right uzhdcehrwqwpdh31.4 cm. Normal renal cortex. The renal cortex measures 1.2 cm. Thereisno demonstrated renal mass or cyst. There are no demonstrated re nalcalculi. There is no hydronephrosis. There is no ascites. IMPRESSION:Normal abdominal ultrasound examination. Dictated on 06/20/11 0837 by Ana Lilia Baker MDranscribed on 06/20/11 0933 by JULIANE Davidson IMPORTSign by James Baker MD on 06/20/11 0934 Sign by: James Baker MD C-REACTIVE PROT [...] 7-18 GLU 88 mg/dL (Normal) Range: 70-110 18-Gqt-909240:06 ESR SED RATE 16 mm/h (Normal) Range: [...] 4.2-5.4 WBC 5.1 K/mm3 (Normal) Range: 4.4-11.0 28-Cow-375892:10 ABDOMEN/PELVIS WITH CONTRAST Radiology Report See Note [...] on 06/13/111847 Sign by: NILA RAMIREZ DO :39 ESR SED RATE 20 mm/h (Normal) Range: 0-30 :39 CBCD,SMEAR DIFF RED CELL MORPH SeeNote {NORMAL} [...] mg/dL suggests DIABETES MELLITUS per A.D.A. criteria. 52-Kid-199641:27 URINE VEENA CULTURE (KAREN Comments: PATIENT NOT FASTINGPERFORMED BY: LabCoAtlantic Rehabilitation InstituteYivwcd1054 [facility] [id number] Information: SRC:MILLIE [id number] COL COUNT) (83415) Result 1 NG36 (Normal) Comments: No growth in 36 - 48 hours. Urine Culture,Comprehensive Final report (Normal) 99-Bjd-732381:03 Urinalysis, Office (19199) UA - BILIRUBIN Negative (Normal) UA - BLOOD Hemolyzed Trace (Normal) UA - GLUCOSE Negative (Normal) UA - KETONES Negative mg/dL (Normal) UA - LEUKOCYTE ESTERASE Negative (Normal) UA - NITRITE Negative (Normal) UA - PH 5.0 (Normal) UA - PROTEIN Negative mg/dL (Normal) UA - SPECIFIC GRAVITY 1.025 (Normal) URINE UROBILINGN KAREN TIMED Normal ug/dL (Normal) 21-Mpn-42833:00 ABDOMEN/PELVIS WITH CONTRAST Radiology Report See Note [...] this report was confirmed by Smita Argueta [facility] with Dr. Krishna , covering physician, on 04/17/2011 22:07:20 (ET),who further ve rifies that the report has been read and understood, withnofurther consultation required. Dictated on 04/17/111957 by TIMOTEO MACHADOTranscribed on 04/17/112211 by ITS IMPORTSign by TIMOTEO MACHADO on 04/17/112212 Sign by: TIMOTEO MACHADO 81-Eid-98893:59 Thin prep Pap Comments: Source.............Cervical;EndocervicalNo. of containers..01 CYTYC Thin Prep VialPATIENT NOT FASTINGPERFORMED BY: [facility] [address] [id number] Information: [id number] ([id number]) Note: PAPSMR (Normal) Comments: The Pap smear [...] atrophy.V 72.31 ; Routine gynecological examinationAnny Hill Television Specialist (ASCP) 8-Bek-271801:00 Urinalysis, Office (38133) UA - BILIRUBIN Negative (Normal) UA - BLOOD Non Hemolyzed Trace (Normal) UA - GLUCOSE Negative (Normal) UA - KETONES Negative mg/dL (Normal) UA - LEUKOCYTE ESTERASE Negative (Normal) UA - NITRITE Negative (Normal) UA - PH 6.0 (Normal) UA - PROTEIN Negative mg/dL (Normal) UA - SPECIFIC GRAVITY 1.005 (Normal) URINE UROBILINGN KAREN TIMED 2 mg/dL (Normal) 61-Tov-655387:44 Urinalysis, Office (47571) UA - BILIRUBIN Negative (Normal) UA - BLOOD Non Hemolyzed Trace (Normal) UA - GLUCOSE Negative (Normal) UA - KETONES Negative mg/dL (Normal) UA - LEUKOCYTE ESTERASE Negative (Normal) UA - NITRITE Negative (Normal) UA - PH 5.0 (Normal) UA - PROTEIN Negative mg/dL (Normal) UA - SPECIFIC GRAVITY 1.025 (Normal) URINE UROBILINGN KAREN TIMED 2 mg/dL (Normal) 60-Ftx-424343:50 URINE VEENA CULTURE-KAREN COL Comments: PATIENT NOT FASTINGClinical Information: SRC:UR ADD [id number] PERFORMED BY: LabCoAtl[facility] Rehabilitation InstituteQsjumz0486 [facility] [id number] COUNT ([id number]) Result 1 ECV (Normal) Comments: Escherichia coli, [...] STrimethoprim/Sulfa S Urine Final report (Normal) Culture,Comprehensive 64-Zup-36825:55 Urinalysis, Office (84906) UA - BILIRUBIN Negative (Normal) UA - BLOOD Hemolyzed Large (Normal) UA - GLUCOSE Negative (Normal) UA - KETONES Negative mg/dL (Normal) UA - LEUKOCYTE ESTERASE Moderate (Normal) UA - NITRITE Negative (Normal) UA - PH 5.0 (Normal) UA - PROTEIN 100 mg/dL (Normal) UA - SPECIFIC GRAVITY 1.025 (Normal) URINE UROBILINGN KAREN TIMED 2 mg/dL (Normal) 40-Mdz-881697:58 BILAT SCRN DIGITAL & CAD Radiology Report See Note (Normal) Comments: Exam Number: [id number] BILATERAL SCREENING MAMMOGRAM COMPARISON STUDY September 14, [...] mammograms werealso examined with computer-aided detection software ([employer] Reported By: MARISABEL KRAUSE M.D. 29-Nof-586482:14 Thin prep Pap Comments: Source.............Cervical;EndocervicalLMP / Prev Treat...LHW=860545Kz. of containers..01 CYTYC Thin Prep VialPATIENT NOT FASTINGPERFORMED BY: [facility]Co[address] [place] [id number] (70250) . . (Normal) DIAGNOSIS: SPRCS (Normal) Comments: NEGATIVE FOR INTRAEPITHELIAL LESION AND MALIGNANCY.Satisfactory for evaluation. Endocervical component may not bedistinguished in cases of atrophy.V72.31 ; Routine gynecological examination Sharee Maciel Television Specialist (ASCP) Note: PAPSMR (Normal) Comments: The Pap [...] Plan of Care Name Dates Details Instructions Pain in unspecified joint (Renamed from Joint pain) : Continue Current Prescription(s) Indication: Pain in unspecified joint (Renamed from Joint pain) Pain in unspecified joint (Renamed from Joint pain) : Reviewed Lab Indication: Pain in unspecified joint (Renamed from Joint pain) Pain in unspecified joint (Renamed from Joint pain) : Reviewed Diagnostic Tests Indication: Pain in unspecified joint (Renamed from Joint pain) Pain in unspecified joint (Renamed from Joint pain) : Follow up - Make appt after diagnostic tests Indication: Pain in unspecified joint (Renamed from Joint pain) Arthritis : Eprescribed prescriptions (G8553) Indication: Arthritis Encounter for screening for malignant neoplasm of [...] urine 1 week after complete antibiotic with [facility] Indication: Dysuria Well woman exam with routine gynecological exam : *Well Female Maintenance (KF) Indication: Well woman exam with routine gynecological exam Well woman exam with routine gynecological exam : Pap/Pelvic/Bimanual/Rectal/Breast Exam was done. Indication: Well woman exam with routine gynecological exam LACERATION, NOS : Follow up Sunday with [facility] for recheck Indication: LACERATION, NOS Perioral dermatitis [...] exam Planned Observations CBC WITH MANUAL DIFF (02309)Indication: Macrocytosis On: 0-Bdu-474835:33 Request Comments: f/u from 2 momths ago CBC & PLATELETS (AUTO) (49528)Indication: Anxiety On: 29-Mar-20187:53 Request Troponin I (75574)Indication: Chest pain, midsternal On: 38-Bwv-464902:28 Request CPK MB FRACTION (57748)Indication: Chest pain, midsternal On: 01-Rca-516330:28 Request CREATINE KINASE TOTAL (91663)Indication: Chest pain, midsternal On: 62-Sec-987736:28 Request Lyme Disease Antibody W/ Reflex (39760)Indication: Tick bite, initial encounter On: 9-Jgu-826430:49 Request FECAL OCCULT- Tubes sent home (62633)Indication: Encounter for screening for malignant neoplasm of colon (Renamed from Special screening for malignant neoplasms, colon) On: 19-Ezw-405301:44 Request Iron (80010)Indication: Iron deficiency anemia, unspecified On: 68-Dai-282892:41 Request LIPID PANEL (82818)Indication: Hypertension On: 73-Uth-489876:47 Request URINALYSIS, W/ MICRO (13288)Indication: Hypertension On: :44 Request TSH (08129)Indication: Hypertension On: 97-Tct-702854:44 Request MICROALBUMIN: CREATININE RATIO (65916) AND (76339)Indication: Hypertension On: 96-Kyu-603007:44 Request METABOLIC PANEL, COMPREHENSIVE (15709)Indication: Hypertension On: :44 Request CBC with auto diff (39679)Indication: Hypertension On: :44 Request CBC W/AUTO DIFF WBC (04425)Indication: Low back pain potentially associated with radiculopathy On: 03-Zzu-924469:50 Request METABOLIC PANEL, COMPREHENSIVE (37675)Indication: Hyperlipidemia On: 62-Qmm-460320:48 Request LIPID PANEL (97273)Indication: Hyperlipidemia On: 77-Ktq-151151:48 Request METABOLIC PANEL, COMPREHENSIVE (96346)Indication: Hyperlipidemia On: 69-Etz-145183:15 Request LIPID PANEL (51624)Indication: Hyperlipidemia On: 58-Ukg-975167:15 Request FERRITIN (48921)Indication: Iron deficiency anemia, unspecified On: 14-Hka-035443:14 Request IRON (35423)Indication: Iron deficiency anemia, unspecified On: 01-Frf-159525:14 Request CBC W/AUTO DIFF WBC (75478)Indication: Iron deficiency anemia, unspecified On: 84-Lnp-430154:14 Request PARATHORMONE (77383)Indication: Osteopenia On: 24-Lem-768028:14 Request PHOSPHORUS (13232)Indication: Osteopenia On: 29-Tah-628409:14 Request TSH (97892)Indication: Osteopenia On: 79-Ceb-540549:14 Request Vitamin D Hydroxy (44515)Indication: Osteopenia On: 38-Kvj-617438:14 Request HPV automatic (33181)Indication: Well woman exam with routine gynecological exam On: 1-Qqh-892077:37 Request Vitamin D Hydroxy (08768)Indication: Vitamin deficiency On: :47 Request TSH (23779)Indication: Osteopenia On: :47 Request CBC W/AUTO DIFF WBC (06743)Indication: Osteopenia On: :47 Request METABOLIC PANEL, COMPREHENSIVE (98083)Indication: Osteopenia On: :47 Request LIPID PANEL (45642)Indication: Hyperlipidemia On: :47 Request HEPATIC FUNCTION PANEL (19897)Indication: Hyperlipidemia On: 26-Vej-315226:47 Request Lyme Disease Antibody W/ Reflex (37551)Indication: Insect bite On: 81-Auz-757667:38 Request IRON (34913)Indication: Iron deficiency anemia, unspecified On: 21-Ger-972907:31 Request CBC WITH MANUAL DIFF (69783)Indication: Iron deficiency anemia, unspecified On: 99-Bvp-096820:30 Request Vitamin D Hydroxy (82334)Indication: Osteopenia On: 00-Pch-225575:20 Request METABOLIC PANEL, COMPREHENSIVE (56747)Indication: Hyperlipidemia On: 48-Xqe-946947:20 Request LIPID PANEL (62964)Indication: Hyperlipidemia On: 64-Ztr-066827:20 Request CALCIFEDIOL (31858)Indication: Screening On: 95-Itw-631055:02 Request Metabolic Panel, Basic (80920)Indication: Screening On: 75-Cfn-877601:02 Request Lipid Panel (85417)Indication: Screening On: 36-Sol-136135:02 Request Vitamin D Hydroxy (13736)Indication: Vitamin deficiency On: 25-Qmz-685099:25 Request TSH (02924)Indication: Hyperlipidemia On: :25 Request CBC WITH MANUAL DIFF (63323)Indication: Hyperlipidemia On: :25 Request METABOLIC PANEL, COMPREHENSIVE (93093)Indication: Hyperlipidemia On: :25 Request LIPID PANEL (65572)Indication: Hyperlipidemia On: :24 Request Thin prep Pap (31907)Indication: Well woman exam with routine gynecological exam On: 39-Xnz-280362:44 Request METABOLIC PANEL, COMPREHENSIVE (03490)Indication: Occlusion and stenosis of unspecified carotid artery On: :02 Request HEPATIC FUNCTION PANEL (54646)Indication: Hyperlipidemia On: :02 Request LIPID PANEL (81049)Indication: Hyperlipidemia On: :02 Request METABOLIC PANEL, BASIC (64735)Indication: Hyperlipidemia On: 24-Bqq-94865:46 Request Comments: screening for ct Vitamin D Hydroxy (30321)Indication: Vitamin deficiency On: 80-Plo-886762:41 Request HEPATIC FUNCTION PANEL (69584)Indication: Hyperlipidemia On: 84-Ukf-755390:40 Request LIPID PANEL (70079)Indication: Hyperlipidemia On: 57-Iyr-966973:40 Request LIPID PANEL (06751)Indication: Hyperlipidemia On: 79-Euf-660529:01 Request HEPATIC FUNCTION PANEL ([id number])Indication: Hyperlipidemia On: 42-Bxs-512525:48 Request Vitamin D Hydroxy (23529)Indication: Vitamin deficiency On: 49-Rnr-762772:48 Request LIPID PANEL (68051)Indication: Hyperlipidemia On: 23-Erl-103727:47 Request VITAMIN B-12 (CYANOCOBALAMIN) (34593)Indication: hair loss On: :01 Request TSH ([id number])Indication: hair loss On: 22-Ell-988282:53 Request Vitamin D Hydroxy (12377)Indication: Vitamin deficiency On: 54-Bip-996088:51 Request HEPATIC FUNCTION PANEL (65860)Indication: Hypercholesterolemia On: :04 Request LIPID PANEL ([id number])Indication: Hypercholesterolemia On: :04 Request Lipase ([id number])Indication: Abdominal pain, acute, generalized On: 68-Wfz-041701:59 Request Comments: stat Amylase (12463)Indication: Abdominal pain, acute, generalized On: :59 Request Comments: stat CBC WITH MANUAL DIFF ([id number])Indication: Abdominal pain, acute, generalized On: 59 Request Comments: stat METABOLIC PANEL, COMPREHENSIVE ([id number])Indication: Abdominal pain, acute, generalized On: :59 Request Comments: stat C-REACTIVE PROTEIN ([id number])Indication: Abdominal pain, acute, generalized On: :59 Request Comments: stat SED RATE ERYTHROCYTE ([id number])Indication: Abdominal pain, acute, generalized On: :59 Request Comments: stat LIPID PANEL ([id number])Indication: Hyperglyceridemia On: :00 Request METABOLIC PANEL, COMPREHENSIVE (32109)Indication: Abnormal blood chemistry On: :02 Request CBC WITH MANUAL DIFF ([id number])Indication: Abnormal blood chemistry On: :02 Request Clostridium difficile Toxin A+B, EIA ([id number])Indication: Diarrhea On: :01 Request SED RATE ERYTHROCYTE ([id number])Indication: Abdominal pain, acute, generalized On: :12 Request Comments: stat METABOLIC PANEL, COMPREHENSIVE ([id number])Indication: Abdominal pain, acute, generalized On: :12 Request Comments: stat CBC WITH MANUAL DIFF ([id number])Indication: Abdominal pain, acute, generalized On: :12 Request Comments: stat C-REACTIVE PROTEIN (36913)Indication: Abdominal pain, acute, generalized On: :02 Request Metabolic Panel, Comprehensive ([id number])Indication: Osteopenia On: :23 Request Lipid Panel ([id number])Indication: Hyperglyceridemia On: :23 Request CALCIFIDIOL (12758) VIT D 25Indication: Vitamin deficiency On: :22 Request HEPATIC FUNCTION PANEL ([id number])Indication: Hyperglyceridemia On: :51 Request Lipid Panel ([id number])Indication: Hyperglyceridemia On: :51 Request LIPOPROTEIN, BLD, BY NMR ([id number])Indication: Hypercholesterolemia On: :30 Request HEPATIC FUNCTION PANEL ([id number])Indication: Hypercholesterolemia On: 41-Qgd-348696:25 Request Lipid Panel ([id number])Indication: Hypercholesterolemia On: 96-Xns-542763:25 Request Comments: in three months (approximately) Lipid Panel ([id number])Indication: Hypercholesterolemia On: 92-Svb-515843:09 Request HEPATIC FUNCTION PANEL ([id number])Indication: Hypercholesterolemia On: 35-Hge-27866:21 Request Lipid Panel ([id number])Indication: Hypercholesterolemia On: 47-Kyv-82757:21 Request Comments: in three months (approximately) RHEUMATOID FACTOR-QUANT ([id number])Indication: Myalgia and myositis On: 71-Afg-590117:18 Request WBC Count with manual diff ([id number])Indication: Myalgia and myositis On: 96-Zpl-122982:17 Request URINALYSIS W MICROSCOPY ([id number])Indication: Cystitis, acute On: 11-Cta-506043:26 Request CBC (Auto) ([id number])Indication: Well woman exam with routine gynecological exam On: :25 Request Metabolic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
--- OUTSIDE RECORDS SUMMARY | 2018-10-01 12:53 | XMS RPT_ITS ---
:1950 Author Organization OHIP Care Team Providers Name Role Phone DR. SUSAN MALDONADO DO Attending Unavailable ERICA DEL CID, DR. WALTERS Primary Care Unavailable NISH RIOJAS Attending Unavailable ERICA DEL CID, DR. WALTERS Primary Care Unavailable NISH RIOJAS Attending Unavailable ERICA DEL CID, DR. WALTERS Primary Care Unavailable Susan Maldonado DO Attending Unavailable Susan Maldonado DO Consulting Unavailable Erica, Susan Attending Unavailable Erica, Susan Referring Unavailable Erica, Susan Primary Care Unavailable Cebul, Nish Attending Unavailable Erica, Susan Referring Unavailable Erica, Susan Primary Care Unavailable Cebul, Nish Attending Unavailable Cebul, Nish Referring Unavailable Erica, Susan Primary Care Unavailable Monae PA-C, Ana Attending Unavailable Erica, Susan Referring Unavailable Cebul, Nish Attending Unavailable Cebul, Nish Referring Unavailable Erica, Susan Primary Care Unavailable Cebul, Nish Consulting Unavailable Monae PA-C, Ana Attending Unavailable Erica, Susan Referring Unavailable Ewa, Stephen Attending Unavailable Cebul, Nish Referring Unavailable Alayna Vang Attending Unavailable Alayna Vang Referring Unavailable Erica, Susan Primary Care Unavailable Purpose Purpose PROBLEMS PROBLEMS DATE TYPE CONDITION / CODE ATTENDING STATUS SOURCE 07/01/2018 Unknown G89.18 - Other acute Cehe Nish Active [place]rique postprocedural pain [facility] / 89.18(ICD-10) Hospital Repository 08/02/2018 Unknown Z01.810 - Encounter Ewa Stephen Active [place] for preprocedural [facility] examination / Repository Z01.810(ICD-10) PROCEDURES PROCEDURES No Procedure Records FoundVITAL SIGNS VITAL SIGNS No Vital Signs Records FoundRESULTS RESULTS HAND MIN 3 VIEWS Observed: 08/19/2018 Status: F Source: ENRIQUE 2:52 PM [facility] REPOSITORY [facility] Imaging Services [address] [place] [address] Hand Min 3 Views MR#: [id number] Acct: [id number] Name: MEL DIAZ Rep #: [id number] : 1950 F 68 From: Iram Rivera MD PCP: Susan Maldonado DO Status: REG CLI Study: Hand Min 3 Views Date of Exam: 08/19/18 Exam# [id number] Ordering Dr: Alayna Vang STUDY: X-RAY - LEFT HAND REASON FOR EXAM: Female, 68 years old. Pain, no injury TECHNIQUE: 3 view(s) of the hand. COMPARISON: None. FINDINGS: There is juxta articular osteopenia, less than compared to the contralateral side. Normal radiocarpal articulation. Normal distal radioulnar joint. Normal visualized carpal bones. Normal carpal articulations There is degenerative arthrosis of the carpometacarpal articulation of the thumb with lateral subluxation of the first metacarpus. Normal second through fifth carpometacarpal joints. Normal metacarpi. Normal metacarpophalangeal joint of the thumb. Normal interphalangeal joint of the thumb. Normal proximal and distal phalanges of the thumb. Normal metacarpophalangeal joints of the second through fifth fingers. Normal proximal and distal interphalangeal joints of the second through fifth fingers. Normal phalanges of the second through fifth fingers. The soft tissue structures are unremarkable. RAD/Hand Min 3 Views IMPRESSION: Mild degenerative changes centered at the first carpometacarpal joint with lateral subluxation. Juxta-articular osteopenia. Electronically Signed: Iram Rivera MD at 2:41 EST , Service support , CC: DALILA Vang; Susan Maldonado DO [employer] Supervisor: Signed HAND MIN 3 VIEWS Observed: 08/19/2018 Status: F Source: ALPHA 2:48 PM [facility] REPOSITORY [facility] Imaging Services [address] [place] [address] Hand Min 3 Views MR#: [id number] Acct: [id number] Name: MEL DIAZ Rep #: [id number] : 1950 F 68 From: Iram Rivera MD PCP: Susan Maldonado DO Status: REG CLI Study: Hand Min 3 Views Date of Exam: 08/19/18 Exam# [id number] Ordering Dr: Alayna Vang STUDY: X-RAY - RIGHT HAND REASON FOR EXAM: Female, 68 years old. Pain, no injury TECHNIQUE: 3 view(s) of the hand. COMPARISON: None. FINDINGS: There is particularly juxta-articular osteopenia. Normal radiocarpal articulation. Normal distal radioulnar joint. Normal visualized carpal bones. There is degenerative joint disease of the scaphotrapezium / trapezoid articulation. The remainder of the carpal articulations are normal. There [...] RAD/Hand Min 3 Views IMPRESSION: Degenerative joint disease of the hand and wrist, as described above. Osteopenia. Electronically Signed: Iram Rivera MD at 2:36 EST , Service support , CC: DALILA Vang; Susan Maldonado DO [employer] Supervisor: Signed SURGERY VISIT REPORT Observed: 07/09/2018 Status: F Source: ALPHA 3:57 PM [facility] REPOSITORY [facility] [address] [place] [address] [address] [place] [address] OFFICE VISIT Date of Service: 07/09/18 MR#: [id number] Acct: [id number] Name: MEL DIAZ Rep #: [id number] : 1950 Provider: Ana Monae PA-C Age/Sex: 68/F Location: [facility] Status: Signed Intake Intake Visit Reasons: f/u herniorrhaphy 07/01/18 Eap Specialist Required: No Is patient in pain?: No Allergies garlic Adverse Reaction (Verified 07/09/18 13:24) Nausea/Vom/Diarrhea Medications Magnesium 250 mg PO DAILY 06/24/18 [History Confirmed 07/09/18] aspirin 81 mg tablet,delayed release 81 mg PO DAILY 06/24/18 [History Confirmed 07/09/18] biotin 5,000 mcg sublingual tablet 5,000 mcg SUBLINGUAL DAILY 06/24/18 [History Confirmed 07/09/18] calcium carbonate 333 mg-magnesium oxide 133 mg-zinc sulf 5 mg tablet 3 tab PO DAILY 06/24/18 [History Confirmed 07/09/18] cholecalciferol (vitamin D3) 5,000 unit capsule 5,000 unit PO DAILY 06/24/18 [History Confirmed 07/09/18] coenzyme U26-hribisa E 100 mg-100 unit capsule 1 cap PO DAILY cap 06/24/18 [History Confirmed 07/09/18] gabapentin 300 mg capsule 300 mg PO TID 06/24/18 [History Confirmed 07/09/18] glucosamine 750 mn-evcorjsyjca-jxe no1 625 mg-C 30 mg-oj 1 mg tablet 1 tab PO BID tab 06/24/18 [History Confirmed 07/09/18] krill oil 1,000 mg-om3 130 mg-dha 40 mg-epa 80 yq-tv3-avg-astax cap 1 cap PO DAILY cap 06/24/18 [History Confirmed 07/09/18] meloxicam 15 mg tablet 15 mg PO DAILY 06/24/18 [History Confirmed 07/09/18] multivitamin tablet 1 tab PO DAILY 06/24/18 [History Confirmed 07/09/18] pravastatin 40 mg tablet 40 mg PO DAILY 06/24/18 [History Confirmed 07/09/18] vitamin B complex tablet 1 tab PO DAILY 06/24/18 [History Confirmed 07/09/18] Subjective Details: Patient is a 68 y/o female I am following for right inguinal hernia. Dr. Lozada performed an open right inguinal hernia repair with mesh on 07/01/18. Patient tolerated the procedure well. She notes very little to no pain/discomfort. She notes appetite is back to normal. She notes bowel habits are normal. Objective Details: Right groin- incision c/d/i. No erythema or infection noted. Mild ecchymosis noted. No erythema or infection noted. Mild amount of swelling noted. Assessment AND Plan Problems 1. Non-recurrent unilateral inguinal hernia without obstruction or gangrene K40.90 Plan - Recommend no lifting greater than 20 pounds for 5 weeks - Follow-up in December for a colonoscopy and discuss possible hemorrhoidectomy with Dr. Lozada - Follow-up with me as needed Coding Level of Care Code Global Post Op Diagnoses Non-recurrent unilateral inguinal hernia without obstruction or gangrene K40.90 Obstruction and gangrene presence: without obstruction or gangrene Laterality: unilateral Recurrence: non-recurrent 07/09/18 1557 <Electronically signed by Ana Monae PA-C> Date Ana Monae PA-C Cosigner Signature: Date (if applicable) CC: DISCHARGE INSTRUCTION Observed: 07/02/2018 Status: F Source: ALPHA 5:38 AM [facility] REPOSITORY [facility] Medical Records Department [address] [place] [address] Instructions for Home/Discharge Instructions 07/01/18 1156 MR#: [id number] Acct: [id number] Name: MEL DIAZ Rep #: [id number] : 1950 68 From: Nish Lozada MD PCP: Susan Maldonado DO Status: DEP [facility] [place] [place] Discharge Diet: Light diet - advance as tolerated - if you have questions about your diet instructions, please talk to you doctor. Discharge Activity: May Not Drive - for 1 week or while taking narcotic pain medicine. May shower in (days): 1 Lifting Restrictions: 10 pounds Call your doctor if your incision/area has: Continuous Slow Oozing, Sudden Increased Bleeding, Increased Pain/ Swelling, Increased Redness, Foul Smelling Discharge Call your doctor if you observe: Fever of 101 or Higher Suture Line Care: Avoid Pulling/Pushing, Avoid Pinching/Bending Additional Dressing/Incision Instructions:: Change or remove dressing in 4 days. Leave steri-strips in place for 1 week. Allergies/Adverse Reactions: Allergies garlic Adverse Reaction (Verified 06/24/18 11:07) Nausea/Vom/Diarrhea Medications to take at Discharge Magnesium 250 mg PO DAILY 06/24/18 aspirin 81 mg tablet,delayed release 81 mg PO DAILY 06/24/18 biotin 5,000 mcg sublingual tablet 5,000 mcg SUBLINGUAL DAILY 06/24/18 calcium carbonate 333 mg-magnesium oxide 133 mg-zinc sulf 5 mg tablet 3 tab PO DAILY 06/24/18 cholecalciferol (vitamin D3) 5,000 unit capsule 5,000 unit PO DAILY 06/24/18 coenzyme B56-gydkwnz E 100 mg-100 unit capsule 1 cap PO DAILY cap 06/24/18 gabapentin 300 mg capsule 300 mg PO TID 06/24/18 glucosamine 750 ob-akxlypfilhs-lor no1 625 mg-C 30 mg-oj 1 mg tablet 1 tab PO BID tab 06/24/18 krill oil 1,000 mg-om3 130 mg-dha 40 mg-epa 80 qn-su7-poy-astax cap 1 cap PO DAILY cap 06/24/18 meloxicam 15 mg tablet 15 mg PO DAILY 06/24/18 multivitamin tablet 1 tab PO DAILY 06/24/18 pravastatin 40 mg tablet 40 mg PO DAILY 06/24/18 vitamin B complex tablet 1 tab PO DAILY 06/24/18 Hydrocodone Bitart/Apap 5-325 [[place] 5MG-325MG] 1 tablet PO Q6H PRN PRN 2 Days #5 tablet 07/01/18 The following prescriptions were given: Hydrocodone Bitart/Apap 5-325 [[place] 5MG-325MG] 1 tablet PO Q6H PRN PRN 2 Days #5 tablet PRN Reason: Pain Primary Care Physician: Susan Maldonado DO [Primary Care Provider] - Test Results: Test results from this visit will be discussed in further detail at your follow-up appointment, if applicable. Please Follow Up With: Nish Lozada MD - [phone] When: Call to make an appointment to be seen in about 10 days. 07/02/18 0538 <Electronically signed by Nish Lozada MD> Date Nish Lozada MD CC: Susan Maldonado DO OPERATIVE REPORT Observed: 07/01/2018 Status: F Source: ENRIQUE 12:51 PM [facility] REPOSITORY [facility] Medical Records Department [address] [place] [address] Operative Report 07/01/18 1248 MR#: [id number] Acct: [id number] Name: MEL DIAZ Rep #: [id number] : 1950 68 From: Nish Lozada MD PCP: Susan Maldonado DO Status: REG [facility] [place] [place] Y Location: [place] [address] Problem List (1) Inguinal hernia Status: Acute Qualifiers: Obstruction and gangrene presence: without obstruction or gangrene Laterality: unilateral Recurrence: non-recurrent Qualified Code(s): K40.90 - Unilateral inguinal hernia, without obstruction or gangrene, not specified as recurrent Report of Operation Date of Procedure: 07/01/18 Pre-Operative Diagnosis: Indirect right inguinal hernia Post-Operative Diagnosis: Same Surgery/Procedure Performed:: Minda right inguinal herniorrhaphy Description of Surgical Findings:: Amount informed consent was obtained. 68-year-old female taken out from placement table underwent monitored anesthesia care. 1% lidocaine mixed 50- 50 with 0.5% Marcaine was used as local anesthetic. Throughout the procedure total of 13 cc was used. The right groin was sterilely prepped and draped. Local was instilled. A transverse incision was created. Sharp dissection carried down through the substance tissue. The external oblique identified incised along its fascia. Hypertrophic cremasteric fibers were incised. Indirect hernia sac was identified this was dissected free from the round ligament. The round ligament was divided and secured with 3-0 Vicryl. Then the transversalis fascia was approximated to itself starting the pubic tubercle to the internal ring resecuring the defect in a running simple fashion. A sheet of Bard mesh preshaped [facility] lot number [id number] with a reference number of [id number] expiry date 02/18/2023 was utilized. The tails were trimmed laterally. Was placed around the internal ring and secured to itself with interrupted 3-0 Ethibond. Was placed so as to cover the pubic tubercle direct and indirect space. The tails nicely placed beneath the external oblique. The mesh was secured in place with multiple interrupted 3-0 Ethibond tacking sutures. Good placement was achieved. The external oblique was approximated running 3-0 Vicryl. Skin is approximated with deep layer of interrupted 4-0 Monocryl in a running septic or 4-0 Monocryl. Steri-Strips Telfa and OpSite dressings applied. Sponge and instrument and needle counts were reported the surgeon to be correct. Blood loss minimal. Specimens fragments of cremasteric fibers. Drains none. Blood loss minimal She was taken to the recovery area in satisfactory condition without apparent complication Nish Lozada M.D., F.A.C.S. Type of Anesthesia:: Local MAC Anesthesiologist: Jazz Heller 07/01/18 1251 <Electronically signed by Nish Lozada MD> Date Nish Lozada MD CC: Susan Maldonado DO; Nish Lozada MD Signed HERNIA Observed: 07/01/2018 Status: F Source: ENRIQUE 12:00 PM [facility] REPOSITORY Patient: MEL DIAZ : 1950 (68/F) Acct Num: [id number] Phys: Nish Lozada MD Unit Num: [id number] Loc: [facility] [place] [place] Specimen: [id number] Received: 07/01/18 - 1352 Spec Type: Hernia TISSUES 1 TISSUES: HERNIA GROSS DESCRIPTION Received in fixative is one container labeled with the patient's name and designated right inguinal cremasteric fibers. The specimen consists of an irregular piece of skinner soft tissue measuring 2.5 x 2 x 0.3 cm. Sections do not reveal any mass lesion. The entire specimen is submitted in one cassette. / TONYA :facundo 07/01/18 TC:5 CPT: 36174 HEADER OPERATION: Right inguinal herniorrhaphy with mesh PRE-OP DIAGNOSIS: Right inguinal hernia TISSUE SUBMITTED: Right inguinal cremasteric fibers MICROSCOPIC DESCRIPTION Slides are reviewed. MICROSCOPIC DIAGNOSIS Right inguinal cremasteric fibers, biopsy: Fragments of benign fibrovascular tissue and skeletal muscle tissue. AM:rg 07/02/18 Signed Keeganramona Dexter 07/02/18 <signature on file> Performed By: #### PHERN #### [facility] [address] [place] [address]. [place], [address] 12 LEAD ELECTROCARDIOGRAM Observed: 06/25/2018 Status: F Source: ALPHA 2:28 PM [facility] REPOSITORY [facility] Cardiovascular Services [address] [place] [address] 12 Lead EKG 06/24/18 1533 MR#: [id number] Acct: [id number] Name: MEL DIAZ Rep #: [id number] : 1950 68 From: Stephen Mcneil MD Attending Dr: Nish Lozada MD Status: PRE SDC Ordering Dr: Nish Lozada MD Date: 06/24/18 Location: [facility] [place] [place] Sex: F C Admitted: Test Reason : PREOP Blood Pressure : / mmHG Vent. Rate : 065 BPM Atrial Rate : 065 BPM P-R Int : 190 ms QRS Dur : 066 ms QT Int : 396 ms P-R-T Axes : 037 011 023 degrees QTc Int : 411 ms Normal sinus rhythm Low voltage QRS Borderline ECG Confirmed by STEPHEN MCNEIL MD ([id number]), general expeditor MARLEN MAYS ([id number]) on 06/25/2018 2:28:14 PM Referred By: Nish Lozada Confirmed By:STEPHEN MCNEIL MD 06/25/18 1428 Date Stephen Mcneil MD CC: Susan Maldonado DO; Nish Lozada MD Signed SURGERY VISIT REPORT Observed: 06/25/2018 Status: F Source: ALPHA 8:44 AM [facility] [address] [place] [address] OFFICE VISIT Date of Service: 06/24/18 MR#: [id number] Acct: [id number] Name: MEL DIAZ Rep #: [id number] : 1950 Provider: Ana Monae PA-C Age/Sex: 68/F Location: [facility] Status: Signed Intake Vital Signs06/24/18 Blood Pressure 144/92 H 06/24/18 Height 5 ft 4 in 06/24/18 Weight: 116 lb Intake Visit Reasons: update h AND p open [facility] Eap Specialist Required: No Is patient in pain?: No [...] tab PO DAILY 06/24/18 [History Confirmed 06/24/18] cholecalciferol (vitamin D3) 5,000 unit capsule 5,000 unit PO DAILY 06/24/18 [History Confirmed 06/24/18] coenzyme S71-ehujcmx E 100 mg-100 unit capsule 1 cap PO DAILY cap 06/24/18 [History Confirmed 06/24/18] gabapentin 300 mg capsule 300 mg PO TID 06/24/18 [History Confirmed 06/24/18] glucosamine 750 dr-skcnceqyqnr-epi no1 625 mg-C 30 mg-oj 1 mg tablet 1 tab PO BID tab 06/24/18 [History Confirmed 06/24/18] krill oil 1,000 mg-om3 130 mg-dha 40 mg-epa 80 fb-oy7-igj-astax cap 1 cap PO DAILY cap 06/24/18 [History Confirmed 06/24/18] meloxicam 15 mg tablet 15 mg PO DAILY 06/24/18 [History Confirmed 06/24/18] multivitamin tablet 1 tab PO DAILY 06/24/18 [History Confirmed 06/24/18] pravastatin 40 mg tablet 40 mg PO DAILY 06/24/18 [History Confirmed 06/24/18] vitamin B complex tablet 1 tab PO DAILY 06/24/18 [History Confirmed 06/24/18] [facility] Medical History Hemorrhoids (Acute) Arthritis (Acute) Back problem (Acute) Surgical History Hx of cholecystectomy (Acute) History of partial colectomy (Acute) Hx of appendectomy (Acute) Hx of tonsillectomy (Acute) Family History Father Heart disease Social History Smoking Status: Former smoker alcohol intake: current alcohol intake frequency: a few times a month Alcohol type: wine substance use type: does not use caffeine: Yes frequency: does not exercise HPI HPI HPI: MEL DIAZ, is a 68 F I am following for a right inguinal hernia. Patient presents for an update history and physical. Patient notes a bulge for the last 9 months. Patient notes she does water exercises which is where she believes this may have come about. Patient denies pain/tenderness. She also notes internal and external hemorrhoids. Patient notes she is almost due for her colonoscopy. Patient is questioning if she should have her hemorrhoid specialist take care of these. Patient denies being seen by a pie maker previously. She denies previous myocardial infarction, stroke, blood clots. Patient denies smoking. She notes two previous abdominal surgeries: Lap appy and Lap chad. She notes nausea with anesthesia. She denies recent hospitalizations or illnesses. ROS General General: No weight change, appetite, fatigue, colon cancer, breast cancer or weakness HEENT HEENT: No difficulty swallowing, eye injury, eye surgery, swollen glands or hoarseness Endo Endocrine: No thyroid disease, diabetes mellitus, thyroid cancer, Hair loss, heat intolerance or cold intolerance Skin Skin: No rash or changing moles Musc Musculoskeletal: Yes back problems and arthritis; no rheumatoid arthritis, gout or joint pain Cardio Cardiovascular: No murmur, pacemaker, heart disease, atrial fibrillation, high blood pressure, heart attack, heart stent, palpitations, shortness of breat with exertion or chest pain Psych Psychiatric: No depression, anxiety or hearing voices Resp Respiratory: No shortness of breath, No sleep apnea, No cough, [...] cooperative, healthy appearing, comfortable, no acute distress HENSD Head: normal to inspection Eyes General: appearance normal, both eyes and all related structures Neck Neck: normal visual inspection Neck mass: No Resp Effort AND Inspection: normal respiratory effort Auscultation: clear to auscultation bilaterally Cardio Rate: regular rate Rhythm: regular rhythm Heart Sounds: no murmurs GI Inspection: normal to inspection Palpation: soft, hernia (Right inguinal hernia; palpable; reducible) Skin General: no rashes or lesions noted Neuro General: no focal motor deficits, CN's II-XI intact bilaterally Extrem General: normal to inspection Psych Appearance: grossly normal Affect: normal affect Assessment AND Plan Problems 1. Right inguinal hernia K40.[address] Lozada will plan to perform an open right inguinal hernia repair with MAC. Procedure details, risks and benefits have been reviewed with the patient. Patient has had the opportunity to ask and have questions answered. Patient verbally understand and agrees with the plan. Patient was asking to use clear fast prior to the procedure. She may drink this the night before and following the procedure. Nothing to drink or eat the morning of the procedure. Patient is to stop ASA, Krill oil and omega 3 7 days prior to the procedure. Coding Level of Care Code No Charge Diagnoses Right inguinal hernia K40.90 Comment Update H AND P 06/25/18 0844 <Electronically signed by Ana Monae PA-C> Date Ana Monae PA-C Cosigner Signature: Date (if applicable) CC: CBC-COMPLETE BLOOD CNT Collected: 06/24/2018 Status: F Source: ENRIQUE NO DIFF 3:19 PM [facility] REPOSITORY TYPE CODE TESTS RESULT OUT OF RANGE REFERENCE UNITS LAB L100.1000 4.4-11.0 K/mm3 Normal WBC 5.3 LAB L100.1200 4.2-5.4 M/mm3 Low RBC 3.76 LAB L100.1300 12.0-15.0 g/dl Normal HGB 12.4 LAB L100.1400 37-47 % Normal HCT 38.2 LAB L100.1500 81-99 fL High MCV 101.6 LAB L100.1600 27.0-32.0 pg High MCH 33.0 LAB L100.1700 32-36 g/gl Normal MCHC 32.5 LAB L100.1810 11.6-14.6 % Normal RDW CV 12.9 LAB L100.1820 35.1-43.9 fl High RDW SD 48.0 LAB L100.1900 150-450 K/mm3 Normal PLT 228 LAB L100.2000 6.2-12.0 fl Normal MPV 9.3 Performed By: #### L100.0500 #### [facility] [address] [place], [address] BASIC METABOLIC Collected: 06/24/2018 Status: F Source: ALPHA PROFILE (BMP) 3:19 PM [facility] REPOSITORY TYPE CODE TESTS RESULT OUT OF RANGE REFERENCE UNITS LAB L501.0100 74-106 mg/dL Normal GLU 80 Result Comment: Please note revised GLUCOSE reference range effective 2017. LAB L501.1000 7-18 mg/dL High BUN 25 LAB L501.1100 0.55-1.02 mg/dL Normal CREAT,SERUM 0.69 Result Comment: The validity of the calculated GFR AND GFRAA in patients over 70 years has not been determined. Clinical correlation is essential. LAB L501.1110 >60 mL/min Normal EST GFR 90 Result Comment: Non- GFR Calc LAB L501.1115 >60 mL/min Normal EST GFR - AA 109 Result Comment: GFR Calc LAB L501.1300 10-20 RATIO High BUN/CRE 36.4 LAB L501.2200 8.5-10.1 mg/dL CA Normal 9.4 LAB L501.5300 136-145 mmol/L NA Normal 141 LAB L501.5600 3.5-5.1 mmol/L K Normal 4.4 LAB L501.5900 98-107 mmol/L CL Normal 105 LAB L501.6100 21.0-32.0 mmol/L Normal CO2 27.0 LAB L501.6200 5-15 Normal GAP 9 Performed By: #### L500.2500 #### [facility] [address] [place], [address] XR FLUORO GUIDANCE FOR Observed: 03/07/2018 Status: F Source: [employer] THERAPY INJECTION 8:06 AM [facility] REPOSITORY ORIGINAL Images acquired, not reported on this accession number. DEXA BONE DENSITY Observed: 01/31/2018 Status: F Source: ALPHA STUDY 12:24 PM [facility] REPOSITORY [facility] Imaging Services [address] [place] [address] Dexa Bone Density Study MR#: [id number] Acct: [id number] Name: MEL DIAZ Rep #: [id number] : 1950 F 67 From: James Baker MD PCP: Susan Maldonado DO Status: REG CLI Study: Dexa Bone Density Study Date of Exam: 01/31/18 Exam# [id number] Ordering Dr: Susan Maldonado DO STUDY: DUAL ENERGY X-RAY ABSORPTIOMETRY / DXA REASON FOR EXAM: Female, 67 years old. The patient is postmenopausal. Loss of height. TECHNIQUE: Bone Mineral Density (BMD) measurements of lumbar spine and bilateral hips were obtained. COMPARISON: Comparison is made with prior study dated May 20, 2002. FINDINGS: Lumbar Spine (L1-L4): g/cm2 (1.278) / T-score (0.6) / Z-score (2.3) Findings are suggestive of normal bone density with a low fracture risk. Left Femur Total: g/cm2 (0.859) / T-score (-1.2) / Z- score (0.2) Left Femoral Neck: g/cm2 (0.902) / T-score (-1.0) / Z- score (0.7) Right Femur Total: g/cm2 (0.859) / T-score (-1.2) / Z- score (0.2) Right Femoral Neck: g/cm2 (0.911) / T-score (0.9) / Z- score (0.7) The T-Scores on the most recent prior examination were: Lumbar Spine (L1-L4): There has been worsening of bone density since the previous examination. Left Femur Total: which represents a worsening of 15.5%. BD/Dexa Bone Density Study IMPRESSION: The patient [...] Severe -2.1 through -2.4 The Z-score is the number of standard deviations above or below age-matched controls. A Z-score of less than -1.5 would be considered abnormal. References: 1. NIH Osteoporosis and Related Bone Diseases http://www.osteo.org 2. International Society for Clinical Densitometry http://www.iscd.org 3. National Osteoporosis Foundation http://www.nof.org Electronically Signed: James Baker MD at 13:52 EDT Tel [phone], Service support , CC: Susan Maldonado DO [employer] Supervisor: Signed SCREENING MAMM (CAD), Observed: 01/31/2018 Status: F Source: ENRIQUE BILAT 12:24 PM [facility] REPOSITORY [facility] Imaging Services [address] [place] [address] SCREENING MAMM (CAD), BILAT MR#: [id number] Acct: [id number] Name: MEL DIAZ Rep #: [id number] : 1950 F 67 From: James Baker MD PCP: Susan Maldonado DO Status: REG CLI Study: SCREENING MAMM (CAD), BILAT Date of Exam: 01/31/18 Exam# [id number] Ordering Dr: Susan Maldonado DO MAMMOGRAPHY - BILATERAL SCREENING REASON FOR EXAM: Female, 67 years old. Routine annual screening examination. PERTINENT HISTORY: Grandmother with breast cancer. Prior bilateral stereotactic breast biopsies. TECHNIQUE: Digital bilateral breast manoj (3D [...] delay biopsy of a clinically suspicious abnormality. [id number] Electronically Signed: James Baker MD at 14:38 EDT Tel [phone], Service support , CC: Susan Maldonado DO [employer] Supervisor: Signed XR FLUORO GUIDANCE FOR Observed: 01/17/2018 Status: F Source: [facility] IN[facility]CTION 9:11 AM [facility] REPOSITORY ORIGINAL Images acquired, not reported on this accession number. ALLERGIES ALLERGIES DATE TYPE / CODE NAME / CODE REACTION SEVERITY SOURCE 07/09/2018 Drug garlic/X68617 Nausea/Vom/Diarr Unknown [facility] Allergy/4160 2585(RXNORM) [facility] [address]3632(SNOMED Repository CT) 06/24/2018 Drug No Known Unknown [facility] Allergy/4160 Allergies/F00 Hospital 91921(SNOMED 1959426(RXNOR Repository CT) M) ENCOUNTERS ENCOUNTERS ADMIT/DISCHARGE ACCOUNT NUMBER ADMITTING ENCOUNTER LOCATION SOURCE CLASS 08/19/2018 [id number] Ambulatory Building:[facility] Repository 08/19/2018 [id number] Ambulatory [facility] ding:HPRAD Repository 07/09/2018/07/09/20 [id number] Ambulatory BMSBuilding: [place] 18 BMS.[facility] Repository 07/01/2018 [id number] Ambulatory BMSBuilding: [place] BMS.CF.[facility] Repository 07/01/2018/07/01/20 [id number] Ambulatory [address] ding:SDCRoo Repository : AC06 06/24/2018/06/24/20 [id number] Ambulatory BMSBuilding: [place] 18 BMS.[facility] Repository 06/24/2018 [id number] Ambulatory BMSBuilding: [place] [facility] Repository 03/07/2018/03/07/20 [id number] Ambulatory BBuilding:OS [place] 18 DURoom: Health 0001Bed: A [facility] Repository 03/01/2018/03/08/20 [id number] Ambulatory BMSBuilding: [place] 18 BMS.[facility] Repository 01/31/2018 [id number] Ambulatory [facility] ding:OPBD Repository 01/17/2018/01/18/20 [id number] Ambulatory BBuilding:OS [place] 18 DURoom: Health 0001Bed: B [facility] Repository 12/27/2017 [id number] Ambulatory ABuilding:[facility] Repository FUNCTIONAL STATUS FUNCTIONAL STATUS No Functional Status Records FoundEQUIPMENT EQUIPMENT No Equipment Records FoundPAYERS PAYERS ENCOUNTER GUARANTOR PAYER SUBSCRIBER SOURCE 08/19/2018 Mel SteigerDOB: Primary Mel SteigerDOB: OHIP Practices W Insurance:[place]/Medi [id number] Repository High [facility] Adv planPolicy [address] [place] [address]Rim: [facility] [id number] [address]Ouf: (330) (HP)Tel: 330) Date:6212-71-06Osye [phone] ([phone] (WP) Name:[address], [place] [address]FU: 08/19/2018 Secondary Aris OHIP Practices Insurance:AultcarePol SteigerDOB: Repository icy Number: [id number] 0 [address] Date:2005-06-24 - Tyesha MD [id number] 24[address]Hqa: ([phone]) Name:[phone] (HP) [address], [place] [address]RD: 08/19/2018 Tertiary Mel SteigerDOB: OHIP Practices Insurance:Progressive [id number] Repository Claims/Med PayPolicy 0 [address] High Number: Tyesha MD [id number] [address]50[address]Tof: (330) Date:2010-07-07 - [phone] (HP) [id number] Name:[address]Nxjh Claims Proc RJ Winters [address]JE: X478 08/19/2018 [facility] Insurance:[place] SteigerDOB: Repository /BSPolicy Number: [id number] 0 [address] High Date:2010-09-24 - [place], [place] [id number] [address]Tvx: ([phone]) Name:[facility] [phone] (HP) [address], [place] [address]JJ: 08/19/2018 [facility] [place] Practices Insurance:United SteigerDOB: Repository Health CarePolicy [id number] Number: [address] [id number] [place], [place] Date:2013-09-24 [address]Izw: ([phone]) [id number] [phone] (HP) Name:[facility] [address], [place] [address]QP: 08/19/2018 Tertiary Mel SteigerDOB: OHIP Practices Insurance:Primetime[employer] [id number] Repository licy Number: [address] [id number] [place], [place] e Date:2015-09-24 [address]Zdy: ([phone] [id number] [phone] (HP) Name:[facility] [address], [place] [address]NE: 08/19/2018 Tertiary Mel SteigerDOB: OHIP Practices Insurance:[employer] [id number] Repository OPolicy Number: 0 [address] [id number] [place], [place] Date:2016-09-24 [address]Yjv: ([phone] [id number] [phone] (HP) Name:[id number] [place] [id number]: 08/19/2018 ARIS Primary MEL STEIGERDOB: [place] [id number] W Insurance:ANTHEM [id number] Community [place] [address]Mka: ADVANTAPolicy Number: Repository [id number] (HP) Date:6782-83-43LK [address] [address]MY: 08/19/2018 Secondary NOT GIVENUNK [place] Insurance:SELF PAY [facility] Number: Effective Repository Date:2018-08-19 07/09/2018 ARIS Sancehz Primary MEL STEIGERDOB: [place] [id number] W Insurance:[facility] [id number] Community [place] [facility] [address]Wsw: ADVANTAPolicy Number: Repository [id number] (HP) Date:4962-36-14JF [address]ZRMPWMU, [place] [address]XB: 07/09/2018 Secondary NOT GIVENUNK [place] Insurance:SELF PAY [facility] Number: Effective Repository Date:2018-07-02 07/01/2018 ARIS Sanchez Primary MEL STEIGERDOB: [place] [id number] W Insurance:ANTH [id number] Community [place] [address]Jyu: ADVANTAPolicy Number: Repository [id number] (HP) Date:0959-75-13[address] [place] [address]JQ: 07/01/2018 Secondary NOT GIVENUNK [place] Insurance:SELF PAY [facility] Number: Effective Repository Date:2018-07-01 07/01/2018 ARIS Sanchez Primary MEL STEIGERDOB: En[place] [id number] W Insurance:[facility] [id number] Community [place] [address]Fkx: ADVANTAPolicy Number: Repository [id number] (HP) Date:1510-61-09ML [address] [address]NH: 07/01/2018 Secondary NOT GIVENUNK [place] Insurance:SELF PAY [facility] Number: Effective Repository Date:2018-05-31 06/24/2018 Aris Sanchez Primary NOT GIVENUNK [place] [id number] W Insurance:SELF PAY [facility] [place] [address]Oun: Number: Effective Repository Date:2018-06-24 () 06/24/2018 ARIS Sanchez Primary MEL STEIGERDOB: [place] [id number] W Insurance:[facility] [id number] Community [place] [facility] [place] [address]Lxi: ADVANTAPolicy Number: Repository [id number] (HP) Date:2800-28-79JF [address]WRVY, [place] [address]LU: 06/24/2018 Secondary NOT GIVENUNK [place] Insurance:SELF PAY [facility] Number: Effective Repository Date:2018-06-24 03/07/2018 MEL STEIGERDOB: Primary MEL STEIGERDOB: [facility] W Insurance:[facility] [id number] [place] [address] 0 W HIGH Repository [place] Number: [place] [address]~CELINE [id number] [address]Qup: (682) [email or web address]@[facility]ITALel: Date:2018-02-28 [phone] (HP)Tel: ([phone]) () Name:[facility] [address] () [id number] Pineda [address]NT: 03/01/2018 Aris Sanchez Primary MEL STEIGERDOB: [place] [id number] W Insurance:[facility] [id number] [place] [facility] [address]Xos: ADVANTAPolicy Number: Repository [id number] (HP) Date:7243-72-90JI [address]VBLYRSBANNA [address]EDA [address]AI: 03/01/2018 Secondary NOT GIVENUNK [place] Insurance:SELF PAY [facility] Number: Effective Repository Date:2018-03-08 01/31/2018 Aris Sanchez Primary MEL STEIGERDOB: Enrique [id number] W Insurance:ANTH [id number] Community [place] [facility] [place] [address]Fed: ADVANTVCU Medical Centery Number: Repository [id number] (HP) Date:6449-45-12FK [address]QFUNUMD, [place] [address]TH: 01/31/2018 Secondary NOT GIVENUNK [place] Insurance:SELF PAY [facility] Number: Effective Repository Date:2017-12-31 01/17/2018 MEL STEIGERDOB: Primary MEL STEIGERDOB: [employer] W Insurance:ANTH [id number] [facility] 0 [address] H[address] Repository [place] Number: [place] [address]~GAILSTBETTIE [id number] [address]Bch: 330) [email or web address]: Date:2018-01-10 [id number] (HP)Tel: (000) (HP)Tel: (318) Name:[address] (WP) [phone] (WP) [address]Yfsxtgp, [place] [address]OB: 12/27/2017 MEL STEIGERDOB: Primary MEL STEIGERDOB: [facility] W Insurance:ANTH [id number] [facility] 0 W HIGH Repository [place] Number: [place] [address]~GAILSTBETTIE [id number] [address]Qjc: 330) [email or web address]: Date:2017-09-24 [id number] (HP)Tel: (000) (HP) Name:[facility] [address] (WP) 603341Cdqbesg, [place] [address]OT: SOCIAL HISTORY SOCIAL HISTORY No Social History Records FoundFAMILY HISTORY FAMILY HISTORY No Family History Records FoundADVANCE DIRECTIVES ADVANCE DIRECTIVES No Advanced Directives Records FoundINFORMATION SOURCE INFORMATION SOURCE DATE CREATED AUTHOR AUTHOR'S ORGANIZATION 09/10/2018 OHIP
--- OUTSIDE RECORDS SUMMARY | 2018-10-01 12:53 | XMS RPT_ITS | Continuity of Care Document ---
:1950 Author Organization [facility] Address [address] [facility] [address] [place] [address] Phone Care Team Providers Name Role Phone Susan Rojas DO Unavailable [facility], [facility] Unavailable Dr. Kimo Ferreira Unavailable Angus ROJAS, Nilo Rubio Unavailable Jaya DENNIS MD , Nilo Rubio Unavailable Jignesh Romero Unavailable Unavailable Alayna Vang Unavailable Unavailable CHARLES Rodrigues Unavailable Unavailable Carolee Hendricks Unavailable Unavailable Unavailable [...] Colon polyp (K63.5, 211.3) Comments: dr in [place] and last scope neg for any polyps [...] Comments: getting nerve blocks and epidurals from [facility]-- used to see Una and got much better results with Felden Status: Active Deliveries (Parity) Comments: 2, Term Status: Active Dysuria (R30.0, 788.1) Status: Active Eczema (L30.9, 692.9) Comments: cortisone cre Status: Active Encounter for Medicare annual wellness [...] of both hips (M85.851, 733.90) Status: Active Pain in unspecified joint (Renamed [...] days Quantity: 30 {Capsule} Refills: 0 Ordered:04-Jan-2016 Tomi Luann A Start : 04-Jan-2016 Active CALCIUM 600+D, 375-188SJ-ZCVC (Oral Tablet) 1 (one) Tablet daily for [...] Trixie Steen CNP Start : 13-Aug-2018 Active B-Ygnddn-O-Cysteine 600 MG Oral Capsule daily (600 MG) [...] days Quantity: 20 {Tablet} Refills: 0 Ordered:12-Dec-2016 Trixie Steen CNP Start : 12-Dec-2016 End : 22-Dec-2016 Inactive BENZACLIN, 1-5% (External Gel) apply Gel bid for 0 days Quantity: 30 {Gel} Refills: 1 Ordered:22-Nov-2010 DAIANA Bey Start : 26-Apr-2010 End : 22-Nov-2010 Inactive BONIVA, 150MG (Oral Tablet) Tablet month for 0 days Quantity: 1 {Tablet} Refills: 6 Ordered:07-Jan-2009 DAIANA Bey Start : 07-Jan-2009 Inactive Comments:changed to Fosomax XCLUAPBC-RRB-5, 0.1MG/24HR (Transdermal Patch Weekly) 1 Patch Weekly [...] : 27-Dec-2010 End : 29-Dec-2010 Inactive Comments:ID# [id number] Cymbalta 30 MG Oral Capsule Delayed Release Particles 1 (one) Capsule DR Part qd x 1 wk, then 60mg qd after for 30 days Quantity: 7 {Capsule} Refills: 0 Ordered:02-Feb-2017 Anabella Dia Start : 02-Feb-2017 End : 04-Mar-2017 Inactive Cymbalta 60 MG Oral Capsule Delayed Release Particles 1 (one) Capsule DR Part qd for 0 days Quantity: 30 {Capsule} Refills: 3 Ordered:07-May-2017 Trina Diasea Start : 02-Feb-2017 End : 07-May-2017 Inactive DELSYM, 30MG/5ML (Oral Liquid Extended Release) 1 (one) Liquid ER bid for 0 days Quantity: 6 {Ounce} Refills: 0 Ordered:13-Apr-2014 Trina Diasea Start : 27-Feb-2014 End : 13-Apr-2014 Inactive [...] : 12-Dec-2016 Discontinued Comments[phone] on 11/29/16 cmanchak CRESTOR, 10MG [...] days Quantity: 1 {Inhaler} Refills: 0 Ordered:30-Aug-2015 SlaThania ellsworth LPN Start : 27-Feb-2014 End : 30-Aug-2015 [...] MG) End : 15-Dec-2013 Discontinued VITAMIN D, 65681YA (PO Cap) 1 QD for 0 days [...] of 04-May-2016 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 [place] [address] OFFICE VISIT Date of Service: 07/09/18 MR#: [id number] Acct: [id number] Name: MEL PEARL Rep #: [id number] : 1950 Provider: Ana Monae PA-C Age/Sex: 68/F Location: [facility] Status: Signed Intake Intake Visit Reasons: f/u herniorrhaphy 07/01/18 Dye Feeder Required: No Is patient in pain?: No [...] DAILY 06/24/18 [History Confirmed 07/09/18] co enzyme V68-fyoimci E 100 mg-100 unit capsule 1 cap PO DAILY cap 06/24/18 [History Confirmed 07/09/18] gabapentin 300 mg capsule 300 mg PO TID 06/24/18 [History Confirmed 07/09/18] glucosamine 750 mg-cho ndroitin-msm no1 625 mg-C 30 mg-oj 1 mg tablet 1 tab PO BID tab 06/24/18 [History Confirmed 07/09/18] krill oil 1,000 mg-om3 130 mg-dha 40 mg-epa 80 re-qb0-uib-astax cap 1 cap PO DAILY cap 06/24/18 [...] gangrene Laterality: unilateral Recurrence: non- recurrent 07/09/18 1407 <Electronica lly signed by Ana Monae PA-C> Date Ana Hernandez Signature: Date (if applicable) CC: 02-Jul-2018 Discharge Instruction Result: Comments: See Note; NOTES: [facility] Medical Records Department [address] [place] [address] Instructions for Home/Discharge Instructions 07/01/18 1156 MR#: [id number] Acct: [id number] Name: MEL JOHNSON Rep #: [id number] : 1950 68 From: Robert Lozada MD PCP: Susan Rojas DO [place] [facility] [place] Diet: Light diet - advance as [...] capsule 5,000 unit PO DAILY 06/24/18 coenzyme A39-spdywnq E 100 mg-100 unit capsule 1 cap PO DAILY cap 06/24/18 gabapentin 300 mg capsule 300 mg PO TID 06/24 glucosamine 750 tf-nlvytyrlllg-ohj no1 625 mg-C 30 mg-oj 1 mg tablet 1 tab PO BID tab 06/24/18 krill oil 1,000 mg-om3 130 mg-dha 40 mg-epa 80 ag-ej9-mgi-astax cap 1 cap PO DAILY cap 06/24/18 melox icam 15 mg tablet 15 mg PO DAILY 06/24/18 multivitamin tablet 1 tab PO DAILY 06/24/18 pravastatin 40 mg tablet 40 mg PO DAILY 06/24/18 vitamin B complex tablet 1 tab PO DAILY 06/24/18 Hydrocodone Bitart /Apap 5-325 [Bowdon 5MG-325MG] 1 tablet PO Q6H PRN PRN 2 Days #5 tablet 07/01/18 The following prescriptions were given: Hydrocodone Bitart/Apap 5-325 [Bowdon 5MG-325MG] 1 tablet PO Q6H PRN PRN 2 Days # 5 tablet PRN Reason: Pain Primary Care Physician: Susan Rojas DO [Primary Care Provider] - Test Results: Test results from this visit will be discussed in further detail at your follow-up appointme nt, if applicable. Please Follow Up With: Robert Lozada MD - [phone] When: Call to make an appointment to be seen in about 10 days. 07/02/18 0538 <Electronically signed by Robert Lozada MD> Date Robert Lozada MD CC: Susan Rojas DO 01-Jul-2018 Operative Report Result: Comments: See Note; NOTES: [facility] Medical Records Department [address] [place] [address] Operative Report 07/01/18 1248 MR#: [id number] Acct: [id number] Name: MEL JOHNSON Rep #: [id number] : 1950 68 From: Robert Lozada MD PCP: Susan Rojas DO Status: REG SDC Y Location: [place] [address] Problem List (1) Inguinal hernia Status: Acute [...] fashion. [facility] Bard [facility] number [employer] [id number] with a reference number of [id number] expiry date 02/18/2023 was utilized. The t [...] Electrocardiogram Result: Comments: See Note; NOTES: [facility] Cardiovascular Services [address] [place] [address] 12 Lead EKG 06/24/18 1533 MR#: [id number] Acct: [id number] Name: MEL JOHNSON Rep # : [id number] : 1950 68 From: Stephen Mcneil MD Attending Dr: Robert Lozada MD Status: PRE SDC Ordering Dr: Robert Lozada MD Date: 06/24/18 [place] [facility] [place] Sex: F C Admitted: Test Reason : PREOP Blo od Pressure : / mmHG Vent. Rate : 065 BPM Atrial Rate : 065 BPM P-R Int : 190 ms QRS Dur : 066 ms QT Int : 396 ms P-R-T Axes : 037 011 023 degrees QTc Int : 411 ms Normal sinus rhythm Low voltage QRS Borderline ECG Confirmed by VALENTIN ROJAS, STEPHEN ([id number]), index editor MARLEN MAYS ([id number]) on 06/25/2018 2:28:14 PM Referred By: Robert Lozada Confirmed By:STEPHEN MCNEIL MD 06/25/18 1428 Date Stephen Mcneil MD CC: Susan Rojas DO; Robert Lozada MD Signed 25-Jun-2018 Surgery Visit Report Result: Comments: See Note; NOTES: [facility] [address] [place], [place] [address] OFFICE VISIT Date of Service: 06/24/18 MR#: [id number] Acct: [id number] Name: MEL PEARL Rep #: [id number] : 1950 Provider: Ana Monae PA-C Age/Sex: 68/F Location: [facility] Status: Signed Intake Vital Signs06/24/18 Blood Pressure 144/92 H 06/24/18 Height 5 ft 4 in Weight: 116 lb Intake Visit Reasons: update h AND p open [facility] Dye Feeder Required: No Is patient in pain?: No [...] PO DAILY 06/24/18 [History Confirmed 06/24/18] coenzyme U43-mqunrvn E 100 mg-100 unit capsule 1 cap PO DAILY cap 06/24/18 [History Confirmed 06/24/18] gabape ntin 300 mg capsule 300 mg PO TID 06/24/18 [History Confirmed 06/24/18] glucosamine 750 md-pvdblyvnhin-pzn no1 625 mg-C 30 mg-oj 1 mg tablet 1 tab PO BID tab 06/24/18 [History Confirmed 06/24/18] kril l oil 1,000 mg-om3 130 mg-dha 40 mg-epa 80 sx-yz7-lol-astax cap 1 cap PO DAILY cap 06/24/18 [...] Patient denie s being seen by a final assembly inspector previously. She denies previous myocardial infarction, stroke, [...] cooperative, healthy appearing, comfortable, no acute distress HENIL Head: normal to inspection Eyes General: appearance [...] with the patient. Patient has had the [facility] to ask and have questions answered. Patient [...] Study Result: Comments: See Note; NOTES: [facility] Imaging Services [address] [place] [address] [place] [address] Dexa Bone Density Study MR#: [id number] Acct: [id number] Name: MEL JOHNSON Rep #: [id number] : 1950 F 67 From: James Baker MD PCP: Susan Rojas DO Status: REG CLI Study: Dexa Bone Density Study Date of Exam: 01/31/18 Exam# [id number] Ordering Dr: Susan Rojas Y: DUAL ENERGY [...] a worsening of 15.5%. ORDE R #: [id number] BD/Dexa Bone Density Study IMPRESSION: The patient [...] James Baker MD at 13:52 EDT Tel [phone], Service support , CC: Susan Rojas DO Cattle Sprayer: Signed 31-Jan-2018 SCREENING MAMM (CAD), BILAT Result: Comments: See Note; NOTES: [facility] Imaging Services [address] [place] [address] SCREENING MAMM (CAD), BILAT MR#: [id number] Acct: [id number] Name: MEL JOHNSON Rep #: [id number] : 1950 F 67 From: James Baker MD PCP: Susan Rojas DO Status: [facility] Study: SCREENING MAMM (CAD), BILAT Date of Exam: 01/31/18 Exam# [id number] Ordering Dr: Susan Rojas MAMMOGRAPHY - BILATERAL [...] delay biopsy of a clinically suspicious abnormality. [id number] Electronically Signed: James Baker MD at 14:38 EDT Tel [phone], Service support [phone], CC: Susan Rojas DO Cattle Sprayer: Signed 18-May-2017 Re-Evaluation - PT (1) Result: Comments: See Note; NOTES: [facility] Physical Therapy [facility] [address] [place] [address]. [address] [place] [address] Fax REEVALUATION / MEDICARE RECERTI [employer] [facility] PHYSICAL THERAPY MR#: [id number] Acct: [id number] Name: ELIZABETHMEL Rep #: [id number] : 1950 67 From: Sharee Castaneda DPT [...] Is in a water class at the [facility] and feels that she needs a few [...] do not hesitate to contact me at [phone] by phone or if you have questions or concerns regard ing this new plan of care! Sincerely, Sharee Castaneda <Electronically signed by Sharee Castaneda DPT> 05/18/17 0941 CC: Samuel Koo MD; Susan Rojas DO SHRAVAN Cade Signed For Medicare only, by signing this I certify the plan of care. Physicians Signature Date 23-Apr-2017 Inital Evaluation (1) - PT Result: Comments: See Note; NOTES: [facility] Physical Therapy [facility] [address] [facility] [place], [place] [address] Fax REHABILITATION SERVICES INITIAL EVALUATION MR#: [id number] Acct: [id number] Name: MEL JOHNSON Rep #: [id number] : 1950 67 From: Sharee Castaneda DPT Referring Dr.: Samuel Koo MD Status: REG RCR Insurance: [employer] ARE MEDICARE Patient's Visit Information MEL JOHNSON is a 67 year old F referred to Physical Therapy by Samuel Koo MD with a diagnosis of Lumbar Spine. Date of Evaluation: 04/23/17 Epic Trainer apist: Sharee Castaneda - Visit Plan Frequency: 1x/Week Duration: 4 Weeks Plan: 1x visit for aquatic HEP to do at [facility]- then follow up in 3 [...] footsteps. Saw Markie in January for land [employer]- and is still doing the exercise at the [facility]. Walks the dog about a [...] to be FAXED BACK to us at [phone] for Medicare purposes. Please let me know [...] Patient Result: Comments: See Note; NOTES: [facility] Pulmonary Services/Neurology [address] [place] [address] NCS and/or EMG Patient MR#: [id number] Acct: [id number] Name: MEL JOHNSON Rep #: [id number] : 1950 67 From: Bouchra Tan MD [...] me. Bouchra Tan MD T: NTS JOB: [id number] 03/20/17 1317 <Electronically signed by Bouchra Tan MD> Date Bouchra Tan MD CC: Bouchra Tan; Daly Rojas DO Date Dictated: 03/14/17 110 Date Transcribed: 03/14/171103 Cattle Sprayer: Signed 20-Feb-2017 Spine Cervical (Routine) Result: Comments: See Note; NOTES: [facility] Imaging Services [address] [place] [address] Verdana 4d Spine Cervical (Routine) MR#: [id number] Acct: [id number] Name: MEL JOHNSON p #: [id number] : 1950 F 66 From: Janey Mendes MD PCP: Susan Rojas DO Status: REG CLI Study: Spine Cervical (Routine) Date of Exam: 02/20/17 Exam# [id number] Ordering Dr: Tisha Ferreira MD [facility] DY: MRI CERVICAL SPINE WITHOUT CONTRAST REASON [...] CC: Tisha quevedo MD; Susan Rojas DO Cattle Sprayer: Signed 24-Jan-2017 PT D/C Summary (1) Result: Comments: See Note; NOTES: [facility] [address] [place] [address]. [address] [place] [address] Fax REHABILITATION SERVICES DISCHAR SUMMARY MR#: [id number] Acct: [id number] Name: MEL JOHNSON Rep #: [id number] : 1950 66 From: Markie Wade PT, ATC Referring : Susan Rojas DO Status: REG RCR Insurance: [...] please feel free to call me at [phone]. Thank you for the referral of this patient. Sincerely, Markie Wade PT, <Electronically signed by Markie Wade PT, ATC> 01/24/17 1505 CC: Susan Rojas DO [facility] Signed 19-Jan-2017 Inital Evaluation (1) - PT Result: Comments: See Note; NOTES: [facility] [facility] [place], [place] [address] Fax REHABILITATION SERVICES INITIAL EVALUATION MR#: [id number] Acct: [id number] Name: MEL JOHNSON Rep #: [id number] : 1950 66 From: Markie Wade PT, ATC Referring Dr.: Susan Rojas DO Status: REG R Insurance: [employer] MEDICARE Patient's Visit Information [...] to be FAXED BACK to us at [phone] for Medicare purposes. Please let me know [...] Views Result: Comments: See Note; NOTES: [facility] Imaging Services [address] [place] [address] Verdana 4d Cerv Spine 4 or 5 Views MR#: [id number] Acct: [id number] Name: MEL JOHNSON Rep #: [id number] : 1950 F 66 From: Doni Hamilton MD PCP: Susan Rojas DO Status: REG CLI Study: Cerv Spine 4 or 5 Views Date of Exam: 01/17/17 Exam# [id number] Ordering Dr: Susan Rojas DO STUDY: X-RAY [...] Service support , CC: Susan Rojas DO Cattle Sprayer: Signed 01-Jan-2017 SCREENING MAMM (CAD), BILAT Result: Comments: See Note; NOTES: [facility] Imaging Services [address] [place] [address] Verdana 4d SCREENING MAMM (CAD), BILAT MR#: [id number] Acct: [id number] Name: MEL JOHNSON Rep #: [id number] : 1950 F 66 From: James Baker MD PCP: Luann Krishna DO Status: REG CLI Study: SCREENING MAMM (CAD), BILAT Date of Exam: 01/01/17 Exam# [id number] Ordering Dr: Carolynn Rojas DO MAMMOGRAPHY - [...] delay biopsy of a clinically suspicious abnormality. [id number] Electronically Signed: James Baker MD at 9:13 EDT Tel [phone], Service support [phone], CC: Luann Krishna DO; Susan Rojas DO Cattle Sprayer: Signed 04-Oct-2016 Transvaginal Non- Result: Comments: See Note; NOTES: [facility] Imaging Services [address] [place] [address] Verdana 4d Transvaginal Non- MR#: [id number] Acct: [id number] Name: MEL JOHNSON ep #: [id number] : 1950 F 66 From: Wei Pritchett MD PCP: Luann Krishna DO Status: REG CLI Study: Transvaginal Non- Date of Exam: 10/04/16 Exam# [id number] Ordering Dr: Susan Rojas DO STUDY: ULTRASOUND [...] MD at 17:19 EST , Service support [phone], CC: Luann Krishna DO; Susan Rojas DO Cattle Sprayer: Signed 03-Feb-2016 Operative Report Result: Comments: See Note; NOTES: [facility] Medical Records Department [address] [place] [address] Operative Report MR#: [id number] Acct: [id number] Name: MEL JOHNSON Rep #: [id number] : 1950 65 From: Nilo Lake MD [...] well. Nilo Lake MD T: NTS JOB: [id number] 02/03/16 1114 <Electronically signed by Nilo Lake MD> Date Nilo Lake MD Cosigner Signature (If Indicated): Date CC: Nilo Lake MD; Luann Krishna DO Date Dictated: 01/19/16 1034 Date Transcrib ed: 01/19/16 1034 Cattle Sprayer: Signed 02-Jan-2016 Carotid Duplex Ultrasound Result: Comments: See Note; NOTES: [facility] Cardiovascular Services [address] [place] [address] Carotid Duplex Ultrasound 12/30/15 1128 MR#: [id number] Acct: [id number] Name: MEL JOHNSON Rep #: [id number] : 1950 65 From: Cas Cuellar MD Attending Dr: Luann Krishna DO Status: REG CLI Ordering Dr: Luann Krishna DO Date: 12/30/15 Location: [facility] Sex: F C Admi tted: Reason For [...] the left vertebral artery. Procedure Carotid Duplex 32601. Exam performed in department. Interpretation Summary Mild (<50%) stenosis right extracranial internal carotid. Mild (<50%) stenosis left ex tracranial internal carotid. Flow within the vertebral arteries is antegrade bilaterally. Orde ring Physician: Luann Krishna Performed By: Maria Isabel England RVT 01/02/162038 Date Cas Cuellar MD CC: Luann Krishna DO Date Dictated: 12/30/15 1128 Date Transcribed: 01/02/162038 Cattle Sprayer: Signed 30-Dec-2015 Bilat Scrn Digital AND CAD Result: Comments: See Note; NOTES: [facility] Imaging Services [address] [place] [address] Leonardodaamos 4d Bilat Scrn Digital AND CAD MR#: [id number] Acct: [id number] Name: MEL JOHNSON Rep #: [id number] : 1950 F 65 From: James Baker MD PCP: Luann Krishna DO Status: REG CLI Study: Bilat Scrn Digital AND CAD Date of Exam: 12/30/15 Exam# [id number] Ordering D r: Luann Krishna DO MAMMOGRAPHY [...] delay biopsy of a clinically suspicious abnormality. [id number] Electronically Signed: James Baker MD at 14:58 EDT Tel [phone], Service support [phone], CC: Luann Krishna DO Cattle Sprayer: Signed 30-Dec-2015 Spine Lumbar (Routine) Result: Comments: See Note; NOTES: [facility] Imaging Services [address] [place] [address] Verdana 4d Spine Lumbar (Routine) MR#: [id number] Acct: [id number] Name: MEL IBARRA Rep #: [id number] : 1950 F 65 From: Doni Hamilton MD PCP: Luann Krishna DO Status: REG CLI Study: Spine Lumbar (Routine) Date of Exam: 12/30/15 Exam# [id number] Ordering Dr: Jyotsna Krishna ra, DO STUDY: [...] ACR at 16:27 EDT , Service support [phone], CC: Luann Krishna DO Cattle Sprayer: Signed 07-Oct-2015 PT D/C Summary Result: Comments: See Note; NOTES: [facility] [facility] [place] [address] Fax REHABILITATION SE RVICES DISCHARGE SUMMARY MR#: [id number] Acct: [id number] Name: MEL JOHNSON Rep #: [id number] : 1950 65 From: Sharee Castaneda Referring [...] Progress: Progressing - Plan Plan: Discharge to I home exercise program as she travels [place] - D/C Information Discharge Comments: Discharge to I HEP while traveling. If there are questions or concerns regarding this patient's physical therapy, please feel free to call me at [phone]. Thank you for the referral of this patient. Sincerely, Sharee Castaneda &# 60;Electronically signed by Sharee Castaneda > 10/07/15 1040 CC: Trixie Steen; Luann Krishna DO ELR Signed 22-Sep-2015 Inital Evaluation - PT Result: Comments: See Note; NOTES: [facility] [address] [place] [address]. [address] [place] [address] Fax REHABILITATION SE RVICES INITIAL EVALUATION MR#: [id number] Acct: [id number] Name: MEL JOHNSON Rep #: [id number] : 1950 65 From: Sharee Castandea Referring Dr.: Trixie Steen Status: REG RCR Insurance: [facility] Ev[facility] Date: Patient's Visit Information MEL JOHNSON is [...] exercise program she can do at the [facility]- at least 3x a week- Ellip and does all the machines-does do some pilates has been out of practice 3 years. Pain is in the hip joint and its sharp and shooting.Pain does radiate into the lateral aspect of the quad but doesnt go past the knee. No N/T. Has increased restless leg since this has started. Worst:10, A gg: walking more then 3/4 mile, sitting for long periods and standing up, sleeping on her side. Sleep- disturbed. Best:0/10 Eases: heating pad at night and stretches. Tried a heel lift which made it w orse. J-cgrc-Mzbkslnoj in low back and transfering pain to the hips- Patient calls the chiropractor when she needs a fix-once every couple of week [facility] in [place]. Also tried ma ssage therapy but it [...] to be FAXED BACK to us at [phone] for Medicare purposes. Please let me know if there are questions or con cerns regarding this plan of care. Physician Signature: Date: <Electronically signed by Sharee Castaneda > 09/22/15 1702 CC: Trixie Krishna DO ELR Signed For Medicare only, by signing this I certify the plan of care. Physicians Signature Date 30-Aug-2015 L/S Spine Min 4 Views Result: Comments: See Note; NOTES: [facility] Imaging Services [address] [place] [address] Meng 4d L/S Spine Min 4 Views MR#: [id number] Acct: [id number] Name: CHAPARRITA RICANNAMEL Rep #: [id number] : 1950 F 65 From: James Baker MD PCP: Luann Krishna DO Status: REG CLI Study: L/S Spine Min 4 Views Date of Exam: 08/30/15 Exam# [id number] Ordering Dr: Trixie Steen STUDY: X-RAY - [...] James Baker MD at 14:59 EST Tel [phone], Service support [phone], RAD/L/S Spine Min 4 Views IMPRESSION: Degenerative changes of the spine, as detailed above. Grade 1 anterior listhesis of L4 on L5 without spondylolysis. Electronically Signed: James Baker MD at 14:59 EST Tel [phone], Service support [phone], CC: Trixie Krishna DO Cattle Sprayer: Signed 30-Aug-2015 Pelvis 1 or 2 Views Result: Comments: See Note; NOTES: [facility] Imaging Services [address] [place] [address] Verdana 4d Pelvis 1 or 2 Views MR#: [id number] Acct: [id number] Name: MEL JOHNSON Rep #: [id number] : 1950 F 65 From: James Baker MD PCP: Luann Krishna DO Status: REG CLI Study: Pelvis 1 or 2 Views Date of Exam: 08/30/15 Exam# [id number] Ordering Dr: Trixie Steen STUDY: X-RAY - [...] James Baker MD at 14:52 EST Tel [phone], Service support [phone], RAD/Pelvis 1 or 2 Views IMPRESSION: Mild degenerative changes of both hip joints. E lectronically Signed: James Baker MD at 14:52 EST Tel [phone], Service support [phone], CC: Trixie Steen; Luann Krishna DO Cattle Sprayer: Signed 30-Aug-2015 Sacrum-Coccyx min 2 Views Result: Comments: See Note; NOTES: [facility] Imaging Services [address] [place] [address] Verdana 4d Sacrum-Coccyx min 2 Views MR#: [id number] Acct: [id number] Name: MEL LEAVITT Rep #: [id number] : 1950 F 65 From: James Baker MD PCP: Luann Krishna DO Status: REG CLI Study: Sacrum-Coccyx min 2 Views Date of Exam: 08/30/15 Exam# [id number] Ordering Dr: Trixie Steen STUDY: X-RAY - [...] James Baker MD at 15:03 EST Tel [phone], Service support [phone], RAD/Sacrum-Coccyx min 2 Views IMPRESSION: Degenerative changes of the sacroiliac joints bilaterally. Electronically Signed: James Baker MD at 15:03 EST Tel [phone], Service support [phone], Fax CC: Trixie Krishna DO Cattle Sprayer: Signed Immunization Name Dates Details Influenza (3 years and up) on: 01-Jul-2009 Family History Unknown Family Member Name Dates Details Father Comments: Heart disease, [place] at 55 Status: Active Mother Comments: OA and osteoporosis. 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 Exercise History Comments: Light [...] smoker Vital Signs Date Test Result Details 40-Cqr-582639:00 Temperature 97.4 f Pulse 97 /min Comments: [...] kg/m2 Body Surface Area Calculated 1.56 m2 :33 Pulse 80 /min Comments: Pattern: Regular Respiration [...] kg/m2 Body Surface Area Calculated 1.63 m2 16-Tki-533337:25 Pulse 86 /min Comments: Pattern: Regular Respiration [...] Rodriguez and had a [facility]hearing [facility] machine was 154/105 145/100 p [...] kg/m2 Body Surface Area Calculated 1.65 m2 : Temperature 97.3 f Pulse 72 /min Comments: [...] Height 0 in Head Circumference 0.00 cm 29-Kkv-433020:00 Temperature 97.9 f Comments: Method: Oral Pulse [...] 0.00 cm Results Date Description Value Details 9-Hzu-523131:00 Hernia See Note (Normal) Comments: [facility] [address] [place] [address], [id number] Comments: Patient: MEL JOHNSON : 1950 (68/F) Acct Num: [id number] Phys: Kierra ROJAS, Unit Num: [id number] [place] [facility] [place] [place]: [id number] Received: 07/01/18 2737 Spec Type: Hernia TISSUES 1 TISSUES: HERNIA [...] cassette. / SJ:facundo 07/01/18 TC:5 C PT: 49001 HEADER OPERATION: Right inguinal herniorrhaphy with mesh PRE- OP DIAGNOSIS: Right inguinal hernia TISSUE SUBMITTED: Right inguinal cremasteric fibers MICROSCOPIC DESCRIPTION Slides are reviewed. MICROSCOPIC DIAGNOSIS Right inguinal cremasteric fibers, biopsy: Fragments of benign fibrovascular tissue and skeletal muscle tissue. AM:facundo 07/02/18 Signed Keegan Shuklaih 07/02/18 <signature on file> 2-Loi-689572:19 Basic Metabolic Profile (BMP) Comments: [facility] [address] [place], [place], [id number] GAP 9 (Normal) Range: 5-15 CO2 27.0 [...] Comments: Please note revised GLUCOSE reference range epymjaman46/02/2018. 6-Xov-328661:19 CBC-Complete Blood Cnt No Diff Comments: [facility] [address] [place], [place], [id number] MPV 9.3 fL (Normal) Range: 6.2-12.0 PLT [...] Range: 4.4-11.0 :32 CBC WITH MANUAL DIFF (69364) Comments: PATIENT NOT FASTINGPERFORMED BY: LabCoVirtua MarltonUdshsy8451 [facility] [id number] Immature Grans (Abs) 0.0 {x10E3/uL} (Normal) Range: [...] 3.77-5.28 WBC 4.9 {x10E3/uL} (Normal) Range: 3.4-10.8 7-Vif-965492:39 CALCIFIDIOL (39391) VIT D 25 Comments: PATIENT WAS FASTINGPERFORMED BY: [facility] Mupuuu3058 [facility] [id number] Vitamin D, 25-Hydroxy 61.4 ng/mL (Normal) Range: 30.0-100.0 Comments: Vitamin D deficiency has been defined by the [place] of[place]icine and an Endocrine Society practice guideline as alevel of serum 25-OH vitamin D less than 20 ng/mL (1,2).The Endocrine Society went on to further define vitamin Dinsufficiency as a level between 21 and 29 ng/mL (2).1. IOM ([place] of [place]). 2010. Dietary reference intakes for calcium and D. [place]: The National Academies Press.2. Rhoda MF, Kirsten DOW, Avani SAMANIEGO, et al. Evaluation, treatment, and prevention of vitamin D deficiency: an Endocrine Society clinical practice guideline. JCEM. 2010; 96(7):1911-30. 4-Iir-798052:39 LIPID PANEL (08103) Comments: PATIENT WAS FASTINGPERFORMED BY: [facility] Gtqlls7820 [facility] [id number] LDL/HDL Ratio 1.5 {ratio} (Normal) Range: 0.0-3.2 Comments: LDL/HDL Ratio Men Women 1/2 Avg.Risk 1.0 1.5 Av g.Risk 3.6 3.2 2X Avg.Risk 6.2 5.0 3X Avg.Risk 8.0 6.1 LDL Cholesterol Calc 97 mg/dL (Normal) Range: 0-99 VLDL Cholesterol Jessica 58 mg/dL (Abnormal) Range: 5-40 HDL Cholesterol 65 mg/dL (Normal) Triglycerides 288 mg/dL (Abnormal) Range: 0-149 Cholesterol, Total 220 mg/dL (Abnormal) Range: 100-199 68-Tkv-530540:45 TSH (45634) Comments: A courtesy copy of this report has been sent [phone].PATIENT WAS FASTINGPERFORMED BY: LabCoVirtua MarltonAqxddz3574 [facility] [id number] TSH 1.250 {uIU/mL} (Normal) Range: 0.450-4.500 88-Xda-370527:45 METABOLIC PANEL, COMPREHENSIVE Comments: A courtesy copy of this report has been sent [phone].PATIENT WAS FASTINGPERFORMED BY: [facility]6370 [facility] [id number] (19685) ALT (SGPT) 22 [iU]/L (Normal) Range: 0-32 [...] Glucose, Serum 78 mg/dL (Normal) Range: 65-99 88-Yeq-213937:45 CBC W/AUTO DIFF WBC Comments: A courtesy copy of this report has been sent [phone].PATIENT WAS FASTINGPERFORMED BY: LabCoVirtua MarltonIiorqb9547 [facility] [id number] Information: FX AZUCENA (20125) Immature Grans (Abs) 0.0 {x10E3/uL} (Normal) Range: [...] 3.77-5.28 WBC 3.8 {x10E3/uL} (Normal) Range: 3.4-10.8 63-Lav-948664:45 LIPID PANEL (24050) Comments: A courtesy copy of this report has been sent [phone].PATIENT WAS FASTINGPERFORMED BY: EngagorVirtua MarltonJbiqfn4991 [facility] [id number] LDL/HDL Ratio 1.3 {ratio_units} (Normal) Range: 0.0-3.2 Comments: LDL/HDL Ratio Men Women 1/2 Avg.Risk 1.0 1.5 Av g.Risk 3.6 3.2 2X Avg.Risk 6.2 5.0 3X Avg.Risk 8.0 6.1 LDL Cholesterol Calc 89 mg/dL (Normal) Range: 0-99 VLDL Cholesterol Jessica 52 mg/dL (Abnormal) Range: 5-40 HDL Cholesterol 68 mg/dL (Normal) Triglycerides 262 mg/dL (Abnormal) Range: 0-149 Cholesterol, Total 209 mg/dL (Abnormal) Range: 100-199 04-Gzg-292093:45 CALCIFIDIOL (33415) VIT D 25 Comments: A courtesy copy of this report has been sent [phone].PATIENT WAS FASTINGPERFORMED BY: EngagorVirtua MarltonVfumdx3609 [facility] [id number] Vitamin D, 25-Hydroxy 62.0 ng/mL (Normal) Range: 30.0-100.0 Comments: Vitamin D deficiency has been defined by the [place] of[place] and an Endocrine Society practice guideline as alevel of serum 25-OH vitamin D less than 20 ng/mL (1,2).The Endocrine Society went on to further define vitamin Dinsufficiency as a level between 21 and 29 ng/mL (2).1. IOM ([place]). 2010. Dietary reference intakes for calcium and D. [place]: The National Academies Press.2. Rhoda MF, Kirsten DOW, Avani SAMANIEGO, et al. Evaluation, treatment, and prevention of vitamin D deficiency: an Endocrine Society clinical practice guideline. JCEM. 2010; 96(7):1911-30. 91-Lzz-303407:40 HGB A1C (61458) Comments: PATIENT NOT FASTINGPERFORMED BY: LabEdward Ville 143887 [facility] [id number] BY: LabCoVirtua MarltonVmmrqv9533 [facility] [id number] Hemoglobin A1c 5.3 % (Normal) Range: 4.8-5.6 Comments: . Pre-diabetes: 5.7 - 6.4 Diabetes: >6.4 Glycemic control for adults with diabetes: <7.0 :40 HEPATITIS C ANTIBODY Comments: PATIENT NOT FASTINGPERFORMED BY: Engagor[address] [id number] BY: [facility] HospitalWebLincStephen Ville 9058870 [facility] [id number] (73800) Hep C Virus Ab 0.2 {s/co_ratio} (Normal) Range: 0.0-0.9 Comments: Negative: < 0.8 Indeterminate: 0.8 - 0.9 Positive: > 0.9 . The CDC recommends that a positive HCV antibody result be followed up with a HCV Nucleic Acid Amplification test (024828). :40 HEAVY METAL SCREEN Comments: PATIENT NOT FASTINGPERFORMED BY: Engagor[address] [id number] BY: EngagorStephen V[place] 9058870 [facility] [id number] (59417) Cadmium, Blood None Detected ug/L (Normal) Range: [...] ALE 30 . Detection Limit = 1 :40 MARY (ANTINUCLEAR ANTIBODY) Comments: PATIENT NOT FASTINGPERFORMED BY: [address] [id number] BY: [place] 6414470 [facility] [id number] (63583) MARY Direct Negative (Normal) 19-Wqi-123655:40 Serum Protein Comments: PATIENT NOT FASTINGPERFORMED BY: TuTanda[address] [id number] BY: TuTandaMunson Healthcare [facility]6370 [facility] [id number] Electrophoresis (SPEP) (62837) Please note: SPRCS (Normal) Comments: Protein electrophoresis scan will follow via computer, mail, orcourier delivery. A/G Ratio 1.6 (Normal) Range: 0.7-1.7 Globulin, Total 2.7 g/dL (Normal) Range: 2.2-3.9 M-Marek 0.3 g/dL (Abnormal) Gamma Globulin 0.7 g/dL (Normal) Range: 0.4-1.8 Beta Globulin 1.1 g/dL (Normal) Range: 0.7-1.3 Vzbhs-2-Jvkvkpqo 0.7 g/dL (Normal) Range: 0.4-1.0 Jenre-7-Xaepcahd 0.2 g/dL (Normal) Range: 0.0-0.4 Albumin 4.3 g/dL (Normal) Range: 2.9-4.4 07-Uwh-935357:40 VITAMIN B-12 Comments: PATIENT NOT FASTINGPERFORMED BY: Engagor[address] [id number] BY: EngagorStephen [place] 9058870 [facility] [id number] (CYANOCOBALAMIN) (63401) Vitamin B12 574 pg/mL (Normal) Range: 211-946 55-Wfs-000335:40 TSH (THYROID STIMULATING Comments: PATIENT NOT FASTINGPERFORMED BY: TuTanda[address] [id number] BY: TuTandaKenneth V[place] 3617870 [facility] [id number] HORMONE) (92057) TSH 1.230 {uIU/mL} (Normal) Range: 0.450-4.500 04-Bik-816141:40 SED RATE ERYTHROCYTE Comments: PATIENT NOT FASTINGPERFORMED BY: LabJohn [facility]. [facility]1447 [facility] [id number] BY: [place] 6414470 [facility] [id number] (29454) Sedimentation Rate-Westergren 2 mm/h (Normal) Range: 0-40 :40 METABOLIC PANEL, Comments: PATIENT NOT FASTINGPERFORMED BY: LabEdward V[place] 143887 [facility] [id number] BY: [facility]6370 [facility] [id number] COMPREHENSIVE (99734) ALT (SGPT) 22 [iU]/L (Normal) Range: 0-32 [...] Glucose, Serum 94 mg/dL (Normal) Range: 65-99 55-Lqn-822152:40 CBC & PLATELETS (AUTO) Comments: PATIENT NOT FASTINGPERFORMED BY: BN [facility] Izzwvtxsyz3123 [facility] [id number] BY: CB [facility] Majxar9766 [place] [id number] (92643) Platelets 269 {x10E3/uL} (Normal) Range: 150-379 RDW 13.2 % (Normal) Range: 12.3-15.4 MCHC 34.2 g/dL (Normal) Range: 31.5-35.7 MCH 32.9 pg (Normal) Range: 26.6-33.0 MCV 96 fL (Normal) Range: 79-97 Hematocrit 37.1 % (Normal) Range: 34.0-46.6 Hemoglobin 12.7 g/dL (Normal) Range: 11.1-15.9 RBC 3.86 {x10E6/uL} (Normal) Range: 3.77-5.28 WBC 4.7 {x10E3/uL} (Normal) Range: 3.4-10.8 3-Tll-533505:30 Culture, Urine Comments: [facility] [address] [place], [place], [id number] CUUR See Note (Normal) Comments: Urine CultureCulture exhibits no growth. 28-Pzi-192538:00 Estradiol Comments: [address] [place], [place], [address] ESTRADIOL < 11.0 pg/mL (Normal) Comments: NORMAL [...] SHOULD BE USED TO DETERMINE ESTRADIOL CONCENTRATION. 48-Gvr-484785:00 Progesterone Level Comments: [address] [place], [address] Progesterone 0.33 ng/mL (Normal) Comments: Progesterone Reference Table: UNITS Female: Follicular 0.15 - 1.40 ng/mL Luteal 3.34 - 25.56 ng/mL Mid-luteal 4.44 - 28.03 ng/mL Postmenopausal 0.0 - 0.73 ng/mL : 1st Trimester 11.22 - 90.00 ng /mL 2nd Trimester 25.55 - 89.40 ng/mL 3rd Trimester 48.40 -422.50 ng/mL 42-Rbl-179560:10 URINE VEENA CULTURE-KAREN COL Comments: PATIENT NOT FASTINGPERFORMED BY: Engagor bettercodes.org [facility] [id number] Information: SRC:UC COUNT (72508) Antimicrobial MIHEAD (Normal) Comments: S = Susceptible; [...] mL (Abnormal) Urine Final report Culture,Comprehensive (Abnormal) 66-Lou-397932:38 Urinalysis, Office (63564) UA - LEUKOCYTE ESTERASE Large (Normal) UA - NITRITE Negative (Normal) URINE UROBILINGN KAREN TIMED Normal mg/dL (Normal) UA - PROTEIN Negative mg/dL (Normal) UA - PH 7.0 (Normal) UA - BLOOD Non Hemolyzed Moderate (Normal) UA - SPECIFIC GRAVITY 1.020 (Normal) UA - KETONES Negative mg/dL (Normal) UA - BILIRUBIN Negative (Normal) UA - GLUCOSE Negative (Normal) 97-Axv-973409:58 URINE VEENA CULTURE-IDENTIFICATN Comments: PATIENT NOT FASTINGPERFORMED BY: [facility] Hnnxwx3634 [facility] [id number] Information: SRC:GUS (49938) Result 1 NG36 (Normal) Comments: No growth in 36 - 48 hours. Urine Culture,Comprehensive Final report (Normal) 39-Hhs-277913:26 Urinalysis, Office (49181) UA - LEUKOCYTE ESTERASE Negative (Normal) UA - NITRITE Negative (Normal) URINE UROBILINGN KAREN TIMED Normal mg/dL (Normal) UA - PROTEIN Negative mg/dL (Normal) UA - PH 6 (Abnormal) UA - BLOOD Hemolyzed Trace (Normal) UA - SPECIFIC GRAVITY 1.025 (Normal) UA - KETONES Small mg/dL (Normal) UA - BILIRUBIN Negative (Normal) UA - GLUCOSE Negative (Normal) 39-Zrg-740807:50 Iron Binding Capacity Comments: PATIENT NOT FASTINGPERFORMED BY: Engagor Vifsnd7409 [facility] [id number] Information: [id number] FEE 844179 (TIBC) (89313) Iron Saturation 32 % (Normal) Range: 15-55 Iron, Serum 115 ug/dL (Normal) Range: 27-139 UIBC 246 ug/dL (Normal) Range: 118-369 Iron Bind.Cap.(TIBC) 361 ug/dL (Normal) Range: 250-450 60-Zog-507426:50 Ferritin (95312) Comments: PATIENT NOT FASTINGPERFORMED BY: EngagorVirtua MarltonUcxuuk5529 [facility] [id number] Ferritin, Serum 111 ng/mL (Normal) Range: 15-150 94-Pdf-090485:50 CALCIFIDIOL (45857) VIT D 25 Comments: PATIENT NOT FASTINGPERFORMED BY: EngagorVirtua MarltonYkfglf7360 [facility] [id number] Vitamin D, 25-Hydroxy 43.2 ng/mL (Normal) Range: 30.0-100.0 Comments: Vitamin D deficiency has been defined by the [place] of[place] and an Endocrine Society practice guideline as alevel of serum 25-OH vitamin D less than 20 ng/mL (1,2).The Endocrine Society went on to further define vitamin Dinsufficiency as a level between 21 and 29 ng/mL (2).1. IOM ([place]). 2010. Dietary reference intakes for calcium and D. [place]: The National Academies Press.2. Rhoda MF, Kirsten [place], Avani SAMANIEGO, et al. Evaluation, treatment, and prevention of vitamin D deficiency: an Endocrine Society clinical practice guideline. JCEM. 2010; 96(7):1911-30. :50 RETICULOCYTE COUNT (15436) Comments: PATIENT NOT FASTINGPERFORMED BY: [facility] Pzxbqx3303 [facility] [place] [id number] Reticulocyte Count 1.3 % (Normal) Range: 0.6-2.6 :50 VITAMIN B-12 (CYANOCOBALAMIN) Comments: PATIENT NOT FASTINGPERFORMED BY: [facility] Fjffzg0990 [facility] [id number] (40160) Vitamin B12 389 pg/mL (Normal) Range: 211-946 95-Xus-511001:03 Urinalysis, Office (91773) UA - LEUKOCYTE ESTERASE Negative (Normal) UA - NITRITE Negative (Normal) URINE UROBILINGN KAREN Normal mg/dL (Normal) TIMED UA - PROTEIN Negative mg/dL (Normal) UA - PH 7.5 (Normal) UA - BLOOD Negative (Normal) UA - SPECIFIC GRAVITY 1.015 (Normal) UA - KETONES Negative mg/dL (Normal) UA - BILIRUBIN Negative (Normal) UA - GLUCOSE Negative (Normal) 38-Qwz-09619:0 BREAST BIOPSY (CHOOSE See Note (Normal) Comments: [facility] Gppecdhfvi[address] [facility]. [place], [place], [address] 0 SITE) Comments: Patient: MEL JOHNSON : 1950 (65/F) Acct Num: [id number] Phys: Jaya ROJAS,Nilo Unit Num: [id number] Loc: [facility] Specimen: [id number] Received: 01/19/161120 Spec Type: BR EAST BX [...] in two cassettes. / SJ:facundo 01/19/16 TC:5 CPT:60712 x2 HEADER OPERATION: Bilateral stereotactic breast biopsy [...] evidence of malignancy. AM:facundo 01/20/16 Signed Keegan [facility] 01/20/16 <signature on file> :36 CCP ANTIBODY (93039) Comments: PATIENT NOT FASTINGPERFORMED BY: emploi.usAffinity Health Partners [id number] BY: [employer] [id number] CCP Antibodies IgG/IgA 9 {units} (Normal) Range: 0-19 Comments: Negative <20 Weak positive 20 - 39 Moderate positive 40 - 59 Strong positive >59 :36 SED RATE ERYTHROCYTE Comments: PATIENT NOT FASTINGPERFORMED BY: [employer]70 ThundersoftAffinity Health Partners [id number] BY: [employer] [id number] (50804) Sedimentation Rate-Westergren 3 mm/h (Normal) Range: 0-40 :36 C-REACTIVE PROTEIN (11573) Comments: PATIENT NOT FASTINGPERFORMED BY: [employer]oi.usAffinity Health Partners [id number] BY: [place] 098797 [facility] [id number] C-Reactive Protein, Quant 0.4 mg/L (Normal) Range: 0.0-4.9 :36 RHEUMATOID FACTOR-QUANT Comments: PATIENT NOT FASTINGPERFORMED BY: [place] 6414470 [facility] [id number] BY: [address] [id number] Information: [id number] (43118) RA Latex Turbid. 10.2 {IU/mL} (Normal) Range: 0.0-13.9 :36 MARY (ANTINUCLEAR ANTIBODY) Comments: PATIENT NOT FASTINGPERFORMED BY: [facility]6370 [facility] [id number] BY: [address] [id number] (08534) MARY Direct Negative (Normal) 0-Xed-282763:01 IGP, Aptima HPV, Comments: Source.............Cervical;EndocervicalNo. of containers..01 CYTYC Thin Prep VialPATIENT NOT FASTINGPERFORMED BY: =G [address] [id number] BY: WB L rfx 16/18,[address] [facility] [address] [id number] HPV Aptima Negative (Normal) Comments: This test [...] of atrophy.V 72.31 ; Routine gynecological examinationAngelia Scanlon, Tin Plater (ASCP) 7-Img-810148:01 Thin Prep Pap Comments: Source.............Cervical;EndocervicalNo. of containers..01 CYTYC Thin Prep VialPATIENT NOT FASTINGPERFORMED BY: =G [employer] [place] [id number] BY: WB L (07252) [employer] W [id number] Information: [id number] Age Gdln ACOG Testing 30-65 (Normal) 21-Hcj-662162:09 LYMS tLYMINT1 Negative (Normal) Comments: Performed at: [facility] [id number] Director: Avinash Angulo MD, Phone: [phone] tLYMINT2 Test not performed (Normal) tLYMS <0.91 {index} (Normal) Range: 0.00-0.90 Comments: Negative <0.91Equivocal 0.91 - 1.09Positive >1.09Note: The CDC currently advises that Western blottesting be performed following all equivocal orpositive EIA results. Final diagno sis should includeappropriate clinical findings and a positive EIAwhich is also positive by Western blot. :22 HPV automatic Comments: Source.............Cervical;EndocervicalNo. of containers..01 CYTYC Thin Prep VialPATIENT NOT FASTINGPERFORMED BY: WB [employer] [place] [id number] BY: =G L (96493) abCAito BV120 AncerarStrikingly [place] [id number] Information: [id number] HPV, high-risk Negative Comments: This high-risk HPV [...] screening examination , human papillomavirus [HPV]Chan Bateman Tin Plater (ASCP) 1-Kyf-240169:10 CTA NECK W/WO CONTRAST Radiology Report See [...] 23, 2012 at 9:29:04 PM EDTElectronically Signed / Professional Interpretation Provided By: [facility], Phone , To consult with a radiologist regarding this report, please call our 21K5rrmtlae line @ Dictated on 02/23/12 1724 by Julissa ROJAS, SupratikTranscribed on 02/23/122133 by ITS IMPORTSign by Julissa ROJAS Suprarikk on 02/23/122134 Sign by: uJlissa ROJAS, Supratik 2-Dew-472671:51 BMP GAP 8 (Normal) Range: 5-15 CO2 [...] 7-18 GLU 92 mg/dL (Normal) Range: 70-110 68-Bob-024277:08 Thin prep Pap Comments: Source.............Cervical;EndocervicalNo. of containers..01 CYTYC Thin Prep VialPATIENT NOT FASTINGPERFORMED BY: [facility] [address] [place] [id number] Information: [id number] (47513) Note: PAPSMR (Normal) Comments: The Pap smear [...] atrophy.V 72.31 ; Routine gynecological examinationBertha Ness Tin Plater (ASCP) 0-Oyz-282496:26 Urinalysis, Office (64947) UA - BILIRUBIN Negative (Normal) UA - BLOOD Hemolyzed Trace (Normal) UA - GLUCOSE Negative (Normal) UA - KETONES Negative mg/dL (Normal) UA - LEUKOCYTE ESTERASE Negative (Normal) UA - NITRITE Negative (Normal) UA - PH 6.0 (Normal) UA - PROTEIN Negative mg/dL (Normal) UA - SPECIFIC GRAVITY 1.025 (Normal) URINE UROBILINGN KAREN TIMED Normal mg/dL (Normal) 34-Ksr-367704:23 URINE VEENA CULTURE-KAREN COL Comments: PATIENT NOT FASTINGPERFORMED BY: CB [facility] Mrdqzy4143 [facility]University [facility] [id number] Information: SRC: URINE COUNT (67276) Antimicrobial MIHEAD (Normal) Comments: S = Susceptible; [...] Final report Culture,Comprehensive (Normal) :16 Urinalysis, Office (53425) UA - BILIRUBIN Small (Normal) UA - [...] size of the right kidney. The right nwxkzerkiprzao88.4 cm. Normal renal cortex. The renal cortex measures 1.2 cm. Thereisno demonstrated renal mass or cyst. There are no demonstrated re nalcalculi. There is no hydronephrosis. There is no ascites. IMPRESSION:Normal abdominal ultrasound examination. Dictated on 06/20/11836 by Greta Baker MDeleTranscribed on 06/20/11932 by JULIANE Davidson IMPORTSign by James Baker MD on 06/20/11933 Sign by: James Baker MD C-REACTIVE PROT [...] 4.2-5.4 WBC 5.1 K/mm3 (Normal) Range: 4.4-11.0 15-Lda-837316:10 ABDOMEN/PELVIS WITH CONTRAST Radiology Report See Note [...] on 06/13/111810 by NILA RAMIREZ DOTranscribed on 09/20/11 1847 by ITS IMPORTSign by NILA RAMIREZ DO [...] mg/dL suggests DIABETES MELLITUS per A.D.A. criteria. 41-Kmx-187339:27 URINE VEENA CULTURE (KAREN Comments: PATIENT NOT FASTINGPERFORMED BY: LabCoVirtua MarltonKyxkwv1591 [facility] [id number] Information: SRC:UR [id number] COL COUNT) (12629) Result 1 NG36 (Normal) Comments: No growth in 36 - 48 hours. Urine Culture,Comprehensive Final report (Normal) 68-Qqj-836942:03 Urinalysis, Office (07301) UA - BILIRUBIN Negative (Normal) UA - BLOOD Hemolyzed Trace (Normal) UA - GLUCOSE Negative (Normal) UA - KETONES Negative mg/dL (Normal) UA - LEUKOCYTE ESTERASE Negative (Normal) UA - NITRITE Negative (Normal) UA - PH 5.0 (Normal) UA - PROTEIN Negative mg/dL (Normal) UA - SPECIFIC GRAVITY 1.025 (Normal) URINE UROBILINGN KAREN TIMED Normal ug/dL (Normal) 87-Acu-39045:00 ABDOMEN/PELVIS WITH CONTRAST Radiology Report See Note [...] this report was confirmed by Smita Argueta [facility] with Dr. Krishna , covering physician, on 04/17/2011 22:07:20 (ET),who further ve rifies that the report has been read and understood, withnofurther consultation required. Dictated on 04/17/111957 by TIMOTEO MACHADOTranscribed on 04/17/112211 by ITS IMPORTSign by TIMOTEO MACHADO on 04/17/112212 Sign by: TIMOTEO MACHADO 29-Eev-91119:59 Thin prep Pap Comments: Source.............Cervical;EndocervicalNo. of containers..01 CYTYC Thin Prep VialPATIENT NOT FASTINGPERFORMED BY: [facility] [address] [facility] [place] [id number] Information: [id number] (07707) Note: PAPSMR (Normal) Comments: The Pap smear [...] atrophy.V 72.31 ; Routine gynecological examinationAnny Hill Tin Plater (ASCP) 2-Sdd-150128:00 Urinalysis, Office (58138) UA - BILIRUBIN Negative (Normal) UA - BLOOD Non Hemolyzed Trace (Normal) UA - GLUCOSE Negative (Normal) UA - KETONES Negative mg/dL (Normal) UA - LEUKOCYTE ESTERASE Negative (Normal) UA - NITRITE Negative (Normal) UA - PH 6.0 (Normal) UA - PROTEIN Negative mg/dL (Normal) UA - SPECIFIC GRAVITY 1.005 (Normal) URINE UROBILINGN KAREN TIMED 2 mg/dL (Normal) 20-Ttz-387744:44 Urinalysis, Office (03049) UA - BILIRUBIN Negative (Normal) UA - BLOOD Non Hemolyzed Trace (Normal) UA - GLUCOSE Negative (Normal) UA - KETONES Negative mg/dL (Normal) UA - LEUKOCYTE ESTERASE Negative (Normal) UA - NITRITE Negative (Normal) UA - PH 5.0 (Normal) UA - PROTEIN Negative mg/dL (Normal) UA - SPECIFIC GRAVITY 1.025 (Normal) URINE UROBILINGN KAREN TIMED 2 mg/dL (Normal) 75-Fls-105551:50 URINE VEENA CULTURE-KAREN COL Comments: PATIENT NOT FASTINGClinical Information: SRC:UR ADD [id number] PERFORMED BY: SHELIA [facility] [id number] [facility] [id number] COUNT ([id number]) Result 1 ECV (Normal) Comments: Escherichia coli, [...] notrecommended. (GREGORIA Guy. Clinical Microbiology Newsletter,1993; RAPHAEL Mcdonald, et al. Diagnostic Microbiology andInfectious Disease, February,.) S = Susceptible; I = Intermediate; R = Resistant P = Positive; N = Negative MICS are expressed in micrograms per mL Antibiotic RSLT#1 RSLT#2 RSLT#3 RSLT#4Amoxicillin/Clavulan ic Acid SAmpicillin SCefepime SCeftriaxone SCefuroxime SCephalothin SCiprofloxacin SESBL NGentamicin SImipenem SLevofloxacin SNitrofurantoin SPiperacillin/Tazobactam STetracyc line STobramycin STrimethoprim/Sulfa S Urine Final report (Normal) Culture,Comprehensive 58-Wln-86638:55 Urinalysis, Office (75818) UA - BILIRUBIN Negative (Normal) UA - BLOOD Hemolyzed Large (Normal) UA - GLUCOSE Negative (Normal) UA - KETONES Negative mg/dL (Normal) UA - LEUKOCYTE ESTERASE Moderate (Normal) UA - NITRITE Negative (Normal) UA - PH 5.0 (Normal) UA - PROTEIN 100 mg/dL (Normal) UA - SPECIFIC GRAVITY 1.025 (Normal) URINE UROBILINGN KAREN TIMED 2 mg/dL (Normal) 96-Azy-799830:58 BILAT SCRN DIGITAL & CAD Radiology Report See Note (Normal) Comments: Exam Number: [id number] BILATERAL SCREENING MAMMOGRAM COMPARISON STUDY September 14, [...] mammograms werealso examined with computer-aided detection software ([facility] Reported By: MARISABEL KRAUSE M.D. 19-Fth-708460:14 Thin prep Pap Comments: Source.............Cervical;EndocervicalLMP / Prev Treat...XGA=[id number]. of containers..01 CYTYC Thin Prep VialPATIENT NOT FASTINGPERFORMED BY: [facility] [id number] ([id number]) . . (Normal) DIAGNOSIS: SPRCS (Normal) Comments: NEGATIVE FOR INTRAEPITHELIAL LESION AND MALIGNANCY.Satisfactory for evaluation. Endocervical component may not bedistinguished in cases of atrophy.V72.31 ; Routine gynecological examination Sharee Maciel Tin Plater (ASCP) Note: PAPSMR (Normal) Comments: The Pap [...] urine 1 week after complete antibiotic with [facility] Indication: Dysuria Well woman exam with routine gynecological exam : *Well Female Maintenance (KF) Indication: Well woman exam with routine gynecological exam Well woman exam with routine gynecological exam : Pap/Pelvic/Bimanual/Rectal/Breast Exam was done. Indication: Well woman exam with routine gynecological exam LACERATION, NOS : Follow up Sunday with [facility] for recheck Indication: LACERATION, NOS Perioral dermatitis [...] exam with routine gynecological exam Planned Observations GIANCARLO GLASS ([id number])Indication: Pain in unspecified joint (Renamed from Joint pain) On: 96-Qgy-737955:16 Request HLA-B27 ANTIGEN (21100)Indication: Pain in unspecified joint (Renamed from Joint pain) On: 34-Iby-595255:16 Request Lyme Disease Antibody W/ Reflex (87528)Indication: Pain in unspecified joint (Renamed from Joint pain) On: 00-Xmn-455488:16 Request CCP ANTIBODY (70550)Indication: Pain in unspecified joint (Renamed from Joint pain) On: 63-Vcf-739428:16 Request SED RATE ERYTHROCYTE (22314)Indication: Pain in unspecified joint (Renamed from Joint pain) On: 95-Gqo-685354:16 Request C-REACTIVE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
== END ==
PROVIDERS: Family Provider Internal Medicine; PCP Internal Medicine; Referring Provider Nurse Practitioner Gerontology; Visit Provider Nurse Practitioner Gerontology
DX: M19.049 Primary osteoarthritis, unspecified hand (principal)
CPT/HCPCS: 73130

== ENCOUNTER → 2019-03-03 | Outpatient (CLI) | payer MEDICARE, SELFPAY ==
--- NOTE | 2019-03-03 15:33 | MRI_ITS ---
STUDY: MRI CERVICAL SPINE WITHOUT CONTRAST REASON FOR EXAM: Female, 68 years old. Right arm radiculopathy with lifting injury in January TECHNIQUE: Standardized fat and water weighted pulse sequences were obtained in the sagittal and axial planes. COMPARISON: 02/20/2017 FINDINGS: Normal foramen magnum and brainstem-cervical cord junction. Normal craniovertebral junction. There are degenerative changes of the anterior atlantoaxial articulation. Normal odontoid process. Stable 3 mm of C7-T1 anterolisthesis. Normal vertebral bodies and posterior osseous elements. C2-3: Normal endplates. Normal disc height, signal and morphology. Normal central canal and intervertebral neural foramina. C3-4: Disc osteophyte complex and left facet hypertrophy with moderate to severe left foraminal stenosis. C4-5: Disc osteophyte complex with bilateral facet hypertrophy. Mild central canal and severe left and moderate right foraminal stenoses. C5-6: Disc osteophyte complex and left facet hypertrophy with mild central canal stenosis and severe left and mild right foraminal stenoses. C6-7: Disc osteophyte complex with mild to moderate central canal stenosis and severe right and mild left foraminal stenoses. C7-T1: Disc osteophyte complex with moderate to severe left foraminal stenosis. Normal cervical cord. Incompletely imaged upper thoracic disc disease. Normal visualized soft tissue structures. MRI/Spine Cervical (Routine) IMPRESSION: Multilevel degenerative disease as described, no significant change from prior study. Severe right foraminal stenosis at C6-7. Severe left foraminal stenosis at C5-6. Severe left foraminal stenosis at C4-5. Stable 3 mm of C7-T1 anterolisthesis. Electronically Signed: Phillip Sharma MD at 17:11 EDT Tel , Service support ,
== END | disposition home or self-care (01) ==
PROVIDERS: Family Provider Internal Medicine; PCP Internal Medicine; Referring Provider Internal Medicine; Visit Provider Internal Medicine
DX: M54.12 Radiculopathy, cervical region (principal)
CPT/HCPCS: 72141

== ENCOUNTER → 2019-04-18 | Outpatient (CLI) | payer MEDICARE, SELFPAY ==
--- NOTE | 2019-04-18 10:01 | BI_ITS ---
MAMMOGRAPHY - BILATERAL SCREENING 3-D TOMOSYNTHESIS REASON FOR EXAM: Female, 69 years old. Bilateral Screening 3-D tomosynthesis PERTINENT HISTORY: Grandmother with breast cancer. Previous breast biopsies. TECHNIQUE: 2-D mammograms and 3-D Tomosynthesis of the breast (s) were performed. CAD was performed. COMPARISON: 01/31/2018 FINDINGS: The breast composition is heterogeneously dense that can obscure small breast masses. Scattered benign calcifications are seen. No dense spiculated masses or suspicious microcalcifications are identified. No architectural distortion is identified. There is no skin thickening or retraction. Stable punctate calcifications throughout both breasts. There has been no significant change since the prior study. BI/SCREEN MAMM (CAD) W/LEN BILAT IMPRESSION: No mammographic signs of malignancy. Routine yearly mammograms recommended. ASSESSMENT CATEGORY: BIRADS Category 2: Benign. A letter regarding these results will be sent to the patient by the facility within 30 days. FOLLOW UP RECOMMENDATION: Yearly follow up mammogram recommended. (A) Approximately 10% of breast cancers are not detected by mammography. A normal mammogram should not delay biopsy of a clinically suspicious abnormality. Electronically Signed: Norman Caputo MD at 11:02 EDT , Service support ,
== END | disposition home or self-care (01) ==
LOC: OPBI 10:00
PROVIDERS: Family Provider Internal Medicine; PCP Internal Medicine; Referring Provider Internal Medicine; Visit Provider Internal Medicine
DX: Z12.31 Encounter for screening mammogram for malignant neoplasm of breast (principal)
CPT/HCPCS: 77063; 77067

== ENCOUNTER → 2019-07-21 12:33 | Outpatient (CLI) | payer MEDICARE, SELFPAY ==
--- NOTE | 2019-07-21 12:39 | RAD_ITS ---
STUDY: X-RAY - PELVIS AND RIGHT HIP REASON FOR EXAM: Female, 69 years old. Pain. TECHNIQUE: 3 views of the pelvis and hip. COMPARISON: 08/30/2015. FINDINGS: There is increased fecal debris consistent with constipation. Normal visualized soft tissue structures. There is diffuse demineralization of the osseous structures. There is narrowing with cortical sclerosis and osteophyte formation of the sacroiliac joint consistent with degenerative osteoarthritic changes. Normal bilateral superior and inferior pubic rami. There are degenerative changes of the pubic symphysis with articular narrowing and sclerosis. Normal bilateral ischial tuberosities. There are mild osteoarthritic changes of the femoral head with marginal osteophyte formation. There is osteoarthritic spur formation of the acetabular rim. There is moderate to severe articular joint space narrowing of the hip. RAD/HIP, UNI W/ Pelvis 2-3 Views IMPRESSION: Moderate to severe degenerative disease of the right hip. No acute fracture or subluxation. Electronically Signed: Melissa Lindquist MD at 1:39 EDT , Service support ,
--- NOTE | 2019-07-21 12:39 | RAD_ITS ---
STUDY: X-RAY - RIGHT CLAVICLE REASON FOR EXAM: Female, 69 years old. Pain. TECHNIQUE: 2 view(s) of the clavicle. COMPARISON: None. FINDINGS: There is demineralization of the clavicle. There is mild degenerative arthrosis of the acromioclavicular joint without inferior osseous prominence. Normal visualized sternoclavicular articulation. Normal visualized pulmonary apex. RAD/Clavicle IMPRESSION: Diffuse osteopenia along with mild degenerative disease. Electronically Signed: Melissa Lindquist MD at 1:39 EDT , Service support ,
== END ==
PROVIDERS: Family Provider Internal Medicine; PCP Internal Medicine; Referring Provider Internal Medicine; Visit Provider Internal Medicine
DX: M89.319 Hypertrophy of bone, unspecified shoulder (principal); M25.551 Pain in right hip
CPT/HCPCS: 73000; 73502

== ENCOUNTER → 2019-07-22 | Outpatient (CLI) | payer MEDICARE, SELFPAY ==
--- NOTE | 2019-07-22 14:30 | MRI_ITS ---
STUDY: MRI LUMBAR SPINE WITHOUT CONTRAST REASON FOR EXAM: Female, 69 years old. Stenosis, back pain, right hip pain TECHNIQUE: Standardized fat and water weighted pulse sequences were obtained in the sagittal and axial planes. COMPARISON: 12/30/2015 FINDINGS: T12-L1: Normal endplates. Normal disc height, hydration and morphology. Normal bilateral facet joints. Normal central canal and bilateral lateral recesses. Normal bilateral intervertebral neural foramina. Normal lumbar lordosis. Reverse S scoliosis. Normal conus medullaris that terminates at the L1 level. L1-2: Disc space narrowing and desiccation with discogenic endplate changes and anterior osteophytes. Bulging annulus with mild right foraminal stenosis. L2-3: Disc space narrowing and desiccation with discogenic endplate changes and anterior osteophytes. Bulging annulus with mild central canal and moderate right and mild left foraminal stenoses. L3-4: Bulging annulus and bilateral facet and ligamentum flavum hypertrophy with facet joint effusions. Mild central canal and moderate left lateral recess stenoses. Moderate bilateral foraminal stenoses. L4-5: Bulging annulus and bilateral facet and ligamentum flavum hypertrophy and right facet joint effusion with moderate central canal stenosis, moderate to severe left lateral recess stenosis, and moderate left and mild right foraminal stenoses. L5-S1: Bulging annulus and bilateral facet hypertrophy and facet joint effusions with moderate central canal stenosis, severe right lateral recess stenosis, and mass effect on the transiting right S1 nerve root. Moderate bilateral foraminal stenoses. Incidental sacral Tarlov cysts. Normal visualized paraspinous soft tissue structures. MRI/Spine Lumbar (Routine) IMPRESSION: Multilevel degenerative disease as described. Severe right lateral recess stenosis at the L5-S1 level, with mass effect on the transiting right S1 nerve root. Moderate foraminal stenoses on the right at L2-3, bilaterally at L3-4, on the left at L4-5, and bilaterally at L5-S1. Electronically Signed: Phillip Sharma MD at 16:39 EDT Tel , Service support ,
== END | disposition home or self-care (01) ==
LOC: MRI 13:51
PROVIDERS: Family Provider Internal Medicine; PCP Internal Medicine
DX: M54.5 Low back pain (principal); M62.830 Muscle spasm of back
CPT/HCPCS: 72148

== ENCOUNTER → 2019-07-31 08:58 | Outpatient (CLI) | payer MEDICARE, SELFPAY ==
[2018-07-01 10:10] VITALS: BMI 19.8
== END ==
PROVIDERS: Family Provider Internal Medicine; PCP Internal Medicine; Referring Provider Internal Medicine; Visit Provider Internal Medicine
DX: R09.89 Other specified symptoms and signs involving the circulatory and respiratory systems (principal)
CPT/HCPCS: 93930

== ENCOUNTER → 2019-08-14 13:00 | Outpatient (CLI) | payer MEDICARE, SELFPAY ==
--- NOTE | 2019-08-14 13:01 | CDU_ITS ---
Reason For Study: Occlusion and stenosis of carotid artery Rt. Velocities/BP Lt. Velocities/BP Prox CCA 132.1/26.1 cm/sec. Prox CCA 96.1/28.6 cm/sec. Mid CCA 84.6/18.8 cm/sec. Mid CCA 71.6/24.9 cm/sec. Dist CCA 77.7/18.8 cm/sec. Dist CCA 66.7/12.2 cm/sec. Prox ICA 72.8/22.5 cm/sec. Prox ICA 67.9/22.5 cm/sec. Mid ICA 72.8/16.2 cm/sec. Mid ICA 85.1/37.23 cm/sec. Dist ICA 67.9/28.6 cm/sec. Dist ICA 93.7/38.9 cm/sec. Rt. ICA/CCA = 0.9. Lt. ICA/CCA = 1.3. Prox ECA 72.8/9 cm/sec. Prox ECA 60.5/7.7 cm/sec. Rt. Vert. 69.1/20 cm/sec. Lt. Vert. 65.5/22 cm/sec. Right Extracranial There is intimal thickening but no significant atherosclerotic plaque noted in the right common carotid artery. There is intimal thickening but no significant atherosclerotic plaque noted in the right internal carotid artery. There is intimal thickening but no significant atherosclerotic plaque noted in the right external carotid artery. Antegrade flow is noted in the right vertebral artery. Left Extracranial There is intimal thickening but no significant atherosclerotic plaque noted in the left common carotid artery. There is heterogeneous, smooth atherosclerotic plaque noted in the left internal carotid artery. The atherosclerotic plaque causes acoustic shadowing. There is no significant atherosclerotic plaque noted in the left external carotid artery. Antegrade flow is noted in the left vertebral artery. Procedure Carotid Duplex [id number]. Exam performed in department. Interpretation Summary No significant atherosclerotic plaque or stenosis noted in the right internal carotid artery. Mild (<50%) stenosis left extracranial internal carotid. However, acoustic shadowing obscures visualization of the proximal left internal carotid artery lumen. Therefore, the degree of stenosis may exceed that which is estimated by velocity criteria alone. In this regard, clinical correlation is advised, and alternative imaging may be helpful. Flow within the vertebral arteries is antegrade bilaterally. Ordering Physician: Susan Rojas Referring Physician: Susan Rojas Performed By: Angélica Stroud RVT
== END ==
PROVIDERS: Family Provider Internal Medicine; PCP Internal Medicine; Referring Provider Internal Medicine; Visit Provider Internal Medicine
DX: I65.23 Occlusion and stenosis of bilateral carotid arteries (principal)
CPT/HCPCS: 93880

== ENCOUNTER → 2020-05-21 14:09 | Outpatient (CLI) | payer MEDICARE, SELFPAY ==
--- NOTE | 2020-05-21 14:22 | BI_ITS ---
MAMMOGRAPHY - BILATERAL SCREENING REASON FOR EXAM: Female, 70 years old. Routine annual screening examination. PERTINENT HISTORY: Grandmother with breast cancer. Father with breast cancer. Remote bilateral stereotactic breast biopsies. TECHNIQUE: Digital bilateral breast len (3D mammographic acquisition) in the CC and MLO projections. 2-D mediolateral oblique (MLO) and craniocaudad (CC) views of both breasts were obtained. CAD: Full Field Digital Mammography with Computer Added Detection was performed. COMPARISON: Comparison is made with prior study dated 04/18/2019 and 01/31/2018. FINDINGS: Breast Composition: The breasts are heterogeneously dense, which may obscure small masses. There are no dominant masses or suspicious calcifications. Once again, scattered bilateral calcifications are seen. No focal clusters present. A tissue marker is seen in the upper lateral portion of the left breast. A tissue clip marker is also seen in the upper lateral portion of the right breast. No other significant abnormalities are identified. There has been no significant change since the prior study. BI/SCREEN MAMM (CAD) W/LEN BILAT IMPRESSION: Stable bilateral screening mammogram. Yearly follow-up mammogram recommended. (A) ASSESSMENT CATEGORY: BIRADS Category 2: Benign. A letter regarding these results will be sent to the patient by the facility within 30 days. Approximately 10% of breast cancers are not detected by mammography. A normal mammogram should not delay biopsy of a clinically suspicious abnormality. [id number] Electronically Signed: James Baker, at 15:27 EDT , Service support ,
== END ==
PROVIDERS: PCP Internal Medicine; Referring Provider Internal Medicine; Visit Provider Internal Medicine
DX: Z12.31 Encounter for screening mammogram for malignant neoplasm of breast (principal)
CPT/HCPCS: 77063; 77067

== ENCOUNTER → 2020-09-01 11:01 | Outpatient (CLI) | payer MEDICARE, SELFPAY ==
[2018-07-01 10:10] VITALS: BMI 19.8
--- NOTE | 2020-09-01 11:07 | BD_ITS ---
STUDY: DUAL ENERGY X-RAY ABSORPTIOMETRY / DXA REASON FOR EXAM: Female, 70 years old. [employer] -- HRT CURRENTLY -- HX OF SMOKING 40+YRS AGO -- TAKES GABAPENTIN -- TAKES CALCIUM -- DOES MODERATE AMOUNT OF EXERCISE -- FAMILY HX OF OSTEO- MOTHER -- HX OF RIGHT HIP REPLACEMENT -- VICKY OF 2.5 INCHES TECHNIQUE: Bone Mineral Density (BMD) measurements of lumbar spine and left hip were obtained. COMPARISON: Comparison is made with prior study dated 01/31/2018. FINDINGS: Lumbar Spine (L1-L4): g/cm2 (1.268) / T-score (0.6) / Z-score (2.3) Findings are suggestive of normal bone density with a low fracture risk. Left Femur Total: g/cm2 (0.770) / T-score (-1.9) / Z-score (-0.3) Left Femoral Neck: g/cm2 (0.785) / T-score (-1.8) / Z-score (-0.1) The T-Scores on the most recent prior examination were: Lumbar Spine (L1-L4): There has been worsening of bone density since the previous examination. Left Femur Total: which represents a worsening of 10.4%. BD/Dexa Bone Density Study IMPRESSION: The patient is considered osteopenic as outlined below according to World Geoff Organization (WHO) criteria with a moderate fracture risk. There has been worsening of bone density since the previous examination. Reference Information: The T-score is the number of standard deviations above or below the standard which is normal for young adults at their peak bone mineral density. The World Health Organization (WHO) interprets the T-scores as follows: Above -1 Normal bone density Between -1 and -2.5 Osteopenia Equal to / or below -2.5 Osteoporosis As a practical clinical guideline, osteopenia may be graded as follows: Mild -1 through -1.5 Moderate -1.6 through -2.0 Severe -2.1 through -2.4 The Z-score is the number of standard deviations above or below age-matched controls. A Z-score of less than -1.5 would be considered abnormal. References: 1. NIH Osteoporosis and Related Bone Diseases www osteo.org 2. International Society for Clinical Densitometry www iscd.org 3. National Osteoporosis Foundation www nof.org Electronically Signed: James Baker, at 15:34 EST , Service support ,
== END ==
PROVIDERS: PCP Internal Medicine; Visit Provider Internal Medicine
DX: Z78.0 Asymptomatic menopausal state (principal)
CPT/HCPCS: 77080

== ENCOUNTER → 2021-05-23 12:55 | Outpatient (CLI) | payer MEDICARE, SELFPAY ==
--- NOTE | 2021-05-23 12:56 | BI_ITS ---
MAMMOGRAPHY - BILATERAL SCREENING 3-D TOMOSYNTHESIS REASON FOR EXAM: Female, 71 years old. SCREENING PERTINENT HISTORY: No significant family history. TECHNIQUE: 2-D mammograms and 3-D Tomosynthesis of the breast (s) were performed. CAD was performed. COMPARISON: 05/21/2020 FINDINGS: The breast composition is heterogeneously dense that can obscure small breast masses. Scattered benign calcifications are seen. No dense spiculated masses or suspicious microcalcifications are identified. No architectural distortion is identified. There is no skin thickening or retraction. There has been no significant change since the prior study. BI/SCRN MAMM (CAD)W/LEN BILAT IMPRESSION: No mammographic signs of malignancy. Routine yearly mammograms recommended. ASSESSMENT CATEGORY: BIRADS Category 1: Negative. A letter regarding these results will be sent to the patient by the facility within 30 days. FOLLOW UP RECOMMENDATION: Yearly follow up mammogram recommended. (A) Approximately 10% of breast cancers are not detected by mammography. A normal mammogram should not delay biopsy of a clinically suspicious abnormality. Electronically Signed: Jose Turner MD at 14:20 EDT Tel , Service support ,
== END ==
PROVIDERS: PCP Internal Medicine; Referring Provider Internal Medicine; Visit Provider Internal Medicine
DX: Z12.31 Encounter for screening mammogram for malignant neoplasm of breast (principal)
CPT/HCPCS: 77063; 77067

== ENCOUNTER → 2022-05-24 | Outpatient (CLI) | payer MEDICARE, SELFPAY ==
--- NOTE | 2022-05-24 12:27 | BI_ITS ---
MAMMOGRAPHY - BILATERAL SCREENING REASON FOR EXAM: Female, 72 years old. Routine annual screening examination. PERTINENT HISTORY: Grandmother with breast cancer. Father with breast cancer. History of prior bilateral stereotactic breast biopsies. TECHNIQUE: Digital bilateral breast len (3D mammographic acquisition) in the CC and MLO projections. 2-D mediolateral oblique (MLO) and craniocaudad (CC) views of both breasts were obtained. CAD: Full Field Digital Mammography with Computer Added Detection was performed. COMPARISON: Comparison is made with prior study dated 05/23/2021 and 05/21/2020. FINDINGS: Breast Composition: The breasts are heterogeneously dense, which may obscure small masses. There are no dominant masses or suspicious calcifications. Once again, there is evidence of diffuse bilateral scattered calcifications. No focal clusters seen. A tissue clip marker is seen in the upper lateral portion of the left breast as well as in the upper lateral portion of the right breast. No other significant abnormalities are identified. There has been no significant change since the prior study. BI/SCRN MAMM (CAD)W/LEN BILAT IMPRESSION: Stable bilateral screening mammogram. Yearly follow-up mammogram recommended. (A) ASSESSMENT CATEGORY: BIRADS Category 2: Benign. A letter regarding these results will be sent to the patient by the facility within 30 days. Approximately 10% of breast cancers are not detected by mammography. A normal mammogram should not delay biopsy of a clinically suspicious abnormality. [id number] Electronically Signed: James Baker MD at 13:16 EDT ,
== END | disposition home or self-care (01) ==
LOC: OPBI 12:25
PROVIDERS: PCP Internal Medicine; Visit Provider Internal Medicine
DX: Z12.31 Encounter for screening mammogram for malignant neoplasm of breast (principal)
CPT/HCPCS: 77063; 77067

== ENCOUNTER → 2023-06-26 | Outpatient (CLI) | payer MEDICARE, SELFPAY ==
--- NOTE | 2023-06-26 09:31 | BI_ITS ---
MAMMOGRAPHY - BILATERAL SCREENING REASON FOR EXAM: Female, 73 years old. Routine annual screening examination. PERTINENT HISTORY: Grandmother with breast cancer. Father with breast cancer. Prior bilateral stereotactic breast biopsies. TECHNIQUE: Digital bilateral breast len (3D mammographic acquisition) in the CC and MLO projections. 2-D mediolateral oblique (MLO) and craniocaudad (CC) views of both breasts were obtained. CAD: Full Field Digital Mammography with Computer Added Detection was performed. COMPARISON: Comparison is made with prior study dated May 24, 2022 and May 23, 2021. FINDINGS: Breast Composition: The breasts are heterogeneously dense, which may obscure small masses. There are no dominant masses or suspicious calcifications. Once again, diffuse bilateral scattered microcalcifications are seen. No focal cluster is seen. A tissue clip marker is seen in the upper lateral portion of the left breast as well as the upper lateral portion of the right breast. No other significant abnormalities are identified. There has been no significant change since the prior study. BI/SCRN MAMM (CAD)W/LEN BILAT IMPRESSION: Stable bilateral screening mammogram. Yearly follow-up mammogram recommended. (A) ASSESSMENT CATEGORY: BIRADS Category 2: Benign. A letter regarding these results will be sent to the patient by the facility within 30 days. Approximately 10% of breast cancers are not detected by mammography. A normal mammogram should not delay biopsy of a clinically suspicious abnormality. [id number] Electronically Signed: James Baker MD at 10:33 EDT ,
--- NOTE | 2023-06-26 09:34 | BD_ITS ---
STUDY: DUAL ENERGY X-RAY ABSORPTIOMETRY / DXA REASON FOR EXAM: Female, 73 years old. Z780 -- postmenopausal, last DEXA was 05/25/2021 TECHNIQUE: Bone Mineral Density (BMD) measurements of lumbar spine and left hip were obtained. COMPARISON: Comparison made with prior study dated September 01, 2020. FINDINGS: Lumbar Spine (L1-L4): g/cm2 (1.095) / T-score (0.4) / Z-score (2.8) Findings are suggestive of normal bone density with a low fracture risk. Left Femur Total: g/cm2 (0.674) / T-score (-2.2) / Z-score (-0.5) Left Femoral Neck: g/cm2 (0.595) / T-score (-2.3) / Z-score (-0.3) The T-Scores on the most recent prior examination were: Lumbar Spine (L1-L4): There has been worsening of bone density since the previous examination. Left Femur Total: which represents a worsening of 5.3%. BD/Dexa Bone Density Study IMPRESSION: The patient is considered osteopenic as outlined below according to World Geoff Organization (WHO) criteria with a high fracture risk. There has been worsening of bone density since the previous examination. Reference Information: The T-score is the number of standard deviations above or below the standard which is normal for young adults at their peak bone mineral density. The World Health Organization (WHO) interprets the T-scores as follows: Above -1 Normal bone density Between -1 and -2.5 Osteopenia Equal to / or below -2.5 Osteoporosis As a practical clinical guideline, osteopenia may be graded as follows: Mild -1 through -1.5 Moderate -1.6 through -2.0 Severe -2.1 through -2.4 The Z-score is the number of standard deviations above or below age-matched controls. A Z-score of less than -1.5 would be considered abnormal. References: 1. NIH Osteoporosis and Related Bone Diseases www osteo.org 2. International Society for Clinical Densitometry www iscd.org 3. National Osteoporosis Foundation www nof.org Electronically Signed: James Baker MD at 14:48 EDT ,
== END | disposition home or self-care (01) ==
LOC: OPBD 09:30
PROVIDERS: PCP Internal Medicine; Referring Provider Internal Medicine; Visit Provider Internal Medicine
DX: Z12.31 Encounter for screening mammogram for malignant neoplasm of breast (principal); Z78.0 Asymptomatic menopausal state; Z80.3 Family history of malignant neoplasm of breast
CPT/HCPCS: 77063; 77067; 77080

== ENCOUNTER 2024-06-09 14:35 | Inpatient (IN) | payer MEDICARE, SELFPAY ==
--- NOTE | 2024-05-29 07:59 | HP.PCM_ITS ---
History and Physical History and Physical Patient Name: Christiana Diaz : 1950From:? BECKY BRYSON PA-C DATE OF PRE-OPERATIVE EXAM: 05/28/2024 DATE OF SURGERY:? 06/09/2024 SCHEDULED PROCEDURE:? Revision right total hip replacement entire femoral and acetabular components with possible osteotomy and possible abductor tendon repair HISTORY OF PRESENT ILLNESS: Preoperative history and physical exam was performed on May 28, 2024.? This is a 74-year-old female who underwent a previous direct anterior right total hip arthroplasty on February 10, 2020.? Patient states that she continues to get catching in her right hip on a daily basis which does cause her pain.? Pain can reach 4/10.? There is been no trauma or injury to the right hip.? She does have to sleep with a pillow between her legs due to the pain at night.? Her pain has been intermittent, dull, aching, sharp, stabbing.? Pain is increased with going up and down stairs, walking and standing for long periods.? She is having some new onset left hip pain.? She has been having some back pain as well in which she has had a caudal injection in August 2023.? She does get fatigued and tire d with long walks.? Patient has had an MRI and ultrasound of the right hip which did reveal tendinopathy and fraying of the abductor tendons with abductor atrophy.? There was no evidence of pseudotumor or gross midline obstruction of soft tissue.? Discussion with surgery took place with Dr. Abner Farrell with discussion about repositioning the cup, replace the stem and assess the tendons for repair.? There would require a possible osteotomy with this procedure.? Patient has attempted other conservative measures including oral medications without relief and previous physical therapy.? After failing conservative measures and discussing all treatment options with Dr. Abner Farrell, the patient would like to proceed with a revision right total hip replacement entire femoral and acetabular components with possible osteotomy and possible abductor tendon repair.? Patient has medical history pertinent for hypercholesterolemia and degenerative disc disease in the cervical and lumbar spine.? She denies any recent chest pain, shortness of breath, fevers chills or recent infections.? She denies past history of DVT or pulmonary embolism.? She has obtain surgical clearance from the primary care provider Dr. Rojas. ? REVIEW OF SYSTEMS: Review Of Systems: Constitutional: Reports difficulty sleeping, but denies anorexia, change in appetite, fever, weight change. Cardiovasular: Denies chest pain, heart murmur, irregular heartbeat and peripheral vascular disease. Respiratory: Denies asthma, cough, pneumonia, sleep apnea, shortness of breath, tuberculosis and wheezing. Gastrointestinal: Reports heartburn, but denies constipation, diarrhea, nausea, rectal itching, bloody stools and vomiting. Genitourinary: Denies incontinence. Musculoskeletal: Reports trouble walking, but denies leg swelling, pain and weakness. Skin: Denies Raynaud's, history of shingles and tattoo. Neurological: Denies ambulatory dysfunction, dizziness, numbness/tingling and tremor. Psychiatric: Denies anxiety, depression, insomnia, mental illness and stress. Hematologic/Lymphatic: Denies anemia, bleeding/bruising tendency and past transfusion. Reviewed, no changes. PAST MEDICAL HISTORY: Advance Care Plan: Resuscitation, DNR Effective Date: 08/22/2017 Comments: PER PATIENT Other Directive, POA Effective Date: 08/22/2017 Other Directive, LIVING WILL Effective Date: 08/22/2017 Past Medical History: Medical Problems: Arthritis, Hypercholesterolemia Disc Degeneration - degeneration in neck and back Accidents: None Surgical Hx: Tonsillectomy - age 18 [place] Teeth Removal, Gallbladder, Appendectomy RT THR - (02/10/2020) SAW @ [facility] Anesthesia Complications: None Assistive Devices: Glasses Reviewed, no changes. SOCIAL HISTORY: Social History: Marital: .Occupation: Retired.Work Status: Retired.Hand Dominance: Right- handed. Personal Habits:? Cigarette Use: Former - 2 PACKS/DAY 10 YEARS .Smokeless Tobacco: Never Used Smokeless Tobacco.E-Cigarette Use: Never used.Alcohol: Weekly use.Drug Use: Denies Use.Enjoy Exercising: Exercises 1-3 x/month. Reviewed and updated. VITALS: Ht: 63.5 Wt: 114lb Wt k.710 BMI: 19.9 BP: 134/78 Pulse: 67 Resp: 16 T: 97.6 T: 36.4C Pain Level: 4 O2SatR: 97 ALLERGIES: No Known Drug Allergy MEDICATIONS: Meloxicam 15 mg 1/2 tab by mouth twice dailyy, Preservision (A-14,320)? 2 daily, Coq10 400 mg 1 daily, Biotin 5000 mcg 1qday, Pravastatin Sodium 40 mg daily, Bio Identical Cortisol Replacement 1 mg. prn, Gabapentin 300 mg 1po qd, Vitamin D3 125 mcg (5000 Ut) 1 po qd, Turmeric? 1 po qd`, Caltrate 600+D3 Soft 600-800 MG- Unit 1 po qd, Glucosamine Chondroitin 1500 Complex 1500 Com as directed on bottle, Biost 4? as directed, Collagen Hydrolysate? daily, Joint Health? daily, Vitamin B12 1000 mcg 1 by mouth every day, Preservision Areds 2 Areds 2 2 x day, Calcium 600+D3 600-20 MG-mcg 2 x day, Whey Protein? daily, Protein Drink? daily PRE-OP EXAM: General appearance:NORMAL? Other: Eyes: Conjunctivae and lids: NORMAL? Pupils: ERR Ears, Nose, Mouth, and Throat: NORMAL? Other: Inspection of lips, teeth and gums: NORMAL?? Other: Neck: Examination of neck: no masses noted. Respiratory: Assessment of respiratory effort: NORMAL?? Other: ? Auscultation of lungs: clear to auscultation no wheezes, rhonchi or rales. Cardiovascular:? Auscultation of heart: regular rate and rhythm, no murmurs, gallops or rubs. PHYSICAL EXAMINATION: Patient does walk with a slight limping gait secondary to the right hip pain.? The previous incision is well-healed without erythema or signs of infection.? She continues to have tenderness to palpation over the right greater trochanteric region.? Pain with range of motion on internal and external rotation with pain over the lateral hip.? Sensation intact to light touch. IMAGING STUDIES: Previous x-rays of the right hip reveal well aligned total hip arthroplasty with no evidence of loosening or subsidence.? On the lateral view there is notching in the posterior neck consistent where the neck impinges on the MDM metal cobalt chromium liner.? The notch appears to be minimally but progressively change from previous x-rays. Previous MRI and ultrasound of the right hip were consistent with tendinopathy and fraying of the abductor tendons with abductor atrophy.? No appreciable pseudotumor or gross midline obstruction of soft tissue. IMPRESSION: 1.? Painful right total hip arthroplasty with abductor tendon fraying 2.? Left hip pain 3.? Degenerative disc disease cervical and lumbar spine 4.? Hypercholesterolemia PLAN: Dr. Abner Farrell did discuss and review with the patient all treatment options including surgical versus nonsurgical options.? Patient does wish to proceed with the above-stated procedure.? Potential risks, benefits, and complications of the procedure were discussed in detail including but not limited to , infection, nerve and blood vessel damage, persistent pain, numbness, tingling, paresthesias, blood clot, pulmonary embolism, and requirement for possible f urther surgery.? The patient expressed full understanding and has no further questions for the doctor.? Patient does agree to proceed with the above-stated procedure and has signed the surgery consent form. POST-OP MEDICATION PLAN: Pain Medications:? Postoperative pain regimen will be initiated by Dr. Abner Farrell in the hospital.? She will stop her meloxicam 5 days prior to surgery and this will be resumed postoperatively.? Discussed with the patient revision total hip arthroplasty and use of antibiotics postoperatively.? She will be placed on doxycycline for 2 weeks postoperatively.? Explained to the patient that she has more sensitive to the sunlight and should take appropriate precautions.? Also recommend probiotic.? We discussed cultures postoperatively and if negative will continue with oral antibiotic.? She voiced understanding.? Also discussed with the patient the potential for weightbearing restrictions dependent upon surgical procedure in osteotomy.? Patient will require home health physical therapy for the first 3 weeks in which social service technician in the hospital will assist patient on setting up.? Patient will be following our nutrition protocol. DVT Prophylaxis:? Aspirin 81 mg twice daily for 4 weeks postoperatively.? Denies past history of DVT or pulmonary embolism This dictation was created using voice recognition software. Phonetic and/or grammatical errors may exist. ___? I have re-examined the patient.? There are no clinical changes since date of exam. ___? See progress notes for changes. ___? Dictated on admission Date: ? Time: Signature:
[2024-06-03 16:29] LABS: Magnesium 2.2 mg/dL (1.6-2.6)
[2024-06-09] VITALS (12 sets, daily range): BP systolic 91–140; BP diastolic 49–82; PULSE 51–78; RESP 16–18; TEMP 36.1–36.6; O2SAT 95–100
[2024-06-09] MEDS: Lactated Ringers 1,000 ML 999 ML IV ×2 (10:15→15:38)
[2024-06-09] MEDS: Magnesium 1 GM over 15 mins IV (10:15)
[2024-06-09] MEDS: Vancomycin HCl 750 MG in 0.9% Normal Saline (250mL Bag) 250 ML 250 MG IV ×2 (10:30→22:40)
[2024-06-09] MEDS: Acetaminophen 500 MG Tablet 1000 MG PO ×2 (10:31→22:41)
[2024-06-09] MEDS: Celecoxib 200 MG Capsule 400 MG PO (10:32)
[2024-06-09] MEDS: Gabapentin 600 MG Tablet PO (10:32)
[2024-06-09 11:10] LABS: Bedside Glucose 74 mg/dL (74-106)
--- NOTE | 2024-06-09 11:15 | PCM.PRE.AN2 ---
ASA Classification* ASA Classification ASA Classification: 2 Assessment & Plan Anesthesia* Anesthesia Assessment Anesthesia Assessment: Discussed sedation and/or anesthesia options, risks, benefits, and alternatives with patient/parents/legal guardian/POA. Questions invited. The patient/parents/legal guardian/POA seems to understand and agrees to proceed with anesthesia plan. Reviewed the physical assessment, medical history, allergy history and patient home medications list prior to surgery/procedure/anesthetic and documented any changes. Performed airway and anesthesia risk assessments. Anesthesia Type Anesthesia Type: Spinal Anesthesia Focused Assessment* Temperature: 97.5 F Pulse Rate: 77 Blood Pressure: 140/82 Respiratory Rate: 18 Pulse Ox: 100 Airway Assessment Mouth opens: >3 cm Mallampati Score: II Focused Labs Anesthesia Preop lab: CBC WBC 5.3 K/mm3 (4.4-11.0) 06/24/18 15:19 RBC 3.76 M/mm3 (4.2-5.4) L 06/24/18 15:19 Hgb 12.4 g/dl (12.0-15.0) 06/24/18 15:19 Hct 38.2 % (37-47) 06/24/18 15:19 Plt Count 228 K/mm3 (150-450) 06/24/18 15:19 CHEMISTRY Potassium 4.4 mmol/L (3.5-5.1) 06/24/18 15:19 Sodium 141 mmol/L (136-145) 06/24/18 15:19 Magnesium 2.2 mg/dL (1.6-2.6) 06/03/24 14:53 BUN 25 mg/dL (7-18) H 06/24/18 15:19 Creatinine 0.69 mg/dL (0.55-1.02) 06/24/18 15:19 Glucose 80 mg/dL (74-106) 06/24/18 15:19 POC Glucose 74 mg/dL (74-106) 06/09/24 10:17 COAG Pre-Assessment Diagnosis/Proposed Procedure Planned Operative Procedure(s): (R) REVISION RIGHT TOTAL HIP REPLACEMENT ENTIRE FEMORAL AND ACETABULAR COMPONENTS, POSSIBLE OSTEOTOMY, POSSIBLE ABDUCTOR TENDON REPAIR, ERAS Anesthesia History Anesthesia History - certified respiratory therapist: Anesthesia History - certified respiratory therapist Hx Hospitalization No 05/13/24 13:11 Any Problems With Anesthesia No 05/13/24 13:11 Cholinesterase deficiency No 05/13/24 13:11 You/Your Family Experience No 05/13/24 13:11 fever (hyperthermia) with Relationship Recent Exposure to Contagious No 06/09/24 10:37 Disease Does patient have nerve No 05/13/24 13:11 stimulator Patient instructed to have device shut off --Does patient have Pacemaker No 06/09/24 10:37 or ICD? When Was Last Pacemaker Check QUESTION #4 FULL TEXT: You/Your Family Experience fever (hyperthermia) with Anesthesia Last Oral Intake Last Oral intake: Last Oral Intake NPO since 00:00 06/09/24 10:37 Meds taken in AM with sips of No 06/09/24 10:37 water? Meds patient instructed to take am of surgery PONV PONV - certified respiratory therapist: PONV - certified respiratory therapist Female Yes 05/13/24 13:11 HX of Motion Sickness No 05/13/24 13:11 HX of N/V After Surgery No 05/13/24 13:11 Non-Smoker Yes 05/13/24 13:11 Duration of Surgery greater Yes 05/13/24 13:11 than 60 minutes Number of Risk Factors 3 05/13/24 13:11 PONV Score Moderate Risk 05/13/24 13:11 Height & Weight Height & Weight: Anesthesia: Height & Weight Height 5 ft 3 in 06/09/24 10:37 Weight: 51.437 kg 06/09/24 10:37 Body Mass Index (BMI) 20.0 06/09/24 10:37 Respiratory Assessment Respiratory Assessment - certified respiratory therapist: Respiratory Tract Infection Hx - certified respiratory therapist Hx Respiratory Tract Infection No 05/13/24 13:11 STOP Sleep Apnea STOP Sleep Apnea - certified respiratory therapist: STOP Sleep Apnea - certified respiratory therapist Hx Hypertension No 05/13/24 13:11 Hx Sleep Apnea No 05/13/24 13:11 CPAP BIPAP Do you snore loudly (louder No 05/13/24 13:11 than talking or can be heard Do you often feel tired/ No 05/13/24 13:11 fatigued/ sleepy during daytime? Has anyone observed you stop No 05/13/24 13:11 breathing during sleep? STOP Results Negative 05/13/24 13:11 QUESTION #5 FULL TEXT : Do you snore loudly (louder than talking or can be heard through closed doors)? Tobacco Use History Tobacco Use History - certified respiratory therapist: Tobacco Use History - certified respiratory therapist Tobacco Use Smoking Status Former smoker 05/13/24 13:11 Hx Tobacco Use No 05/13/24 13:11 Years Smoking Packs Smoked per Day Smoking Cessation Date was No - quit smoking greater 05/13/24 13:11 within the last 15 years than 15 years ago Hx Smoking Cessation Date 09/24/94 05/13/24 13:11 Hx Smoking Cessation Counseling Hematologic Medial History Hematologic Hx - certified respiratory therapist: Hematologic Medical Hx - volumetric weigher Hx of Blood Transfusion No 05/13/24 13:11 Hx of Transfusion in last 3 No 05/13/24 13:11 Months Date of Last Transfusion (if within last 3 months) Ever experience any problems No 05/13/24 13:11 with transfusion(s)? Specify any problems Hx of Preganancy in last 3 N/A 05/13/24 13:11 Months Nurse Filling Out Transfusion NBUCHER 05/13/24 13:11 & Questions: Date: 05/13/24 05/13/24 13:11 Time: 13:13 05/13/24 13:11 Patient unable to answer at this time (ie. confused, unrespo /Reproduction History /Reproductive History - certified respiratory therapist: /Reproductive Hx- certified respiratory therapist Hx Now No 05/13/24 13:11 Gestational Age (in weeks): EDC: Hx Hx Para Hx Section SAB No 05/13/24 13:11 Active Medications Active Medications: Current Medications Generic Name Dose Route Start Last Admin Trade Name Freq PRN Reason Stop Dose Admin Lactated Ringer's 1,000 mls @ 125 mls/hr 06/09/24 10:00 IV 06/09/24 17:59 .Q8H ISAI Insulin Human Lispro 1 - 6 unit 06/09/24 10:00 Insulin Lispro 100 Unit/Ml Insuln.Pen SC Q4H PRN PRN BG>/= 180, SEE PROTOCOL Protocol PFSH Medical History Wears glasses Post-menopausal Cancer Alcohol use High cholesterol Restless legs History of stress test Former smoker Right inguinal hernia Hemorrhoids Arthritis Back problem Home Medications ?Medication ?Instructions ?Recorded ?Last Taken ?Type biotin 5,000 mcg sublingual tablet 5,000 mcg sublingual DAILY 06/24/18 06/04/24 History SUPPLEMENT cholecalciferol (vitamin D3) 125 5,000 unit PO DAILY SUPPLEMENT 06/24/18 06/04/24 History mcg (5,000 unit) capsule coenzyme [id number] E 100 mg-100 2 cap PO DAILY SUPPLEMENT 06/24/18 06/04/24 History unit capsule gabapentin 300 mg capsule 300 mg PO TID PRN PAIN 06/24/18 06/08/24 History glucosamine 750 du-vjmfjzgcgzr-tpe 2 tab PO BID SUPPLEMENT 06/24/18 06/04/24 History no1 625 mg-C 30 mg-oj 1 mg tablet (Zxtefgcgxpk-Nefrrqakfpq-MMS) meloxicam 15 mg tablet 15 mg PO DAILY PAIN 06/24/18 06/04/24 History pravastatin 40 mg tablet 60 mg PO DAILY HLD 06/24/18 06/08/24 History (Pravachol) calcium carbonate 600 mg-vitamin 2 tab PO DAILY SUPPLEMENT 05/13/24 06/04/24 History D3 5 mcg (200 unit) tablet (Calcium 600 + D(3)) cartilage 40 mg-collagen II 10 1 tab PO DAILY SUPPLEMENT 05/13/24 06/04/24 History mg-boron 5 mg-hyaluronate 3.3 mg tablet (Joint Health) collagen, glycosaminoglycans 260 1 cap PO DAILY SUPPLEMENT 05/13/24 06/04/24 History mg-vitamin C 30 mg capsule mecobalamin (vitamin B12) 1,000 1,000 mcg PO DAILY SUPPLEMENT 05/13/24 06/04/24 History mcg chewable tablet (B12 Active) vitamins A,C,Q-pcwz-qmnhgj 2,148 2 tab PO BID SUPPLEMENT 05/13/24 06/04/24 History mcg-113 mg-45 mg-17.4 mg tablet (Eye Multivitamin) Allergy/AdvReac Type Severity Reaction Status Date / Time garlic AdvReac Nausea/Vom/ Verified 06/09/24 10:25 Diarrhea Family History Father Heart disease Surgical History History of wisdom tooth extraction History of right hip replacement History of right inguinal hernia repair (~07/01/18) Hx of cholecystectomy History of partial colectomy Hx of appendectomy Hx of tonsillectomy Social History Smoking Status: Former smoker alcohol intake: current alcohol intake frequency: a few times a month Alcohol type: wine substance use type: does not use caffeine: Yes frequency: does not exercise Review of Systems (Anesthesia) ROS Narrative System reviewed and no additional complaints, except as documented.
[2024-06-09] MEDS: Cefazolin 2 GM in 0.9% Normal Saline (100mL Bag) 100 ML IV (12:21)
[2024-06-09] MEDS: TXA 1000mg in NS100 100ml (IVPB at Incision) 660 MG IV (12:37)
[2024-06-09] MEDS: dexAMETHasone 10 MG/ML Vial IV (12:45)
[2024-06-09] MEDS: Heparin 10,000 UNITS/10 ML Vial 10000 UNITS (12:45)
[2024-06-09] MEDS: TXA 1000mg in NS100 100ml (IVPB at Closure) 660 MG IV (14:20)
[2024-06-09] MEDS: JPS (Morphine 10mg/ml) OPERA.SITE (14:27)
--- NOTE | 2024-06-09 14:46 | PCM.OPRPT ---
Report of Operation Date of Procedure: 06/09/24 Pre-Operative Diagnosis: Painful right total hip replacement, component impingement Post-Operative Diagnosis: Painful right total hip replacement, component impingement Surgery/Procedure Performed:: Revision right total hip replacement, complete acetabular and femoral components Description of Surgical Findings:: Stable hip. Leg lengths were restored based on lateral decubitus position. Abductors did not have gross tears the could be visually identified therefore no further repairs were done. Prior to initial dislocation leg was taken through range of motion with greatest impingement with about 10 to 15 degrees of hip extension and external rotation. once new implants were imaged hip was taken through range of motion was found to have 40 degrees of combined anteversion, and no impingement throughout range of motion anteriorly or posteriorly. Surgeon: Abner Farrell carpet installation specialist: Gabriel Paniagua Type of Anesthesia: Spinal Anesthesiologist: Andre Amaya Special Medications: 2 g Ancef, 1 g TXA at incision, 1 g TXA closure, 10 mg Decadron, joint cocktail (5 mg Duramorph, 30 mL of 0.5% Ropivicaine, 1000 units of epinephrine, 30 mg of Toradol) Specimen's removed: 3 separate specimens were sent to microbiology Estimated Blood Loss (mL): 500 Fluids Replaced: 1500 Description of Procedure: Findings: Adequate reduction with stability of the hip and equal leg lengths measured intraoperatively. Components used: 1. Walter congregation modular femoral component with 19 mm x 115 mm conical stem. 23+0 mm cone body 2. Walter tritanium multihole 52 mm acetabular shell 1 45 mm screw 3. Walter X3 polyethylene liner, alpha code E 4. Coppell Biolox delta 36 mm, +5 mm neck femoral head Procedure: On the date of procedure the patient's R hip was marked in the preoperative area. Patient was then taken back to the operating room where anesthesia assumed control of the C-spine and airway and administered anesthetic. Patient was transferred to the operating table and placed in the lateral decubitus position with the affected hip up. The patient was secured in the bed with the lateral positioners and leg lengths were checked. The R lower extremity was then prepped out in a sterile fashion using chlorhexidine while the surgeon scrubbed. Upon reentering the room the R lower extremity was draped in the standard orthopedic fashion and the incision was marked. A timeout was called and everyone agreed upon the side, the site, the procedure be performed, antibiotics given, and patient's identity. At this time incision was made through skin, subcutaneous tissue, and fat down to fascia. The fascia was then incised and a Charley retractor was placed. The soft tissue was then cleared from the posterior external rotators were identified. External rotators and posterior scar tissue sleeve taken down and tagged. Upon taking down the capsule with this scar tissue sleeve we did note that there was metallosis type black the lining of the synovial lining. Complete synovectomy was performed. The retractors were then placed inside the capsule. The hip was then dislocated and the femoral head was dislodged from the trunnion using a bone tamp. Continuing with the femoral side, the proximal femur was appropriately exposed using a ellis retractor. We did use a bur and a flexible osteotome to debride around the femoral implant disrupting the bone implant interface. Once we felt we had adequately disrupted it we then placed the screw and chin strap sewer/extractor and used a mallet to back slap. The implant came out without significant bone loss. Canal finder was used to verify the canal. The proximal femur was then sequentially reamed to a size 19 mm x 115 mm reamer which had an appropriate fit. The reamer was then removed. Our attention was then directed to the acetabulum and the anterior retractor was placed and a Gelpi was used to retract the posterior capsule superiorly. All soft tissue debris was r debrided from around the joint. Once it was adequately exposed we did use a 52 mm acetabular knife to carefully debride around the acetabulum and break up the bone implant interface. Once this was done we are able to remove the implant with a Irving. The acetabulum was then sequentially reamed to 52 millimeters., The socket was adequately deep and. We then used a 52 mm acetabular trial which gave us a good fit. Once were happy with this the wound was copiously irrigated out with 6 L of normal saline under low-pressure lavage. At this time a and 52 mm Coppell tritanium multihole cup was opened and impacted into place. Once it was securely fastened our attention was again turned towards the femur and the proximal femur was then sequentially reamed to 23 mm for a 23 mm cone body. The +0 trial was chosen and a 36 mm head with 5 mm offset was trialed. The hip was properly reduced using traction and external rotation. Stability was checked with the appropriate amount of shuck, no impingement with external rotation, and stable at 90? flexion and 90? internal rotation. Leg lengths were checked and were found to be equal on the table. Once the hip was determined to be stable the trial components were dislocated and 1 bone screw was placed in the safe zone of the acetabular component. Once it was securely fastened down the polyethylene liner was placed and security was verified. The proximal femur was again exposed and the components were removed from the wound. The final components were verified and opened. The wound was copiously irrigated out with normal saline. The acetabulum was checked for any residual debris. The final components were placed and impacted. Traction and external rotation were again used to reduce the hip. After adequate reduction the hip remained stable with appropriate leg lengths. The wound was then copiously irrigated with normal saline once more, and hemostasis was obtained. At this time we carefully examined the abductors and did a complete greater trochanteric bursectomy. There did not appear to be a clear area of abductor tendon tear and at that point I do not feel I can improve upon the current state of the abductors with further repair. Based on this no abductor repair was performed. The posterior capsule and external rotators were repaired through drill holes to the greater trochanter . Closure was then done using #1 Vicryl to close the fascia. A 2-0 Vicryl interrupted sutures were used to close the subcutaneous skin. Skin nkechi were used for final skin closure. A sterile dressing was placed. Patient was awakened by anesthesia and transferred to the [facility]. Patient was then transferred to the PACU for recovery. Postoperative plan: Patient will get 24 hours postop antibiotics. Patient will get in-house physical therapy and will be weight-bear as tolerated. Patient will follow up in office in 2 weeks for a wound check and x-rays. Patient will get 2 weeks doxycycline 100 mg p.o. twice daily postoperatively as we follow cultures. DVT prophylaxis will be 4 weeks of aspirin 81 mg p.o. twice daily. 6 weeks of posterior precautions. During the course of the procedure the physician assistant dean of students (PE) played a vital role. Their intimate knowledge of my steps in the procedure aided in safe and expedient completion of the procedure. The PE played a vital rolls in positioning particularly in obtaining the appropriate lateral decubitus position. The PE was also vital in the retraction of soft tissues during the exposure and especially the femoral work as this is a vital part of the procedure to prevent complications and fractures. The PE was also vital and protecting soft tissues during times of bony cuts and reaming. He also played a vital role in closure with my direct supervision. The PE was also important during reduction and dislocation of the joint and trials intraoperatively.
--- NOTE | 2024-06-09 14:57 | PCM.POST.ANE ---
Anesthesia: Postop Eval I Current Vital Signs Temperature: 97 F Pulse Rate: 51 Blood Pressure: 91/75 Respiratory Rate: 16 Pulse Ox: 100 Oxygen Delivery Method: Room Air Assessment Airway patent: Yes Spontaneous unlabored respirations: Yes Mental status: Awake and Calm nausea: No Vomiting: No Anesthesia Complication: No Fluid Hydration Crystalloid volume administer (ml): 1,500 Total IV fluid infused: 1,500 Progress Note Anesthesia document: Postop Eval 1 completed: Yes
--- NOTE | 2024-06-09 14:59 | POSTOPAN2_ITS ---
Anesthesia Postop Eval I Sum Postop Eval Completion status Anesthesia document: Postop Eval 1 completed: Yes Anesthesia Postop Eval I Summary Anesthesia Postop Eval I Summary: Anesthesia Postop Eval I: Assessment Summary Airway patent Yes 06/09/24 14:59 PRINT DEVELOPER [email or web address] Spontaneous unlabored Yes 06/09/24 14:59 PRINT DEVELOPER AUTOMATIC.MDOT respirations Mental status Awake,Calm 06/09/24 14:59 PRINT DEVELOPER AUTOMATIC.MDOT nausea No 06/09/24 14:59 PRINT DEVELOPER AUTOMATIC.MDOT Vomiting No 06/09/24 14:59 PRINT DEVELOPER [email or web address].MDOT Anesthesia Postop Eval I: Fluid Summary Crystalloid volume administer 1,500 06/09/24 14:59 PRINT DEVELOPER AUTOMATIC.MDOT (ml) Colloids volume administered ( ml) Blood Product volume administered (ml) Total IV fluid infused 1,500 06/09/24 14:59 PRINT DEVELOPER [email or web address].MDOT Anesthesia Postop Eval I: Summary Notes Anesthesia Complication No 06/09/24 14:59 PRINT DEVELOPER [email or web address].MDOT Anesthesia Complication Comment: Post-operative progress note Anesthesia: Postop Eval II Evaluation Mental status: Awake and Calm Pain Level: 0 nausea: No Vomiting: No Complications Anesthesia Complication: No
--- NOTE | 2024-06-09 14:59 | PCM.POSTANE2 ---
Anesthesia Postop Eval I Sum Postop Eval Completion status Anesthesia document: Postop Eval 1 completed: Yes Anesthesia Postop Eval I Summary Anesthesia Postop Eval I Summary: Anesthesia Postop Eval I: Assessment Summary Airway patent Yes 06/09/24 14:59 MANAGER MARKET [email or web address].[email or web address] Spontaneous unlabored Yes 06/09/24 14:59 MANAGER MARKET DEVELOPMENT.MDOT respirations Mental status Awake,Calm 06/09/24 14:59 MANAGER MARKET DEVELOPMENT.MDOT nausea No 06/09/24 14:59 MANAGER MARKET DEVELOPMENT.MDOT Vomiting No 06/09/24 14:59 MANAGER MARKET DEVELOPMENT.MDOT Anesthesia Postop Eval I: Fluid Summary Crystalloid volume administer 1,500 06/09/24 14:59 MANAGER MARKET DEVELOPMENT.MDOT (ml) Colloids volume administered ( ml) Blood Product volume administered (ml) Total IV fluid infused 1,500 06/09/24 14:59 MANAGER MARKET DEVELOPMENT.MDOT Anesthesia Postop Eval I: Summary Notes Anesthesia Complication No 06/09/24 14:59 MANAGER MARKET DEVELOPMENT.MDOT Anesthesia Complication Comment: Post-operative progress note Anesthesia: Postop Eval II Evaluation Mental status: Awake and Calm Pain Level: 0 nausea: No Vomiting: No Complications Anesthesia Complication: No
--- NOTE | 2024-06-09 15:20 | RAD_ITS ---
INDICATION: Post Op -- AP both hips on single alaina/lateral of op hip PACU EXAMINATION/TECHNIQUE: X-RAY - RIGHT XR Hip Unilateral with Pelvis when performed; 2-3 Views COMPARISON: 07/21/2019. FINDINGS: No acute fracture or malalignment. Postsurgical changes status post total right hip arthroplasty with single acetabular screw fixation. No blastic or lytic lesions. Mild degenerative changes of the left hip. The soft tissues are unremarkable. RAD/Hip Min 2 Views (Portable) IMPRESSION: Postsurgical changes status post total right hip arthroplasty with single acetabular screw fixation and appears to be in satisfactory position. Electronically Signed: Norberto Hall MD at 17:14 EDT ,
[2024-06-09] MEDS: oxyCODONE 5 MG Tablet PO (16:13)
--- NOTE | 2024-06-09 18:53 | PCM.PN.HOSP ---
Reason for Visit Reason for Visit: Right hip pain Subjective Subjective Patient is a 74-year-old female who previously had undergone an anterior right total hip arthroplasty on February 10, 2020. Since that point in time she has been getting catching in her right hip on a daily basis which has been causing pain. She had no previous injury after surgery to this leg and having to sleep with a pillow between her legs due to symptoms at night. Pain is intermittent and can range from dull and aching to sharp and stabbing. He has been having increased pain with going up and down stairs as well as walking and standing for long periods of time. An MRI was performed and an ultrasound of the right hip was performed both which revealed tendinopathy and fraying of the abductor tendons with abductor atrophy. Dr. Farrell evaluated the images and discussed with the patient about repositioning the cup, replacing the stem and assessment of the tendons for possible repair. The patient attempted outpatient conservative management but failed. Patient elected to proceed with right total hip arthroplasty revision of entire femoral and acetabular components with possible osteotomy and abductor tendon repair. We have been consulted postoperatively for management of her chronic medical issues which include osteoarthritis and hyperlipidemia. She was seen postoperatively on the medical floor. Objective Data Objective Data Vital Signs: Vital Signs Temp Pulse Resp BP Pulse Ox O2 Del Method 97.9 F 78 18 120/74 95 Room Air 06/09/24 18:33 06/09/24 18:33 06/09/24 18:33 06/09/24 18:33 06/09/24 18:33 06/09/24 18:33 Oxygen Delivery Method Room Air Weight: 51.437 kg Body Mass Index (BMI) 20.0 Intake & Output: Intake and Output for Last 24 Hours 06/07/24 06/08/24 06/09/24 23:59 23:59 23:59 Intake Total 3697 / 3697 Balance 3697 / 3697 Lab / Micro Data Labs: Laboratory Results - last 24 hr 06/09/24 10:17: POC Glucose 74 Micro: Microbiology 06/03/24 14:53 Swab (Method) Nasal Screen MRSA/MSSA - Final Radiography Diagnostic Testing: Radiology Impression Hip X-Ray 06/09/24 15:20 IMPRESSION: Postsurgical changes status post total right hip arthroplasty with single acetabular screw fixation and appears to be in satisfactory position. Electronically Signed: Norberto Hall MD at 17:14 EDT , Physical Exam Const alert, oriented x3, no apparent distress, average body habitus, healthy appearing and well nourished Constitutional Narrative: Very pleasant, older, white female, sitting up in bed, appears comfortable, nontoxic HEENT head/scalp atraumatic and moist oral mucous membranes Head and Scalp: normocephalic Resp normal respiratory effort, no retractions, no use of accessory muscles and clear to auscultation bilaterally Auscultation: Negative for rales, rhonchi or wheezes Cardio regular rate, regular rhythm, S1 normal heart sound, S2 normal heart sound, no murmurs, no rub and no clicks GI normal to inspection, nondistended, normoactive bowel sounds, soft to palpation and non-tender Extremity no clubbing, cyanosis or edema Extremity Narrative: Bilateral lower extremity SHANNON hose in place, polar ice on right hip Neuro oriented x3, moves all extremities and no focal motor deficits Speech: speech normal Psych affect normal Psych Narrative: Eye contact is good and patient interacts appropriately Assessment & Plan Assessment/Plan (1) Right hip pain: PLAN: Plan Right hip pain -Postop day 0 revision right total hip arthroplasty -Pain management per primary -Bowel regimen per primary -PT/OT per primary Hyperlipidemia -Continue home pravastatin Carotid artery stenosis -Less than 50% bilaterally -Continue risk modification and pravastatin Chronic back pain -Continue home gabapentin DVT prophylaxis -Per primary service Charges/Coding Visit Charges Inpatient E&M: 95991 Subs Hosp L2
[2024-06-09] MEDS: Doxycycline 100 MG CAPSULE PO (18:55)
[2024-06-09] MEDS: Cefazolin 1 GM/50 ML BAG IV (20:14)
[2024-06-09] MEDS: Multivitamin (Healthy Eyes) Capsule 2 CAP PO (22:41)
[2024-06-09] MEDS: Senna/Docusate Sodium 1 Tablet 2 TABLET PO (22:41)
[2024-06-09] MEDS: Aspirin 81 MG TAB.CHEW PO (22:41)
[2024-06-09] MEDS: Gabapentin 300 MG Capsule PO (22:45)
[2024-06-10] MEDS: Ketorolac 15 MG/ML Vial IV ×2 (01:17→23:43)
[2024-06-10 03:00] VITALS: BP 125/68; PULSE 72; RESP 16; TEMP 36.6; O2SAT 98
[2024-06-10] MEDS: Cefazolin 1 GM/50 ML BAG IV (03:53)
[2024-06-10] MEDS: Acetaminophen 500 MG Tablet 1000 MG PO ×3 (05:21→21:24)
--- NOTE | 2024-06-10 07:30 | PCM.PN.ORT ---
Subjective Subjective The patient was sitting in bed upon examination. Patient denies any chest pain, shortness of breath, dizziness, lightheadedness, nausea or vomiting, or calf pain. Pain is controlled on medications. No adverse overnight events. Patient is doing well this morning. Her pain is controlled. We are still waiting on cultures. Patient does live home alone and will be requiring home health as patient has driving restrictions. Will have nephrology social worker on board for appropriate discharge planning. Objective Data Objective Data Vital Signs: Vital Signs Temp Pulse Resp BP Pulse Ox O2 Del Method 97.9 F 72 16 125/68 H 98 Room Air 06/10/24 03:00 06/10/24 03:00 06/10/24 03:00 06/10/24 03:00 06/10/24 03:00 06/10/24 03:00 Oxygen Delivery Method Room Air Weight: 51.437 kg Body Mass Index (BMI) 20.0 Intake & Output: Intake and Output for Last 24 Hours 06/08/24 06/09/24 06/10/24 23:59 23:59 23:59 Intake Total 3747 / 3747 315 / 315 Balance 3747 / 3747 315 / 315 Lab / Micro Data Labs: Laboratory Results - last 24 hr 06/09/24 10:17: POC Glucose 74 Micro: Microbiology 06/03/24 14:53 Swab (Method) Nasal Screen MRSA/MSSA - Final Radiography Diagnostic Testing: Radiology Impression Hip X-Ray 06/09/24 15:20 IMPRESSION: Postsurgical changes status post total right hip arthroplasty with single acetabular screw fixation and appears to be in satisfactory position. Electronically Signed: Norberto Hall MD at 17:14 EDT , Physical Exam Narrative Vital signs stable and afebrile. Right hip is soft and supple SCDs and SHANNON hose are in place bilaterally Patient is able to plantarflex and dorsiflex actively. Sensation is intact to light touch to saphenous, sural, superficial and deep peroneal, and tibial distribution. Dressing is clean dry and intact. Negative Homans bilaterally, negative signs and symptoms of DVT. Const alert, oriented x3 and no apparent distress Assessment & Plan Assessment/Plan (1) History of revision of total replacement of right hip joint: PLAN: 1. S/P revision right total hip arthroplasty complete acetabular and femoral components POD #1 2. Continue Pain Medications: Tylenol, meloxicam, oxycodone. Do not take any other nonsteroidal anti-inflammatories while using meloxicam/Mobic. 3. DVT Prophylaxis: Take 81 mg aspirin twice daily for 4 weeks postoperatively for DVT prophylaxis. Patient denies past history of DVT or pulmonary embolism. 4. PT/OT: Weightbearing as tolerated with walker. Continue with posterior hip dislocation precautions for 6 weeks postoperatively. Appreciate recommendations from physical therapy and teaching of those restrictions 5. H & H: Awaiting lab work, asymptomatic. 6. Currently on doxycycline for 2 weeks postoperatively. Microbiology wound and tissue specimens were reviewed in chart however these labs are pending. I discussed with the patient potential side effects of doxycycline including sensitivity to the sunlight and increased risk of skin burn. Recommend patient take appropriate precautions. Also recommend patient to take probiotic while on the antibiotic. Patient voiced understanding agreement. 7. Encouraged Incentive Spirometry 8. Patient is aware of postoperative constipation that can occur from 1-3 days postoperatively. Will continue with senna 2 tablets twice daily until first bowel movement. Patient was advised if not having a bowel movement after day 3 she is to contact orthopedics so appropriate change can be made. Patient voiced understanding. 9. Continue postoperative medical treatment per medicine 10. Disposition: Plan will be for discharge tomorrow once we have been able to review cultures and establish antibiotics postoperatively. Patient will continue with physical therapy while in the hospital. I would appreciate assistance from nephrology social worker establishing home health as patient is not able to drive and will have difficulty with assistance at home with transportation. Patient will continue with above medications. Surgery and postoperative restrictions have been discussed with the patient in detail. All questions were answered. I have reviewed the [place] Automated Rx Reporting System (OARRS) report for this patient for refill pattern and other prescriber involvement as part of the appropriate surveillance for the provision of acute and chronic controlled medications. The report was requested and reviewed on the date of this entry and was considered in the prescribing process. This dictation was created using voice recognition software. Phonetic and/or grammatical errors may exist.
[2024-06-10 07:38] VITALS: BP 126/64; PULSE 64; RESP 18; TEMP 36.8; O2SAT 94
[2024-06-10] MEDS: Ensure Surgery 237 ML LIQUID PO ×2 (07:57→17:22)
[2024-06-10] MEDS: Multivitamin (Healthy Eyes) Capsule 2 CAP PO ×2 (07:58→21:23)
[2024-06-10] MEDS: Famotidine 20 MG Tablet PO (07:58)
[2024-06-10] MEDS: Cholecalciferol (Vit D3) 125 MCG CAPSULE (5,000 UNITS) PO (07:58)
[2024-06-10] MEDS: Aspirin 81 MG TAB.CHEW PO ×2 (07:58→17:22)
[2024-06-10] MEDS: Calcium Carb/Vitamin D 1 TABLET Tablet 2 TABLET PO (07:58)
[2024-06-10] MEDS: Doxycycline 100 MG CAPSULE PO ×2 (07:58→21:23)
[2024-06-10] MEDS: Senna/Docusate Sodium 1 Tablet 2 TABLET PO (07:59)
[2024-06-10 08:24] LABS: Hematocrit 29.8 % (37-47); Hemoglobin 9.9 g/dL (12.0-15.0); Mean Corp Hgb Conc 33.2 g/dL (32-36); Mean Corpuscular Hgb 33.3 pg (27.0-32.0); Mean Corpuscular Volume 100.3 fL (81-99); Mean Platelet Vol. 9.2 fl (6.2-12.0); Platelet Count 206 K/mm3 (150-450); RBC Distribution Width CV 12.8 % (11.6-14.6); RBC Distribution Width SD 46.8 fl (35.1-43.9); Red Blood Count 2.97 M/mm3 (4.2-5.4); White Blood Count 8.4 K/mm3 (4.4-11.0)
[2024-06-10 08:47] LABS: Anion Gap 7 (5-15); BUN 14 mg/dL (7-18); BUN/Creat Ratio 24.3 RATIO (10-20); Calcium,Total 9.3 mg/dL (8.5-10.1); Chloride 106 mmol/L (98-107); Creatinine, Serum 0.58 mg/dL (0.55-1.02); EST Glomerular Filtration Rate 109 mL/min (>60); Est Glom Filt Rate - Afr Amer 131 mL/min (>60); Estimated Creatinine Clearance 49.34 ml/min; Glucose 97 mg/dL (74-106); Potassium 4.3 mmol/L (3.5-5.1); Sodium Level 138 mmol/L (136-145)
--- NOTE | 2024-06-10 09:16 | CASEMGMT ---
Discharge Planning A list of HH?providers including quality and resource use data and consistent with the patient's preferred geographic region, medical needs, and insurance network was created in [employer] Guide.? This list was provided to the RN ANDREA Mcdonough
--- NOTE | 2024-06-10 09:35 | CASEMGMT ---
SHABBIR HUNT Assessment: Face to Face with pt for initial transition planning/care coordination assessment. SHABBIR HUNT introduced self and role at [facility], pt voices understanding and consents to assessment. Pt is A&O x4 and answers all questions appropriately at this time. Pt sitting up in bed in no distress. Care providers, pharmacy, and demographics verified/updated. Admitting Dx: Revision R total Hip Strata Score:1 PCP: Bob Specialists: Jami, Orthopedic; Stokes, Pain management. Preferred Pharmacy: [facility] Insurance: [employer] [facility] Prescription Benefit: yes LNOK: Living Arrangements: Pt lives with in a 2 story home with 2 steps to enter. Pt has 17 steps to go upstairs where bedroom and shower are located. Transportation: Pt drives self and denies concerns with transportation. Reports able to transport home. DME: Walker, Shower chair HHC/SNF: Denies Hx of. Pt reports leaves in 2 1/2 weeks for 1 week. Discussed with pt OP PT verses HHC. Pt expressed open to HHC because will be leaving and pt will need transportation to appointments. SHABBIR HUNT discussed OP vs HHC, will see how pt does with PT. Provided list of HHC agencies for pt to review if therapy recommends. Pt states no further concerns/needs. PT in room to work with pt when RN CM leaving pt room. CM to follow. Advised pt to ask CM if any further question/concerns/needs arise, voices understanding. Pt Goal: Home with PT. Plan: Home, Follow therapy recommendations for OP PT or HHC. Tyree SHEA CM
--- NOTE | 2024-06-10 12:03 | CASEMGMT ---
Addendum entered by Alejandrina Hogan 06/10/24 14:15: Received message back from Gabriel VEGAS, would recommend HH for pt. SHABBIR HUNT into pt room, pt made aware of this and has reviewed the HH list. She would like [facility]. TC to Sallie at [facility], referral made. Will await decision to accept. Original Note: SHABBIR HUNT into pt room to confirm dc plan. Pt states she was told by therapy that she could do outpt therapy. Pt states she lives with her and he will transport her to outpt therapy for the first 2.5 weeks and then he will be out of town for a week. Pt states she would like to go to the [facility] for therapy and then for the week her is out of town, she will do exercises on own. Message sent to Gabriel VEGAS via backline to make sure this plan is agreeable. Will await response.
--- NOTE | 2024-06-10 12:46 | PCM.PN.HOSP ---
Reason for Visit Reason for Visit: Diagnoses Pain in right hip (06/09/24) Encounter for other preprocedural examination (06/09/24) Presence of right artificial hip joint (06/09/24) Objective Data Objective Data Vital Signs: Vital Signs Temp Pulse Resp BP Pulse Ox O2 Del Method 98.2 F 64 18 126/64 H 94 Room Air 06/10/24 07:38 06/10/24 07:38 06/10/24 07:38 06/10/24 07:38 06/10/24 07:38 06/10/24 07:48 Oxygen Delivery Method Room Air Weight: 113 lb 6.4 oz Body Mass Index (BMI) 20.0 Intake & Output: Intake and Output for Last 24 Hours 06/08/24 06/09/24 06/10/24 23:59 23:59 23:59 Intake Total 3747 / 3747 315 / 315 Balance 3747 / 3747 315 / 315 Lab / Micro Data 06/10/24 07:05 06/10/24 07:05 Labs: Laboratory Results - last 24 hr 06/10/24 07:05: WBC 8.4, RBC 2.97 L, Hgb 9.9 L, Hct 29.8 L, MCV 100.3 H, MCH 33.3 H, MCHC 33.2, RDW Std Deviation 46.8 H, RDW Coeff of Elliott 12.8, Plt Count 206, MPV 9.2, Sodium 138, Potassium 4.3, Chloride 106, Carbon Dioxide 25.0, Anion Gap 7, BUN 14, Creatinine 0.58, Estim Creat Clear Calc 49.34, Est GFR (MDRD) Af Amer 131, Est GFR (MDRD) Non-Af 109, BUN/Creatinine Ratio 24.3 H, Glucose 97, Calcium 9.3 Micro: Microbiology 06/09/24 13:59 Tissue - Hip Aceabular Membrane Wound Culture - Preliminary No growth-Final to follow 06/09/24 13:59 Tissue - Hip Femoral Membrane Wound Culture - Preliminary No growth-Final to follow 06/09/24 13:59 Tissue - Synovium Wound Culture - Preliminary No growth-Final to follow 06/03/24 14:53 Swab (Method) Nasal Screen MRSA/MSSA - Final Radiography Diagnostic Testing: Radiology Impression Hip X-Ray 06/09/24 15:20 IMPRESSION: Postsurgical changes status post total right hip arthroplasty with single acetabular screw fixation and appears to be in satisfactory position. Electronically Signed: Norberto Hall MD at 17:14 EDT , Physical Exam Narrative Seen and examined Patient does not have acute complaint. Patient has history of smoking cigarettes a pack per day for about 15 years. Quit 40 to 45 years Physical exam General: Alert, Oriented x3, Cooperative HEENT: Atraumatic, PERRLA, EOMI, Normocephalic Oral: Oral mucosa moist no Gingival or Mucosal Lesions/ Ulcerations Neck: Supple, No JVD, Negative Carotid Bruits Chest wall/Lungs: Air entry equal in bilateral lung bases. No crepitation/rhonchi Cardiovascular: Regular rate, Regular Rhythm, Normal S1, Normal S2, No M/G/R Abdomen: Bowel Sounds Present, Soft, Non Tender, Non-Distended : No dysuria. No renal angle tenderness. No suprapubic tenderness. Extremities: No edema, Capillary Refill Less than 3 Seconds Skin: No rashes, No breakdown Musculoskeletal: No Tenderness to Palpation of Joints or Extremities Neurological: Cranial nerves II-XII grossly intact, DTR 2+/4. No acute focal neurological deficit. Psych/Mental Status: Normal Affect, Appropriate. Assessment & Plan Assessment/Plan (1) Right hip pain: PLAN: Plan This 74-year-old female is being admitted for elective right hip total arthroplasty 1. Right hip pain chronic from component impingement: Patient was admitted after elective surgery with revision of right total hip replacement, complete acetabular and femoral components on 06/09/2024. Pain control. Patient is doing well with no nausea or vomiting. Voiding urine spontaneously. Had bowel movement yesterday before surgery. On bowel PT and OT. Cultures from the surgery pending. Prelim Gram stain shows no organisms and no cells. 2. Hyperlipidemia -Continue home pravastatin 3. Carotid artery stenosis -Less than 50% bilaterally -Continue risk modification and pravastatin 4. Chronic back pain -Continue home gabapentin 5. DVT prophylaxis -Per primary service Charges/Coding Visit Charges Inpatient E&M: 34102 Subs Hosp L2
[2024-06-10 14:36] VITALS: BP 128/56; PULSE 80; RESP 18; TEMP 37.1; O2SAT 100
[2024-06-10] MEDS: 0.9% Saline Lock 10 ML Syringe IV ×2 (14:41→23:45)
--- NOTE | 2024-06-10 14:47 | NURSING ---
pt was going to get IV toradol went to give it and IV was bad had to d/c it. Pt refused another one to be placed.
[2024-06-10] MEDS: oxyCODONE 5 MG Tablet PO ×2 (14:51→21:22)
[2024-06-10] MEDS: Gabapentin 300 MG Capsule PO (21:22)
[2024-06-10] MEDS: Pravastatin 20 MG Tablet 60 MG PO (21:24)
[2024-06-10 21:31] VITALS: BP 119/88; PULSE 93; RESP 16; TEMP 37.2; O2SAT 98
[2024-06-10] MEDS: Ondansetron 4 MG/2 ML Vial IV (23:41)
[2024-06-11 03:00] VITALS: BP 121/72; PULSE 91; RESP 16; TEMP 36.9; O2SAT 98
[2024-06-11] MEDS: Acetaminophen 500 MG Tablet 1000 MG PO ×2 (06:24→13:00)
[2024-06-11] MEDS: Aspirin 81 MG TAB.CHEW PO (08:05)
[2024-06-11] MEDS: Meloxicam 7.5 MG Tablet PO (08:05)
[2024-06-11] MEDS: Famotidine 20 MG Tablet PO (08:10)
[2024-06-11 08:16] VITALS: BP 140/65; PULSE 90; PULSE 92; RESP 18; TEMP 37.3; O2SAT 95
--- NOTE | 2024-06-11 08:43 | NURSING ---
lab called, blood ordered this am not drawn, they verify they will be up shortly to draw pt
--- NOTE | 2024-06-11 08:58 | CASEMGMT ---
Addendum entered by Alejandrina Hogan 06/12/24 12:13: TC to pt. She is aware of lab draw needing to be done. Her will still be home on Jun.25 and can transport her. She is aware the order will be at [facility] and she can go to the [facility] or [facility]. Spoke with Carmina PT who is also aware and at pt home. Addendum entered by Alejandrina Hogan 06/12/24 12:08: TC to Sallie at [facility] to check to see if SN can draw pt lab. They are unable to do so. She recommended the [facility] to see pt or for pt to go to the lab and get drawn. Asked if they could follow to make sure that receives the lab and they can. Addendum entered by Alejandrina Hogan 06/11/24 14:31: Per SHASTA, pt will need a f/u appt in 2wks with PCP for labs. Assistant To The Vice President unable to get an appt for 1 month. TC to Sallie at [facility] to see if they are able to draw lab for pt. Sallie to check and notify SHABBIR HUNT back. Addendum entered by Alejandrina Hogan 06/11/24 11:23: Pt aware that [facility] has accepted her for care. Addendum entered by Alejandrina Hogan 06/11/24 10:04: Received tc from Sallie at [facility], they are able to accept pt for SOC tomorrow. Original Note: TC mira Rizo at [facility] to check on status of acceptance for [facility]. Left vm, requesting returned call.
[2024-06-11 09:49] LABS: Hematocrit 28.2 % (37-47); Hemoglobin 9.3 g/dL (12.0-15.0); Mean Platelet Vol. 8.7 fl (6.2-12.0); Platelet Count 180 K/mm3 (150-450); RBC Distribution Width CV 13.1 % (11.6-14.6); RBC Distribution Width SD 47.7 fl (35.1-43.9); Red Blood Count 2.82 M/mm3 (4.2-5.4); White Blood Count 7.2 K/mm3 (4.4-11.0)
[2024-06-11] MEDS: Ketorolac 15 MG/ML Vial IV (09:55)
[2024-06-11] MEDS: Doxycycline 100 MG CAPSULE PO (09:56)
--- NOTE | 2024-06-11 11:21 | PN.ORTHO_ITS ---
Subjective Subjective The patient was sitting in bed upon examination. Patient denies any chest pain, shortness of breath, dizziness, lightheadedness, nausea or vomiting, or calf pain. Patient was not taking the narcotic pain medications. Her pain did get out of control overnight. With use of IV Toradol her pain has been better today. We did have a lengthy discussion about appropriate pain control and taking the medications. Patient does have home health physical therapy established with social insurance administrator. Patient does report having some diarrhea and at this time we will place a hold on the senna. She did have a drop in hemoglobin and will be placed on ferrous sulfate and folic acid. Objective Data Objective Data Vital Signs: Vital Signs Temp Pulse Resp BP Pulse Ox O2 Del Method 99.1 F 92 18 140/65 H 95 Room Air 06/11/24 08:16 06/11/24 08:16 06/11/24 08:16 06/11/24 08:16 06/11/24 08:16 06/11/24 08:16 Oxygen Delivery Method Room Air Weight: 51.437 kg Body Mass Index (BMI) 20.0 Intake & Output: Intake and Output for Last 24 Hours 06/09/24 06/10/24 06/11/24 23:59 23:59 23:59 Intake Total 3747 / 3747 315 / 315 Balance 3747 / 3747 315 / 315 Lab / Micro Data 06/11/24 09:42 06/10/24 07:05 Labs: Laboratory Results - last 24 hr 06/11/24 09:42: WBC 7.2, RBC 2.82 L, Hgb 9.3 L, Hct 28.2 L, MCV 100.0 H, MCH 33.0 H, MCHC 33.0, RDW Std Deviation 47.7 H, RDW Coeff of Elliott 13.1, Plt Count 180, MPV 8.7 Micro: Microbiology 06/09/24 13:59 Tissue - Hip Aceabular Membrane Gram Stain - Final 06/09/24 13:59 Tissue - Hip Aceabular Membrane Wound Culture - Preliminary No growth-Final to follow 06/09/24 13:59 Tissue - Hip Femoral Membrane Gram Stain - Final 06/09/24 13:59 Tissue - Hip Femoral Membrane Wound Culture - Preliminary No growth-Final to follow 06/09/24 13:59 Tissue - Synovium Gram Stain - Final 06/09/24 13:59 Tissue - Synovium Wound Culture - Preliminary No growth-Final to follow 06/03/24 14:53 Swab (Method) Nasal Screen MRSA/MSSA - Final Physical Exam Narrative Vital signs stable and afebrile. Right hip is soft and supple SCDs and SHANNON hose are in place bilaterally Patient is able to plantarflex and dorsiflex actively. Sensation is intact to light touch to saphenous, sural, superficial and deep peroneal, and tibial distribution. Dressing is clean dry and intact. Negative Homans bilaterally, negative signs and symptoms of DVT. Const alert, oriented x3 and no apparent distress Assessment & Plan Assessment/Plan (1) History of revision of total replacement of right hip joint: PLAN: 1. S/P revision right total hip arthroplasty complete acetabular and femoral components POD #2 2. Continue Pain Medications: Tylenol, meloxicam, oxycodone. Do not take any other nonsteroidal anti-inflammatories while using meloxicam/Mobic. I discussed the importance with the patient trying to stay ahead of the game with regards to her pain medications. Yesterday she was not taking the medications and the pain significantly increased. We now have the pain under control with use of IV Toradol. I did recommend she attempt 1 oxycodone every 4 hours as needed but can use to if needed. She did voice understanding. 3. DVT Prophylaxis: Take 81 mg aspirin twice daily for 4 weeks postoperatively for DVT prophylaxis. Patient denies past history of DVT or pulmonary embolism. 4. PT/OT: Weightbearing as tolerated with walker. Continue with posterior hip dislocation precautions for 6 weeks postoperatively. Appreciate recommendations from physical therapy and teaching of those restrictions 5. H & H: 9.3/28.2, asymptomatic. Patient does have some postoperative anemia most likely secondary to acute blood loss from surgery versus dilutional component. Patient vitals are stable. She denies any dizziness or lightheadedness. She will be placed on ferrous sulfate and folic acid. I did explain to her the possibility of ferrous sulfate causing constipation. If this does occur she can move from taking the ferrous sulfate twice daily down to once daily. I will also like her to follow-up with her primary care physician in 2 weeks with repeat lab work. Labs will be placed on chart. 6. Currently on doxycycline for 2 weeks postoperatively. Microbiology wound and tissue specimens were reviewed in chart and currently without any growth. I discussed with the patient potential side effects of doxycycline including sensitivity to the sunlight and increased risk of skin burn. Recommend patient take appropriate precautions. Also recommend patient to take probiotic while on the antibiotic. Patient voiced understanding agreement. 7. Encouraged Incentive Spirometry 8. Patient is aware of postoperative constipation that can occur from 1-3 days postoperatively. Patient states she did have some diarrhea today. Will place a hold on her senna. I will give her a small prescription of the senna in case the ferrous sulfate gives her constipation. If she is having any diarrhea I do not want her using stool softener. She did voiced understanding. 9. Continue postoperative medical treatment per medicine 10. Disposition: Plan will be for discharge home today. pet care worker did establish home health physical therapy. She would like her prescriptions E scribed to [facility]. She will follow-up per postoperative instructions. Again we discussed pain control in great detail. She will also be placed on ferrous sulfate and folic acid. She did have a drop in hemoglobin postoperatively and I would like her to follow back with her primary care provider in 2 weeks with repeat labs. Labs order will be placed on chart. Upon discharge she will contact her office with any concerns or questions. She will follow-up in 2 weeks with x-rays and staple/suture removal. I have reviewed the [place] Automated Rx Reporting System (OARRS) report for this patient for refill pattern and other prescriber involvement as part of the appropriate surveillance for the provision of acute and chronic controlled medications. The report was requested and reviewed on the date of this entry and was considered in the prescribing process. This dictation was created using voice recognition software. Phonetic and/or grammatical errors may exist.
--- NOTE | 2024-06-11 11:26 | DCINST_ITS ---
Discharge Instructions Diet Discharge Diet: No restrictions Activity Discharge Activity: May Not Drive (No driving for 6 weeks postoperatively. Must also be off all narcotics and able to walk 100 feet without the use of cane or walker.) May shower in (days): 1 (only if incision is dry and without drainage. Do NOT soak/submerge in tub/pool/butcher/stream/hot tub.)) Ice area for (Minutes): 20 (Every 1-2 hours while awake[address] barrier between ice and skin.) Weight Bearing Status: Weight bearing as tolerated Keep extremity elevated above heart level: Operative Extremity Dressing / Incision Call your doctor if your incision/area has: Continuous Slow Oozing, Sudden Increased Bleeding, Increased Pain/ Swelling, Increased Redness and Foul Smelling Discharge Call your doctor if you observe: Fever of 101 or Higher, Shortness of breath, Chest pain, Calf discomfort and Uncontrolled pain Remove Dressing in: 3 days (Okay to remove dressing on June 14, 2024) Additional Dressing/Incision Instructions:: Follow [facility] Post-op Instructions. Once postoperative dressing has been removed, only use gentle soap and water over the incision. Do not use any ointments, Neosporin, salves, alcohol pads over the incision for 6 weeks postoperatively. Do not submerge underwater for 6 weeks postoperatively. Continue with SHANNON hose/elastic stockings for 2 weeks postoperatively. May remove at nighttime but needs to be placed back on the leg during the day. Do NOT use alcohol with narcotic pain medication. Do NOT make important decisions while taking narcotic medication. If you have problems with taking your medication (rash, itching, nausea, etc.) call the office at once. When taking the ferrous sulfate and folic acid, if the ferrous sulfate causes constipation please use stool softener as needed. You may also reduce from twice daily down to once daily if having significant constipation. Will have you follow-up with your primary care provider in 2 weeks with repeat labs and further management with your postoperative anemia. Follow Up Care Test Results: Test results from this visit will be discussed in further detail at your follow- up appointment, if applicable. Discharge Plan Admission Admit Date/Time: 06/09/24 14:35 Attending Provider: Abner Farrell Primary Care Provider: Susan Rojas Consulting Providers: Ken Chaudhary; Elenita Hurley; Immanuel Myers; Salazar Gill Discharge Orders/Prescriptions Prescriptions: New acetaminophen 500 mg Tablet 1,000 mg PO TID 14 Days Qty: 84 0RF Rx Instructions: Do not take more than 3000 mg Tylenol in a 24-hour period. aspirin 81 mg Tablet,Chewable 81 mg PO BIDCM 30 Days Qty: 60 0RF Rx Instructions: Take 81 mg aspirin twice daily for 4 weeks postoperatively for DVT prophylaxis. doxycycline monohydrate 100 mg Capsule 100 mg PO BID 12 Days Qty: 24 0RF Rx Instructions: Take for 2 weeks postoperatively famotidine 20 mg Tablet 20 mg PO DAILY 30 Days Qty: 30 0RF ferrous sulfate [FeroSul] 325 mg (65 mg iron) Tablet 325 mg PO 1200,1700 14 Days Qty: 28 0RF folic acid 1 mg Tablet 1 mg PO BREAKFAST 14 Days Qty: 14 0RF oxycodone 5 mg Tablet 5 - 10 mg PO Q4H PRN PRN (Reason: as needed for pain) 7 Days Qty: 42 0RF sennosides-docusate sodium [Stimulant Laxative Plus] 8.6-50 mg Tablet 2 tab PO BID 3 Days Qty: 12 0RF Rx Instructions: Only use if experiencing constipation. Continued pravastatin [Pravachol] 40 mg tablet 60 mg PO DAILY gabapentin 300 mg capsule 300 mg PO TID PRN (Reason: PAIN ) meloxicam 15 mg tablet 15 mg PO DAILY coenzyme [id number] E 100-100 mg-unit capsule 2 cap PO DAILY cholecalciferol (vitamin D3) 5,000 unit capsule 5,000 unit PO DAILY biotin 5,000 mcg tablet, sublingual 5,000 mcg SUBLINGUAL DAILY calcium carbonate-vitamin D3 [Calcium 600 + D(3)] 600 mg-5 mcg (200 unit) tablet 2 tab PO DAILY mecobalamin (vitamin B12) [B12 Active] 1,000 mcg tablet,chewable 1,000 mcg PO DAILY Eye Multivitamin 2,148 mcg-113 mg-45 mg-17.4mg tablet 2 tab PO BID Rx Instructions: administer with AM and PM meals Held yzuryqiz-vvelo-ell8-C-oj-bor [Ckuduqnn-Rqkjy-KPU(with boron)] 904-375-02-1 mg tablet 2 tab PO BID Hold Instructions: Resume on 06/25/24. [employer] 40-10-5-3.3 mg tablet 1 tab PO DAILY Hold Instructions: Resume on 06/25/24. fdikpvea-rpldbeodbhxhgi-qhk C 260-30 mg capsule 1 cap PO DAILY Hold Instructions: Resume on 06/25/24. Other Ambulatory Orders: CBC-Complete Blood Cnt No Diff (Routine) Timeframe: 2 Weeks Facility: [facility] - Location: Laboratory Ordered By: Gabriel VEGAS Referrals / Follow Up: Susan Rojas DO [Primary Care Provider] - (follow up in 2 weeks with labs) Danica Catalan PA [Med Staff - Adv Practice Prof] - 06/23/24 10:15 am Disposition Disposition (needs filled in before D/C Order can be placed): Home Health Service
[2024-06-11] MEDS: Gabapentin 300 MG Capsule PO (11:27)
[2024-06-11] MEDS: oxyCODONE 5 MG Tablet PO (11:27)
[2024-06-11] MEDS: Ferrous Sulfate 325 MG Tablet PO (11:35)
[2024-06-11 14:00] VITALS: BP 133/78; PULSE 88; RESP 18; TEMP 36.7; O2SAT 94
== END 2024-06-11 15:14 | disposition home health service (06) | DRG 468 ==
LOC: MS3 06-10 09:45 → ACINP 06-11 09:25
PROVIDERS: Anesthesiology; Physician Assistant Surgical; Admitting Provider Specialist; PCP Internal Medicine; Referring Provider Specialist; Visit Provider Specialist
PROC: 0SR904Z Replacement of Right Hip Joint with Ceramic on Polyethylene Synthetic Substitute, Open Approach (ICD-10-PCS; CPT 27134; principal; 2024-06-09 11:00)
DX: T84.84XA Pain due to internal orthopedic prosthetic devices, implants and grafts, initial encounter (principal); E78.00 Pure hypercholesterolemia, unspecified; I65.23 Occlusion and stenosis of bilateral carotid arteries; M25.851 Other specified joint disorders, right hip; M50.30 Other cervical disc degeneration, unspecified cervical region; M51.36 Other intervertebral disc degeneration, lumbar region; F17.210 Nicotine dependence, cigarettes, uncomplicated; R19.7 Diarrhea, unspecified; G89.29 Other chronic pain; Y79.2 Prosthetic and other implants, materials and accessory orthopedic devices associated with adverse incidents; Z79.1 Long term (current) use of non-steroidal anti-inflammatories (NSAID); Z79.82 Long term (current) use of aspirin; Z79.899 Other long term (current) drug therapy; Z96.641 Presence of right artificial hip joint
CPT/HCPCS: 36415; 73502; 80048; 82962; 83735; 85027; 87015; 87070; 87075; 87077; 87081; 87102; 87116; 87176; 87205; 87206; 94668; 97110; 97162; 97166; 97530; 97535; 99252; C1713; C1776; J7050; J7120; A4216; G0463; J2405; J3475

== ENCOUNTER → 2024-06-23 | Outpatient (CLI) | payer MEDICARE, SELFPAY ==
[2024-06-23 12:39] LABS: Hematocrit 31.5 % (37-47); Hemoglobin 9.9 g/dL (12.0-15.0); Mean Corp Hgb Conc 31.4 g/dL (32-36); Mean Corpuscular Hgb 32.2 pg (27.0-32.0); Mean Corpuscular Volume 102.6 fL (81-99); Mean Platelet Vol. 8.3 fl (6.2-12.0); Platelet Count 514 K/mm3 (150-450); RBC Distribution Width CV 13.5 % (11.6-14.6); RBC Distribution Width SD 50.6 fl (35.1-43.9); Red Blood Count 3.07 M/mm3 (4.2-5.4); White Blood Count 6.6 K/mm3 (4.4-11.0)
== END | disposition home or self-care (01) ==
PROVIDERS: PCP Internal Medicine; Referring Provider Physician Assistant Surgical; Visit Provider Physician Assistant Surgical
DX: D64.9 Anemia, unspecified (principal)
CPT/HCPCS: 36415; 85027

== ENCOUNTER → 2024-07-07 | Outpatient (CLI) | payer MEDICARE, SELFPAY ==
--- NOTE | 2024-07-07 10:02 | BI_ITS ---
MAMMOGRAPHY - BILATERAL SCREENING 3-D TOMOSYNTHESIS REASON FOR EXAM: Female, 74 years old. screening PERTINENT HISTORY: No significant family history. TECHNIQUE: 2-D mammograms and 3-D Tomosynthesis of the breast (s) were performed. CAD was performed. COMPARISON: 06/26/2023 FINDINGS: The breast composition is Extermely dense tissue. Scattered benign calcifications are seen. No dense spiculated masses or suspicious microcalcifications are identified. No architectural distortion is identified. There is no skin thickening or retraction. There has been no significant change since the prior study. No change in innumerable punctate calcifications throughout both breasts. BI/SCRN MAMM (CAD)W/LEN BILAT IMPRESSION: No mammographic signs of malignancy. Routine yearly mammograms recommended. ASSESSMENT CATEGORY: BIRADS Category 2: Benign. A letter regarding these results will be sent to the patient by the facility within 30 days. FOLLOW UP RECOMMENDATION: Yearly follow up mammogram recommended. (A) Approximately 10% of breast cancers are not detected by mammography. A normal mammogram should not delay biopsy of a clinically suspicious abnormality. Electronically Signed: Jose Turner MD at 14:14 EDT ,
== END | disposition home or self-care (01) ==
LOC: OPBI 10:02
PROVIDERS: PCP Internal Medicine; Referring Provider Internal Medicine; Visit Provider Internal Medicine
DX: Z12.31 Encounter for screening mammogram for malignant neoplasm of breast (principal)
CPT/HCPCS: 77063; 77067

== ENCOUNTER → 2025-04-13 | Outpatient (CLI) | payer MEDICARE, SELFPAY | END | disposition home or self-care (01) | LOC: LABSPEC 10:45 | PROVIDERS: PCP Internal Medicine | DX: Z47.1 Aftercare following joint replacement surgery (principal); M16.12 Unilateral primary osteoarthritis, left hip; Z96.642 Presence of left artificial hip joint | CPT/HCPCS: 87070; 87205 ==

== ENCOUNTER → 2025-07-10 | Outpatient (CLI) | payer MEDICARE, SELFPAY ==
--- NOTE | 2025-07-10 10:45 | BI_ITS ---
EXAM: SCRN MAMM (CAD)W/LEN BILAT DATE: 07/10/2025 CLINICAL HISTORY: F, Age 75 y/o , SCRN MAMM (CAD)W/LEN BILAT (26171) : DUE AFTER 07/07/2025 TECHNIQUE: Procedure Code: [id number] Modality: MG Procedure: SCRN MAMM (CAD)W/LEN BILAT COMPARISON: Prior exam(s) dated 07/07/2024, 06/26/2023. FINDINGS: TISSUE DENSITY: The breasts are heterogeneously dense, which may obscure small masses. The mammogram demonstrates that the patient has dense breasts. Supplemental screening with whole breast ultrasound or MRI may be considered for further evaluation. Bilateral Breast Mammographic Findings: No significant masses, calcifications or other abnormalities are identified. BI/SCRN MAMM (CAD)W/LEN BILAT IMPRESSION: There is no mammographic evidence of malignancy. OVERALL FINAL ASSESSMENT BI-RADS 1: NEGATIVE. RECOMMENDATION: Routine annual follow-up in 1 Year Additional Recommendation none A letter with findings and recommendations will be mailed to the patient. Reading Location: [id number]
== END | disposition home or self-care (01) ==
LOC: OPBI 10:44
PROVIDERS: PCP Internal Medicine; Referring Provider Internal Medicine; Visit Provider Internal Medicine
DX: Z12.31 Encounter for screening mammogram for malignant neoplasm of breast (principal)
CPT/HCPCS: 77063; 77067

== ENCOUNTER → 2025-07-16 | Outpatient (CLI) | payer MEDICARE, SELFPAY ==
--- NOTE | 2025-07-16 12:31 | BD_ITS ---
PROCEDURE: DEXA BONE DENSITY/APPEND SKEL 07/16/2025 REASON FOR EXAM: F, age 75 y/o . Postmenopausal. TECHNIQUE: Procedure Code: BDDBDAPP Modality: DX Procedure: DEXA BONE DENSITY/APPEND SKEL COMPARISON: Prior examination dated June 26, 2023. FINDINGS: BMD and T-SCORES Lumbar spine: 1.048 g/cm2, T-score 0.0 Levels: L1 through L4 Change from prior: Loss of 4.3%. Left 1/3 radius: 0.461 g/cm2, T-score -2.2 The World Health Organization has defined the following categories based on bone density: Normal bone density: T-score equal to or greater than -1.0 Osteopenia: T-score between -1.0 and -2.5 Osteoporosis: T-score equal to or less than -2.5 The patient does meet the pharmacological treatment recommendations for prevention of osteoporosis. BD/Dexa Bone Density/Append Skel IMPRESSION: OSTEOPENIA. Recommend follow-up as clinically warranted. Reading Location: [place] [id number]
--- NOTE | 2025-07-16 12:31 | BD_ITS ---
PROCEDURE: DEXA BONE DENSITY/APPEND SKEL 07/16/2025 REASON FOR EXAM: F, age 75 y/o . Postmenopausal. TECHNIQUE: Procedure Code: BDDBDAPP Modality: DX Procedure: DEXA BONE DENSITY/APPEND SKEL COMPARISON: Prior examination dated June 26, 2023. FINDINGS: BMD and T-SCORES Lumbar spine: 1.048 g/cm2, T-score 0.0 Levels: L1 through L4 Change from prior: Loss of 4.3%. Left 1/3 radius: 0.461 g/cm2, T-score -2.2 The World Health Organization has defined the following categories based on bone density: Normal bone density: T-score equal to or greater than -1.0 Osteopenia: T-score between -1.0 and -2.5 Osteoporosis: T-score equal to or less than -2.5 The patient does meet the pharmacological treatment recommendations for prevention of osteoporosis. BD/Dexa Bone Density/Append Skel IMPRESSION: OSTEOPENIA. Recommend follow-up as clinically warranted. Reading Location: [place] [id number]
== END | disposition home or self-care (01) ==
LOC: OPBD 12:30
PROVIDERS: PCP Internal Medicine; Referring Provider Internal Medicine; Visit Provider Internal Medicine
DX: Z78.0 Asymptomatic menopausal state (principal); M85.80 Other specified disorders of bone density and structure, unspecified site
CPT/HCPCS: 77081